=== PATIENT | female | born 1985 | race Caucasian/White ===

== ENCOUNTER 2020-04-18 11:34 | Outpatient (CLI) | payer OTHER, SELFPAY ==
--- NOTE | ~2020-04-18 | CT_ITS ---
EXAMINATION: CT abdomen pelvis wo con DATE: 04/18/2020 12:29 INDICATION: Right ureteral stone TECHNIQUE: Computed tomography (CT) of the abdomen and pelvis was performed without intravenous contr ast. The dose-length product (DLP) was 1173.76 mGy-cm. Automated exposure control and iterative recon struction technique were employed. COMPARISON: Outside hospital CT dated 04/11/2020 FINDINGS: The lung bases are clear. The heart size is normal. A calcified nodule of the left lower lo be is consistent with old granulomatous disease. The liver, spleen, pancreas, gallbladder, and adrena l glands are normal. There is a 7 mm stone of the distal right ureter which causes mild right hydrour eteronephrosis. This has migrated from its location in the proximal ureter since the comparison exami [facility]. A 6 mm stone is present in the lower pole of the right kidney. The left kidney is unremarkabl e. No pathologically enlarged abdominal or pelvic lymph nodes are identified. There is no free intrap eritoneal gas or evidence of bowel obstruction. There is moderate lumbar spondylosis. IMPRESSION: 1. Interval distal migration of a 7 mm stone into the distal right ureter with mild right hydroureter onephrosis. 2. Nonobstructing right nephrolithiasis. Reviewed, dictated and finalized at location A. CAL TRANSCRIPTIONIST IMPRESSION: 1. Interval distal migration of a 7 mm stone into the distal right ureter with mild right hydroureteronephrosis. 2. Nonobstructing right nephrolithiasis.
--- NOTE | ~2020-04-18 | XR_ITS ---
EXAMINATION: XR abdomen/kub 1V INDICATION: Right ureteral stone TECHNIQUE: Supine views of the abdomen were obtained on 4 radiographs. COMPARISON: 05/06/2016 FINDINGS: A 5 mm stone projects in the right pelvis in the expected location of the distal right uret er. The bowel gas pattern is normal. The visualized lung bases are clear. IMPRESSION: 1. Probable 5 mm right distal ureteral stone. Reviewed, dictated and finalized at location A. INING SUPERVISOR
== END 2020-04-18 11:35 ==
PROVIDERS: PCP Internal Medicine; Visit Provider Urology
DX: N20.2 Calculus of kidney with calculus of ureter (principal)
CPT/HCPCS: 74018; 74176

== ENCOUNTER → 2020-04-19 01:24 | Outpatient (CLI) | payer OTHER, SELFPAY ==
[2020-04-19 20:12] LABS: SARS-CoV-2 RNA PCR Negative
== END ==
PROVIDERS: PCP Internal Medicine; Visit Provider Urology
DX: Z01.812 Encounter for preprocedural laboratory examination (principal); Z20.822 Contact with and (suspected) exposure to COVID-19
CPT/HCPCS: C9803; U0003; U0005

== ENCOUNTER 2020-04-20 02:13 | Day surgery (SDC) | payer OTHER, SELFPAY ==
[2020-04-18 18:29] VITALS: BMI 70.0
--- NOTE | ~2020-04-20 | XR_ITS ---
EXAMINATION: XR retrograde pyelo w/stent RT EXAM DATE: 04/20/2020 11:08 INDICATION: Right ureteral stone. TECHNIQUE: Fluoroscopy used during XR retrograde pyelo w/stent RT performed by Dr. Quincy chau MD. The DAP for this procedure was 874 radcm2 FINDINGS: Right ureter was cannulated, injected. A double-J ureteral stent was placed in expected po sition. Correlate with procedure note. IMPRESSION: Fluoroscopy used during XR retrograde pyelo w/stent RT. Reviewed, dictated and finalized at location A. CLE REPAIR TECHNICIAN
[2020-04-20 09:37] VITALS: BP 145/77; PULSE 105; RESP 14; TEMP 36.4; O2SAT 99
--- NOTE | 2020-04-20 10:13 | WPDHPUPDATE1 ---
History and Physical Update Update Date/Time: 04/20/20 10:13 History and Physical has been reviewed, including an updated exam of the patient. There are NO changes in the patient's condition. Risks, benefits, and alternatives have been discussed and questions answered. Patient agrees to proceed with procedure. Plan for cystoscopy, right retrograde pyelogram, right ureteroscopy with stone extraction, possible holmium laser stent placement
[2020-04-20] MEDS: LACTATED RINGERS 1,000 ML 30 ML IV CONT (10:15)
--- NOTE | 2020-04-20 10:16 | WPDANESEPPF ---
Anes - Initial Pre Proc Eval Procedure: Operation Date: 04/20/20 11:30 Proposed Procedures p Cystoscopy, Right Retrograde Pyelogram, Right Ureteroscopy With Stone Extraction, Possible Right Stent Placement - Quincy Devries MD s Possible Holmium Laser Procedure - Quincy Devries MD Date/Time: 04/20/20 10:16 Surgeon: Quincy Devries MD Pre Op Diagnosis: Right Ureteral Stone Patient Data Age: 34 Gender: F Height: 5 ft 6 in Weight: 194 kg Last Vital Signs Temp 97.5 F L 04/20/20 09:37 Pulse 105 H 04/20/20 09:37 Resp 14 04/20/20 09:37 BP 145/77 H 04/20/20 09:37 Pulse Ox 99 04/20/20 09:37 Allergies Allergy/AdvReac Type Severity Reaction Status Date / Time jack flavor Allergy Severe TONGUE AND Verified 04/20/20 09:40 THROAT SWELLING clindamycin Allergy Severe Swelling Verified 04/20/20 09:40 of Lip/Tongue/Throat pseudoephedrine Allergy Severe HIVES Verified 04/20/20 09:40 amoxicillin Allergy Intermediate Rash Verified 04/20/20 09:40 Sulfa (Sulfonamide Allergy Intermediate Rash Verified 04/20/20 09:41 Antibiotics) metronidazole [From Flagyl] Allergy Mild Rash Verified 04/20/20 09:40 cefdinir AdvReac Severe SEVERE Verified 04/20/20 09:40 DIARRHEA/STOMACH PAIN cephalexin AdvReac Mild NAUSEA, Verified 04/20/20 09:40 DIARRHEA ciprofloxacin AdvReac Mild RASH Verified 04/20/20 09:40 doxycycline AdvReac Mild NAUSEA/DIAR Verified 04/20/20 09:40 BEN levofloxacin AdvReac Mild RASH Verified 04/20/20 09:40 Penicillins AdvReac Mild VOMITING Verified 04/20/20 09:40 Home Medications Medication Instructions Recorded Confirmed Type albuterol sulfate [Ventolin HFA] 1 puff INHALATION 2XW 04/18/20 04/20/20 History apixaban [Eliquis] 2.5 mg PO DAILY 04/18/20 04/20/20 History cholecalciferol (vitamin D3) 125 mcg PO DAILY 04/18/20 04/20/20 History [Vitamin D3] diltiazem HCl 240 mg PO DAILY 04/18/20 04/20/20 History ergocalciferol (vitamin D2) 1,250 mcg PO WEEKLY 04/18/20 04/20/20 History levothyroxine 200 mcg PO DAILY 04/18/20 04/20/20 History olmesartan 20 mg PO DAILY 04/18/20 04/20/20 History omeprazole 20 mg PO DAILY 04/18/20 04/20/20 History tamsulosin [Flomax] 0.4 mg PO DAILY 04/18/20 04/20/20 History topiramate 50 mg PO DAILY 04/18/20 04/20/20 History Patient hx anesthesia problems: none Family hx anesthesia problems: none [facility] Past Medical History Medical History (Updated 04/20/20 @ 10:18 by Demar Barroso MD) Asthma GERD (gastroesophageal reflux disease) Hypertension Hypothyroid Family History Family History (Updated 09/28/15 @ 23:19 by DOCTOR UNKNOWN) Grandparent Hypertension Family history of congestive heart failure Family history of hearing loss Father Family history of diabetes mellitus in first degree relative Social History Social History Smoking status: Heavy tobacco smoker Tobacco type: cigarettes Second hand tobacco smoke exposure: Yes Smoking end date: 03/02/11 Additional smoking assessment comments: 1 ppd x 12 years Alcohol intake: current Living arrangements: with family Spiritual care concerns: No Anes - Eval Final PreProcedure Day of Procedure 04/20/20 10:16 Patient weight: super morbidly obese (super super> than 60 BMI) Heart: regular rate and rhythm Lungs: clear to auscultation Airway: Mallampati scale class III Neurological: alert and oriented Last oral intake: >/= 8 hours ASA classification: IV Emergent: no Anesthetic plan: proceed Anesthesia type and monitoring: general LMA and standard monitoring Informed Consent: The patient's anesthetic plan and its attendant risks and benefits were discussed with the patient/family/POA. Questions were solicited and answers provided to the satisfaction of the patient/family/POA.
[2020-04-20] MEDS: ceFAZolin 3 GM/D5W 100 ML 100 ML IVPB (10:44)
[2020-04-20] MEDS: LIDOCAINE HCL 2% GEL UROJET 10 ML PKG MUCOUS MEM (10:50)
--- NOTE | 2020-04-20 11:07 | PM.PROC ---
Procedure Note - Detailed Date of procedure: 04/20/20 Pre-op diagnosis: Right Ureteral Stone Post-op diagnosis: same Procedure performed: Cystoscopy, right retrograde pyelogram, right ureteroscopy with holmium laser, stone extraction, right ureteral stent placement 4.8 Dominican contour Description of procedure: Patient is taken the operative suite and correctly identified. Once anesthesia was obtained she was placed in the dorsal lithotomy position and prepped and draped usual sterile fashion. Twenty-two Dominican scope was inserted urethra. There are no tumors noted. The right orifice was Mead with a guidewire. We dilated with an 8 / 10 dilator. Rigid ureteral scope was then inserted into the orifice. The stone was too large to retrieve 1 piece. Using a 273 micron fiber we fragment the stone into multiple pieces. The largest was sent for analysis. Reinspection revealed no residual stones. Pyelogram was then performed to confirm placement of the stent in the renal pelvis. 4.8 Dominican contour stent was then placed with proximal end coiled pelvis and the distal in bladder. Bladder was drained. 2% viscous lidocaine was inserted urethra patient is taken recovery room stable condition. She will follow up in a week's time for stent removal. Anesthesia: GLMA Surgeon: Quincy Devries MD Drains: Yes Packing: No Pathology: yes Complications: No immediate complications Condition: stable Disposition: PACU
[2020-04-20 11:14] VITALS: BP 126/71; PULSE 88; RESP 19; TEMP 36.4; O2SAT 99
[2020-04-20 11:30] VITALS: BP 125/61; PULSE 80; RESP 18; O2SAT 99
[2020-04-20 11:45] VITALS: BP 126/80; PULSE 87; RESP 16; O2SAT 98
--- NOTE | 2020-04-20 11:49 | SUR.PHASEI ---
PT AWAKE AND ALERT. TALKATIVE. DENIES PAIN. NO NAUSEA.
[2020-04-20 11:55] VITALS: BP 134/70; PULSE 80; RESP 16
[2020-04-20 12:25] VITALS: BP 123/70; PULSE 75; RESP 16
[2020-04-20] MEDS: OXYBUTYNIN CHLORIDE 5 MG TABLET PO (12:49)
--- NOTE | 2020-04-20 13:32 | SUR.PHASEII ---
1245 PT MEETS ANESTHESIA DISCHARGE CRITERIA. PT DRESSED. PT REQUESTING A MEDICATION THAT IS NON-NARCOTIC FOR THE URGENCY SHE IS FEELING. DR MOSES NOTIFIED & OXYBUTININ ORDERED. STATES HE WILL SEND PRESCRIPTION TO PTS PHARMACY FOR OXYBUTININ. 1300 DISCHARGE INSTRUCTIONS GIVEN TO PT & MOTHER. PRESCRIPTION FOR BACTRIM ORDERED AND PT STATES SHE HAS AN ALLERGY TO BACTRIM. PT STATES IT CAUSES A RASH. PT INSISTS ON USING BACTRIM. PT STATES IF SHE DEVELOPS ANY REACTION SHE WILL CALL HER DOCTOR.
== END 2020-04-20 13:01 | disposition home or self-care (01) ==
PROVIDERS: PCP Internal Medicine; Visit Provider Urology
PROC: (CPT 52352; principal; 2020-04-20 11:30)
PROC: (CPT 52356; 2020-04-20 11:30)
DX: N20.1 Calculus of ureter (principal); I10 Essential (primary) hypertension; E03.9 Hypothyroidism, unspecified; J45.909 Unspecified asthma, uncomplicated; K21.9 Gastro-esophageal reflux disease without esophagitis; Z79.01 Long term (current) use of anticoagulants; Z87.891 Personal history of nicotine dependence; E66.01 Morbid (severe) obesity due to excess calories; Z68.44 Body mass index [BMI] 60.0-69.9, adult
CPT/HCPCS: 52356; 74420; 82365; 88300; A9270; C1769; C2617; C9803; J0330; J0690; J1100; J2250; J2405; J2704; J3010; J7120; Q9966; U0003; U0005

== ENCOUNTER → 2020-06-09 07:53 | Outpatient (CLI) | payer OTHER, SELFPAY ==
--- NOTE | ~2020-06-09 | XR_ITS ---
EXAMINATION: XR abdomen/kub 1V INDICATION: Bilateral renal stones TECHNIQUE: Supine views of the abdomen were obtained on 2 radiographs. COMPARISON: 04/18/2020 FINDINGS: No definite urolithiasis is identified. The previously described right distal ureteral ston e is no longer evident. The bowel gas pattern is normal. The lung bases are clear. There is moderate lumbar spondylosis. IMPRESSION: 1. No urolithiasis identified. Reviewed, dictated and finalized at location A.
== END ==
PROVIDERS: Visit Provider Urology
DX: N20.0 Calculus of kidney (principal)
CPT/HCPCS: 74018

== ENCOUNTER 2021-04-12 12:55 | Outpatient (CLI) | payer BC, SELFPAY ==
--- NOTE | ~2021-04-12 | US_ITS ---
EXAMINATION: US venous doppler [facility] EXAM DATE: 04/12/2021 13:27 INDICATION: Acute Deep Vein Thrombosis of left tibial vein. Coagulopathy, Factor V deficiency. TECHNIQUE: Multiple grayscale, color flow and Doppler images of the left lower extremity deep venous system obtained and reviewed. Comparison is made to prior examination from 01/04/2019. FINDINGS: LEFT SIDE Common femoral: -------- Normal. Profunda femoral: ------- Normal. Femoral: Normal. Popliteal: Thrombosed. Posterior tibial: --------- Normal. Peroneal: Normal. Gastrocnemius: Not visualized. Soleus: Not visualized. Greater saphenous: ----- Normal. Lesser saphenous: ------ Not visualized. IMPRESSION: Left popliteal DVT. Reviewed, dictated and finalized at location B. ERSON IMPRESSION: Left popliteal DVT.
== END 2021-04-12 12:56 | disposition home or self-care (01) ==
PROVIDERS: PCP Internal Medicine; Visit Provider Internal Medicine Hematology & Oncology
DX: I82.432 Acute embolism and thrombosis of left popliteal vein (principal)
CPT/HCPCS: 93971

== ENCOUNTER 2021-07-16 10:31 | Outpatient (CLI) | payer BC, SELFPAY ==
--- NOTE | ~2021-07-16 | US_ITS ---
EXAMINATION: US venous doppler [facility] DATE: 07/16/2021 11:32 INDICATION: Acute deep vein thrombosis of tibial vein of left lower extremity. TECHNIQUE: Grayscale ultrasound images without and with compression and Doppler ultrasound images of the left lower extremity veins were obtained. COMPARISON: Ultrasound 04/12/2021 FINDINGS: The visualized portions of left common femoral vein, profunda (deep) femoral vein, femoral vein, popl iteal vein, peroneal veins, posterior tibial veins, and greater saphenous vein outflow are patent. Th ere is subcutaneous edema in the calf. IMPRESSION: 1. No deep venous thrombosis. Reviewed, dictated and finalized at location B.
== END 2021-07-16 10:32 | disposition home or self-care (01) ==
PROVIDERS: PCP Internal Medicine; Visit Provider Internal Medicine Hematology & Oncology
DX: I82.442 Acute embolism and thrombosis of left tibial vein (principal)
CPT/HCPCS: 93971

== ENCOUNTER → 2022-03-10 09:10 | Outpatient (CLI) | payer BC, SELFPAY ==
--- NOTE | ~2022-03-10 | XR_ITS ---
EXAMINATION: XR chest 2V DATE: 03/10/2022 09:41 INDICATION: Wheezing, history of asthma TECHNIQUE: AP and lateral views of the chest are obtained. COMPARISON: None available FINDINGS: The lungs are free of acute opacities. No pleural effusion or pneumothorax. The cardiomedia stinal silhouette is normal. There is mild thoracic spondylosis. IMPRESSION: 1. No acute cardiopulmonary abnormality. Reviewed, dictated and finalized at location B. RALIZATION EXAMINER
--- NOTE | ~2022-03-10 | US_ITS ---
EXAMINATION: US thyroid DATE: 03/10/2022 09:32 INDICATION: Nontoxic goiter. Hypothyroidism. TECHNIQUE: Multiple ultrasound images of the thyroid were obtained. COMPARISON: None. FINDINGS: The right thyroid lobe measures 4.1 x 0.9 x 0.9 cm. The left thyroid lobe measures 4.1 x 1.1 x 1.0 c m. No discrete nodules identified. There is normal echotexture, echogenicity and vascular flow throu ghout the thyroid gland. IMPRESSION: 1. Normal thyroid ultrasound. Reviewed, dictated and finalized at location A. ATRIC DENTIST
== END ==
PROVIDERS: PCP Physician Assistant Medical; Visit Provider Internal Medicine Endocrinology, Diabetes & Metabolism
DX: E04.9 Nontoxic goiter, unspecified (principal); R09.89 Other specified symptoms and signs involving the circulatory and respiratory systems
CPT/HCPCS: 71046; 76536

== ENCOUNTER → 2022-05-23 09:45 | Outpatient (CLI) | payer BC, SELFPAY ==
--- NOTE | ~2022-05-23 | US_ITS ---
EXAMINATION: US soft tissue LE LT DATE: 05/23/2022 09:59 INDICATION: Subcutaneous edema at the proximal left calf with pain TECHNIQUE: Multiple grayscale and Doppler ultrasound images of the region of concern at the anterior left proximal lower leg were obtained. COMPARISON: None FINDINGS: Soft tissue swelling and reticulated pattern of anechoic subcutaneous edema at the region of concern at the proximal left aiken. Larger more discrete anechoic fluid collection within the subcutaneous fat measuring 2.2 x 1.7 x 1.5 cm which is without interval vascular flow on color Doppler or surrounding hyperemia. IMPRESSION: 1. Simple appearing 2.2 x 1.7 x 1.5 cm anechoic fluid collection with surrounding edema in the subcut aneous fat at the anterior proximal left aiken. Differential would include a localized nonloculated co llection of edema, hematoma, seroma or abscess in the appropriate clinical setting. Reviewed, dictated and finalized at location A. IMPRESSION: 1. Simple appearing 2.2 x 1.7 x 1.5 cm anechoic fluid collection with surroundi ng edema in the subcutaneous fat at the anterior proximal left aiken. Differenti al would include a localized nonloculated collection of edema, hematoma, seroma or abscess in the appropriate clinical setting.
== END ==
PROVIDERS: PCP Physician Assistant Medical; Visit Provider Physician Assistant Medical
DX: R60.0 Localized edema (principal); M79.662 Pain in left lower leg
CPT/HCPCS: 76882

== ENCOUNTER 2022-06-02 14:44 | Outpatient (CLI) | payer BC, SELFPAY ==
--- NOTE | ~2022-06-02 | XR_ITS ---
EXAMINATION: XR abdomen/kub 1V INDICATION: Right ureteral stone TECHNIQUE: Supine views of the abdomen were obtained on 2 radiographs. COMPARISON: 06/09/2020 FINDINGS: There is a possible 8 mm stone of the right mid ureter projecting at the level of the right L5 transverse process. The bowel gas pattern is normal. There is moderate lumbar spondylosis. IMPRESSION: 1. Possible 8 mm stone of the right mid ureter. Reviewed, dictated and finalized at location L.
== END 2022-06-02 14:45 | disposition home or self-care (01) ==
LOC: ANHIMG 14:49
PROVIDERS: PCP Physician Assistant Medical; Visit Provider Nurse Practitioner Adult Health
DX: N20.1 Calculus of ureter (principal)
CPT/HCPCS: 74018

== ENCOUNTER 2022-06-05 01:49 | Day surgery (SDC) | payer BC, SELFPAY ==
[2022-06-04 09:55] VITALS: BMI 72.0
--- NOTE | 2022-06-04 10:02 | PC.NURSE ---
Report to the Outpatient Waiting Room, entrance under the green pavilion located off [facility], at time 1345 on date 06/05/22. Planned Procedure Time: 1545. Time changes happen often and if your time is changed the preop area will call you the afternoon before. - You and your visitor will be asked to self-screen and do not enter if you have any COVID symptoms. - Only one visitor is requested with a max of two and NO children visitors are allowed at this time. - The patient visitor may be requested to leave or wait in car when not with patient due to distancing restrictions. - A mask is optional within the hospital at this time. Patients may have clear liquids (water, carbonated beverages, clear teas, apple juice) until 3 hours prior to surgery with a maximum of 20 ounces. - No food from midnight until time of surgery Take the following medications with a SIP of water the morning of surgery: INHALERS IF NEEDED, LEVOTHYROXINE DO NOT STOP ANY OF YOUR OTHER PRESCRIPTION MEDICATIONS PRIOR TO SURGERY EXCEPT THE FOLLOWING Medications to discontinue per physician: ELIQUIS, VITAMINS Date to take last dose: HAVE NOT TAKEN SINCE THURSDAY 06/01 Please no make-up, nail indonesian, hairspray, perfume, deodorant, or body powder the day of surgery. No jewelry (including any body piercings) or valuables the day of surgery, leave them at home. Please take a shower or bath the night before, or the morning of, surgery with an antibacterial soap. Wear comfortable, loose fitting clothing. - Jewelry must be removed prior to entering the operating room. Rings and piercings that are not removed may be cut off. - The hospital will not accept responsibility for valuables. - Please leave all valuables, including medications, at home the day of surgery. If you are going home after surgery, a licensed electric lift truck driver must drive you home. - NO public transportation without another adult if you receive anesthesia. - We recommend that an adult stay with you for 24 hours following discharge. - We also recommend that you do not drive, make important decision, drink alcoholic beverages, or take any drugs that were not prescribed by your health care provider for at least 24 hours after your discharge time. Follow any additional instructions given to you from your surgeon. If you or anyone in your household have experienced Covid symptoms in the past week, please notify your surgeon or the nurse liaison at the phone number below for possible testing. Telephone instructions given to GURU QURESHI and asked if any additional questions and then verbalized understanding. Patient advised to call surgeon office or pre surgery nurse liaison [phone] if any additional questions.
[2022-06-05] VITALS (7 sets, daily range): BP systolic 115–144; BP diastolic 69–89; PULSE 66–89; RESP 16–18; TEMP 36.4–37.2; O2SAT 93–100
--- NOTE | ~2022-06-05 | XR_ITS ---
EXAMINATION: XR retrograde pyelo w/stent RT DATE: 06/05/2022 17:22 INDICATION: Right ureteral stone. TECHNIQUE: 4 intraoperative fluoroscopic views of the abdomen and pelvis were obtained. I was not pre sent. Fluoroscopy exposure time was 37 seconds. COMPARISON: Abdomen radiographs 06/02/2022 FINDINGS: Partially visualized is a stent in the right ureter. IMPRESSION: 1. Partially visualized stent in the right ureter. Reviewed, dictated and finalized at location A.
--- NOTE | 2022-06-05 06:28 | WPDHPUPDATE1 ---
History and Physical Update Update Date/Time: 06/05/22 06:28 History and Physical has been reviewed, including an updated exam of the patient. There are NO changes in the patient's condition. Risks, benefits, and alternatives have been discussed and questions answered. Patient agrees to proceed with procedure.
--- NOTE | 2022-06-05 13:29 | ECG_ITS ---
Measurements Intervals [place] Rate: 65 P: 8 IN: 184 QRS: 16 QRSD: 87 T: 7 QT: 381 QTc: 397 Interpretive Statements SINUS RHYTHM LOW QRS VOLTAGE BORDERLINE ECG NO PREVIOUS ECG AVAILABLE FOR COMPARISON Electronically Signed On 06-06-2022 7:39:49 CDT by Mehran Rodgers M.D.
[2022-06-05] MEDS: LACTATED RINGERS 1,000 ML 30 ML IV CONT (14:45)
--- NOTE | 2022-06-05 15:15 | WPDANESEPPF ---
Anes - Initial Pre Proc Eval Procedure: Operation Date: 06/05/22 15:45 Proposed Procedures p Cystoscopy, Right Ureteroscopy with Right Stone Extraction, Possible Right Retrograde Pyelogram, Possible Right Stent Placement, Possible Holmium Laser - Joss Waite MD Date/Time: 06/05/22 15:15 Surgeon: Joss Waite MD Pre Op Diagnosis: Right Ureteral Stone Patient Data Age: 36 Gender: F Height: 1.7 m Weight: 212.8 kg Last Vital Signs Temp 37.2 C 06/05/22 14:00 Pulse 89 06/05/22 14:00 Resp 16 06/05/22 14:00 BP 132/73 06/05/22 14:00 Pulse Ox 99 06/05/22 14:00 O2 Del Method Room Air 06/05/22 14:00 Allergies Allergy/AdvReac Type Severity Reaction Status Date / Time jack flavor Allergy Severe TONGUE AND Verified 06/04/22 09:50 THROAT SWELLING clindamycin Allergy Severe Swelling Verified 06/04/22 09:50 of Lip/Tongue/Throat pseudoephedrine Allergy Severe HIVES Verified 06/04/22 09:50 amoxicillin Allergy Intermediate Rash Verified 06/04/22 09:50 Sulfa (Sulfonamide Allergy Intermediate Rash Verified 06/04/22 09:50 Antibiotics) metronidazole [From Flagyl] Allergy Mild Rash Verified 06/04/22 09:50 cefdinir AdvReac Severe SEVERE Verified 06/04/22 09:50 DIARRHEA/STOMACH PAIN adhesive tape AdvReac Intermediate Rash Verified 06/04/22 09:50 amitriptyline AdvReac Mild Other Verified 06/05/22 14:09 cephalexin AdvReac Mild NAUSEA, Verified 06/04/22 09:50 DIARRHEA ciprofloxacin AdvReac Mild RASH Verified 06/04/22 09:50 doxycycline AdvReac Mild NAUSEA/DIAR Verified 06/04/22 09:50 BEN levofloxacin AdvReac Mild RASH Verified 06/04/22 09:50 metformin AdvReac Mild constipatio Verified 06/05/22 14:09 n Penicillins AdvReac Mild VOMITING Verified 06/04/22 09:50 Oral contraceptive pills AdvReac Intermediate Other Uncoded 06/05/22 14:09 Home Medications Medication Instructions Recorded Confirmed Type cholecalciferol (vitamin D3) 125 125 mcg PO DAILY 04/18/20 06/05/22 History mcg (5,000 unit) tablet (Vitamin D3) levothyroxine 25 mcg tablet See Rx Instructions .Route 12/25/21 06/05/22 Rx .COMPLEX #90 tabs Ventolin HFA 90 mcg/actuation 2 puff inhalation Q4-6H PRN 01/27/22 06/05/22 Rx aerosol inhaler (albuterol sulfate) shortness of breath or wheezing #18 grams apixaban 5 mg tablet 5 mg PO BID 01/27/22 06/05/22 History omeprazole 20 mg capsule,delayed See Rx Instructions .Route .COMPLEX 01/27/22 06/05/22 History release diltiazem HCl 240 mg See Rx Instructions .Route 03/21/22 06/05/22 Rx capsule,extended release 24 hr .COMPLEX #90 caps ergocalciferol (vitamin D2) 1,250 See Rx Instructions .Route 03/21/22 06/05/22 Rx mcg (50,000 unit) capsule .COMPLEX #12 caps olmesartan 20 mg tablet See Rx Instructions .Route 03/21/22 06/05/22 Rx .COMPLEX #90 tabs fluticasone 500 mcg-salmeterol 50 1 inh inhalation Q12H #60 ea 04/03/22 06/05/22 Rx mcg/dose blistr powdr for inhalation (Advair Diskus) levothyroxine 200 mcg tablet 200 mcg PO DAILY #90 tabs 04/03/22 06/05/22 Rx topiramate 50 mg tablet See Rx Instructions .Route 04/03/22 06/05/22 Rx .COMPLEX #90 tabs cyanocobalamin (vitamin B-12) See Rx Instructions .Route 04/09/22 06/04/22 Rx 1,000 mcg/mL injection solution .COMPLEX #12 mL syringe with needle 1 mL 25 gauge #12 ea 04/09/22 05/15/22 Rx x 5/8 (BD Tuberculin Syringe) semaglutide 1 mg/dose (4 mg/3 mL) 1 mg (0.75 mL) subcut WEEKLY #3 mL 05/15/22 06/05/22 Rx subcutaneous pen injector (Ozempic) fexofenadine 180 mg tablet 180 mg PO DAILY 06/04/22 06/05/22 History hydrocodone 5 mg-acetaminophen 325 1 tablet PO Q6H PRN Pain 06/04/22 06/05/22 History mg tablet ondansetron 4 mg disintegrating 4 mg PO Q6H PRN Nausea 06/04/22 06/05/22 History tablet tamsulosin 0.4 mg capsule 0.4 mg PO DAILY 06/04/22 06/05/22 History Patient hx anesthesia problems: none Family hx anesthesia problems: none Results Review: All pr
[2022-06-05] MEDS: GENTAMICIN SULFATE INJ 120 MG in DEXTROSE 5% 100 ML 100 MG IVPB (16:02)
--- NOTE | 2022-06-05 17:12 | P.OP_ITS ---
Procedure Note - Detailed Date of Procedure 06/05/22 Pre-op Diagnosis Right Ureteral Stone Post-op Diagnosis Same Procedure Performed cystoscopy, right ureteroscopy with laser lithotripsy right ureteral stone, stone extraction and stent placement Surgeon Joss Waite MD Anesthesia General Description of Procedure Patient brought to the operative suite where she has prepped draped in routine sterile fashion while in dorsal lithotomy position. Cystoscopy is undertaken with the 19 F rigid cystoscope. Bladder neck and urethra endoscopically normal. Bladder mucosa is normal. There was no intravesical foreign body or neoplasm. 0.035 in glidewire was advanced into her right renal pelvis and the distal ureter was dilated with an 8 F 10 F dilator. Ureteroscopy was undertaken with a short tapered semi-rigid ureteral scope. Her 8-9 mm right mid ureteral calculus is identified. Using the holmium laser on the dusting mode it is fractured in the a few small pieces and dust. All sizable pieces were removed with a 1.9 F disposable stone basket. I did place a 4.8 F variable length ureteral stent w ith the string hanging out the urethra. Scopes and wires removed the patient was taken recovery room good condition. Estimated Blood Loss 0 Drains Yes Complications No immediate complications
[2022-06-05] MEDS: fentaNYL CITRATE INJ (*CRX) 100 MCG/2 ML VIAL 25 MCG IV PUSH ×2 (17:32→17:37)
[2022-06-05] MEDS: oxyCODONE HCL (*CRX) 5 MG TAB IR PO (18:06)
[2022-06-05] MEDS: HYOSCYAMINE SULFATE 0.125 MG TABLET PO (18:17)
== END 2022-06-05 18:43 | disposition home or self-care (01) ==
PROVIDERS: PCP Physician Assistant Medical; Visit Provider Urology
PROC: (CPT 52352; principal; 2022-06-05 15:45)
DX: N20.1 Calculus of ureter (principal); D68.51 Activated protein C resistance; E72.12 Methylenetetrahydrofolate reductase deficiency; E28.2 Polycystic ovarian syndrome; I10 Essential (primary) hypertension; E03.9 Hypothyroidism, unspecified; K21.9 Gastro-esophageal reflux disease without esophagitis; J45.909 Unspecified asthma, uncomplicated; E53.8 Deficiency of other specified B group vitamins; Z86.718 Personal history of other venous thrombosis and embolism; E66.01 Morbid (severe) obesity due to excess calories; Z68.45 Body mass index [BMI] 70 or greater, adult; Z79.51 Long term (current) use of inhaled steroids; Z79.01 Long term (current) use of anticoagulants; Z79.899 Other long term (current) drug therapy; F17.210 Nicotine dependence, cigarettes, uncomplicated
CPT/HCPCS: 52356; 74420; 82365; 88300; 93005; A9270; C1769; C2617; J1100; J1580; J2250; J2405; J2704; J3010; J7120

== ENCOUNTER 2022-06-21 09:57 | Outpatient (CLI) | payer BC, SELFPAY ==
--- NOTE | ~2022-06-21 | XR_ITS ---
EXAM: XR abdomen/kub 1V DATE: 06/21/2022 10:37 HISTORY: Right ureteral stone . COMPARISON: 06/02/2022. FINDINGS: Radiographic sensitivity limited by body habitus. Subsegmental left basilar airspace opaci ties and possible mild costophrenic angle blunting. Normal bowel gas pattern. No organomegaly. No abn ormal abdominal calcification. Degenerative changes in the spine. IMPRESSION: No radiographic evidence of nephrolithiasis. Atelectasis/consolidation in the left lung b ase with possible small left effusion, consider chest radiography for better evaluation. Reviewed, dictated and finalized at location K. IMPRESSION: No radiographic evidence of nephrolithiasis. Atelectasis/consolidat ion in the left lung base with possible small left effusion, consider chest rad iography for better evaluation.
== END 2022-06-21 09:58 ==
LOC: MICIMG 09:58
PROVIDERS: PCP Physician Assistant Medical; Visit Provider Nurse Practitioner Adult Health
DX: N20.1 Calculus of ureter (principal)
CPT/HCPCS: 74018

== ENCOUNTER 2022-06-26 10:43 | Outpatient (CLI) | payer BC, SELFPAY ==
--- NOTE | ~2022-06-26 | CT_ITS ---
Non-contrast CT scan of the Abdomen and Pelvis Clinical indication: Abdominal pain Technique: 2.5 mm axial scans were obtained through the abdomen and pelvis without intravenous or or al contrast. Dose reduction technique was used on this scan by utilizing automated exposure control a nd iterative reconstruction technique. The dose-length product (DLP) was 1212.17 mGy-cm. COMPARISON: 04/18/2020 Findings: Images through the lung bases reveal no abnormalities. There is no evidence of renal or ureteral calculi. The kidneys and the ureters are nondilated. The liver, spleen, pancreas, and adrenals appear normal. Questionable gallstones. There is no aortic aneurysm. There is no evidence of bowel obstruction. Images through the pelvis were performed. There is no evidence of ascites or lymphadenopathy. Urinary bladder unremarkable. No adnexal mass seen. Impression: Questionable gallstones. Consider ultrasound to further evaluate. No renal, ureteral, or bladder stone. No hydronephrosis. Reviewed, dictated and finalized at [facility]. Impression: Questionable gallstones. Consider ultrasound to further evaluate. No renal, ureteral, or bladder stone. No hydronephrosis.
== END 2022-06-26 10:44 ==
PROVIDERS: PCP Physician Assistant Medical; Visit Provider Urology
DX: N20.0 Calculus of kidney (principal)
CPT/HCPCS: 74176

== ENCOUNTER 2022-08-11 12:34 | Outpatient (CLI) | payer BC, SELFPAY ==
--- NOTE | ~2022-08-11 | US_ITS ---
EXAMINATION:US venous doppler LE LT INDICATION:Acute deep venous thrombosis TECHNIQUE: Multiple grayscale, color flow and Doppler images of the left lower extremity deep venous systems were obtained and reviewed. COMPARISON:Ultrasound dated 05/23/2022 FINDINGS: The common femoral, superficial femoral and popliteal veins demonstrate normal respiratory variation, augmentation and compressibility. Color flow is also seen within the posterior tibial, pe roneal, greater saphenous and profunda veins. There is a stable simple fluid collection in the left s hin and the area of erythema measuring 1.8 x 1.7 x 1.6 cm. IMPRESSION: 1: No lower extremity deep venous thrombosis. 2: Decreased size of simple fluid collection left aiken soft tissues measuring up to 1.8 cm, most lik reggie posttraumatic hematoma or seroma. Infection less favored although not excluded. Reviewed, dictated and finalized at location [] IMPRESSION: 1: No lower extremity deep venous thrombosis. 2: Decreased size of simple fluid collection left aiken soft tissues measuring up to 1.8 cm, most likely posttraumatic hematoma or seroma. Infection less favo red although not excluded.
== END 2022-08-11 12:35 | disposition home or self-care (01) ==
PROVIDERS: PCP Physician Assistant Medical; Visit Provider Internal Medicine Hematology & Oncology
DX: I82.442 Acute embolism and thrombosis of left tibial vein (principal)
CPT/HCPCS: 93971

== ENCOUNTER 2023-03-24 10:15 | Outpatient (CLI) | payer BC, SELFPAY ==
--- NOTE | ~2023-03-24 | NM_ITS ---
EXAMINATION: NM hepatobiliary wo pharm DATE: 03/24/2023 12:54 INDICATION: Right upper, and abdominal pain COMPARISON: CT dated 06/26/2022 TECHNIQUE: 5.029 mCi Tc-99m mebrofenin (Choletec) was administered intravenously. Scintigraphic imag es of the abdomen were obtained for one hour. At the 1 hour time point, the patient drank 8 oz Ensure , and imaging was continued for 60 minutes. Gallbladder ejection fraction was calculated by the techn ologist. FINDINGS: There is normal clearance of radiotracer from the blood pool. There is homogeneous tracer u ptake by the liver. Activity progresses to the bowel and gallbladder. The gallbladder ejection fract ion (GBEF) is 58%. Note that with this technique, normal GBEF >= 33%. IMPRESSION: 1. Normal hepatobiliary scan. Reviewed, dictated and finalized at location A. ENTICE EMBALMER
== END 2023-03-24 10:16 | disposition home or self-care (01) ==
LOC: ANHIMG 10:16
PROVIDERS: PCP Physician Assistant Medical; Visit Provider Physician Assistant Medical
DX: R10.11 Right upper quadrant pain (principal)
CPT/HCPCS: 78226; A9537

== ENCOUNTER 2023-04-28 10:09 | Outpatient (CLI) | payer BC, SELFPAY ==
[2023-04-28 10:22] LABS: Basophils Percent Auto 0.3 % (0.2-1.2); Eosinophils Percent Auto 0.2 % (0-4.4); Hematocrit 43.8 % (37.0-47.0); Hemoglobin 13.4 g/dL (12.0-15.0); Immature Granulocyte Absolute 0.08 K/mm3 (0.00-0.031); Immature Granulocyte Percent A 0.7 % (0-0.5); Lymphocytes Absolute Auto 1.84 K/mm3 (0.9-3.2); Lymphocytes Percent Auto 15.9 % (18.3-44.2); Mean Corpuscular HGB Conc 30.6 g/dl (32-36); Mean Corpuscular Volume 91.6 fl (80-100); Mean Platelet Volume 10.1 fl (7.4-10.4); Monocytes Percent Auto 8.6 % (2.6-8.5); Neutrophils Absolute Auto 8.6 K/mm3 (1.3-6.7); Neutrophils Percent Auto 74.3 % (45.5-73.1); Platelet Count Result 320 k/mm3 (150-375); Red Blood Count 4.78 M/mm3 (4.2-5.4); Red Cell Distribution Width 15.3 % (11.5-14.5); White Blood Count 11.6 K/mm3 (4.5-10.0)
[2023-04-28 10:27] LABS: Blood Urea Nitrogen 8 mg/dL (8-26); Carbon Dioxide 22 mmol/L (22-30); Chloride 107 mmol/L (98-109); Estimated Glomerular Filt Rate > 60; Glucose 99 mg/dL (70-105); Ionized Calcium (POC) 1.22 mmol/L (1.11-1.31); Potassium 4.2 mmol/L (3.5-4.9); Sodium 141 mmol/L (138-146)
[2023-04-28 12:38] LABS: Alanine Aminotransferase 19 U/L (6-35); Albumin Level 3.8 g/dL (3.5-5.1); Alkaline Phosphatase 68 U/L (38-126); Anion Gap 6 mmol/L (8-16); Aspartate Amino Transferase 15 U/L (14-36); Bilirubin,Total 0.5 mg/dL (0.2-1.3); Blood Urea Nitrogen 9 mg/dL (7-17); Calcium 9.4 mg/dL (8.4-10.2); Carbon Dioxide 21 mmol/L (22-30); Chloride 111 mmol/L (98-107); Estimated Glomerular Filt Rate > 60; Glucose 101 mg/dL (65-110); Potassium 4.2 mmol/L (3.4-5.0); Sodium 138 mmol/L (137-145)
== END 2023-04-28 10:10 | disposition home or self-care (01) ==
LOC: ANHLAB 10:12
PROVIDERS: PCP Physician Assistant Medical; Visit Provider Internal Medicine Hematology & Oncology
DX: Z86.718 Personal history of other venous thrombosis and embolism (principal)
CPT/HCPCS: 36415; 80047; 80053; 85025

== ENCOUNTER 2023-07-14 14:10 | Observation (INO) | payer BC, SELFPAY ==
[2023-07-14] VITALS (10 sets, daily range): BP systolic 119–173; BP diastolic 52–83; PULSE 77–100; RESP 14–27; TEMP 36.5–37.1; O2SAT 96–100
--- NOTE | ~2023-07-14 | XR_ITS ---
EXAMINATION: XR chest 2V Exam Date/Time: 07/14/2023 14:51 CDT HISTORY: SWELLING TO LEGS AND ABDOMEN AND SOB Comparison: 03/10/2022. RESULT: Lines, tubes, and devices: None. Lungs and pleura: Limited lateral view, otherwise clear. Cardiomediastinal silhouette: Stable. Other: No acute osseous or upper abdominal finding. IMPRESSION: No acute cardiopulmonary process. Reviewed, dictated and finalized at location K.
--- NOTE | ~2023-07-14 | US_ITS ---
EXAMINATION: US venous doppler [facility] DATE: 07/14/2023 15:43 INDICATION: Lower limb pain and swelling. TECHNIQUE: Grayscale ultrasound images without and with compression and Doppler ultrasound images of the bilateral lower extremity veins were obtained. COMPARISON: Ultrasound 08/11/2022 FINDINGS: The visualized portions of right common femoral vein, profunda (deep) femoral vein, femoral vein, pop liteal vein, and greater saphenous vein outflow are patent. The calf veins are not well visualized. The visualized portions of left common femoral vein, profunda femoral vein, femoral vein, popliteal v ein, and greater saphenous vein outflow are patent. The calf veins are not well visualized. IMPRESSION: 1. No deep venous thrombosis. Reviewed, dictated and finalized at location A.
--- NOTE | 2023-07-14 14:30 | ECG_ITS ---
SEE SCANNED COPY FOR CONFIRMED REPORT MTDD
[2023-07-14 15:30] LABS: Basophils Absolute Auto 0.1 K/mm3 (0.0-0.1); Basophils Percent Auto 0.8 % (0.2-1.2); Eosinophils Absolute Auto 0.5 K/mm3 (0-0.3); Eosinophils Percent Auto 6.7 % (0-4.4); Hematocrit 38.1 % (37.0-47.0); Hemoglobin 11.9 g/dL (12.0-15.0); Immature Granulocyte Absolute 0.03 K/mm3 (0.00-0.031); Immature Granulocyte Percent A 0.4 % (0-0.5); Lymphocytes Absolute Auto 2.21 K/mm3 (0.9-3.2); Lymphocytes Percent Auto 28.9 % (18.3-44.2); Mean Corpuscular HGB Conc 31.2 g/dl (32-36); Mean Corpuscular Hemoglobin 27.9 pg (26-34); Mean Corpuscular Volume 89.4 fl (80-100); Mean Platelet Volume 10.1 fl (7.4-10.4); Monocytes Absolute Auto 0.6 K/mm3 (0.1-0.6); Monocytes Percent Auto 7.8 % (2.6-8.5); Neutrophils Absolute Auto 4.2 K/mm3 (1.3-6.7); Neutrophils Percent Auto 55.4 % (45.5-73.1); Platelet Count Result 326 k/mm3 (150-375); Red Blood Count 4.26 M/mm3 (4.2-5.4); Red Cell Distribution Width 16.1 % (11.5-14.5); White Blood Count 7.7 K/mm3 (4.5-10.0)
[2023-07-14 15:42] LABS: Alanine Aminotransferase 17 U/L (6-35); Albumin Level 3.6 g/dL (3.5-5.1); Alkaline Phosphatase 61 U/L (38-126); Anion Gap 6 mmol/L (4-12); Aspartate Amino Transferase 18 U/L (14-36); Bilirubin,Total 0.5 mg/dL (0.2-1.3); Blood Urea Nitrogen 7 mg/dL (7-17); Calcium 8.9 mg/dL (8.4-10.2); Carbon Dioxide 21 mmol/L (22-30); Chloride 111 mmol/L (98-107); Estimated CRCL calculation 178 ml/min; Estimated Glomerular Filt Rate > 60; Glucose 99 mg/dL (65-110); Sodium 138 mmol/L (137-145)
[2023-07-14 15:53] LABS: NT Pro B Type Natriuretic Pept 92 pg/mL (19.9-100); Troponin I < 0.012 ng/mL (0.000-0.034)
[2023-07-14 15:54] LABS: INR 1.1; Prothrombin Time 14.7 Seconds (11.1-14.7)
--- NOTE | 2023-07-14 16:16 | PC.NURSE ---
Pt to CT via stretcher on tele and O2 monitor
[2023-07-14] MEDS: FUROSEMIDE INJ 40 MG/4 ML VIAL IV PUSH (17:27)
--- NOTE | 2023-07-14 17:44 | ED.GENADULT ---
HPI - General Adult General Chief complaint: Extremity Problem,Nontraumatic Stated complaint: B/L LE and abdominal swelling Time Seen by Provider: 07/14/23 14:36 History of Present Illness HPI narrative: patient is a 37-year-old female who presents emergency department with chief complaint of increasing peripheral edema the patient reports that she has also had swelling in her lower abdomen reports 15-20 lb weight gain over the last month. The patient states she 1st noticed this last Thursday does report that she does have a cyst on her kidney. The patient reports that she has had some shortness of breath with this as well. Patient also reports prior history of factor 5 Leiden and has had a DVT before in the past. Related Data Home Medications Medication Instructions Recorded Confirmed cholecalciferol (vitamin D3) 125 125 mcg PO DAILY 04/18/20 03/18/23 mcg (5,000 unit) tablet (Vitamin D3) apixaban 5 mg tablet 5 mg PO BID 01/27/22 03/18/23 fexofenadine 180 mg tablet 180 mg PO DAILY 06/04/22 03/18/23 fluticasone 500 mcg-salmeterol 50 1 inh inhalation Q12H 03/18/23 03/18/23 mcg/dose blistr powdr for inhalation (Wixela Inhub) Allergies Allergy/AdvReac Type Severity Reaction Status Date / Time jack flavor Allergy Severe TONGUE AND Verified 07/14/23 14:14 THROAT SWELLING clindamycin Allergy Severe Swelling Verified 07/14/23 14:14 of Lip/Tongue/Throat pseudoephedrine Allergy Severe HIVES Verified 07/14/23 14:14 amoxicillin Allergy Intermediate Rash Verified 07/14/23 14:14 Sulfa (Sulfonamide Allergy Intermediate Rash Verified 07/14/23 14:14 Antibiotics) cefdinir AdvReac Severe SEVERE Verified 07/14/23 14:14 DIARRHEA/STOMACH PAIN adhesive tape AdvReac Intermediate Rash Verified 07/14/23 14:14 amitriptyline AdvReac Mild Other Verified 07/14/23 14:14 cephalexin AdvReac Mild NAUSEA, Verified 07/14/23 14:14 DIARRHEA ciprofloxacin AdvReac Mild RASH Verified 07/14/23 14:14 doxycycline AdvReac Mild NAUSEA/DIAR Verified 07/14/23 14:14 BEN levofloxacin AdvReac Mild RASH Verified 07/14/23 14:14 metformin AdvReac Mild constipatio Verified 07/14/23 14:14 n Penicillins AdvReac Mild VOMITING Verified 07/14/23 14:14 Oral contraceptive pills AdvReac Intermediate Other Uncoded 07/14/23 14:14 Review of Systems Review of Systems: A 10 system review of systems was completed on the patient and is negative except for what is stated in the HPI. Nursing and ancillary documentation was reviewed. 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 requires lifelong anticoag Metabolic syndrome MTHFR gene mutation Obesity, morbid PCOS (polycystic ovarian syndrome) Recurrent UTI PRN macrobid 100 mg BID x 7 days Smoker Vitamin B12 deficiency Surgical History Surgical History No pertinent past surgical history Family History Family History Grandparent Hypertension Family history of congestive heart failure Family history of hearing loss Father Family history of diabetes mellitus in first degree relative Social History Social History Smoking packs per day: 0.75 Smoking cigarettes per day: 15.0 Years smoked: 16 Smoking pack-years: 12.00 Smoking status: Current every day smoker Tobacco type: cigarettes Second hand tobacco smoke exposure: Yes Smoking end date: 03/02/11 Additional smoking assessment comments: 1 ppd x 12 years Alcohol intake: never Alcohol use details: rarely - once or twice maybe a year Substance use: never
--- NOTE | 2023-07-14 18:54 | PM.IMHP ---
H&P: HPI History of Present Illness Date/Time: 07/14/23 20:00 Chief Complaint: Swelling in legs and abdomen. Narrative: This is a pleasant 37-year-old female smoker with morbid obesity, asthma, factor 5 Leiden and MTHFR mutation on chronic anticoagulation, deep venous thrombosis, hypertension, metabolic syndrome, hypothyroidism, and polycystic ovarian syndrome who presented to the emergency department for evaluation of swelling in her legs and abdomen. The patient provides the following history. She always has swelling in her legs however over the past month they have become increasingly swollen up into the abdomen. She has gained almost 20 lb in the same time frame. She is starting to feel more short of breath with activity and occasionally has some heaviness in the chest which she feels is due to the shortness of breath. Sometimes at night she wakes up in feels as though ?my throat is constricted? and it is not unusual for her to have a mild headache upon waking in the morning. She falls asleep easily, sometimes while sitting at her desk. She has no known history of sleep apnea, kidney disease, or congestive heart failure. She denies syncope, near syncope, exertional chest pain, pleuritic pain, palpitations, sensations of racing heart, nausea, vomiting, and sweats. She called her doctor to make an appointment for these symptoms and was instead referred to the emergency department. In the ED: She was afebrile on arrival with stable vital signs. SpO2 has been in the upper 90s on room air. CMP and CBC were pretty unremarkable without significant abnormalities. Troponin was less than 0.012 and proBNP was 92. Lower extremity venous Doppler ultrasounds were negative for DVT. Chest x-ray showed no acute cardiopulmonary process. She was given 40 mg IV furosemide and we were asked to admit her in this setting for further treatment and evaluation of the edema and weight gain. Review of Systems Review of Systems: 12 systems were reviewed. No recent cold or flu symptoms. She is trying to quit smoking so she can have bariatric surgery. Previously tried Ozempic but could not tolerate due to GI upset. Recent TSH was reportedly within normal limits. Last menstrual period was about a week ago. Except as documented, all other systems were reviewed and are negative. [facility] Past Medical History Medical History (Updated 07/14/23 @ 23:19 by Shakila Galindo PA-C) Asthma Chronic anticoagulation Deep venous thrombosis Factor V Leiden Gastroesophageal reflux disease History of recurrent UTIs Hypertension Hypothyroidism Metabolic syndrome Morbid obesity MTHFR gene mutation Polycystic ovarian syndrome Vitamin B12 deficiency Surgical History Surgical History (Updated 07/14/23 @ 18:57 by Shakila Galindo PA-C) History of nephrolithotomy with removal of calculi Family History Family History Grandparent Hypertension Family history of congestive heart failure Family history of hearing loss Father Family history of diabetes mellitus in first degree relative Social History Social History (Updated 07/14/23 @ 23:15 by Shakila Galindo PA-C) Social History: Surrogate medical decision maker: Sofia Gary, mother. Code status: Full code. Smoking packs per day: 1 Smoking cigarettes per day: 20.0 Years smoked: 16 Smoking pack-years: 16.00 Smoking status: Current every day smoker Tobacco type: cigarettes Second hand tobacco smoke exposure: Yes Alcohol intake: never Alcohol use details: rarely - once or twice maybe a year Substance use: never Substance use type: does not use Do You Feel Safe in your Home?: Yes Lack of Transportation: No Lack of Food: Never True Current Housing: I Have Housing Concerned About Future Housing: No Difficulty Paying Gas/Electric Bills: No Difficulty Paying for Meds: No Currently Unemployed: No Education: High School Di
--- NOTE | 2023-07-14 19:15 | ADMGEN ---
This patient, Meghna Gary, was admitted to Medical Room 257-01. Patient/family oriented to hospital policies and general routines including ID bracelet, bed and alarms, visiting hours, pain management, procedures, bathroom and other care routines, personal items, smoking policy, room service/diet, and visiting hours. Information on how to activate the Rapid Response Team has been discussed. Patient/Family are encouraged to report perceived risks to care and to ask questions if they do not understand what they are told or what they should do.
[2023-07-14] MEDS: TOPIRAMATE 25 MG TABLET 50 MG PO (23:49)
[2023-07-14] MEDS: OLMESARTAN MEDOXOMIL 20 MG TABLET PO (23:49)
[2023-07-14] MEDS: dilTIAZem HCL CD 240 MG CAP.24HR PO (23:49)
[2023-07-14] MEDS: LORATADINE 10 MG TABLET PO (23:49)
[2023-07-14] MEDS: APIXABAN 5 MG TABLET PO (23:49)
[2023-07-14] MEDS: ACETAMINOPHEN 325 MG TABLET 650 MG PO (23:54)
[2023-07-15] VITALS (13 sets, daily range): BP systolic 110–138; BP diastolic 47–96; PULSE 64–108; RESP 17–20; TEMP 36.6–36.7; O2SAT 98–100
--- NOTE | 2023-07-15 06:00 | ECHO_ITS ---
Patient Info Name: Meghna Gary Age: 37 years : 1985 Gender: Female Ht: 68 in Wt: 516 lbs BSA: 3.52 m2 HR: 78 bpm BP: 119 / 52 mmHg Heart Rhythm: Sinus Rhythm Technical Quality: Fair Exam Date: 07/15/2023 8:03 AM Exam Location: Echo Lab Patient Status: Inpatient Admit Date: 07/14/2023 Staff Ordering Physician: Ariel Ty MD Fender Finisher: Ronald Kellogg RDCS Attending Provider: Tomasa Givens MD Referring Physician: Melony HOLDER; Exam Type: CA echo doppler color flow Study Info Indications R60.9 - Edema, unspecified Complete two-dimensional, color flow and Doppler transthoracic echocardiogram is performed with contrast to opacify the left ventricle and to improve the deliniation of the left ventricle endocardial borders. Contrast/Agitated Saline Contrast/Ag. Saline: Definity Amount: 3.00 ml IV Access Condition: patent with no signs of infiltration Summary 1. Left ventricular chamber dimension is normal. 2. Left ventricular systolic function is normal, estimated at >70%. 3. There is mildly increased left ventricular wall thickness. 4. The left ventricular diastolic function is grade I diastolic dysfunction. 5. Right ventricular systolic function is normal. 6. No significant valvular disease. Left Ventricle Left ventricular chamber dimension is normal. Left ventricular systolic function is normal, estimated at >70%. There is mildly increased left ventricular wall thickness. The left ventricular diastolic function is grade I diastolic dysfunction. Right Ventricle Right ventricular chamber dimension is normal. Right ventricular systolic function is normal. Left Atria Left atrial chamber dimension is normal. Right Atria Right atrial chamber dimension is normal. Atrial Septum Intact interatrial septum visualized by color flow imaging. Aortic Valve The aortic valve is probable trileaflet. There is no aortic valve stenosis. There is no aortic valve regurgitation. Pulmonic Valve The pulmonic valve is not well visualized. Mitral Valve There is trace mitral valve regurgitation. Tricuspid Valve There is trace tricuspid valve regurgitation. Pericardium/Pleural The pericardium appears epicardial fat pad. There is no pericardial effusion. Inferior Vena Cava Inferior vena cava is not well visualized. Aorta The aortic root size at the sinus of Valsalva is not well visualized. Report Signatures
[2023-07-15] MEDS: LEVOTHYROXINE SODIUM 150 MCG TABLET 300 MCG PO (06:19)
[2023-07-15 06:30] LABS: Anion Gap 4 mmol/L (4-12); Blood Urea Nitrogen 9 mg/dL (7-17); Calcium 8.5 mg/dL (8.4-10.2); Carbon Dioxide 24 mmol/L (22-30); Chloride 111 mmol/L (98-107); Estimated CRCL calculation 160 ml/min; Estimated Glomerular Filt Rate > 60; Glucose 101 mg/dL (65-110); Magnesium 1.9 mg/dL (1.6-2.3); Potassium 3.5 mmol/L (3.4-5.0); Sodium 139 mmol/L (137-145)
--- NOTE | 2023-07-15 08:38 | PM.IMPN ---
Progress Note: A&P Assessment and Plan (1) Anasarca: Code(s): R60.1 - Generalized edema Status: Acute (2) Suspected sleep apnea: Code(s): R29.818 - Other symptoms and signs involving the nervous system Status: Acute (3) Chronic anticoagulation: Code(s): Z79.01 - senior living (current) use of anticoagulants Status: Acute (4) Morbid obesity: Code(s): E66.01 - Morbid (severe) obesity due to excess calories Status: Acute (5) Hypothyroidism: Code(s): E03.9 - Hypothyroidism, unspecified Status: Acute (6) Hypertension: Code(s): I10 - Essential (primary) hypertension Status: Acute (7) Tobacco dependence: Code(s): F17.200 - Nicotine dependence, unspecified, uncomplicated Status: Acute Plan Anasarca Edema BLE and ABD Echo pending IV lasix BNP 92 Obesity encourage increased on physical activity and lifestyle modifications Stress monitoring and eating disorder evaluation. encourage outpatient weight loss clinic BMI . Diet exercise counseling done. consult to dietitian Smoking ? smoking cessation education ? nicotine patch daily ? remove at night HX: Factor V Resumed eliquis HX HTN: Resumed home medications HX Asthma: PRN inhalers Code status: Full code per patient DVT prophylaxis: Eliquis Stress ulcer prophylaxis: Protonix 40 daily PT/OT notes: Ambulatory Disposition: Patient admitted to medical unit for anasarca continue IV diuretics pending echocardiogram if no events overnight can likely discharge back to home tomorrow. Patient ambulatory follow-up with PCP outpatient. Time Spent With Patient Time with patient: 15 - 25 minutes Subjective Date/time seen: 07/15/23 08:38 Interval history: 07/14: Assumed Care Patient up to chair mild edema BLE, denies SOB or CP. Will continue with IV lasix pending echo plan for discharge tomorrow after one more day of diuresis. Review of Systems Review of Systems: 12 systems were reviewed. No recent cold or flu symptoms. She is trying to quit smoking so she can have bariatric surgery. Previously tried Ozempic but could not tolerate due to GI upset. Recent TSH was reportedly within normal limits. Last menstrual period was about a week ago. Except as documented, all other systems were reviewed and are negative. All systems reviewed & are unremarkable except as noted in HPI and below Exam Narrative: General: Well-developed, morbidly obese female sitting up in bed in no acute distress. Weight: 234.1 kg. BMI: 78.5. HEENT: Normocephalic, atraumatic. PERRL, EOMI. Sclera anicteric. Oral mucosa moist. Oropharynx is crowded. Neck: Supple. Exam limited due to neck circumference. No obvious JVD or thyromegaly. Respiratory: Respirations are nonlabored and lungs are clear to auscultation. Cardiovascular: Regular rate and rhythm with S1-S2. No murmur, rub, or gallop. Gastrointestinal: Abdomen is morbidly obese and nontender with positive bowel sounds. Skin: Warm and dry. Erythema of the lower legs due to swelling. Extremities: No cyanosis or clubbing. Pitting edema to the thighs and lower abdomen. Arms and hands are swollen but nonpitting. Neurological: Alert. Cranial nerves 2-12 are grossly intact. No gross focal deficits to casual conversation. Psychiatric: Pleasant and cooperative with normal mood and affect. Judgment and insight intact. She is in good spirits. Objective Data Vital Signs Vital Signs: Vital Signs - 24 hr 07/14/23 15:05 07/14/23 17:02 07/14/23 17:28 Temperature 97.8 F Pulse Rate 92 88 95 Respiratory Rate 27 H 14 19 Blood Pressure 157/78 H 149/79 H 127/78 Pulse Oximetry 97 100 96 Oxygen Delivery Room Air Fraction of Inspired Oxygen 07/14/23 15:13 07/14/23 18:58 07/14/23 19:21 Temperature 98.6 F 98.7 F Pulse Rate 92 100 90 Respiratory Rate 25 H 18 Blood Pressure 173/83 H 121/65 Pulse Oximetry
[2023-07-15] MEDS: FLUTICASONE/SALMETEROL 230-21 MCG INHALER 1 PUFF 2 PUFF INHALATION ×2 (09:00→21:11)
[2023-07-15] MEDS: APIXABAN 5 MG TABLET PO ×2 (10:10→19:38)
[2023-07-15] MEDS: NITROFURANTOIN MONOHYD MACROCR 100 MG CAP PO (10:10)
[2023-07-15] MEDS: TOPIRAMATE 25 MG TABLET PO (10:10)
[2023-07-15] MEDS: PIOGLITAZONE HCL 15 MG TAB PO (10:10)
[2023-07-15] MEDS: PANTOPRAZOLE 40 MG TABLET PO ×2 (10:10→19:38)
[2023-07-15] MEDS: FUROSEMIDE INJ 40 MG/4 ML VIAL IV PUSH ×2 (10:11→19:38)
[2023-07-15] MEDS: ACETAMINOPHEN 325 MG TABLET 650 MG PO ×2 (10:29→17:09)
--- NOTE | 2023-07-15 10:31 | IVDEFINITY ---
Prior to administration of IV Definity the patient was educated on the risks and benefits of the imaging enhancing agent including potential adverse side effects. The patient verbalized understanding. Allergies were verified. No exclusion criteria were identified and at least one of the following inclusion criteria were met: 1) physician request, 2) patient technically difficult to image (per the [place] [employer]chocardi[employer] guidelines of two or more segments not discernable within the apical view), or 3) questionable left ventricular function. ?
[2023-07-15] MEDS: LIOTHYRONINE SODIUM 5 MCG TABLET PO (12:17)
[2023-07-15] MEDS: KETOROLAC 30 MG/ML VIAL (*BKC) IV PUSH (12:17)
[2023-07-15] MEDS: ALBUTEROL SULFATE (*SP) AEROSOL 1 PUFF 2 PUFF INHALATION ×2 (14:30→21:12)
[2023-07-15] MEDS: dilTIAZem HCL CD 240 MG CAP.24HR PO (17:09)
[2023-07-15] MEDS: TOPIRAMATE 25 MG TABLET 50 MG PO (17:09)
[2023-07-15] MEDS: VITAMIN B COMPLEX CAPSULE 1 CAP PO (17:09)
[2023-07-15] MEDS: LORATADINE 10 MG TABLET PO (17:09)
[2023-07-15] MEDS: CHOLECALCIFEROL 1,000 UNITS TABLET 2000 UNITS PO (17:09)
[2023-07-15] MEDS: OLMESARTAN MEDOXOMIL 20 MG TABLET PO (17:09)
[2023-07-15] MEDS: traMADol HCL (*CRX) 50 MG TABLET PO (19:38)
[2023-07-16] VITALS (7 sets, daily range): BP systolic 116–118; BP diastolic 45–55; PULSE 82–89; RESP 16–20; TEMP 36.4–36.5; O2SAT 98; BMI 76.8
[2023-07-16] MEDS: traMADol HCL (*CRX) 50 MG TABLET PO (06:18)
[2023-07-16] MEDS: LEVOTHYROXINE SODIUM 150 MCG TABLET 300 MCG PO (06:19)
[2023-07-16] MEDS: FLUTICASONE/SALMETEROL 230-21 MCG INHALER 1 PUFF 2 PUFF INHALATION (08:22)
[2023-07-16] MEDS: ALBUTEROL SULFATE (*SP) AEROSOL 1 PUFF 2 PUFF INHALATION (08:22)
[2023-07-16] MEDS: PIOGLITAZONE HCL 15 MG TAB PO (08:54)
[2023-07-16] MEDS: FUROSEMIDE INJ 40 MG/4 ML VIAL IV PUSH (08:54)
[2023-07-16] MEDS: TOPIRAMATE 25 MG TABLET PO (08:55)
[2023-07-16] MEDS: NITROFURANTOIN MONOHYD MACROCR 100 MG CAP PO (08:55)
[2023-07-16] MEDS: PANTOPRAZOLE 40 MG TABLET PO (08:55)
[2023-07-16] MEDS: APIXABAN 5 MG TABLET PO (08:56)
[2023-07-16] MEDS: LIOTHYRONINE SODIUM 5 MCG TABLET PO (11:46)
[2023-07-16] MEDS: ACETAMINOPHEN 325 MG TABLET 650 MG PO (11:55)
--- NOTE | 2023-07-16 13:32 | PM.DS ---
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 encourage outpatient weight loss clinic BMI . Diet exercise counseling done. consult to dietitian Smoking ? smoking cessation education ? nicotine patch daily ? remove at night HX: Factor V Resumed eliquis HX HTN: Resumed home medications HX Asthma: PRN inhalers Disposition: Patient discharged home DS: Summary Hospital Course Reason for hospitalization: [facility] Hospital Course: Chief Complaint: Swelling in legs and abdomen. Narrative: This is a pleasant 37-year-old female smoker with morbid obesity, asthma, factor 5 Leiden and MTHFR mutation on chronic anticoagulation, deep venous thrombosis, hypertension, metabolic syndrome, hypothyroidism, and polycystic ovarian syndrome who presented to the emergency department for evaluation of swelling in her legs and abdomen. The patient provides the following history. She always has swelling in her legs however over the past month they have become increasingly swollen up into the abdomen. She has gained almost 20 lb in the same time frame. She is starting to feel more short of breath with activity and occasionally has some heaviness in the chest which she feels is due to the shortness of breath. Sometimes at night she wakes up in feels as though ?my throat is constricted? and it is not unusual for her to have a mild headache upon waking in the morning. She falls asleep easily, sometimes while sitting at her desk. She has no known history of sleep apnea, kidney disease, or congestive heart failure. She denies syncope, near syncope, exertional chest pain, pleuritic pain, palpitations, sensations of racing heart, nausea, vomiting, and sweats. She called her doctor to make an appointment for these symptoms and was instead referred to the emergency department. In the ED: She was afebrile on arrival with stable vital signs. SpO2 has been in the upper 90s on room air. CMP and CBC were pretty unremarkable without significant abnormalities. Troponin was less than 0.012 and proBNP was 92. Lower extremity venous Doppler ultrasounds were negative for DVT. Chest x-ray showed no acute cardiopulmonary process. She was given 40 mg IV furosemide and we were asked to admit her in this setting for further treatment and evaluation of the edema and weight gain. 07/14: Assumed Care Patient up to chair mild edema BLE, denies SOB or CP.? Will continue with IV lasix pending echo plan for discharge tomorrow after one more day of diuresis. 07/15: DISCHARGED Echo with no significant findings edema with mild improvement recommended lymphoedema clinic and was started on hydrochlorothiazide PO will follow-up with primary care physician outpatient. Discharged to home. Echo: Summary ? 1. Left ventricular chamber dimension is normal. ? 2. Left ventricular systolic function is normal, estimated at >70%. ? 3. There is mildly increased left ve
== END 2023-07-16 16:00 | disposition home or self-care (01) ==
LOC: ANHED 17:48 → ANH2MED 18:55
PROVIDERS: Emergency Medicine; Physician Assistant; Admitting Provider General Practice; Emergency Provider Emergency Medicine; PCP Physician Assistant Medical; Visit Provider General Practice
DX: R60.1 Generalized edema (principal); D68.51 Activated protein C resistance; R29.818 Other symptoms and signs involving the nervous system; I10 Essential (primary) hypertension; E03.9 Hypothyroidism, unspecified; J45.909 Unspecified asthma, uncomplicated; K21.9 Gastro-esophageal reflux disease without esophagitis; E72.12 Methylenetetrahydrofolate reductase deficiency; E28.2 Polycystic ovarian syndrome; E53.8 Deficiency of other specified B group vitamins; F17.210 Nicotine dependence, cigarettes, uncomplicated; E66.01 Morbid (severe) obesity due to excess calories; Z68.45 Body mass index [BMI] 70 or greater, adult; Z79.01 Long term (current) use of anticoagulants; Z86.718 Personal history of other venous thrombosis and embolism
CPT/HCPCS: 36415; 71046; 80048; 80053; 81025; 83735; 83880; 84443; 84484; 85025; 85610; 85730; 93005; 93306; 93970; 94640; 94762; 96374; 96375; 96376; 99285; A9270; G0378; J1885; J1940

== ENCOUNTER 2023-11-10 10:27 | Outpatient (CLI) | payer BC, SELFPAY ==
[2023-11-10 10:52] LABS: Basophils Absolute Auto 0.1 K/mm3 (0.0-0.1); Basophils Percent Auto 1.2 % (0.2-1.2); Eosinophils Absolute Auto 0.2 K/mm3 (0-0.3); Eosinophils Percent Auto 3.6 % (0-4.4); Hematocrit 39.6 % (37.0-47.0); Hemoglobin 12.2 g/dL (12.0-15.0); Immature Granulocyte Absolute 0.02 K/mm3 (0.00-0.031); Immature Granulocyte Percent A 0.3 % (0-0.5); Lymphocytes Absolute Auto 2.13 K/mm3 (0.9-3.2); Lymphocytes Percent Auto 35.1 % (18.3-44.2); Mean Corpuscular HGB Conc 30.8 g/dl (32-36); Mean Corpuscular Hemoglobin 27.1 pg (26-34); Mean Corpuscular Volume 87.8 fl (80-100); Mean Platelet Volume 10.1 fl (7.4-10.4); Monocytes Absolute Auto 0.5 K/mm3 (0.1-0.6); Monocytes Percent Auto 8.3 % (2.6-8.5); Neutrophils Absolute Auto 3.1 K/mm3 (1.3-6.7); Neutrophils Percent Auto 51.5 % (45.5-73.1); Platelet Count Result 252 k/mm3 (150-375); Red Blood Count 4.51 M/mm3 (4.2-5.4); Red Cell Distribution Width 18.7 % (11.5-14.5); White Blood Count 6.1 K/mm3 (4.5-10.0)
[2023-11-10 10:58] LABS: Blood Urea Nitrogen 7 mg/dL (8-26); Carbon Dioxide 21 mmol/L (22-30); Chloride 108 mmol/L (98-109); Estimated Glomerular Filt Rate 57; Glucose 75 mg/dL (70-105); Ionized Calcium (POC) 1.19 mmol/L (1.11-1.31); Sodium 139 mmol/L (138-146)
[2023-11-10 12:09] LABS: Alanine Aminotransferase 15 U/L (6-35); Albumin Level 3.6 g/dL (3.5-5.1); Alkaline Phosphatase 63 U/L (38-126); Anion Gap 6 mmol/L (4-12); Aspartate Amino Transferase 15 U/L (14-36); Bilirubin,Total 0.2 mg/dL (0.2-1.3); Blood Urea Nitrogen 8 mg/dL (7-17); Calcium 8.8 mg/dL (8.4-10.2); Carbon Dioxide 22 mmol/L (22-30); Chloride 108 mmol/L (98-107); Estimated Glomerular Filt Rate > 60; Glucose 77 mg/dL (65-110); Potassium 4.1 mmol/L (3.4-5.0); Sodium 136 mmol/L (137-145)
== END 2023-11-10 10:28 | disposition home or self-care (01) ==
PROVIDERS: PCP Physician Assistant Medical; Visit Provider Internal Medicine Hematology & Oncology
DX: I82.442 Acute embolism and thrombosis of left tibial vein (principal)
CPT/HCPCS: 36415; 80047; 80053; 85025

== ENCOUNTER 2024-04-26 13:03 | Outpatient (CLI) | payer BC, SELFPAY ==
--- NOTE | ~2024-04-26 | US_ITS ---
EXAMINATION: US venous doppler [facility] DATE: 04/26/2024 13:33 INDICATION: Left lower limb pain and swelling TECHNIQUE: Grayscale ultrasound images without and with compression and Doppler ultrasound images of the left lower extremity veins were obtained. COMPARISON: None. FINDINGS: Evaluation limited by patient body habitus with the left posterior tibial and peroneal veins the calf were unable to be visualized. Noncompressible deep venous thrombosis with small amount of residual f low on color Doppler at the left femoral vein. The visualized portions of left common femoral vein, p rofunda (deep) femoral vein, popliteal vein, gastrocnemius vein and greater saphenous vein outflow ar e patent. IMPRESSION: 1. Deep venous thrombosis in the left femoral vein. Dr. Flores discussed these findings with Dr. Opal banks at 1:40 PM. Reviewed, dictated and finalized at location B. LLMENT SPECIALIST IMPRESSION: 1. Deep venous thrombosis in the left femoral vein. Dr. Flores discussed the se findings with Dr. Guzman at 1:40 PM.
--- OUTSIDE RECORDS SUMMARY | 2024-04-26 14:57 | XMS_ITS | Clinical Summary ---
Author Organization [facility] [address] [place] [address] Care Team Providers Care Rougher Helper Name Role Phone Aviva Jaimes Primary Care Provider [phone] Allergies Active Allergy Reactions Criticality Noted Date Comments Adhesive Rash Medium 10/27/2017 Amoxicillin Rash Medium 09/30/2017 Cefixime Rash Medium 09/30/2017 Cephalexin Rash Medium 09/30/2017 [place] Anaphylaxis High 09/30/2017 Ciprofloxacin Nausea only Medium 09/30/2017 Clindamycin Swelling Medium 10/28/2017 [place] Butter Rash Medium 09/30/2017 Doxycycline Rash Medium 11/13/2022 Latex Rash Medium 11/13/2022 Levofloxacin Rash Medium 09/30/2017 Metformin Other (See comments) Low 11/13/2022 Tapentadol Rash Medium 10/27/2017 Medications albuterol HFA (VENTOLIN HFA) 90 mcg/actuation inhaler 8 Active cholecalciferol (VITAMIN D-3) 2,000 unit tablet Take 1 tablet (2,000 Units total) by mouth daily Active CARTIA XT 240 mg 24 hr capsule 9 Active ergocalciferol (VITAMIN D) 50,000 unit capsule 8 Active levothyroxine (SYNTHROID, LEVOTHROID) 200 mcg tablet Take 1.5 tablets (300 mcg total) by mouth daily 8 Active olmesartan (BENICAR) 20 mg tablet 8 Active topiramate (TOPAMAX) 50 mg tablet 8 Active Advair Diskus 500-50 mcg/dose diskus inhaler 3 Active fexofenadine (GIORGI) 180 mg tablet Take 1 tablet (180 mg total) by mouth daily Active aspirin 81 mg enteric coated tablet Take 1 tablet (81 mg total) by mouth daily Active apixaban (Eliquis) 2.5 mg tablet Take 1 tablet (2.5 mg total) by mouth 2 (two) times a day [address] (NexIUM) 40 mg capsule Take 1 capsule (40 mg total) by mouth daily before breakfast Active varenicline tartrate (CHANTIX) 1 mg tabletIndicatio ns:Smoking Cessation Take 1 tablet (1 mg total) by mouth 2 (two) times a day Take with full glass of water. Active tamsulosin (FLOMAX) 0.4 mg extended release capsule 1 capsule (0.4 mg total) daily Active lisdexamfetamin e (VYVANSE) 20 mg capsule Take 1 capsule (20 mg total) by mouth every morning Active liothyronine (CYTOMEL) 5 mcg tablet Take 1 tablet (5 mcg total) by mouth daily Active cyanocobalamin (Vitamin B-12) 1,000 mcg/mL injection Active ondansetron (ZOFRAN) 4 mg tablet Take 1 tablet (4 mg total) by mouth every 8 (eight) hours as needed for nausea or vomiting (prn) Active bumetanide (BUMEX) 1 mg tablet Take 1 tablet (1 mg total) by mouth daily Active blood glucose diagnostic strip by other route Activ e fluticasone furoate-vilante roL (BREO ELLIPTA) 100-25 mcg/dose diskus inhaler Inhale 1 puff daily Rinse mouth with water after use. Do not swallow. Active rimegepant (Nurtec ODT) tablet,disinteg rating Take by mouth Active terbinafine (LamiSIL) 250 mg tablet Take 1 tablet (250 mg total) by mouth daily Active acai cohen extract 500 mg capsule Take by mouth Active Bactrim DS 800-160 mg per tablet Take 1 tablet (160 mg of trimethoprim total) by mouth 2 (two) times a day 4 Active Active Problems Problem Noted Date Diagnosed Date Gastric polyp 10/20/2023 Factor 5 Leiden mutation, heterozygous 3 Bariatric surgery status 10/09/2022 Non-seasonal allergic rhinitis 06/01/2018 Assessment & Plan (06/01/2018 10:24 AM CDT): Patient has a history of allergic rhinitis with sensitivities to pollen, and animal dander. Patient states her symptoms occur year round. Patient does take daily allergra. Recommend patient start on flonase and saline irrigation daily to help with the relief of her symptoms. I suspect the continued post nasal drainage is contributing to patients hoarseness. Patient to follow up in 6 weeks. Laryngopharyngeal reflux (LPR) 06/01/2018 Assessment & Plan (06/01/2018 10:26 AM CDT): Patient has a history of reflux; she is currently taking protonix 40 mg once daily with minimal relief of her symptoms . Recommend patient start on zantac 300mg twice daily. Patient was provided with educational material regarding reflux precautions. Patient was instructed to refrain from eating a meal approximately 3 hours prior to bedtime. Patient was instructed to elevate the head of the bed by approximately 8 inches. Patient was to refrain from consuming spicy greasy fatty foods, dairy products, and excessive caffeine use. Patient was also advised to increase water consumption. Patient was also instructed on weight reduction and exercise regimen. Patient was also instructed on the importance of compliance with medications. Follow up in 2 months; if no improvement a swallow study will be ordered for further evaluation. Immunizations Immunization Administration Dates Next Due Tdap 01/13/2019 Surgical History Surgery Date Site/Laterality Comments BREAST SURGERY left KIDNEY STONE SURGERY Medical History Medical History Date Comments DVT (deep vein thrombosis) in Hypertension Thyroid disease hyperthyroid Migraine Arthritis 2012 Asthma 1997 GERD (gastroesophageal reflux disease) 2011 Joint pain 2021 Kidney stone 2010 Low back pain 2010 Morbid obesity (HCC) 2000 Obesity 1998 Vitamin D deficiency 2008 PCOS (polycystic ovarian syndrome) Chronic constipation Factor 5 Leiden mutation, heterozygous (HCC) Family History Medical History Relation Name Comments Diabetes Father Kenneth Gary Heart attack Father Kenneth Gary Hypertension Father Kenneth Gary Kidney disease Father Kenneth Gary Kidney disease Father's Sister Najma mariscal Asthma Maternal Grandfather Jhonathan Blake COPD Maternal Grandfather Jhonathan Blake Diabetes Maternal Grandfather Jhonathan Blake Hypertension Maternal Grandfather Jhonathan Blake Clotting disorder Maternal Grandmother Ginger Blake Mental illness Maternal Grandmother Ginger Blake Asthma Paternal Grandfather Eliazar Gary Hypertension Paternal Grandfather Eliazar Gary Stroke Paternal Grandmother Melvi Gary Relation Name Status Comments Father Kenneth Gary Father's Sister Najma mariscal Maternal Grandfather Jhonathan Blake Maternal Grandmother Ginger Blake Paternal Grandfather Eliazar Gary Paternal Grandmother Melvi Gary Social History Tobacco Use Types Packs/Day Years Used Date Smoking Tobacco: Every Day Cigarettes 0.8 16 Smokeless Tobacco: Never Tobacco Cessation:Ready to Q uit: Not Asked; Counseling Given: Not Answered Alcohol Use Standard Drinks/Week Comments Never 0 (1 standard drink = 0.6 oz pur e alcohol) AUDIT-C Answer Date Recorded Q1: How often do you have a drink containing alcohol? Never 10/29/2023 Q2: How many drinks containi ng alcohol do you have on a typical day when you are drinking? Patient does not drink Q3: How often do you have si x or more drinks on one occasion? Never 10/29/2023 Personal Safety Answer Date Recorded Have you ever been in or are you currently in a harmful physical or emotional relationship or is someone making you feel afraid or unsafe? Denies 10/29/2023 Comments No Sex and Gender Information Value Date Recorded Sex Assigned at Not on file Legal Sex Female 10:34 AM COMPOUNDER HELPER Gender Identity Female 09/12/2020 8:26 AM CDT Sexual Orientation Straight 09/12/2020 8: 26 AM CDT Obstetrics History Last Filed Vital Signs Vital Sign Reading Time Taken Comments Blood Pressure 129/77 10/29/2023 8:45 AM CDT Pulse 76 10/29/2023 8:45 AM CDT Temperature 36.6 C (97.9 F) 10/29/2023 7:30 AM CDT Respiratory Rate 20 10/29/2023 8:45 AM CDT Oxygen Saturation 100% 10/29/2023 8:45 AM CDT Inhaled Oxygen Concentration - - Weight 226.8 kg (500 lb) 10/29/2023 7:30 AM CDT Height 170.2 cm (5' 7 ) 10/29/2023 7:30 AM CDT Body Mass Index 78.31 10/29/2023 7:30 AM CDT Plan of Treatment Health Maintenance Due Date Last Done Comments Cervical Cancer Screening 1985 Depression Screening 1985 Hepatitis C Screening 1985 Varicella Vaccines (1 of 2 - 13+ 2-dose series) 12/20/2000 Hepatitis B Screening 12/20/2005 Regular Well Visit/Exam 18-64 12/20/2005 Pneumococcal vaccine <65 (1 of 2 - PCV) 12/20/2006 Influenza Vaccine (#1) 2023 12/14/2013 DTaP/Tdap/Td Vaccine (2 - Td or Tdap) 01/13/2029 01/13/2019 HPV Vaccines Aged Out No longer eligi ble based on patient's age to complete this topic Insurance [employer] Address: [facility] [id number] [place] [address] [facility] Advance Directives For more information, please contact: [phone] * Full Code (Latest Code Status on File) Date Activated Date Inactivated Comments 10/29/2023 7:37 AM 10/29/2023 1:06 PM * Full Code Date Activated Date Inactivated Comments 11/14/2022 8:40 AM 11/14/2022 2:52 PM Care Teams Rougher Helper Relationship Specialty Start Date End Date Aviva Jaimes PA [address] [place] [id number] PCP - General Physician Buttermilk Drier Operator 07/22/22
--- OUTSIDE RECORDS SUMMARY | 2024-04-26 14:57 | XMS_ITS | Encounter Summary ---
Author Organization [facility] [employer] [facility] Address [address] [place] [address] Care Team Providers Care Gang Pusher Name Role Phone Lester Keating MD Primary Care Provider [phone] Reason for Visit * Reason Onset Date Comments STAT US 04/26/2024 Encounter Details Date Type Department Care Team ([facility] st Contact Info) Description 04/26/2024 Telephone [facility] Oncology and Hematology - [place] [address] [place] [address] [facility] [address] [place] [address] Miguel A Guzman MD [address] [facility] [address] [place] [address] STAT Social History Tobacco Use Types Packs/Day Years Used Date Smoking Tobacco: Every Day Cigarettes 0.5 11 Smokeless Tobacco: Never Comments:using e-cigarette w /o nicotine Alcohol Use Standard Drinks/Week Comments No 0 (1 standard drink = 0.6 oz pur e alcohol) Comments No Sex and Gender Information Value Date Recorded Sex Assigned at Not on file Legal Sex Female 10:13 AM CDT Gender Identity Not on file Sexual Orientation Not on file documented as of this encounter Miscellaneous Notes * Telephone Encounter - Karina Hill - 04/26/2024 1:50 PM CST ----- Message from Dr. Miguel A Guzman sent at 04/26/2024 1:44 PM BARREL RIFLER ----- She has acute DVT. Please start Lovenox 1 mg/kg twice a day and discontinue Eliquis. After 1 month of therapy we will start her on Xarelto. EL RIFLER documented in this encounter Plan of Treatment Upcoming Encounters Date Type Department Care Team (Late st Contact Info) Description 05/09/2024 11:45 AM CDT Office Visit [facility] Oncology and Hematology - Jermaine [address] [facility] [address] [place] [address] Miguel A Guzman MD [address] [facility] [address] [place] [address] documented as of this encounter Visit Diagnoses Not on filedocumented in this encounter Care Teams Gang Pusher Relationship Specialty Start Date End Date Lester Keating MD [address] [place] [phone] PCP - General Family Practice 08/20/22 documented as of this encounter
--- OUTSIDE RECORDS SUMMARY | 2024-04-26 14:57 | XMS_ITS | Encounter Summary ---
Author Organization [facility] [employer] [facility] Address [address] [place] [address] Care Team Providers Care Gaming Worker Name Role Phone Lester Keating MD Primary Care Provider [phone] Reason for Referral * Radiology Services (Urgent) - Authorized Specialty Diagnoses / Procedures Referred By Contac t Referred To Contact Diagnoses Pain and swelling of left lower leg Procedures US VENOUS DOPPLER LEG LEFT Miguel A Guzman MD [address] [place] [address] Phone: tel: fax: Referral ID Status Reason Start Date Expiration Date V isits Requested Visits Authorized [id number] Authorized 04/26/2024 05/27/2025 1 1 ICAL PACKAGER Encounter Details Date Type Department Care Team (Late st Contact Info) Description 04/26/2024 Orders Only [facility] Oncology and Hematology - [place] [address] [place] [address] Miguel A Guzman MD [address] [place] [address] Pain and swelling of left lower leg (Primary Dx) Social History Tobacco Use Types Packs/Day Years [...] on file documented as of this encounter Plan of Treatment Upcoming Encounters Date Type Department Care Team (Late st Contact Info) Description 05/09/2024 11:45 AM CDT Office Visit [facility] Oncology and Hematology - Jermaine [address] [facility] [address] [place] [phone] Miguel A Guzman MD [address] [facility] [address] [place] [address] Scheduled Orders Name Type Priority Associated Diagnoses Orde r Schedule US VENOUS DOPPLER LEG LEFT Imaging Stat Pain and swelling of left lower leg Expected: 04/26/2024, Expires: 04/26/2025 documented as of this encounter Visit Diagnoses Diagnosis Pain and swelling of left lower leg- Primary documented in this encounter Care Teams Gaming Worker Relationship Specialty Start Date End Date Lester Keating MD [address] [place] [phone] PCP - General Family Practice 08/20/22 documented as of this encounter
--- OUTSIDE RECORDS SUMMARY | 2024-04-26 14:57 | XMS_ITS | Referral Summary ---
Author Organization [facility] Address [address] [place] [address] [place] [address] Care Team Providers Care Communication Skills Instructor Name Role Phone Aviva Jaimes PA-C Primary Care Provider [phone] Source Comments [facility],non-owned Affiliates and Associated Physician Practices is amultiple site organization consisting of ambulatory clinics and hospital sitesin [place], [place], [place] and [place]. This disclosure is being madepursuant to the Care Everywhere program and may not contain all information available regarding this patient. Last updated 17.[facility] Encounters Date Type Department Care Team Description 04/19/2024 Travel 04/19/2024 10:45 AM AWS DEVELOPER Office Visit [facility] - ENT [address] [place] [phone] Arjun Correa MD Acute maxillary sinusitis, recurrence not specified (Primary Dx) 02/09/2024 Travel 02/09/2024 10:45 AM AWS DEVELOPER Office Visit [facility] - ENT [address] [place] [phone] Arjun Correa MD Hoarseness (Primary Dx); Chronic fungal laryngitis from Last 3 Months Allergies Active Allergy Reactions Criticality Noted Date Comments Adhesive Sensitivity Rash Medium 10/27/2017 Amoxicillin Urticaria,Rash,Unknown Medium 09/28/2017 Cefixime Rash Medium 09/28/2017 Cephalexin Rash Medium 09/30/2017 Gamez Anaphylaxis,Unknown High 09/28/2017 Ciprofloxacin Nausea and/or Vomiti ng,GI Discomfort,Unknown,Other Medium 09/28/2017 Clindamycin Anaphylaxis,Swelling High 10/28/2017 [place] Butter Rash,Other,Unknown Medium 09/30/2017 Doxycycline Unknown,Rash Medium 11/13/2022 Honeydew Other 10/27/2023 Latex Rash Medium 11/13/2022 Levofloxacin Rash,Unknown Medium 09/28/2017 Metformin Unknown,Other Low 11/13/2022 Tapentadol Rash Medium 10/27/2017 Medications * Be aware that medications may not be up to date on this document. Alwaysverify current medications with the patient. Medication Sig Dispensed Refills Start Date End Date Status bumetanide (Bumex) 1 MG tablet Take 1 (one) tablet by mouth once daily 09/02/2023 Active Eliquis 5 MG tablet Take 1 (one) tablet by mouth 2 times daily 07/17/2023 Active Airsupra 90-80 MCG/ACT AERO Inhale 2 puffs by mouth every 6 hours as needed 08/11/2023 Active Cholecalciferol 125 MCG (5000 UT) Take 1 (one) tablet by mouth once daily Active dilTIAZem coated beads 24hr (Cardizem CD) 240 MG capsule Take 1 (one) capsule by mouth once daily Active vitamin D, ergocalciferol, (Drisdol) 1.25 MG (19659 UT) capsule Take 1 (one) capsule by mouth every 7 days Active esomeprazole (NexIUM) 40 MG capsule Take 1 (one) capsule by mouth once daily 09/22/2023 Active fexofenadine (Sarai Allergy) 180 MG tablet Take 1 (one) tablet by mouth once daily 10/21/2023 Active Breo Ellipta 200-25 MCG/ACT inhaler Inhale 1 (one) puff by mouth once daily 10/08/2023 Active Synthroid 300 MCG tablet Take 1 (one) tablet by mouth once daily 10/21/2023 Active liothyronine (Cytomel) 5 MCG tablet Take 1 (one) tablet by mouth once daily 10/21/2023 Active cyanocobalamin (Vitamin B-12) injection Inject 1,000 (one thousand) mcg subcutaneously every 7 days Active LORazepam (Ativan) 0.5 MG tablet Take 1 (one) tablet by mouth as needed 06/18/2023 Active olmesartan (Benicar) 20 MG tablet Take 1 (one) tablet by mouth once daily 10/21/2023 Active Nurtec 75 MG tablet Take 75 mg by mouth as directed 09/24/2023 Active tamsulosin (Flomax) 0.4 MG capsule Take 1 (one) capsule by mouth once daily 10/21/2023 Active ondansetron (Zofran) 4 MG tablet Take 1 (one) tablet by mouth every 8 hours as needed 06/18/2023 Active terbinafine (LamISIL) 250 MG tablet Take 1 (one) tablet by mouth once daily 09/28/2023 Active topiramate (Topamax) 25 MG tablet Take 1 (one) tablet by mouth once daily after breakfast 10/21/2023 Active topiramate (Topamax) 50 MG tablet Take 1 (one) tablet by mouth once daily 10/21/2023 Active varenicline (Chantix) 1 MG tablet Take 1 (one) tablet by mouth 2 times daily Active Berberine Chloride 500 MG CAPS Take 1,000 mg by mouth once daily 10/21/2023 Active vitamin b-12 (Cyancobalamin) 1000 MCG tablet cr Take 1,000 (one thousand) tablets by mouth once daily 10/21/2023 Active meloxicam (Mobic) 15 MG tablet Take 1 (one) tablet by mouth once daily Active Cosentyx UnoReady 300 MG/2ML SOAJ pen Inject 300 (three hundred) mg subcutaneously every 28 days 11/30/2023 Active folic acid (Folvite) 1 MG tablet Take 1 (one) tablet by mouth once daily 02/01/2024 Active nitrofurantoin monohyd macro crystals (Macrobid) 100 MG capsule Take 1 (one) capsule by mouth as needed 01/20/2024 Active nystatin (Mycostatin) 333663 UNIT/GM cream Apply to affected area 2 times daily 02/01/2024 Active ondansetron, disintegrating, (Zofran ODT) 4 MG tablet Take 1 (one) tablet by mouth as needed 02/01/2024 Active Mounjaro 2.5 MG/0.5ML injection Inject 2.5 (two and one-half) mg subcutaneously every 7 days 12/29/2023 Active Mounjaro 5 MG/0.5ML injection Inject 5 (five) mg subcutaneously every 7 days 02/01/2024 Active fluconazole (Diflucan) 150 MG tablet Take 1 (one) tablet by mouth once daily 14 tablet 02/09/2024 Active Additional Information Patient not taking.Reported on 04/19/2024 diphenhydrAMINE (Benadryl) 25 MG tablet Take 1 (one) tablet by mouth 4 times daily as needed for Itching 30 tablet 02/09/2024 Active sulfamethoxazole -trimethoprim (Bactrim DS; Septra DS) 800-160 MG tablet Take 1 (one) tablet by mouth 2 times daily 14 tablet 02/09/2024 Active Additional Information Patient not taking.Reported on 04/19/2024 Nebulizers (Vios Aerosol Delivery System) [facility] Use 1 Each as directed 04/15/2024 Active levoFLOXacin (Levaquin) 500 MG tablet Take 1 (one) tablet by mouth once daily for 10 days 10 tablet 04/19/2024 5 Active clarithromycin (Biaxin) 500 MG tablet Take 1 (one) tablet by mouth 2 times daily for 10 days 20 tablet 04/19/2024 5 Discontinue d(Clinical Decision) Immunizations Name Administration Dates Next Due INFLUENZA VACCINE, HIGH-DOSE , QUADR. (FLUZONE HIGH-DOSE QUADRIVALENT; 65Y+), 0.7 ML (HD-IIV4) 12/14/2013 TDAP (7yrs+) 01/13/2019 Social History Tobacco Use Types Packs/Day Years Used Date Smoking Tobacco: Every Day Cigarettes Smokeless Tobacco: Never Alcohol Use Standard Drinks/Week Comments Never 0 (1 standard drink = 0.6 oz pur e alcohol) Sex and Gender Information Value Date Recorded Sex Assigned at Not on file Gender Identity Not on file Sexual Orientation Not on file Last Filed Vital Signs Vital Sign Reading Time Taken Comments Blood Pressure 112/79 04/19/2024 10:39 AM AWS DEVELOPER Pulse 94 04/19/2024 10:39 AM AWS DEVELOPER Temperature - - Respiratory Rate - - Oxygen Saturation - - Inhaled Oxygen Concentration - - Weight 225.4 kg (497 lb) 04/19/2024 10:39 AM AWS DEVELOPER Height 170.2 cm (5' 7 ) 04/19/2024 10:39 AM AWS DEVELOPER Body Mass Index 77.84 04/19/2024 10:39 AM AWS DEVELOPER Plan of Treatment Upcoming Encounters Date Type Department Care Team (Late st Contact Info) Description 05/24/2024 8:15 AM CDT Office Visit [facility] - E[facility], [place] [address] Arjun Correa MD [address] [place] [address] [place] [address] Procedures Procedure Name Priority Date/Time Associated Diagnosis Comments ID LARYNGOSCOPY,FLEX FIBER,DIAGNOSTIC Routine 04/19/2024 11:19 AM AWS DEVELOPER Acute maxillary sinusitis, recurrence not specified ID LARYNGOSCOPY,FLEX FIBER,DIAGNOSTIC Routine 02/09/2024 12:23 PM AWS DEVELOPER Hoarseness Chronic fungal laryngitis from Last 3 Months Results * ID LARYNGOSCOPY,FLEX FIBER,DIAGNOSTIC (04/19/2024 11:19 AM AWS DEVELOPER) Narrative Harsh Petty MD - 04/19/2024 11:19 AM AWS DEVELOPER Harsh Petty MD 04/19/2024 12:09 PM Procedure Note Endoscopy Type: Laryngoscopy without stroboscopy 54040 Endoscope: Flexible 4mm Scope Anesthesia: Lidocaine 2% and Neosynephrine 1/2% (nasal) Procedure Details: The patient was sitting upright in a chair with the head in a slightly anterior sniffing position. The topical anesthesia was administered and then adequate time was allowed for an anesthetic effect. The endoscope was passed thru the nasal cavity with the tongue retracted anteriorly. The tip of the endoscope was positioned in the oropharynx which allowed a complete view of the base of tongue, vallecula, pyriform recesses, epiglottis, bilateral true and false vocal folds, the interarytenoid and post cricoid region, and the immediate subglottis. Findings: Purulence coming from right middle meatus. No other obvious nasal mucopurulence. Nasopharynx is normal. Oropharynx without masses or lesions. There are pachydermic changes throughout the interarytenoid region. Condition: Stable. Patient tolerated procedure well. Complications: None I was present for the entirety of the procedure. Arjun Correa MD PROCEDURE/MINOR SURG ICAL ORDERABLES * ID LARYNGOSCOPY,FLEX FIBER,DIAGNOSTIC (02/09/2024 12:23 PM AWS DEVELOPER) Jama Marlow MD - 02/09/2024 12:23 PM AWS DEVELOPER Jama Arreola MD 02/09/2024 9:38 PM Procedure Note Endoscopy Type: Laryngoscopy without stroboscopy 35156 Endoscope: Flexible 4mm Scope Anesthesia: Lidocaine 2% and Neosynephrine 1/2% (nasal) Procedure Details: The patient was sitting upright in a chair with the head in a slightly anterior sniffing position. The topical anesthesia was administered and then adequate time was allowed for an anesthetic effect. The endoscope was passed thru the nasal cavity with the tongue retracted anteriorly. The tip of the endoscope was positioned in the oropharynx which allowed a complete view of the base of tongue, vallecula, pyriform recesses, epiglottis, bilateral true and false vocal folds, the interarytenoid and post cricoid region, and the immediate subglottis. Findings: no nasal polyps or purulence, no pharyngeal masses or lesions, mobile vocal folds, improved erythema, improved interarytenoid swelling, still with small amounts of thick secretions sitting in interarytenoid space No blood loss Condition: Stable. Patient tolerated procedure well. Complications: None Dr. Correa was present for the entirety of the procedure. Arjun Corrae MD PROCEDURE/MINOR SURG ICAL ORDERABLES from Last 3 Months Care Teams Communication Skills Instructor Relationship Specialty Start Date End Date Aviva Jaimes PA-C [address] [place] [id number] PCP - General Physician Ceramic Tile Setter 10/27/23
--- OUTSIDE RECORDS SUMMARY | 2024-04-26 14:57 | XMS_ITS ---
Author Organization [facility] Address [address] [place], [place] [id number] Care Team Providers Care Medication Aid Name Role Phone VIJAYA FARIA Unavailable [phone] Moises Rayna Unavailable Unavailable Allergies Allergen (clinical drug ingredient) Drug/Non Drug Allergy documented on EMR Reaction Allergy Type Onset Date Status Keflet (uncoded) Unknown Allergy 09/28/2017 ac tive amoxicillin Amoxicillin Unknown Drug Allergy 09/28/2017 ac tive cefixime Cefixime Unknown Drug Allergy 09/28/2017 active Gamez Unknown Drug Allergy 09/28/2017 active ciprofloxacin Cipro Unknown Drug Allergy 09/28/2017 ac tive Keflex Unknown Drug Allergy 06/06/2020 active Levaquin Unknown Drug Allergy 09/28/2017 active Latex Latex Unknown Allergy Active REASON FOR VISIT The patient is tolerating the oral lamisil well with no issues. Her toenails are thick and fungal and grow into the sides., The meloxicam helps with the inflammation of her ankle, but all of the ankle braces she has tried has not been tolerated well Medications Medication SIG (Take, Route, Frequency, Duration) Notes Start Date End Date Status PreviDent 5000 Sensitive 1.1-5 % BRUSH GEL ON FOR 2 MINUTES 2 TO 3 TIMES DAILY Dental for 30 Days Active methylPREDNISolone 4 MG as directed Orally one pack 024 Active methylPREDNISolone 4 MG as directed Orally one pack 024 Active Bgzqsovo-Qhmmnhown-UU 3.5-77831-3 Otic for 90 Days Active Vitamin D (Ergocalciferol) 1.25 MG (25339 UT) Oral for 84 Days Activ e Topiramate 50 MG Oral for 90 Days Active dilTIAZem HCl ER Coated Bead s 240 MG Oral for 90 Days Active Eliquis 5 MG Oral for 30 Days Active Advair Diskus 500-50 MCG/ACT Inhalation for 30 Days Active Olmesartan Medoxomil 20 MG Oral for 90 Days Active Terbinafine HCl 250 MG 1 tablet Orally O nce a day for 42 days Active Meloxicam 15 MG 1 tablet Orally Once a day for 30 days Active Encounters Encounter Location Date Provider Diagnosis [facility] [address] [place], [place] [id number] 01/11/2024 VIJAYA SNOOK Tinea unguium B35.1 ; Onychocryptosis L60.0 ; Peroneal tendinitis, left leg M76.72 and Left foot pain M79.672 Assessments Encounter Date Diagnosis (ICD Code) Assessment Notes Treatment Notes Treatment Clinical Notes Section Notes 01/11/2024 Tinea unguium (ICD-10 - B35.1) FUNGAL TOENAILS: Discussed various treatment options for fungal toenails including debridement, topical antifungals, oral antifungals, toenail avulsion, or toenail matrixectomy. Lamisil Repeat: Repeat Liver Function Tests after 6 weeks of oral Lamisil and if they are within normal limits, will renew final dose for a total of 12 weeks of therapy. 01/11/2024 Onychocryptosis (ICD-10 - L60.0) NAIL DEBRIDEMENT: Nails 1-5 Bilateral were debrided extensively with nail nippers and emery board, reducing length and girth to pink healthy tissue with any subungual debris and necrotic tissue removed 01/11/2024 Peroneal tendinitis, left leg (ICD-10 - M76.72) Peroneal Tendonitis: I discussed anti-inflammatory treatment options and various means of immobilization with the patient. I educated the patient on icing and stretching, supportive shoegear, and the use of orthotic devices and bracing. Recommend [facility] Sweedo ankle brace 01/11/2024 Left foot pain (ICD-10 - M79.672) Plan Of Treatment Treatment Notes Assessment Notes Tinea unguium FUNGAL TOENAILS: Discussed various treatment options for fungal toenails including debridement, topical antifungals, oral antifungals, toenail avulsion, or toenail matrixectomy. Lamisil Repeat: Repeat Liver Function Tests after 6 weeks of oral Lamisil and if they are within normal limits, will renew final dose for a total of 12 weeks of therapy. Onychocryptosis NAIL DEBRIDEMENT: Na ils 1-5 Bilateral were debrided extensively with nail nippers and emery board, reducing length and girth to pink healthy tissue with any subungual debris and necrotic tissue removed Peroneal tendinitis, left leg Peroneal Tendonitis: I discussed anti-inflammatory treatment options and various means of immobilization with the patient. I educated the patient on icing and stretching, supportive shoegear, and the use of orthotic devices and bracing. Recommend OTC Sweedo ankle brace Pending Test Test Name Order Date Liver Function Test (LFT) 01/11/2024 Next Appt Details Follow Up: 3 Months, Reason: Fungal nail follow-up after 12 weeks of lamisil; nail debridement, ankle brace (Sweedo) check Provider Name:VIJAYA FARIA, 08:20:00 AM, [address], [address], [phone], Progress Notes * KIRT QURESHIOB: [birth year] (38 yo F)Acc No.[id number]:01/11/2024 Patient: PAULINE ONEILL Provider: Belgica Faria DPM :1985 A ge:38 Y S ex:Female Date:01/11/2024 Address:[address] [place] [address] Subjective: * Chief Complaints: * 1 . The patient is tolerating the oral lamisil well with no issues. Her toenails are thick and fungal and grow into the sides.. 2. The meloxicam helps with the inflammation of her ankle, but all of the ankle braces she has tried has not been tolerated well. * HPI: H PI: Follow Up Visit P atient presents for follow-up visit for toenail fungus. Patient states oral Lamisil seems to be working, and she has had no issues taking medication. Patient also states she was unable to obtain an ankle brace. MA: LB. * ROS: G eneral / Constitutional: Patient denies c hills, fever, weakness, night sweats. M usculoskeletal: Patient denies c hildhood foot problems, weakness. P atient complains of h eel pain, arch pain. P eripheral Vascular: Patient denies u lceration of feet, cold extremities. ? S kin: Patient denies u lcerations, discoloration. P atient complains of n ail changes, ingrown nails, calluses and corns. N eurologic: Patient denies b alance difficulty, confusion, difficulty speaking, dizziness. * Medical History: * Family History: F ather: PRN - Father: . M other: PRN - Mother: . S ister: SIB - Sister: . * Social History: M igrated Social History: M igrated Social History: Alcohol intake : , History of tobacco use : , Smoking Status : Former smoker. * Medications: T aking Eliquis 5 MG Tablet Oral , Taking Topiramate 50 MG Tablet Oral , Taking dilTIAZem HCl ER Coated Beads 240 MG Capsule Extended Release 24 Hour Oral , Taking Olmesartan Medoxomil 20 MG Tablet Oral , Taking Advair Diskus 500-50 MCG/ACT Aerosol Powder Breath Activated Inhalation , Taking PreviDent 5000 Sensitive 1.1-5 % Gel BRUSH GEL ON FOR 2 MINUTES 2 TO 3 TIMES DAILY Dental , Taking Edpfbdmv-Cnnsxogwz-VU 3.5-27671-4 Solution Otic , Taking Vitamin D (Ergocalciferol) 1.25 MG (87969 UT) Capsule Oral , Taking methylPREDNISolone 4 MG Tablet Therapy Pack as directed Orally , Notes to Pharmacist: one pack, Taking methylPREDNISolone 4 MG Tablet Therapy Pack as directed Orally , Notes to Pharmacist: one pack, Taking Terbinafine HCl 250 MG Tablet 1 tablet Orally Once a day , Taking Meloxicam 15 MG Tablet 1 tablet Orally Once a day , Medication List reviewed and reconciled with the patient * Allergies: K eflet: Allergy - Onset Date 09/28/2017, Amoxicillin: Allergy - Onset Date 09/28/2017, Cefixime: Allergy - Onset Date 09/28/2017, Gamez: Allergy - Onset Date 09/28/2017, Cipro: Allergy - Onset Date 09/28/2017, Keflex: Allergy - Onset Date 06/06/2020, Levaquin: Allergy - Onset Date 09/28/2017, Latex. Objective: * Vitals: * Examination: C onstitutional: Constitutional T he patient is awake, alert, well developed, well groomed and well nourished.. D ermatologic: Skin findings: S kin is warm, dry, supple with no breaks in the skin.. Nail pathology: N ails 1 bilateral are elongated, thick, discolored, and dystrophic with subungual debris. They are painful to palpation. ? V ascular: Dorsalis pedis pulse: 2 /4, bilateral. Posterior tibial pulse: 2 /4, bilaterally. Capillary refill: l ess than 3 seconds. Edema: N o edema, bilateral. N eurologic: Gross sensation G ross sensation is intact to light touch..? M usculoskeletal: Muscle Strength M uscle strength is 5/5 in regards to dorsiflexion, plantarflexion, inversion, and eversion in bilateral lower extremities.. Pain on palpation p eroneal tendons of the left foot.. Assessment: * Assessment: 1. T inea unguium - B35.1 (Primary) 2 . O nychocryptosis - L60.0 3 . P eroneal tendinitis, left leg - M76.72 4 . L eft foot pain - M79.672 Plan: * Treatment: 2. O nychocryptosis Notes: NAIL DEBRIDEMENT: Nails 1-5 Bilateral were debrided extensively with nail nippers and emery board, reducing length and girth to pink healthy tissue with any subungual debris and necrotic tissue removed 3. P eroneal tendinitis, left leg Notes: Peroneal Tendonitis: I discussed anti-inflammatory treatment options and various means of immobilization with the patient. I educated the patient on icing and stretching, supportive shoegear, and the use of orthotic devices and bracing. Recommend OTC Sweedo ankle brace * Follow Up: 3 Months (Reason: Fungal nail follow-up after 12 weeks of lamisil; nail debridement, ankle brace (Sweedo) check) * Billing Information: * Visit Code: 30882 Office Visit, Est Pt., Level 3. * Procedure Codes: * Electronic signature of VIJAYA FARIA DPM on 04/26/2024 at 02:57 PM LOTTERY MANAGER Sign off status: Pending * Provider: Belgica Faria, REXM Date: 1 03/12/2023 Generated for Tato to/Shanti/Shilpa on: 0 04/26/2024 02:57 PM LOTTERY MANAGER History and Physical Notes * HPI (History of Present Illness) Category Sub-Category Detail Notes Category Not es HPI Follow Up Visit Patient presents for follow-up visit for toenail fungus. Patient states oral Lamisil seems to be working, and she has had no issues taking medication. Patient also states she was unable to obtain an ankle brace. MA: LB Examination Category Sub-Category Detail Notes Category Not es Dermatologic Skin findings: Skin is warm, dr y, supple with no breaks in the skin. Nail pathology: Nails 1 bilateral ar e elongated, thick, discolored, and dystrophic with subungual debris. They are painful to palpation Neurologic Gross sensation Gross sensation is intact to light touch. Vascular Dorsalis pedis pulse: 2/4, bilateral Edema: No edema, bilateral Capillary refill: less than 3 seconds Posterior tibial pulse: 2/4, bilaterally Musculoskeletal Muscle Strength Muscle strength is 5/5 in regards to dorsiflexion, plantarflexion, inversion, and eversion in bilateral lower extremities. Pain on palpation peroneal tendons of the left foot. Constitutional Constitutional The patient is a wake, alert, well developed, well groomed and well nourished.
--- OUTSIDE RECORDS SUMMARY | 2024-04-26 14:57 | XMS_ITS | Referral Summary ---
Author Organization [facility] [address] [place] [address] Care Team Providers Care Hand Edge Bander Name Role Phone Aviva Jaimes Primary Care Provider [phone] Allergies Active Allergy Reactions Criticality Noted Date Comments Adhesive Rash Medium 10/27/2017 Amoxicillin Rash Medium 09/30/2017 Cefixime Rash Medium 09/30/2017 Cephalexin Rash Medium 09/30/2017 Gamez Anaphylaxis High 09/30/2017 Ciprofloxacin Nausea only Medium 09/30/2017 Clindamycin Swelling Medium 10/28/2017 [place] Butter Rash Medium 09/30/2017 Doxycycline Rash Medium [...] Immunization Administration Dates Next Due Tdap 01/13/2019 Social History Tobacco Use Types Packs/Day [...] on file Legal 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 Gender Identity Female 09/12/2020 8:26 AM CDT Sexual Orientation Straight 09/12/2020 8: 26 AM CDT Last Filed Vital Signs Vital Sign Reading [...] 10/29/2023 7:30 AM CDT Plan of Treatment Not on file Insurance ([address] [phone] [facility] [employer] Address: [facility] [id number] [place] [address] [employer] [place] [employer] [place] [employer] [place] For more information, please contact: [phone] * Full Code (Latest Code Status on File) Date Activated Date Inactivated Comments 10/29/2023 7:37 AM 10/29/2023 1:06 PM * Full Code Date Activated Date Inactivated Comments 11/14/2022 8:40 AM 11/14/2022 2:52 PM Care Teams Hand Edge Bander Relationship Specialty Start Date End Date Aviva Jaimes PA [address] [place] [phone] PCP - General Physician Deckhand Sponge Boat 07/22/22
--- OUTSIDE RECORDS SUMMARY | 2024-04-26 14:57 | XMS_ITS ---
Author Organization [facility] Address [address] [place] [address] Care Team Providers Care Keno Writer Name Role Phone Joann Santamaria Primary Care Provider REASON FOR VISIT HENRY PATTON Encounters Encounter Location Date Provider Diagnosis [facility] [address] [place] [address] 02/22/2024 Joann Santamaria Plan Of Treatment No Information Progress Notes * Miranda QURESHIOB: [birth year] (38 yo F)Acc No.[id number]:02/22/2024 Patient: Gurjit Meghna SANDOVAL :1985 A ge:38 Y S ex:Female Phone: Address:[address] [place] [address] * true * Date: Generated for Nitzai zuelika/Leroyg/eTransmitting on: 0 04/26/2024 02:57 PM 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
--- OUTSIDE RECORDS SUMMARY | 2024-04-26 14:57 | XMS_ITS | Clinical Summary ---
Author Organization [facility] Address [address] [place] [address] Care Team Providers Care Vehicle And Equipment Cleaner Name Role Phone Aviva Jaimes PA-C Primary Care Provider [phone] Source Comments [facility],non-owned Affiliates and Associated Physician Practices is amultiple site organization consisting of ambulatory clinics and hospital sitesin [place], [place], [place] and [place]. This disclosure is being madepursuant to the Care Everywhere program and may not contain all information available regarding this patient. Last updated 17.[facility] [employer] Allergies Active Allergy Reactions Criticality Noted Date Comments Adhesive Sensitivity Rash Medium 10/27/2017 Amoxicillin Urticaria,Rash,Unknown Medium 09/28/2017 Cefixime Rash Medium 09/28/2017 Cephalexin Rash Medium 09/30/2017 Gamez Anaphylaxis,Unknown High 09/28/2017 Ciprofloxacin Nausea and/or Vomiti ng,GI Discomfort,Unknown,Other Medium 09/28/2017 Clindamycin Anaphylaxis,Swelling High 10/28/2017 [place] Butter Rash,Other,Unknown Medium 09/30/2017 Doxycycline Unknown,Rash Medium [...] Active vitamin D, ergocalciferol, (Drisdol) 1.25 MG (40567 UT) capsule Take 1 (one) capsule by [...] mouth as needed 01/20/2024 Active nystatin (Mycostatin) 873702 UNIT/GM cream Apply to affected area 2 [...] on 04/19/2024 Nebulizers (Vios Aerosol Delivery System) MISC Use 1 Each as directed 04/15/2024 Active levoFLOXacin (Levaquin) 500 MG tablet Take 1 (one) tablet by mouth once daily for 10 days 10 tablet 04/19/2024 5 Active clarithromycin (Biaxin) 500 MG tablet Take 1 (one) tablet by mouth 2 times daily for 10 days 20 tablet 04/19/2024 Discontinue d(Clinical Decision) Encounters Date Type Department Care Team Description 04/19/2024 10:45 AM SENIOR PROJECT MANAGER ENGINEERING Office Visit [facility] - ENT [address] [place] [phone] Arjun Correa MD Acute maxillary sinusitis, recurrence not specified (Primary Dx) 04/19/2024 Travel 02/09/2024 10:45 AM SENIOR PROJECT MANAGER ENGINEERING Office Visit [facility] - ENT [address] [place] [phone] Arjun Correa MD Hoarseness (Primary Dx); Chronic fungal laryngitis 02/09/2024 Travel from Last 3 Months Immunizations Name Administration Dates Next Due INFLUENZA [...] Comments Blood Pressure 112/79 04/19/2024 10:39 AM SENIOR PROJECT MANAGER ENGINEERING Pulse 94 04/19/2024 10:39 AM SENIOR PROJECT MANAGER ENGINEERING Temperature - - Respiratory Rate - - Oxygen Saturation - - Inhaled Oxygen Concentration - - Weight 225.4 kg (497 lb) 04/19/2024 10:39 AM SENIOR PROJECT MANAGER ENGINEERING Height 170.2 cm (5' 7 ) 04/19/2024 10:39 AM SENIOR PROJECT MANAGER ENGINEERING Body Mass Index 77.84 04/19/2024 10:39 AM SENIOR PROJECT MANAGER ENGINEERING Plan of Treatment Upcoming Encounters Date Type Department Care Team (Late st Contact Info) Description 05/24/2024 8:15 AM CDT Office Visit [facility] - ENT [address], [place] [address] Arjun Correa MD [facility] [place] [address] Health Maintenance Due Date Last Done Comments PAP SMEAR 1987 HIV SCREENING 12/20/2002 HEPATITIS C SCREENING 12/16/2005 HEPATITIS B VACCINE (1 of 3 - 19+ 3-dose series) 12/20/2006 PNEUMOCOCCAL VACCINE (1 of 2 - PCV) 12/20/2006 COVID-19 VACCINE (2023-2 5 season) 2023 INFLUENZA VACCINE (#1) 2023 12/14/2013 DEPRESSION SCREENING 03/02/2024 DTAP/TDAP/TD VACCINES (2 - T d or Tdap) 01/13/2029 01/13/2019 ZOSTER VACCINE (1 of 2) 12/20/2037 HIB VACCINE Aged Out No longer eligi ble based on patient's age to complete this topic HPV VACCINE Aged Out No longer eligi ble based on patient's age to complete this topic MENINGOCOCCAL (Group B) VACCINE Aged Out No longer eligible based on patient's age to complete this topic MENINGOCOCCAL VACCINE Aged Out No emelyn lindsey eligible based on patient's age to complete this topic Procedures Procedure Name Priority Date/Time Associated Diagnosis Comments AK LARYNGOSCOPY,FLEX FIBER,DIAGNOSTIC Routine 04/19/2024 11:19 AM SENIOR PROJECT MANAGER ENGINEERING Acute maxillary sinusitis, recurrence not specified AK LARYNGOSCOPY,FLEX FIBER,DIAGNOSTIC Routine 02/09/2024 12:23 PM SENIOR PROJECT MANAGER ENGINEERING Hoarseness Chronic fungal laryngitis from Last 3 Months Results * AK LARYNGOSCOPY,FLEX FIBER,DIAGNOSTIC (04/19/2024 11:19 AM SENIOR PROJECT MANAGER ENGINEERING) Narrative Harsh Petty MD - 04/19/2024 11:19 AM SENIOR PROJECT MANAGER ENGINEERING Harsh Petty MD 04/19/2024 12:09 PM Procedure Note Endoscopy Type: Laryngoscopy without stroboscopy 80430 Endoscope: Flexible 4mm Scope Anesthesia: Lidocaine 2% [...] Correa MD PROCEDURE/MINOR SURG ICAL ORDERABLES * AK LARYNGOSCOPY,FLEX FIBER,DIAGNOSTIC (02/09/2024 12:23 PM SENIOR PROJECT MANAGER ENGINEERING) Narrative Jama Arreola MD - 02/09/2024 12:23 PM SENIOR PROJECT MANAGER ENGINEERING Jama Arreola MD 02/09/2024 9:38 PM Procedure Note Endoscopy Type: Laryngoscopy without stroboscopy 64649 Endoscope: Flexible 4mm Scope Anesthesia: Lidocaine 2% [...] Arjun Correa MD PROCEDURE/MINOR SURG ICAL ORDERABLES from Last 3 Months Care Teams Vehicle And Equipment Cleaner Relationship Specialty Start Date End Date Aviva Jaimes PA-C [address] [place] [id number] PCP - General Physician [facility] 10/27/23
--- OUTSIDE RECORDS SUMMARY | 2024-04-26 14:57 | XMS_ITS | Patient Health Summary ---
Author Organization [facility] Address [address] [place] [address] Care Team Providers Care Straightener Hand Name Role Phone Aviva Jaimes PA-C Primary Care Provider [phone] Note from [facility],non-owned Affiliates and Associated Physician Practices is amultiple site organization consisting of ambulatory clinics and hospital sitesin [place], [place], [place] and [place]. This disclosure is being madepursuant to the Care Everywhere program and may not contain all information available regarding this patient. Last updated 17.[facility] Allergies * Adhesive Sensitivity(Rash) -Medium Criticality * Amoxicillin(Urticaria,Rash,Unknown) -Medium Criticality * Cefixime(Rash) -Medium Criticality * Cephalexin(Rash) -Medium Criticality * Gamez(Anaphylaxis,Unknown) -High Criticality * Ciprofloxacin(Nausea and/or Vomiting,GI Discomfort,Unknown,Other) -Medium Criticality * Clindamycin(Anaphylaxis,Swelling) -High Criticality * [place] Butter(Rash,Other,Unknown) -Medium Criticality * Doxycycline(Unknown,Rash) -Medium Criticality * Honeydew(Other) * Latex(Rash) -Medium Criticality * Levofloxacin(Rash,Unknown) -Medium Criticality * Metformin(Unknown,Other) -Low Criticality * Tapentadol(Rash) -Medium Criticality Medications * Be aware that medications may not be up to date on this document. Alwaysverify current medications with the patient. * bumetanide (Bumex) 1 MG tablet(Started 09/02/2023) Take 1 (one) tablet by mouth once daily * Eliquis 5 MG tablet(Started 07/17/2023) Take 1 (one) tablet by mouth 2 times daily * Airsupra 90-80 MCG/ACT AERO(Started 08/11/2023) Inhale 2 puffs by mouth every 6 hours as needed * Cholecalciferol 125 MCG (5000 UT) Take 1 (one) tablet by mouth once daily * dilTIAZem coated beads 24hr (Cardizem CD) 240 MG capsule Take 1 (one) capsule by mouth once daily * vitamin D, ergocalciferol, (Drisdol) 1.25 MG (54339 UT) capsule Take 1 (one) capsule by mouth every 7 days * esomeprazole (NexIUM) 40 MG capsule(Started 09/22/2023) Take 1 (one) capsule by mouth once daily * fexofenadine (Sarai Allergy) 180 MG tablet(Started 10/21/2023) Take 1 (one) tablet by mouth once daily * Breo Ellipta 200-25 MCG/ACT inhaler(Started 10/08/2023) Inhale 1 (one) puff by mouth once daily * Synthroid 300 MCG tablet(Started 10/21/2023) Take 1 (one) tablet by mouth once daily * liothyronine (Cytomel) 5 MCG tablet(Started 10/21/2023) Take 1 (one) tablet by mouth once daily * cyanocobalamin (Vitamin B-12) injection Inject 1,000 (one thousand) mcg subcutaneously every 7 days * LORazepam (Ativan) 0.5 MG tablet(Started 06/18/2023) Take 1 (one) tablet by mouth as needed * olmesartan (Benicar) 20 MG tablet(Started 10/21/2023) Take 1 (one) tablet by mouth once daily * Nurtec 75 MG tablet(Started 09/24/2023) Take 75 mg by mouth as directed * tamsulosin (Flomax) 0.4 MG capsule(Started 10/21/2023) Take 1 (one) capsule by mouth once daily * ondansetron (Zofran) 4 MG tablet(Started 06/18/2023) Take 1 (one) tablet by mouth every 8 hours as needed * terbinafine (LamISIL) 250 MG tablet(Started 09/28/2023) Take 1 (one) tablet by mouth once daily * topiramate (Topamax) 25 MG tablet(Started 10/21/2023) Take 1 (one) tablet by mouth once daily after breakfast * topiramate (Topamax) 50 MG tablet(Started 10/21/2023) Take 1 (one) tablet by mouth once daily * varenicline (Chantix) 1 MG tablet Take 1 (one) tablet by mouth 2 times daily * Berberine Chloride 500 MG CAPS(Started 10/21/2023) Take 1,000 mg by mouth once daily * vitamin b-12 (Cyancobalamin) 1000 MCG tablet cr(Started 10/21/2023) Take 1,000 (one thousand) tablets by mouth once daily * meloxicam (Mobic) 15 MG tablet Take 1 (one) tablet by mouth once daily * Cosentyx UnoReady 300 MG/2ML SOAJ pen(Started 11/30/2023) Inject 300 (three hundred) mg subcutaneously every 28 days * folic acid (Folvite) 1 MG tablet(Started 02/01/2024) Take 1 (one) tablet by mouth once daily * nitrofurantoin monohyd macro crystals (Macrobid) 100 MG capsule(Started 01/20/2024) Take 1 (one) capsule by mouth as needed * nystatin (Mycostatin) 532309 UNIT/GM cream(Started 02/01/2024) Apply to affected area 2 times daily * ondansetron, disintegrating, (Zofran ODT) 4 MG tablet(Started 02/01/2024) Take 1 (one) tablet by mouth as needed * Mounjaro 2.5 MG/0.5ML injection(Started 12/29/2023) Inject 2.5 (two and one-half) mg subcutaneously every 7 days * Mounjaro 5 MG/0.5ML injection(Started 02/01/2024) Inject 5 (five) mg subcutaneously every 7 days * fluconazole (Diflucan) 150 MG tablet(Started 02/09/2024) Take 1 (one) tablet by mouth once daily * diphenhydrAMINE (Benadryl) 25 MG tablet(Started 02/09/2024) Take 1 (one) tablet by mouth 4 times daily as needed for Itching * sulfamethoxazole-trimethoprim (Bactrim DS; Septra DS) 800-160 MG tablet (Started 02/09/2024) Take 1 (one) tablet by mouth 2 times daily * Nebulizers (Vios Aerosol Delivery System) [facility](Started 04/15/2024) Use 1 Each as directed * levoFLOXacin (Levaquin) 500 MG tablet(Started 04/19/2024) Take 1 (one) tablet by mouth once daily for 10 days Ended Medications* clarithromycin (Biaxin) 500 MG tablet(Started 04/19/2024) (Discontinued) Take 1 (one) tablet by mouth 2 times daily for 10 days Immunizations * INFLUENZA VACCINE, HIGH-DOSE, QUADR. (FLUZONE HIGH-DOSE QUADRIVALENT; 65Y+), 0.7 ML (HD-IIV4)(Given 12/14/2013) * TDAP (7yrs+)(Given 01/13/2019) Social History Tobacco Use Types Packs/Day Years [...] Comments Blood Pressure 112/79 04/19/2024 10:39 AM CORRECTION OFFICER [employer] Pulse 94 04/19/2024 10:39 AM CORRECTION OFF[employer] Temperature - - Respiratory Rate - - Oxygen Saturation - - Inhaled Oxygen Concentration - - Weight 225.4 kg (497 lb) 04/19/2024 10:39 AM CORRECTION OFFIC[employer] Height 170.2 cm (5' 7 ) 04/19/2024 10:39 AM CORRECTION OFF[employer] Body Mass Index 77.84 04/19/2024 10:39 AM CORRECTION OFFIC[employer] Procedures * SC LARYNGOSCOPY,FLEX FIBER,DIAGNOSTIC(Performed 04/19/2024) Performed for Acute maxillary sinusitis, recurrence not specified * SC LARYNGOSCOPY,FLEX FIBER,DIAGNOSTIC(Performed 02/09/2024) Performed for Hoarseness, Chronic fungal laryngitis * PROC ENDOSCOPY-LARYNX(Performed 12/08/2023) Performed for Hoarseness, Chronic fungal laryngitis * PROC CERUMEN REMOVAL(Performed 12/08/2023) Performed for Bilateral impacted cerumen * PROC ENDOSCOPY-LARYNX(Performed 10/27/2023) Performed for Hoarseness, Chronic fungal laryngitis, Laryngitis Results * SC LARYNGOSCOPY,FLEX FIBER,DIAGNOSTIC (04/19/2024 11:19 AM CORRECTION [employer]) Narrative Harsh Petty MD - 04/19/2024 11:19 AM [employer] Harsh Petty MD 04/19/2024 12:09 PM Procedure Note Endoscopy Type: Laryngoscopy without stroboscopy [id number] Endoscope: Flexible 4mm Scope Anesthesia: Lidocaine 2% [...] Correa MD PROCEDURE/MINOR SURG ICAL ORDERABLES * SC LARYNGOSCOPY,FLEX FIBER,DIAGNOSTIC (02/09/2024 12:23 PM CORRECTION [employer]) Narrative Jama Arreola MD - 02/09/2024 12:23 PM [employer] Jama Arreola MD 02/09/2024 9:38 PM Procedure Note Endoscopy Type: Laryngoscopy without stroboscopy [id number] Endoscope: Flexible 4mm Scope Anesthesia: Lidocaine 2% [...] Correa MD PROCEDURE/MINOR SURG ICAL ORDERABLES * PROC ENDOSCOPY-LARYNX (12/08/2023 1:40 PM CDT) Narrative Arjun Correa MD - 12/08/2023 1:40 PM CDT Arjun Correa MD 12/08/2023 1:45 PM Procedure Note Endoscopy Type: Laryngoscopy without stroboscopy [id number] Endoscope: Flexible 4mm Scope Anesthesia: Lidocaine 2% [...] cricoid region, and the immediate subglottis. Findings: mobile vocal folds, less erythema, interytenoid mucosal cobblestoning, superficial secretions on cords and epiglottis c/w fungus Condition: Stable. Patient tolerated procedure well. Complications: None I was present for the entirety of the procedure. Arjun Correa MD PROCEDURE/MINOR SURG ICAL ORDERABLES * PROC CERUMEN REMOVAL (12/08/2023 1:38 PM CDT) Narrative Arjun Correa MD - 12/08/2023 1:38 PM CDT Arjun Correa MD 12/08/2023 1:45 PM Indication: Excessive Cerumen Impaction Procedure: Micro-otoscopy - SC REMOVE CERUMEN IMPACTED W INSTR: [[id number] DUSTIN] Procedure Note: Verbal consent for the procedure was obtained. Patient was placed under the ear microscope and bilateral ear(s) examined. All cerumen and excess hair was removed using a combination of cerumen loops, suction,and alligator forceps. Normal Findings: After the cerumen was removed, the ear canal was normal and the tympanic membrane on the left had normal landmarks and mobility. The right had normal landmarks and mobility. Abnormalities: wax and cotton fibers on the TM bilaterrally Arjun Correa MD Arjun Correa MD PROCEDURE/MINOR SURG ICAL ORDERABLES * PROC ENDOSCOPY-LARYNX (10/27/2023 2:30 PM CDT) Narrative Arjun Correa MD - 10/27/2023 2:30 PM CDT Arjun Correa MD 10/27/2023 2:57 PM Procedure Note Endoscopy Type: Laryngoscopy without stroboscopy [id number] Endoscope: Flexible 4mm Scope Anesthesia: Lidocaine 2% [...] cricoid region, and the immediate subglottis. Findings: Nasal cavity is clear. The nasopharynx is occupied by a large adenoid pad obstructs 60% of the choana bilaterally. There is enlarged tonsils as well 3+ in size. Purulent drainage against posterior pharyngeal wall and the left lateral pharyngeal wall purulent accumulation of debris on the postcricoid mucosa. Bilateral cords move normally the endolarynx has chronic irritative changes from smoking as well as what appears to be fungal debris on the surface of the vocal cords bilaterally. Condition: Stable. Patient tolerated procedure well. Complications: None I was present for the entirety of the procedure. Arjun Correa MD PROCEDURE/MINOR SURG ICAL ORDERABLES Care Teams Straightener Hand Relationship Specialty Start Date End Date Aviva Jaimes PA-C [address] [place] [id number] PCP - General Physician [place] 10/27/23
--- OUTSIDE RECORDS SUMMARY | 2024-04-26 14:58 | XMS_ITS | Patient Health Record ---
Author Organization [facility] Address [address] [place], [place] [id number] Care Team Providers Care Track Inspecting Supervisor Name Role Phone VIJAYA FARIA Unavailable [phone] Ivory De Leona Unavailable Unavailable Allergies Allergen (clinical drug ingredient) [...] 09/28/2017 active Latex Latex Unknown Allergy Active Reason For Referral No Information Medications Medication SIG (Take, Route, Frequency, Duration) Notes Start Date End Date Status Topiramate 50 MG Oral for 90 Days Active dilTIAZem HCl ER Coated Bead s 240 MG Oral for 90 Days Active Olmesartan Medoxomil 20 MG Oral for 90 Days Active Advair Diskus 500-50 MCG/ACT Inhalation for 30 Days Active PreviDent 5000 Sensitive 1.1-5 % BRUSH GEL ON FOR 2 MINUTES 2 TO 3 TIMES DAILY Dental for 30 Days Active Bncuwzzr-Sbqdpcvnr-CQ 3.5-34700-3 Otic for 90 Days Active Vitamin D (Ergocalciferol) 1.25 MG (38121 UT) Oral for 84 Days Activ e methylPREDNISolone 4 MG as directed Orally one pack 024 Active methylPREDNISolone 4 MG as directed Orally one pack 07/29/2 024 Active Terbinafine HCl 250 MG 1 tablet Orally O nce a day for 42 days Active Eliquis 5 MG Oral for 30 Days Active Meloxicam 15 MG 1 tablet Orally Once a day for 30 days Active Vital Signs Height-cm 167.64 cm 07/06/2023 Weight-kg 158.76 kg 07/06/2023 Height 66.00 in 07/06/2023 Weight 350 lbs 07/06/2023 BMI 56.49 kg/m2 07/06/2023 Encounters Encounter Location Date Provider Diagnosis [facility] [address] [place] [address] [id number] 01/11/2024 VIJAYA SNOOK Tinea unguium B35.1 ; Onychocryptosis L60.0 ; Peroneal tendinitis, left leg M76.72 and Left foot pain M79.672 [facility] [address] [place] [address] [id number] 07/06/2023 VIJAYA SNOOK Plantar fascial fibromatosis M72.2 ; Tinea unguium B35.1 ; Acquired keratosis [keratoderma] palmaris et plantaris L85.1 ; Pain in right toe(s) M79.674 ; Pain in left toe(s) M79.675 and Atherosclerosis of big sandy arteries of extremities with intermittent claudication, bilateral legs I70.213 [facility] [address] [place] [address] [id number] 09/28/2023 VIJAYA SNOOK Tinea unguium B35.1 ; Peroneal tendinitis, left leg M76.72 and Left foot pain M79.672 [facility] [address] [place] [address] [id number] 11/09/2023 VIJAYA SNOOK Tinea unguium B35.1 ; Peroneal tendinitis, left leg M76.72 and Left foot pain M79.672 [facility] [address] [place] [id number] 12/07/2023 VIJAYA SNOOK Tinea unguium B35.1 ; Onychocryptosis L60.0 ; Peroneal tendinitis, left leg M76.72 and Left foot pain M79.672 [facility] [address] [place], [place] [id number] 03/14/2024 VIJAYA FARIA Tinea unguium B35.1 ; Onychocryptosis L60.0 ; Peroneal tendinitis, left leg M76.72 ; Left foot pain M79.672 and Posterior tibial tendinitis, left leg M76.822 Assessments Encounter Date Diagnosis (ICD Code) Assessment Notes Treatment Notes Treatment Clinical Notes Section Notes 07/06/2023 Tinea unguium (ICD-10 - B35.1) NAIL DEBRIDEMENT: Nails 1-5 Bilateral were debrided extensively with nail nippers and emery board, reducing length and girth to pink healthy tissue with any subungual debris and necrotic tissue removed The nails show improvement to 75% of the base 07/06/2023 Plantar fascial fibromatosis (ICD-10 - M72.2) Plantar Fascitis: I discussed anti-inflammatory treatment options and various means of pronation control with the patient. I educated the patient on icing and stretching, supportive shoegear, and the use of orthotic devices. Recommend she try an OTC insert that is not a rigid sport type, nor soft accommodtive type; but a casual semi-rigid inser instead 09/28/2023 Tinea unguium (ICD-10 - B35.1) FUNGAL TOENAILS: Discussed various treatment options for fungal toenails including debridement, topical antifungals, oral antifungals, toenail avulsion, or toenail matrixectomy. Patient showed me her LFTs from other blood work. We will proceed with Lamisil oral medication 09/28/2023 Peroneal tendinitis, left leg (ICD-10 - M76.72) Peroneal Tendonitis: I discussed anti-inflammatory treatment options and various means of immobilization with the patient. I educated the patient on icing and stretching, supportive shoegear, and the use of orthotic devices and bracing. 11/09/2023 Tinea unguium (ICD-10 - B35.1) FUNGAL TOENAILS: Discussed various treatment options for fungal toenails including debridement, topical antifungals, oral antifungals, toenail avulsion, or toenail matrixectomy. Patient showed me her repeat LFTs from other blood work. We will proceed with Lamisil oral medication 11/09/2023 Peroneal tendinitis, left leg (ICD-10 - M76.72) Peroneal Tendonitis: I discussed anti-inflammatory treatment options and various means of immobilization with the patient. I educated the patient on icing and stretching, supportive shoegear, and the use of orthotic devices and bracing. [facility] 12/07/2023 Onychocryptosis (ICD-10 - L60.0) 01/11/2024 Tinea unguium (ICD-10 - B35.1) FUNGAL [...] any subungual debris and necrotic tissue removed 03/14/2024 Tinea unguium (ICD-10 - B35.1) FUNGAL TOENAILS: Discussed various treatment options for fungal toenails including debridement, topical antifungals, oral antifungals, toenail avulsion, or toenail matrixectomy. NAIL DEBRIDEMENT: Nails 1-5 Bilateral were debrided extensively with nail nippers and emery board, reducing length and girth to pink healthy tissue with any subungual debris and necrotic tissue removed 12/07/2023 Tinea unguium (ICD-10 - B35.1) FUNGAL TOENAILS: Discussed various treatment options for fungal toenails including debridement, topical antifungals, oral antifungals, toenail avulsion, or toenail matrixectomy. Patient will start the oral lamisil now. 03/14/2024 Onychocryptosis (ICD-10 - L60.0) Slant Back Toenail: Following skin prep, the offending nail border was debrided without anesthesia. The patient was instructed on monitoring for infection or recurrence. 12/07/2023 Peroneal tendinitis, left leg (ICD-10 - M76.72) Peroneal Tendonitis: I discussed anti-inflammatory treatment options and various means of immobilization with the patient. I educated the patient on icing and stretching, supportive shoegear, and the use of orthotic devices and bracing. [facility] 07/06/2023 Acquired keratosis [keratoderma] palmaris et plantaris (ICD-10 - L85.1) Hyperkeratosis: The skin was prepped with isopropyl alcohol. Using a 15-blade scalpel, the hyperkeratotic skin lesions were sharply debrided down to healthy appearing skin. A total of 2 corns or calluses, as described in the note above, were cut and pared utilizing a #15 blade 03/14/2024 Peroneal tendinitis, left leg (ICD-10 - M76.72) Peroneal Tendonitis: I discussed anti-inflammatory treatment options and various means of immobilization with the patient. I educated the patient on icing and stretching, supportive shoegear, and the use of orthotic devices and bracing. Order: [place] Ankle brace for ankle instability, Posterior tibialis tendon dysfunciton, and ankle strain and tendonitis 01/11/2024 Peroneal tendinitis, left leg (ICD-10 - M76.72) Peroneal Tendonitis: I discussed anti-inflammatory treatment options and various means of immobilization with the patient. I educated the patient on icing and stretching, supportive shoegear, and the use of orthotic devices and bracing. Recommend [facility] [place] ankle brace 11/09/2023 Left foot pain (ICD-10 - M79.672) 09/28/2023 Left foot pain (ICD-10 - M79.672) 07/06/2023 Pain in right toe(s) (ICD-10 - M79.674) 01/11/2024 Left foot pain (ICD-10 - M79.672) 03/14/2024 Left foot pain (ICD-10 - M79.672) 12/07/2023 Left foot pain (ICD-10 - M79.672) 03/14/2024 Posterior tibial tendinitis, left leg (ICD-10 - M76.822) 07/06/2023 Pain in left toe(s) (ICD-10 - M79.675) 07/06/2023 Atherosclerosis of big sandy arteries of extremities with intermittent claudication, bilateral legs (ICD-10 - I70.213) Plan Of Treatment Pending Test Test Name Order Date Liver Function Test (LFT) 01/11/2024 Next Appt Details Provider Name:VIJAYA FARIA, 08:20:00 AM, [address], [facility], [place], [place], [id number], Insurance Providers Payer Name Payer Address Payer Phone Subscriber Number Group Number Insured Name Patient Relationship to Insured Coverage Start Date Coverage End Date [facility] ([facility]) ATTN CLAIMS [address] [place] [address] [id number] PAULINE SLADE Self - patient is the insured
--- OUTSIDE RECORDS SUMMARY | 2024-04-26 14:58 | XMS_ITS ---
Author Organization [facility] Address [address] [facility] [place] [address] Care Team Providers Care Oil Inspector Name Role Phone Joann Santamaria Primary Care Provider REASON FOR VISIT Refills Encounters Encounter Location Date Provider Diagnosis [facility] [address] [place] [address] 02/26/2024 Joann Santamaria Plan Of Treatment No Information Progress Notes * Miranda QURESHIOB: [birth year] (38 yo F)Acc No.[id number]:02/26/2024 Patient: Gurjit Meghna SANDOVAL :1985 A ge:38 Y S ex:Female Phone: Address:[address] [place] [address] * true * Date: Generated for Tato to/Shanti/eTransmitting on: 0 04/26/2024 02:57 PM PRODUCTION BROACHER
--- OUTSIDE RECORDS SUMMARY | 2024-04-26 14:58 | XMS_ITS ---
Author Organization [facility] Address [address] [place] [address] Care Team Providers Care Data Administrator Name Role Phone Joann Santamaria Primary Care Provider [phone] REASON FOR VISIT FU Encounters Encounter Location Date Provider Diagnosis [facility] - Joann Santamaria [address] [place] [address] 04/14/2024 Joann Santamaria Plan Of Treatment No Information Progress Notes * Miranda QURESHIOB: [birth year] (38 yo F)Acc No.[id number]:04/14/2024 Progress Notes Patient: Gurjit SALMONMARCELINO Meghna Provider: Denise Santamaria MD :1985 A ge:38 Y S ex:Female Date:04/14/2024 Phone: Address:[address] [place], [place] [phone] Subjective: * Chief Complaints: * 1 . FU. * Medical History: Objective: * Vitals: Assessment: Plan: * Treatment: * Billing Information: * Visit Code: * Procedure Codes: * Electronic signature of Jaya Santamaria MD on 04/26/2024 at 02:58 PM CLOTH SANDER Sign off status: Pending * Provider: Denise Santamaria MD Date: 04/14/2024 Generated for Nitzai ng/Faluz/eTransmitting on: 04/26/2024 02:58 PM CLOTH SANDER
--- OUTSIDE RECORDS SUMMARY | 2024-04-26 14:58 | XMS_ITS ---
Author Organization [facility] Address [address] [place], [place] [id number] Care Team Providers Care Lab Manager Name Role Phone VIJAYA FARIA Unavailable [phone] Rayna De Leon Unavailable Unavailable Allergies Allergen (clinical drug ingredient) [...] Allergy Active REASON FOR VISIT The patient has been having other medical issues and was unable to take the oral lamisil. She will be starting it soon, however. She found that the meloxicam did help her left ankle, but she has yet to secure an ankle brace Medications Medication SIG (Take, Route, Frequency, Duration) Notes Start Date End Date Status methylPREDNISolone 4 MG as directed Orally one pack Active methylPREDNISolone 4 MG as directed Orally one pack 024 Active Terbinafine HCl 250 MG 1 tablet Orally O nce a day for 42 days Active Vitamin D (Ergocalciferol) 1.25 MG (39225 UT) Oral for 84 Days Activ e Meloxicam 15 MG 1 tablet Orally Once a day for 30 days Active dilTIAZem HCl ER Coated Bead s 240 MG Oral for 90 Days Active Advair Diskus 500-50 MCG/ACT Inhalation for 30 Days Active Olmesartan Medoxomil 20 MG Oral for 90 Days Active Eqfpcyrg-Hixukwxem-NW 3.5-38714-8 Otic for 90 Days Active PreviDent 5000 Sensitive 1.1-5 % BRUSH GEL ON FOR 2 MINUTES 2 TO 3 TIMES DAILY Dental for 30 Days Active Eliquis 5 MG Oral for 30 Days Active Topiramate 50 MG Oral for 90 Days Active Encounters Encounter Location Date Provider Diagnosis [facility] [address] [place], [place] [id number] 12/07/2023 VIJAYA FARIA Tinea unguium B35.1 ; Onychocryptosis L60.0 ; Peroneal tendinitis, left leg M76.72 and Left foot pain M79.672 Assessments Encounter Date Diagnosis (ICD Code) Assessment Notes Treatment Notes Treatment Clinical Notes Section Notes 12/07/2023 Tinea unguium (ICD-10 - B35.1) FUNGAL TOENAILS: Discussed various treatment options for fungal toenails including debridement, topical antifungals, oral antifungals, toenail avulsion, or toenail matrixectomy. Patient will start the oral lamisil now. 12/07/2023 Onychocryptosis (ICD-10 - L60.0) 12/07/2023 Peroneal tendinitis, left leg (ICD-10 - M76.72) Peroneal Tendonitis: I discussed anti-inflammatory treatment options and various means of immobilization with the patient. I educated the patient on icing and stretching, supportive shoegear, and the use of orthotic devices and bracing. Recommend [facility] Dylan ankle brace 12/07/2023 Left foot pain (ICD-10 - M79.672) Plan Of Treatment Medication Medication Name Sig Start Date Stop Date Notes Terbinafine HCl 250 MG 1 tablet Orally O nce a day for 42 days Meloxicam 15 MG 1 tablet Orally Once a day for 30 days Treatment Notes Assessment Notes Tinea unguium FUNGAL TOENAILS: Discussed various treatment options for fungal toenails including debridement, topical antifungals, oral antifungals, toenail avulsion, or toenail matrixectomy. Patient will start the oral lamisil now. Peroneal tendinitis, left leg Peroneal Tendonitis: I discussed anti-inflammatory treatment options and various means of immobilization with the patient. I educated the patient on icing and stretching, supportive shoegear, and the use of orthotic devices and bracing. Recommend OTC Dylan ankle brace Next Appt Details Follow Up: 5 weeks, Reason: Repeat LFTs. See how oral lamisil is tolerated. Check status of ankle brace. Debride toenails Provider Name:VIJAYA FARIA, 08:20:00 AM, [address], [address], [id number], Progress Notes * JOSE QURESHIRADOB: [birth year] (37 yo F)Acc No.[id number]:12/07/2023 Patient: PAULINE ONEILL Provider: Belgica Faria DPM :1985 A ge:37 Y S ex:Female Date:12/07/2023 Address:[address] [place] [address] Subjective: * Chief Complaints: * 1 . The patient has been having other medical issues and was unable to take the oral lamisil. She will be starting it soon, however. She found that the meloxicam did help her left ankle, but she has yet to secure an ankle brace. * HPI: H PI: Follow Up Visit P gilbert presents for follow up visit for left tendonitis. Patient states that the lateral side of her left foot is still sore. She was unable to get a brace for her foot. She states that her left great toenail is still sore from the ingrown removal. , MA: omar. * ROS: G eneral / Constitutional: Patient [...] difficulty speaking, dizziness. * Medical History: * Medications: T aking Eliquis 5 MG [...] TO 3 TIMES DAILY Dental , Taking Luuukcyx-Jnkvfyfvw-QR 3.5-74087-0 Solution Otic , Taking Vitamin D (Ergocalciferol) 1.25 MG (89475 UT) Capsule Oral , Taking methylPREDNISolone 4 MG Tablet Therapy Pack as directed Orally , Notes to Pharmacist: one pack, Taking methylPREDNISolone 4 MG Tablet Therapy Pack as directed Orally , Notes to Pharmacist: one pack, Taking Terbinafine HCl 250 MG Tablet 1 tablet Orally Once a day , stop date 2023, Taking Meloxicam 15 MG Tablet 1 tablet Orally Once a day , stop date 12/09/2023, Medication List reviewed and reconciled with the [...] pain - M79.672 Plan: * Treatment: 2. P eroneal tendinitis, left leg Start Meloxicam Tablet, 15 MG, 1 tablet, Orally, Once a day, 30 days, 30, Refills 0. Notes: Peroneal Tendonitis: I discussed anti-inflammatory treatment options and various means of immobilization with the patient. I educated the patient on icing and stretching, supportive shoegear, and the use of orthotic devices and bracing. Recommend OT Dylan ankle brace * Follow Up: 5 weeks (Reason: Repeat LFTs. See how oral lamisil is tolerated. Check status of ankle brace. Debride toenails) * Billing Information: * Visit Code: 71684 Office Visit, Est Pt., Level 3. * Procedure Codes: * Sign off status: Completed true * Provider: Belgica Faria DPM Date: Generated for Tato to/Shanti/Shilpa on: 0 04/26/2024 02:58 PM [employer] History and Physical Notes * HPI (History of Present Illness) Category Sub-Category Detail Notes Category Not es HPI Follow Up Visit Patient presents for follow up visit for left tendonitis. Patient states that the lateral side of her left foot is still sore. She was unable to get a brace for her foot. She states that her left great toenail is still sore from the ingrown removal. , MA: omar Examination Category Sub-Category Detail Notes Category Not [...]
--- OUTSIDE RECORDS SUMMARY | 2024-04-26 14:58 | XMS_ITS | Clinical Summary ---
Author Organization [facility] Address [address] [place] [address] Care Team Providers Care Compound Filler Name Role Phone Aviva Jaimes Primary Care Provider [phone] Allergies Active Allergy Reactions Criticality Noted Date Comments Amoxicillin Unknown 09/30/2017 Cefixime Rash Low 09/30/2017 Gamez Unknown 09/30/2017 Ciprofloxacin Unknown 09/30/2017 Clindamycin Anaphylaxis High 10/28/2017 [place] Butter Unknown 09/30/2017 Doxycycline Rash,Unknown Medium 11/13/2022 Levofloxacin Unknown 09/30/2017 Metformin Other (see comment),Unknown Low 11/14/19 23 Tape Rash Medium 10/27/2017 Medications Cholecalciferol 50 MCG (2000 UT) Tab Take 5,000 Units by mouth. Active dilTIAZem CD 240 MG 24 hr capsule Active vitamin D2, ergocalciferol, 06082 UNITS capsule 1 capsule (1.25 mg total) every 7 days. Active olmesartan 20 MG tablet Take 1 tablet (20 mg total) by mouth daily. Active topiramate 50 MG Tab 1 tablet (50 mg total) 2 (two) times daily. 50 mg evening, 25 mg am Active fexofenadine 180 MG tablet Take 1 tablet (180 mg total) by mouth daily. Active ondansetron (ZOFRAN-ODT) 4 MG disintegrating tablet Take 1 tablet (4 mg total) by mouth every 8 (eight) hours as needed for Nausea. 12 tablet Active Additional Information Patient not taking.Reported on 03/28/2024 apixaban (ELIQUIS) 5 MG tablet Take 1 tablet (5 mg total) by mouth 2 (two) times daily. Active varenicline (CHANTIX) 1 MG tablet Take 1 tablet (1 mg total) by mouth 2 (two) times daily. Active AIRSUPRA 90-80 MCG/ACT Aerosol INHALE 2 PUFFS 6 TIMES A DAY NEEDED FOR SHORTNESS OF BREATH. RINSE MOUTH AFTER USING Active bumetanide (BUMEX) 1 MG tablet Take 1 tablet (1 mg total) by mouth daily. Active cyanocobalamin (B-12) 1000 MCG/ML injection INJECT 1ML SUBCUTANEOUSLY ONCE A WEEK ON Thursday Active esomeprazole (NEXIUM) 40 MG capsule Take 1 capsule (40 mg total) by mouth daily. Active BREO ELLIPTA 200-25 MCG/ACT inhaler Inhale 1 puff into the lungs daily. Active Insulin Syringe-Needle U-100 (INSULIN SYRINGE 1CC/31GX5/16 ) 31G X 5/16 1 ML Misc INJECT B12 UNDER THE SKIN EVERY 7 DAYS Active nystatin (MYCOSTATIN) 926121 UNIT/ML suspension SWISH AND SWALLOW 5 ML BY MOUTH EVERY 6 HOURS Active ondansetron (ZOFRAN) 4 MG tablet Take 1 tablet (4 mg total) by mouth every 8 (eight) hours. Active NURTEC 75 MG disintegrating tablet DISSOLVE ONE TABLET ON TONGUE EVERY 2 DAYS TO PREVENT MIGRAINE Active MOUNJARO 5 MG/0.5ML injection Inject 5 mg into the skin every 7 days. Active terbinafine (LAMISIL) 250 MG tablet Take 1 tablet (250 mg total) by mouth daily. Active tamsulosin (FLOMAX) 0.4 MG Cap Take 1 capsule (0.4 mg total) by mouth daily. Active COSENTYX UNOREADY 300 MG/2ML Solution Auto-injector Inject 300 mg into the skin every 28 days. Active topiramate (TOPAMAX) 25 MG tablet Take 1 tablet (25 mg total) by mouth daily. Active levothyroxine (SYNTHROID) 300 MCG tablet Take 1 tablet (300 mcg total) by mouth daily. Active liothyronine (CYTOMEL) 5 MCG Tab Take 1 tablet (5 mcg total) by mouth daily. Active meloxicam (MOBIC) 15 MG tablet Take 1 tablet (15 mg total) by mouth daily. Active folic acid (FOLVITE) 1 MG tablet Take 1 tablet (1 mg total) by mouth daily. Active albuterol sulfate HFA 108 (90 Base) MCG/ACT inhaler Inhale 2 puffs into the lungs every 6 (six) hours as needed for Wheezing. 8 g Active VENTOLIN HFA 108 (90 Base) MCG/ACT inhaler 2 puffs every 4 (four) hours as needed. 019 2024 Discontinued omeprazole 20 MG capsule Take 1 capsule (20 mg total) by mouth 2 (two) times daily as needed. 2024 Discontinued hydroCHLOROthiazi de (HYDRODIURIL) 25 MG tablet Take 1 tablet (25 mg total) by mouth daily. 2024 Discontinued hyoscyamine (LEVSIN) 0.125 MG TABLET DISPERSIBLE DISSOLVE ONE TABLET BY MOUTH EVERY 6 HOURS NEEDED 2024 Discontinued lisdexamfetamine (VYVANSE) 20 MG capsule take 1 capsule by mouth daily in the morning 2024 Discontinued LORazepam (ATIVAN) 0.5 MG tablet Take 1 tablet (0.5 mg total) by mouth daily. 2024 Discontinued metFORMIN ER (GLUCOPHAGE-XR) 500 MG 24 hr tablet take 1 tablet by mouth once daily with dinner 2024 Discontinued metroNIDAZOLE (METROGEL) 0.75 % vaginal gel INSERT ONE APPLICATORFUL VAGINALLY ONCE DAILY AT BEDTIME FOR 5 DAYS 2024 Discontinued phentermine (ADIPEX-P) 37.5 MG capsule Take 1 capsule (37.5 mg total) by mouth daily. 2024 Discontinued pioglitazone (ACTOS) 15 MG tablet Take 1 tablet (15 mg total) by mouth daily. 024 2024 Discontinued Sodium Fluoride (SODIUM FLUORIDE 5000 PPM) 1.1 % Paste 2024 Discontinued cefdinir (OMNICEF) 300 MG Cap capsule Take 1 capsule (300 mg total) by mouth 2 (two) times daily. 20 capsule 024 2024 Discontinued azithromycin (ZITHROMAX) 250 MG tabletIndications :Non-recurrent acute serous otitis media of left ear Take 2 tablets by mouth on day one then 1 daily for four days. 6 tablet 2024 Discontinued predniSONE (DELTASONE) 20 MG tablet Take 1 tablet (20 mg total) by mouth daily for 10 days. 10 tablet 025 2024 Active Problems Problem Noted Date Diagnosed Date Abnormal liver function tests 02/22/2024 Anemia 02/22/2024 Asthma ([facility]) 02/22/2024 Depressive disorder 02/22/2024 Diabetes mellitus ([facility]) 02/22/2024 Fatigue 02/22/2024 Finding of above normal blood pressure Hypercholesterolemia 02/22/2024 Hypertensive disorder 02/22/2024 Migraine 02/22/2024 Obesity 02/22/2024 Obstructive sleep apnea 02/22/2024 Pain in joint 02/22/2024 Vitamin D deficiency 02/22/2024 Gastric polyp 10/20/2023 Bariatric surgery status 10/09/2022 PCOS (polycystic ovarian syndrome) 04/22/2022 Personal history of DVT (deep vein thrombosis) 0 04/09/2020 Factor 5 Leiden mutation, heterozygous (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) 09/30/2017 Tobacco dependence 09/30/2017 Sore throat 10/20/2012 Personal history of kidney stones 02/22/2010 Overview (02/22/2024): I've had several kidney stones in the past. Hypothyroidism 03/05/1998 Overview (02/22/2024): Found out when I was a child I had a underactive thyroid Resolved Problems Problem Noted Date Diagnosed Date Resolved Date Encounter for preventive health examination 10/20/2012 02/29/2024 Encounters Date Type Department Care Team Description 03/28/2024 12:38 PM UTILITIES GROUND WORKER - 03/28/2024 2:49 PM [facility] Emergency [facility] Emergency Room [address] [place] [address] Hannah Menezes MD Flu Like Symptoms Discharge Disposition: Home or Self Care (Routine Discharge) 03/28/2024 10:50 AM UTILITIES GROUND WORKER Office Visit [facility] Medical [facility] Family & Internal Medicine [address] [address] Ammy Golden, [place] Other (Acute other ears clogged sob, fatigued , sore throat , neck, head , pain , chest tightness and wheezing inhaler isn't relieving detention , chills abdominal pain since last thursday) 03/28/2024 Travel 02/22/2024 8:40 AM UTILITIES GROUND WORKER Office Visit [facility] Family [facility] Internal Medicine [address] [address] Ammy [place], [place] Ear Problem (Left ear pain and radiates to cheek-started last night) 02/22/2024 Travel from Last 3 Months Immunizations Name Administration Dates Next Due Influenza Adult (Generic) 12/14/2013 Tdap (Generic) 01/13/2019 Family History Medical History Relation Comments Heart Disease Father Heart Disease Maternal Grandfather Heart Disease Paternal Grandfather Relation Status Comments Father Maternal Grandfather Alive Paternal Grandfather Social History Tobacco Use Types Packs/Day Years Used Date Smoking Tobacco: Every Day Cigarettes Smokeless Tobacco: Never Tobacco Cessation:Ready to Q uit: No; Counseling Given: Yes Alcohol Use Standard Drinks/Week Comments No 0 (1 standard drink = 0.6 oz pur e alcohol) AUDIT-C Answer Date Recorded Frequency of Alcohol Consumption Never 02/19/2019 Average Number of Drinks Not on file 019 Frequency of Binge Drinking Not on file 01/31 PHQ-2 Answer Date Recorded Patient Health Questionnaire-2 Score 0 03/28/2024 Comments No Sex and Gender Information Value Date Recorded Sex Assigned at Female 03/28/2024 11:28 AM UTILITIES GROUND WORKER Legal Sex Female 7:12 PM CDT Gender Identity Female 03/28/2024 11:28 AM UTILITIES GROUND WORKER Sexual Orientation Straight 03/28/2024 11 :28 AM UTILITIES GROUND WORKER Last Filed Vital Signs Vital Sign Reading Time Taken Comments Blood Pressure 117/61 03/28/2024 2:31 PM UTILITIES GROUND WORKER Pulse 114 03/28/2024 2:31 PM UTILITIES GROUND WORKER Temperature 37.1 C (98.7 F) 03/28/2024 2:47 PM UTILITIES GROUND WORKER Respiratory Rate 20 03/28/2024 2:31 PM UTILITIES GROUND WORKER Oxygen Saturation 94% 03/28/2024 2:31 PM UTILITIES GROUND WORKER Inhaled Oxygen Concentration - - Weight 222.7 kg (490 lb 15.4 oz) 2024 12:43 PM UTILITIES GROUND WORKER Height 170.2 cm (5' 7 ) 03/28/2024 12:4 3 PM UTILITIES GROUND WORKER Body Mass Index 76.9 03/28/2024 12:43 PM UTILITIES GROUND WORKER Plan of Treatment Health Maintenance Due Date Last Done Comments Cervical Cancer Screening Pa p Smear (Age 30 to 64) Every 3 Years 1985 Kidney Health Evaluation 1985 Lipid Panel 1987 Annual Physical 12/20/1990 Pneumococcal Vaccine: Pediat rics (0 to 5 Years) and At-Risk Patients (6 to 64 Years) (1 of 2 - PCV) 12/20/1993 Diabetes: Retinopathy Eye Exam 12/20/2005 Hepatitis C 12/20/2005 Hepatitis B Vaccines (1 of 3 - 19+ 3-dose series) 12/20/2006 Cervical Cancer Screening Pa p with HPV Testing (Age 30 to 64) Every 5 Years 12/20/2017 Cervical Cancer Screening with HPV 12/20/2017 Hemoglobin A1C 04/03/2023 10/01/2022 Influenza Adult (#1) 2023 12/14/2013 COVID-19 Vaccine (1 - 2023-2 5 season) 2025 Postponed from 10/31 (Patient Refused) DTaP, Tdap and Td Vaccines ( 2 - Td or Tdap) 01/13/2029 01/13/2019 PHQ-2 (Physician [place]) Completed 03/28/2024 HPV Vaccines Aged Out No longer eligi ble based on patient's age to complete this topic Meningococcal B Vaccine Aged Out No l onger eligible based on patient's age to complete this topic Meningococcal Vaccine Aged Out No emelyn lindsey eligible based on patient's age to complete this topic RSV Immunizations Under 20 Months Aged Out No longer eligible based on patient's age to complete this topic Procedures Procedure Name Priority Date/Time Associated Diagnosis Comments LACTIC ACID W REFLEX (SEPSIS) STAT 03/28/2024 1:49 PM UTILITIES GROUND WORKER PRO-BRAIN NATRIURETIC PEPTIDE STAT 03/28/2024 1:30 PM UTILITIES GROUND WORKER TROPONIN, QUANT STAT 03/28/2024 1:30 PM UTILITIES GROUND WORKER COMPREHENSIVE METABOLIC PANEL STAT 03/28/2024 1:30 PM UTILITIES GROUND WORKER PARTIAL THROMBOPLASTIN TIME,PTT STAT 03/28/2024 1:30 PM UTILITIES GROUND WORKER PROTHROMBIN TIME, VENOUS STAT 03/28/2024 1:30 PM UTILITIES GROUND WORKER CBC W/DIFF AUTOMATED STAT 03/28/2024 1:30 PM UTILITIES GROUND WORKER XR CHEST PA+LAT STAT 03/28/2024 1:21 PM UTILITIES GROUND WORKER ECG 12-LEAD Routine 03/28/2024 12:54 PM UTILITIES GROUND WORKER CULTURE STREP A Routine 03/28/2024 11:40 AM UTILITIES GROUND WORKER Sore throat STREP A RAPID Routine 03/28/2024 Sore throat CORONAVIRUS (COVID-19) INFLUENZA A & B ANTIGEN IA PANEL Routine 03/28/2024 Suspected COVID-19 virus infection from Last 3 Months Results * LACTIC ACID W REFLEX (SEPSIS) (03/28/2024 1:49 PM UTILITIES GROUND WORKER) LACTIC ACID VENOUS 1.6 0.4 - 2.0 MMOL/L 03/28/2024 2:29 PM UTILITIES GROUND WORKER [facility] 03/28/2024 1:49 PM UTILITIES GROUND WORKER us Hannah Menezes MD LABORATORY Final Result Performing Organization Address [facility]/ZIP Co de Phone Number [facility] [address] [place] [address], [place] [phone] * (ABNORMAL) PRO-BRAIN NATRIURETIC PEPTIDE (03/28/2024 1:30 PM UTILITIES GROUND WORKER) PRO-B TYPE NATRIURETIC PEPTIDE 484(H) <125 PG/ML 03/28/2024 2:01 PM UTILITIES GROUND WORKER [facility] Comment: CUT POINTS ESTABLISHED BY [employer]NATIONAL [employer] ON NT PROBNP (ICON) STUDY (2006). AGE INDEPENDENT: <300 PG/ML HAS A 99% NEGATIVE PREDICTIVE VALUE FOR EXCLUDING ACUTE CHF <50 YEARS: >450 PG/ML IS CONSISTENT WITH ACUTE CHF 50-75 YEARS: >900 PG/ML IS CONSISTENT WITH ACUTE CHF >75 YEARS: >1800 PG/ML IS CONSISTENT WITH ACUTE CHF IN PATIENTS WITH RENAL INSUFFICIENCY (GFR <60), >1200 PG/ML YIELDS A DIAGNOSTIC SENSITIVITY AND SPECIFICITY OF 89% AND 72% FOR ACUTE CHF. 03/28/2024 1:30 PM UTILITIES GROUND WORKER us Hannah Menezes MD LABORATORY Final Result Performing Organization Address City/[facility]/ZIP Co de Phone Number [facility] [address] [place] [address], [place] [phone] * (ABNORMAL) PARTIAL THROMBOPLASTIN TIME,PTT (03/28/2024 1:30 PM UTILITIES GROUND WORKER) PTT 38.6(H) 27.0 - 36.8 SEC 03/28/2024 1:46 PM UTILITIES GROUND WORKER [facility] 03/28/2024 1:30 PM UTILITIES GROUND WORKER us Hannah Menezes MD LABORATORY Final Result Performing Organization Address City/[facility]/ZIP Co de Phone Number [facility] [address] [place] [address], [place] [phone] * (ABNORMAL) PROTIME/INR, VENOUS (03/28/2024 1:30 PM UTILITIES GROUND WORKER) Pathologist [facility] PROTIME 13.6(H) 9.1 - 12.4 SEC 03/28/2024 1:46 PM UTILITIES GROUND WORKER [facility] INR 1.2 03/28/2024 1:46 PM UTILITIES GROUND WORKER [facility] Comment: Recommend INR ranges for Oral Anticoagulant Therapy: Mechanical Cardiac Values 2.5-3.5 All others indication 2.0-3.0 03/28/2024 1:30 PM UTILITIES GROUND WORKER us Hannah Menezes MD LABORATORY Final Result Performing Organization Address [facility]/ZIP Co de Phone Number [facility] [address] [place] [address], [place] [phone] * (ABNORMAL) COMPREHENSIVE METABOLIC PANEL (03/28/2024 1:30 PM UTILITIES GROUND WORKER) Pathologist [facility] GLUCOSE 82 70 - 99 MG/DL 03/28/2024 2:01 PM [facility] BUN 8 7 - 18 MG/DL 03/28/2024 2:01 PM [facility] CREATININE S/P/B 1.16(H) 0.55 - 1.02 MG/DL 03/28/2024 2:01 PM [facility] SODIUM S/P/B 141 136 - 145 MMOL/L 03/28/2024 2:01 PM [facility] POTASSIUM S/P/B 4.0 3.5 - 5.1 MMOL/L 03/28/2024 2:01 PM [facility] CHLORIDE S/P/B 105 100 - 108 MMOL/L 03/28/2024 2:01 PM [facility] CO2 22.5 21 - 32 MMOL/L 03/28/2024 2:01 PM [facility] CALCIUM S/P/B 8.8 8.5 - 10.1 MG/DL 03/28/2024 2:01 PM [facility] BILIRUBIN TOTAL S/P/B 0.6 0.2 - 1.2 MG/DL 03/28/2024 2:01 PM [facility] TOTAL PROTEIN S/P/B 6.4 6.4 - 8.2 G/DL 03/28/2024 2:01 PM [facility] ALBUMIN S/P/B 3.5 3.4 - 5.0 G/DL 03/28/2024 2:01 PM [facility] AST 7(L) 15 - 37 U/L 03/28/2024 2:01 PM [facility] ALT 17 14 - 55 U/L 03/28/2024 2:01 PM [facility] ALKALINE PHOSPHATASE S/P/B 64 50 - 136 U/L 03/28/2024 2:01 PM [facility] ANION GAP 13.5 5 - 15 MMOL/L 03/28/2024 2:01 PM [facility] BUN CREATININE RATIO 6.9 6 - 26 03/28/2024 2:01 PM [facility] A/G RATIO 1.2 1.0 - 2.0 RATIO 03/28/2024 2:01 PM [facility] GFR ESTIMATE 63(L) >90 ML/MIN/1.7 3 M2 03/28/2024 2:01 PM [facility] Comment: NOTE: eGFR is not calculated for patients <18 years of age. This is an estimated GFR calculation using the new CKD EPI creatinine equation without race and so does not require a correction factor for race. This estimated GFR should not be used for calculating drug doses. 03/28/2024 1:30 PM UTILITIES GROUND WORKER us Hannah Menezes MD LABORATORY Final Result [facility] [address] [place] [id number], [place] [phone] * (ABNORMAL) CBC W/DIFF AUTOMATED (03/28/2024 1:30 PM UTILITIES GROUND WORKER) WBC 6.00 4.4 - 11.0 x10'3/uL 03/28/2024 1:41 PM [facility] RBC 4.92 4.50 - 5.10 x10'6/uL 03/28/2024 1:41 PM [facility] HGB 13.1 12.3 - 15.3 G/DL 03/28/2024 1:41 PM [facility] HCT 42.7 35.9 - 44.6 % 03/28/2024 1:41 PM [facility] MCV 86.8 80.0 - 96.0 FL 03/28/2024 1:41 PM [facility] MCH 26.6 25.3 - 30.9 PG 03/28/2024 1:41 PM [facility] MCHC 30.7(L) 31.0 - 34.1 G/DL 03/28/2024 1:41 PM [facility] RDW 18.5(H) 12.4 - 15.1 % 03/28/2024 1:41 PM [facility] PLT 229 151 - 353 x10'3/uL 03/28/2024 1:41 PM [facility] MPV 11.3 9.6 - 12.0 FL 03/28/2024 1:41 PM [facility] RBC MORPHOLOGY NORMAL 03/28/2024 1:41 PM [facility] PLT MORPH. NORMAL 03/28/2024 1:41 PM [facility] WBC MORPHOLOGY NORMAL 03/28/2024 1:41 PM [facility] LYMPHOCYTES % 16.2 15.8 - 45.0 % 03/28/2024 1:41 PM [facility] NEUTROPHILS % 73.0(H) 42.1 - 71.9 % 03/28/2024 1:41 PM [facility] MONOCYTES % 8.8 5.7 - 12.5 % 03/28/2024 1:41 PM [facility] EOSINOPHILS 0.7 0.0 - 5.6 % 03/28/2024 1:41 PM [facility] BASOPHILS 0.8 0.0 - 1.3 % 03/28/2024 1:41 PM [facility] ABS. NEUTROPHILS 4.38 1.40 - 6.00 x10'3/uL 03/28/2024 1:41 PM [facility] IMMATURE GRANS % 0.5 0.0 - 0.5 % 03/28/2024 1:41 PM [facility] ABS. LYMPHOCYTES 0.97 0.80 - 4.70 x10'3/uL 03/28/2024 1:41 PM UTILITIES GROUND WORKER [facility] 03/28/2024 1:30 PM UTILITIES GROUND WORKER Hannah Menezes MD LABORATORY Final Result Performing Organization Address [facility] Co de Phone Number [facility] [address] [place] [address], [place] [phone] * TROPONIN, QUANT (03/28/2024 1:30 PM UTILITIES GROUND WORKER) TROPONIN I HIGH SENSITIVITY 5 0 - 50 ng/L 03/28/2024 1:58 PM UTILITIES GROUND WORKER [facility] Comment: HIGH DOSES OF BIOTIN, TROPONIN-SPECIFIC AUTOANTIBODIES, AND ANTIBODY THERAPY CONTAINING HAMA MAY INTERFERE WITH THIS TEST RESULT. CORRELATION TO CLINICAL HISTORY AND PRESENTATION RECOMMENDED. 03/28/2024 1:30 PM UTILITIES GROUND WORKER Hannah Menezes MD LABORATORY Final Result Performing Organization Address [facility] Co de Phone Number [facility] [address] [place] [address], [place] [phone] * XR CHEST PA+LAT (03/28/2024 1:21 PM UTILITIES GROUND WORKER) Anatomical Region Laterality Modality Chest Radiographic Nancy ging 03/28/2024 1:38 PM UTILITIES GROUND WORKER Impressions 03/28/2024 1:40 PM UTILITIES GROUND WORKER =====IMPRESSION:===== Mild peribronchial wall thickening may be due to mild bronchitis versus reactive airway disease. No patchy infiltrate. Ordered By: HANNAH MENEZES Interpreted By: Phillip Boles, 03/28/2024 1:38 PM Narrative 03/28/2024 1:40 PM UTILITIES GROUND WORKER [facility] [address] [facility] [place] [address] EXAMINATION: PA AND LATERAL CHEST Exam date/time: 03/28/2024 1:21 PM Reason For Exam: chest pain, shortness of breath Comparison: June 01, 2022 Technique: 2 views. Findings: Mild peribronchial wall thickening may be due to mild bronchitis versus reactive airway disease. No patchy infiltrate. No pleural effusion or pneumothorax. Evaluation of the lung apices is limited due to overlying mandible. Normal heart size. Procedure Note Tahir Boles MD - 03/28/2024 [facility] [address] [place] [address] EXAMINATION: PA AND LATERAL CHEST Exam date/time: 03/28/2024 1:21 PM Reason For Exam: chest pain, shortness of breath Comparison: June 01, 2022 Technique: 2 views. Findings: Mild peribronchial wall thickening may be due to mildbronchitis versus reactive airway disease. No patchy infiltrate. No pleural effusion or pneumothorax. Evaluation of the lung apices is limited due to overlying mandible. Normal heart size. =====IMPRESSION:===== Mild peribronchial wall thickening may be due to mild bronchitis versusreactive airway disease. No patchy infiltrate. Ordered By: HANNAH MENEZES Interpreted By: Phillip Boles, 03/28/2024 1:38 PM Hannah Menezes MD GENERAL IMAGING Final Result * ECG 12 lead (03/28/2024 12:54 PM UTILITIES GROUND WORKER) 03/28/2024 12:5 4 PM UTILITIES GROUND WORKER Narrative [facility] ([facility] RAD - 03/30/2024 11:13 AM UTILITIES GROUND WORKER [facility] Test Date: 2024-03-28 Pat Name: PAULINE GARY Department: 85 Room: [facility] Gender: Female Thermostat Machine Tender: : 1985 Requested By: HANNAH MENEZES Order Number: [id number] Reading MD: Aiden Del Rio Measurements Intervals Mittie Rate: 113 P: 51 NE: 166 QRS: 14 QRSD: 85 T: 68 QT: 298 QTc: 409 Interpretive Statements SINUS TACHYCARDIA LOW QRS VOLTAGE IN PRECORDIAL LEADS [QRS DEFLECTION < 1.0 mV IN CHEST LEADS] Compared to ECG 04/11/2020 05:43:58 Low QRS voltage now present Sinus rhythm no longer present T-wave abnormality no longer present ITIES GROUND WORKER Procedure Note Aiden Del Rio MD - 03/30/2024 [facility] Test Date: 2024-03-28 Pat Name: PAULINE GARY Department: 85 Room: [facility] Gender: Female Thermostat Machine Tender: : 1985 Requested By: HANNAH MENEZES Order Number: [id number] Reading MD: Aiden Del Rio Measurements Intervals Mittie Rate: 113 P: 51 NE: 166 QRS: 14 QRSD: 85 T: 68 QT: 298 QTc: 409 Interpretive Statements SINUS TACHYCARDIA LOW QRS VOLTAGE IN PRECORDIAL LEADS [QRS DEFLECTION < 1.0 mV IN CHESTLEADS] Compared to ECG 04/11/2020 05:43:58 Low QRS voltage now present Sinus rhythm no longer present T-wave abnormality no longer present ITIES GROUND WORKER us Hannah Menezes MD ECG ORDERABLES Final Result Performing Organization Address City/State/[facility] Co de Phone Number [facility] RAD * CULTURE STREP A (03/28/2024 11:40 AM UTILITIES GROUND WORKER) THROAT CULTURE GROUP A STREP [employer] [place] Comment: CULTURE, THROAT, SPECIAL W/GRP A STREP [employer]. Micro Number: [id number] Test Status: Final Specimen Source: Not given Specimen Quality: Adequate Result: No oropharyngeal pathogens recovered. STRUCTURE OF ANTERIOR PORTION OF NECK / Unknown 03/28/2024 11:40 AM UTILITIES GROUND WORKER 03/29/2024 5:18 AM UTILITIES GROUND WORKER Narrative Resulting Agency Comment Performing Organization Information: Site ID: [facility]: [facility] Address: [address] [place] [address] Director: Marisol Roberts Ammy PATTON MICROBIOLOGY - GENERAL ORDER LESLIE Final Result [facility] [place] [address] [place] [address], * CORONAVIRUS (COVID-19) INFLUENZA A & B ANTIGEN IA PANEL (03/28/2024) CORONAVIRUS ANTIGEN IA NEGATIVE NEGATIVE [id number], [place] INFLUENZA A NEGATIVE NEGATIVE [id number], [place] INFLUENZA B NEGATIVE NEGATIVE [id number], [place] Internal Control: VALID VALID [id number], [place] NASAL STRUCTURE / Unknown 03/28/2024 Ammy PATTON MICROBIOLOGY - GENERAL ORDER LESLIE Final Result Performing Organization Address [facility]/ZIP Co de Phone Number [phone], [place] [address] [place] [address], [place] [phone] * STREP A RAPID (03/28/2024) RAPID STREP TEST NEGATIVE NEGATIVE [id number], [place] Internal Control: VALID VALID [id number], [place] STRUCTURE OF ANTERIOR PORTION OF NECK / Unknown 03/28/2024 Ammy [facility] - GENERAL ORDER LESLIE Final Result [id number], [place] [address] [place] [address], [place] [phone] from Last 3 Months Insurance Care Teams Compound Filler Relationship Specialty Start Date End Date Aviva Jaimes PA [address] [place] [phone] PCP - General PHYSICIAN TREATING PLANT OPERATOR 03/28/24
--- OUTSIDE RECORDS SUMMARY | 2024-04-26 14:58 | XMS_ITS | Clinical Summary ---
Author Organization [facility] Address [facility] [address] [place] [address] Care Team Providers Care Hot Car Charger Name Role Phone Lester Keating MD Primary Care Provider [phone] Allergies Active Allergy Reactions Criticality Noted Date Comments Adhesive Rash Low 10/27/2017 Amoxicillin Unknown 09/30/2017 Cefixime Unknown 09/30/2017 Cephalexin Unknown 09/30/2017 Gamez Unknown 09/30/2017 Ciprofloxacin Unknown 09/30/2017 Clindamycin Swelling Low 10/28/2017 [place] Butter Unknown 09/30/2017 Levofloxacin Unknown 09/30/2017 Tapentadol Rash Medium 10/27/2017 Medications levothyroxine 200 mcg tablet 09/12/19 18 Active topiramate (TOPAMAX) 50 mg tablet Take by mouth 2 times daily. 25 mg in the morning 50 mg nightly 07/18/19 18 Active olmesartan (BENICAR) 20 mg tablet 09/16/19 18 Active ergocalciferol (VITAMIN D2) 50,000 unit capsule 07/18/19 18 Active VENTOLIN HFA 90 mcg/actuation inhaler 09/12/19 18 Active cholecalciferol , Vitamin D3, (VITAMIN D3) 2,000 unit Tablet Take 2,000 Units by mouth daily. Active fexofenadine (GIORGI) 180 mg tablet Take 180 mg by mouth daily. Active diltiaZEM (CARDIZEM CD) 240 mg Controlled Delivery 24 hour capsule Take 240 mg by mouth daily. Active ALBUTEROL INHALATION Active fluticasone propion-salmete roL (Advair Diskus) 250-50 mcg/dose disk inhaler 02/05/20 21 Active Sodium Fluoride (PreviDent 5000 Booster Plus) 1.1 % Paste Active nystatin (MYCOSTATIN) 100,000 unit/mL suspension 04/03/19 22 Active omeprazole (PriLOSEC) 20 mg Capsule, Delayed Release(E.C.) Take 20 mg by mouth daily. 03/20/19 21 Active levothyroxine 25 mcg tablet Take 25 mcg by mouth. Active hydrocortisone acetate (ANUSOL-HC) 25 mg Suppository Insert 1 Suppository (25 mg) by rectum 2 times daily as needed for Itching. 15 Suppository 12/23/19 23 Active varenicline (CHANTIX) 1 mg Tablet Take 1 mg by mouth 2 times daily. Active bumetanide (BUMEX) 1 mg tablet Take 1 mg by mouth daily. 09/02/19 24 Active metroNIDAZOLE (FLAGYL) 500 mg tablet Take 500 mg by mouth every 12 hours. Active sulfamethoxazol e-trimethoprim (Bactrim DS) 800-160 mg tablet Take 160 mg of trimethoprim by mouth 2 times daily. 10/27/19 24 Active nitrofurantoin (MACROBID) 100 mg capsule Take 100 mg by mouth 2 times daily. Active tamsulosin (FLOMAX) 0.4 mg capsule 0.4 mg daily. 10/21/19 24 Active secukinumab (Cosentyx Pen, 2 Pens,) 150 mg/mL Pen Injector Inject 300 mg by subcutaneous injection one time only. 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 Postoperative infection 10/27/2017 Abnormal ultrasound of breast 09/30/2017 Left breast abscess 09/30/2017 Tobacco dependence 09/30/2017 Morbid obesity with BMI of 70 and over, adult Encounters Date Type Department Care Team Description 04/26/2024 Telephone [facility] H[facility]ology - [place] [address] [place] [address] Miguel A Guzman MD STAT US 04/26/2024 Orders Only [facility]ology - [place] [address] [place] [phone] Miguel A Guzman MD Pain and swelling of left lower leg (Primary Dx) 04/20/2024 External Device Data [facility] ABSTRACTION Provider, Abstract 03/29/2024 External Device Data [facility] ABSTRACTION Provider, Abstract 03/24/2024 External Device Data [facility] ABSTRACTION Provider, Abstract 03/18/2024 Refill [facility] H[facility] [address] [place] [phone] Miguel A Guzman MD Personal history of DVT (deep vein thrombosis) from Last 3 Months Social History Tobacco Use Types Packs/Day Years Used Date Smoking Tobacco: Every Day Cigarettes 0.5 11 Smokeless Tobacco: Never Tobacco Cessation:Ready to Q uit: Not Asked; Counseling Given: Not Answered Comments:using e-cigarette w/o nicotine Alcohol Use Standard Drinks/Week Comments No 0 (1 standard drink = 0.6 oz pur e alcohol) Comments No Sex and Gender Information Value Date Recorded Sex Assigned at Not on file Legal Sex Female 10:13 AM CDT Gender Identity Not on file Sexual Orientation Not on file Last Filed Vital Signs Vital Sign Reading Time Taken Comments Blood Pressure 150/49 11/10/2023 11:02 AM CDT Pulse 91 11/10/2023 10:54 AM CDT Temperature 36.7 C (98 F) 11/10/2023 10:54 AM CDT Respiratory Rate 16 11/10/2023 10:54 AM CDT Oxygen Saturation 98% 11/10/2023 10:54 AM CDT Inhaled Oxygen Concentration - - Weight 229.1 kg (505 lb) 11/10/2023 10:54 AM CDT Height 167.6 cm (5' 6 ) 07/23/2021 10:37 AM CDT Body Mass Index 81.51 07/23/2021 10:37 AM CDT Plan of Treatment Upcoming Encounters Date Type Department Care Team (Late st Contact Info) Description 05/09/2024 11:45 AM CDT Office Visit [facility] Oncology [facility] [address] [place] [phone] Miguel A Guzman MD [address] [facility] [address] [place] [phone] Health Maintenance Due Date Last Done Comments DIABETES ANNUAL FOOT EXAM 12/20/2005 DIABETES ANNUAL RETINAL EXAM 12/20/2005 DIABETES MICROALBUMIN ANNUAL SCREEN 12/20/2005 LDL CHOLESTEROL ANNUAL 12/20/2005 HEPATITIS B VACCINES (1 of 3 - 19+ 3-dose series) 12/20/2006 CERVICAL CANCER SCREENING 12/20/2017 DIABETES HBA1C Q 6 MONTHS 04/03/2023 10/01/2022 INFLUENZA VACCINE (#1) 2023 4, 12/14/2013 Preventative Visit- Commercial 03/02/2024 DTAP/TDAP/TD VACCINES (2 - T d or Tdap) 01/13/2029 01/13/2019 HPV VACCINES Aged Out No longer eligi ble based on patient's age to complete this topic Insurance [employer]/TRUE W-21 PPO [employer]/TRUE W-21 PPO Care Teams Hot Car Charger Relationship Specialty Start Date End Date Lester Keating MD [address] [place] [phone] PCP - General Family Practice 08/20/22
--- OUTSIDE RECORDS SUMMARY | 2024-04-26 14:59 | XMS_ITS ---
Author Organization [facility] Address [address] [place], [place] [id number] Care Team Providers Care Pizza Delivery Driver Name Role Phone VIJAYA FARIA Unavailable [phone] Rayna De Leon Unavailable Unavailable Allergies Allergen [...] Active REASON FOR VISIT The patient has finished the oral lamisil and her toenails are growing out and look better at the base., She has not been successful in finding an ankle brace to support her left ankle Medications Medication SIG (Take, Route, Frequency, Duration) Notes Start Date End Date Status Cqawtqkx-Gievycejq-QT 3.5-24164-2 Otic for 90 Days Active Vitamin D (Ergocalciferol) 1.25 MG (77008 UT) Oral for 84 Days Activ e methylPREDNISolone 4 MG as directed Orally one pack 024 Active methylPREDNISolone 4 MG as directed Orally one pack 024 Active Terbinafine HCl 250 MG 1 tablet Orally O nce a day for 42 days Active Topiramate 50 MG Oral for 90 [...] Location Date Provider Diagnosis [facility] [address] [place], [place] [id number] 03/14/2024 VIJAYA FARIA Tinea unguium B35.1 ; Onychocryptosis L60.0 ; Peroneal tendinitis, left leg M76.72 ; Left foot pain M79.672 and Posterior tibial tendinitis, left leg M76.822 Assessments Encounter Date Diagnosis (ICD Code) Assessment Notes Treatment Notes Treatment Clinical Notes Section Notes 03/14/2024 Tinea unguium (ICD-10 - B35.1) FUNGAL TOENAILS: Discussed various treatment options for fungal toenails including debridement, topical antifungals, oral antifungals, toenail avulsion, or toenail matrixectomy. NAIL DEBRIDEMENT: Nails 1-5 Bilateral were debrided extensively with nail nippers and emery board, reducing length and girth to pink healthy tissue with any subungual debris and necrotic tissue removed 03/14/2024 Onychocryptosis (ICD-10 - L60.0) Slant Back Toenail: Following skin prep, the offending nail border was debrided without anesthesia. The patient was instructed on monitoring for infection or recurrence. 03/14/2024 Peroneal tendinitis, left leg (ICD-10 - M76.72) Peroneal Tendonitis: I discussed anti-inflammatory treatment options and various means of immobilization with the patient. I educated the patient on icing and stretching, supportive shoegear, and the use of orthotic devices and bracing. Order: [place] Ankle brace for ankle instability, Posterior tibialis tendon dysfunciton, and ankle strain and tendonitis 03/14/2024 Left foot pain (ICD-10 - M79.672) 03/14/2024 Posterior tibial tendinitis, left leg (ICD-10 - M76.822) Plan Of Treatment Treatment Notes Assessment Notes Tinea unguium FUNGAL TOENAILS: Discussed various treatment options for fungal toenails including debridement, topical antifungals, oral antifungals, toenail avulsion, or toenail matrixectomy. NAIL DEBRIDEMENT: Nails 1-5 Bilateral were debrided extensively with nail nippers and emery board, reducing length and girth to pink healthy tissue with any subungual debris and necrotic tissue removed Onychocryptosis Slant Back Toenail: Following skin prep, the offending nail border was debrided without anesthesia. The patient was instructed on monitoring for infection or recurrence. Peroneal tendinitis, left leg Peroneal Tendonitis: I discussed anti-inflammatory treatment options and various means of immobilization with the patient. I educated the patient on icing and stretching, supportive shoegear, and the use of orthotic devices and bracing. Order: [place] Ankle brace for ankle instability, Posterior tibialis tendon dysfunciton, and ankle strain and tendonitis Next Appt Details Follow Up: 2 Months, Reason: Fungal toenail check. Check status of [place] ankle brace Provider Name:VIJAAY FARIA, 08:20:00 AM, [address], [facility], [place], [place], [phone], Progress Notes * KIRT QURESHIOB: 988 (38 yo F)Acc No.[id number]:03/14/2024 Patient: PAULINE ONEILL Provider: Belgica Faria DPM :1985 A ge:38 Y S ex:Female Date:03/14/2024 Address:[address] [place] [address] Subjective: * Chief Complaints: * T he patient has finished the oral lamisil and her toenails are growing out and look better at the base.She has not been successful in finding an ankle brace to support her left ankle * HPI: H [facility] fungal nail check. Patient states she has only seen a slight improvement with the Lamisil. She states that her bilateral great toenails are ingrownand she is unable to cut them herself. She was unable to find an ankle brace. , MA: omar. * ROS: G eneral [...] difficulty speaking, dizziness. * Medical History: * Surgical History: * Hospitalization/Major Diagno stic Procedure: * Medications: T akingEliquis 5 MG Tablet Oral Topiramate 50 MG Tablet Oral dilTIAZem HCl ER Coated Beads 240 MG Capsule Extended Release 24 Hour Oral Olmesartan Medoxomil 20 MG Tablet Oral Advair Diskus 500-50 MCG/ACT Aerosol Powder Breath Activated Inhalation PreviDent 5000 Sensitive 1.1-5 % Gel BRUSH GEL ON FOR 2 MINUTES 2 TO 3 TIMES DAILY Dental Rqetksoz-Mfuuvvbwu-VX 3.5-43842-0 Solution Otic Vitamin D (Ergocalciferol) 1.25 MG (99276 UT) Capsule Oral methylPREDNISolone 4 MG Tablet Therapy Pack as directed Orally , Notes to Pharmacist: one packmethylPREDNISolone 4 MG Tablet Therapy Pack as directed Orally , Notes to Pharmacist: one packTerbinafine HCl 250 MG Tablet 1 tablet Orally Once a day Meloxicam 15 MG Tablet 1 tablet Orally Once a day Medication List reviewed and reconciled with the patientTaking Eliquis 5 MG Tablet Oral Taking Topiramate 50 MG Tablet Oral Taking dilTIAZem HCl ER Coated Beads 240 MG Capsule Extended Release 24 Hour Oral Taking Olmesartan Medoxomil 20 MG Tablet Oral Taking Advair Diskus 500-50 MCG/ACT Aerosol Powder Breath Activated Inhalation Taking PreviDent 5000 Sensitive 1.1-5 % Gel BRUSH GEL ON FOR 2 MINUTES 2 TO 3 TIMES DAILY Dental Taking Swaupgvi-Poyihnfkg-WK 3.5-29985-3 Solution Otic Taking Vitamin D (Ergocalciferol) 1.25 MG (21754 UT) Capsule Oral Taking methylPREDNISolone 4 MG Tablet Therapy Pack as directed Orally , Notes to Pharmacist: one packTaking methylPREDNISolone 4 MG Tablet Therapy Pack as directed Orally , Notes to Pharmacist: one packTaking Terbinafine HCl 250 MG Tablet 1 tablet Orally Once a day Taking Meloxicam 15 MG Tablet 1 tablet Orally Once a day Medication List reviewed and reconciled with the patient * Allergies: K eflet: Allergy - Onset Date 09/28/2017Amoxicillin: Allergy - Onset Date 09/28/2017Cefixime: Allergy - Onset Date 09/28/2017Cherry: Allergy - Onset Date 09/28/2017Cipro: Allergy - Onset Date 09/28/2017Keflex: Allergy - Onset Date 1Levaquin: Allergy - Onset Date 09/28/2017Latexno[Allergies Verified] Objective: * Vitals: * Examination: C onstitutional: Constitutional T he patient is awake, alert, well developed, well groomed and well nourished.. D ermatologic: Skin findings: S kin is warm, dry, supple with no breaks in the skin.. Nail pathology: N ails 1 bilateral are elongated, thick, discolored, and dystrophic with subungual debris. They are painful to palpation. The toenails show clearing at their bases. V ascular: Dorsalis pedis pulse: 2 /4, [...] p eroneal tendons of the left foot.. Ankle Alignment/ ROM t he left ankle has a medial arch that collapses and hypermobility. Assessment: * Assessment: 1. T inea unguium - B35.1 (Primary) 2 . O nychocryptosis - L60.0 3 . P eroneal tendinitis, left leg - M76.72 4 . L eft foot pain - M79.672 5 . P osterior tibial tendinitis, left leg - M76.822 Plan: * Treatment: 2. O nychocryptosis Notes: Slant Back Toenail: Following skin prep, the offending nail border was debrided without anesthesia. The patient was instructed on monitoring for infection or recurrence. 3. P eroneal tendinitis, left leg Notes: Peroneal Tendonitis: I discussed anti-inflammatory treatment options and various means of immobilization with the patient. I educated the patient on icing and stretching, supportive shoegear, and the use of orthotic devices and bracing. Order: [place] Ankle brace for ankle instability, Posterior tibialis tendon dysfunciton, and ankle strain and tendonitis * Procedure Codes: * Follow Up: 2 Months (Reason: Fungal toenail check. Check status of [place] ankle brace) * Billing Information: * Visit Code: 47120 Office Visit, Est Pt., Level 3. * Procedure Codes: * ICAL SCIENCE CONSULTANT Sign off status: Completed true * Provider: Belgica Faria DPM Date: 0 03/14/2024 Generated for Tato to/Shanti/Shilpa on: 0 04/26/2024 02:58 PM CLINICAL SCIENCE CONSULTANT History and Physical Notes * HPI (History of Present Illness) Category Sub-Category Detail Notes Category Not es HPI Follow Up Visit Patient presents for follow up visit for fungal nail check. Patient states she has only seen a slight improvement with the Lamisil. She states that her bilateral great toenails are ingrownand she is unable to cut them herself. She was unable to find an ankle brace. , MA: [facility] Examination Category Sub-Category Detail Notes Category Not es Dermatologic Skin findings: Skin is warm, dr y, supple with no breaks in the skin. Nail pathology: Nails 1 bilateral ar e elongated, thick, discolored, and dystrophic with subungual debris. They are painful to palpation. The toenails show clearing at their bases Neurologic Gross sensation Gross sensation is intact to light touch. Vascular Dorsalis pedis pulse: 2/4, bilateral Edema: No edema, bilateral Capillary refill: less than 3 seconds Posterior tibial pulse: 2/4, bilaterally Musculoskeletal Muscle Strength Muscle strength is 5/5 in regards to dorsiflexion, plantarflexion, inversion, and eversion in bilateral lower extremities. Pain on palpation peroneal tendons of the left foot. Ankle Alignment/ ROM the left ankle has a medial arch that collapses and hypermobility Constitutional Constitutional The patient is a wake, alert, well developed, well groomed and well nourished.
== END 2024-04-26 13:04 | disposition home or self-care (01) ==
LOC: ANHIMG 13:04
PROVIDERS: PCP Physician Assistant Medical; Visit Provider Internal Medicine Hematology & Oncology
DX: I82.412 Acute embolism and thrombosis of left femoral vein (principal)
CPT/HCPCS: 93971

== ENCOUNTER 2024-05-09 11:04 | Outpatient (CLI) | payer BC, SELFPAY ==
[2024-05-09 11:18] LABS: Basophils Absolute Auto 0.1 K/mm3 (0.0-0.1); Basophils Percent Auto 0.7 % (0.2-1.2); Eosinophils Absolute Auto 0.2 K/mm3 (0-0.3); Eosinophils Percent Auto 1.8 % (0-4.4); Hematocrit 40.7 % (37.0-47.0); Hemoglobin 12.5 g/dL (12.0-15.0); Immature Granulocyte Absolute 0.07 K/mm3 (0.00-0.031); Immature Granulocyte Percent A 0.8 % (0-0.5); Lymphocytes Absolute Auto 3.69 K/mm3 (0.9-3.2); Lymphocytes Percent Auto 41.9 % (18.3-44.2); Mean Corpuscular HGB Conc 30.7 g/dl (32-36); Mean Corpuscular Hemoglobin 27.9 pg (26-34); Mean Corpuscular Volume 90.8 fl (80-100); Mean Platelet Volume 10.2 fl (7.4-10.4); Monocytes Absolute Auto 0.8 K/mm3 (0.1-0.6); Monocytes Percent Auto 9.5 % (2.6-8.5); Neutrophils Percent Auto 45.3 % (45.5-73.1); Platelet Count Result 253 k/mm3 (150-375); Red Blood Count 4.48 M/mm3 (4.2-5.4); Red Cell Distribution Width 18.7 % (11.5-14.5); White Blood Count 8.8 K/mm3 (4.5-10.0)
[2024-05-09 11:21] LABS: Blood Urea Nitrogen 11 mg/dL (8-26); Carbon Dioxide 20 mmol/L (22-30); Chloride 108 mmol/L (98-109); Estimated Glomerular Filt Rate > 60; Glucose 93 mg/dL (70-105); Ionized Calcium (POC) 1.19 mmol/L (1.11-1.31); Potassium 3.7 mmol/L (3.5-4.9); Sodium 141 mmol/L (138-146)
--- OUTSIDE RECORDS SUMMARY | 2024-05-09 13:19 | XMS_ITS | Referral Summary ---
Author Organization [facility] Address [address] [place] [address] Care Team Providers Care Flooring Mechanic Name Role Phone Aviva Jaimes PA-C Primary Care Provider [phone] [phone] Source Comments [facility],non-owned Affiliates and Associated Physician Practices is amultiple site organization consisting of ambulatory clinics and hospital sitesin [place] and [place]. This disclosure is being madepursuant to the Care Everywhere program and may not contain all information available regarding this patient. Last updated 17.[facility] Encounters Date Type Department Care Team Description 04/19/2024 Travel 04/19/2024 10:45 AM SENIOR CYTOGENETIC TECHNOLOGIST Office Visit [facility] - ENT [address] [place] [phone] Arjun Correa MD Acute maxillary sinusitis, recurrence not specified (Primary Dx) 02/09/2024 Travel 02/09/2024 10:45 AM SENIOR CYTOGENETIC TECHNOLOGIST Office Visit [facility] - ENT [address] [place] [phone] Arjun Correa MD Hoarseness (Primary Dx); Chronic fungal laryngitis from Last 3 Months Allergies Active Allergy Reactions Criticality Noted Date Comments Adhesive Sensitivity Rash Medium 10/27/2017 Amoxicillin Urticaria,Rash,Unknown Medium 09/28/2017 Cefixime Rash Medium 09/28/2017 Cephalexin Rash Medium 09/30/2017 Gamez Anaphylaxis,Unknown High 09/28/2017 Ciprofloxacin Nausea and/or Vomiti ng,GI Discomfort,Unknown,Other Medium 09/28/2017 Clindamycin Anaphylaxis,Swelling High 10/28/2017 [place] Butter Rash,Other,Unknown Medium 09/30/2017 Doxycycline Unknown,Rash Medium [...] Active vitamin D, ergocalciferol, (Drisdol) 1.25 MG (99289 UT) capsule Take 1 (one) capsule by [...] mouth as needed 01/20/2024 Active nystatin (Mycostatin) 507519 UNIT/GM cream Apply to affected area 2 [...] needed for Itching 30 tablet 02/09/2024 Active sulfamethoxazol e-trimethoprim (Bactrim DS; Septra DS) 800-160 MG tablet Take 1 (one) tablet by mouth 2 times daily 14 tablet 02/09/2024 Active Additional Information Patient not taking.Reported on 04/19/2024 Nebulizers (Vios Aerosol Delivery System) [facility] Use 1 Each as directed 04/15/2024 Active clarithromycin (Biaxin) 500 MG tablet Take 1 (one) tablet by mouth 2 times daily for 10 days 20 tablet 04/19/2024 5 Discontinued (Clinical Decision) levoFLOXacin (Levaquin) 500 MG tablet Take 1 (one) tablet by mouth once daily for 10 days 10 tablet 04/19/2024 5 Immunizations Name Administration Dates Next Due INFLUENZA [...] Blood Pressure 112/79 04/19/2024 10:39 AM SENIOR CYTOGENETIC TECHNOLOGIST Pulse 94 04/19/2024 10:39 AM SENIOR CYTOGENETIC TECHNOLOGIST Temperature - - Respiratory Rate - - Oxygen Saturation - - Inhaled Oxygen Concentration - - Weight 225.4 kg (497 lb) 04/19/2024 10:39 AM SENIOR CYTOGENETIC TECHNOLOGIST Height 170.2 cm (5' 7 ) 04/19/2024 10:39 AM SENIOR CYTOGENETIC TECHNOLOGIST Body Mass Index 77.84 04/19/2024 10:39 AM SENIOR CYTOGENETIC TECHNOLOGIST Plan of Treatment Upcoming Encounters Date Type Department Care Team (Late st Contact Info) Description 05/24/2024 8:15 AM CDT Office Visit [facility] - ENT [address] [address], [place] [address] Arjun Correa MD [address] [place] [address] [place] [address] Procedures Procedure Name Priority Date/Time Associated Diagnosis Comments MI LARYNGOSCOPY,FLEX FIBER,DIAGNOSTIC Routine 04/19/2024 11:19 AM SENIOR CYTOGENETIC TECHNOLOGIST Acute maxillary sinusitis, recurrence not specified MI LARYNGOSCOPY,FLEX FIBER,DIAGNOSTIC Routine 02/09/2024 12:23 PM SENIOR CYTOGENETIC TECHNOLOGIST Hoarseness Chronic fungal laryngitis from Last 3 Months Results * MI LARYNGOSCOPY,FLEX FIBER,DIAGNOSTIC (04/19/2024 11:19 AM SENIOR CYTOGENETIC TECHNOLOGIST) Narrative Harsh Petty MD - 04/19/2024 11:19 AM SENIOR CYTOGENETIC TECHNOLOGIST Harsh Petty MD 04/19/2024 12:09 PM Procedure Note Endoscopy Type: Laryngoscopy without stroboscopy 85207 Endoscope: Flexible 4mm Scope Anesthesia: Lidocaine 2% [...] Correa MD PROCEDURE/MINOR SURG ICAL ORDERABLES * MI LARYNGOSCOPY,FLEX FIBER,DIAGNOSTIC (02/09/2024 12:23 PM SENIOR CYTOGENETIC TECHNOLOGIST) Jama Marlow MD - 02/09/2024 12:23 PM SENIOR CYTOGENETIC TECHNOLOGIST Jama Arreola MD 02/09/2024 9:38 PM Procedure Note Endoscopy Type: Laryngoscopy without stroboscopy 92247 Endoscope: Flexible 4mm Scope Anesthesia: Lidocaine 2% [...] Patient tolerated procedure well. Complications: None Dr. Corrae was present for the entirety of the procedure. Arjun Correa MD PROCEDURE/MINOR SURG ICAL ORDERABLES from Last 3 Months Care Teams Flooring Mechanic Relationship Specialty Start Date End Date Aviva Jaimes PA-C [address] [place] [phone] PCP - General Physician Restaurant Cook 10/27/23
--- OUTSIDE RECORDS SUMMARY | 2024-05-09 13:19 | XMS_ITS | Clinical Summary ---
Author Organization [facility] Address [address] [place] [address] Care Team Providers Care Senior Patient Account Representative Name Role Phone Aviva Jaimes PA-C Primary Care Provider +1 -[phone] Source Comments [facility],non-owned Affiliates and Associated Physician Practices is amultiple site organization consisting of ambulatory clinics and hospital sitesin [place], [place], [place] and [place]. This disclosure is being madepursuant to the Care Everywhere program and may not contain all information available regarding this patient. Last updated 17.[facility] [employer] Allergies Active Allergy Reactions Criticality Noted Date Comments Adhesive Sensitivity Rash Medium 10/27/2017 Amoxicillin Urticaria,Rash,Unknown Medium 09/28/2017 Cefixime Rash Medium 09/28/2017 Cephalexin Rash Medium 09/30/2017 Gamez Anaphylaxis,Unknown High 09/28/2017 Ciprofloxacin Nausea and/or Vomiti ng,GI Discomfort,Unknown,Other Medium 09/28/2017 Clindamycin Anaphylaxis,Swelling High 10/28/2017 [place] Butter Rash,Other,Unknown Medium 09/30/2017 Doxycycline Unknown,Rash Medium [...] Active vitamin D, ergocalciferol, (Drisdol) 1.25 MG (15803 UT) capsule Take 1 (one) capsule by [...] mouth as needed 01/20/2024 Active nystatin (Mycostatin) 643640 UNIT/GM cream Apply to affected area 2 [...] Information Patient not taking.Reported on 04/19/2024 Nebulizers ([employer] Aerosol Delivery System) MISC Use 1 Each as directed 04/15/2024 Active clarithromycin (Biaxin) 500 MG tablet Take 1 (one) tablet by mouth 2 times daily for 10 days 20 tablet 04/19/2024 5 Discontinued (Clinical Decision) levoFLOXacin (Levaquin) 500 MG tablet Take 1 (one) tablet by mouth once daily for 10 days 10 tablet 04/19/2024 5 Encounters Date Type Department Care Team Description 04/19/2024 10:45 AM CVT TECH Office Visit [facility] - ENT [address] [place] [phone] Arjun Correa MD Acute maxillary sinusitis, recurrence not specified (Primary Dx) 04/19/2024 Travel 02/09/2024 10:45 AM CVT TECH Office Visit [facility] - ENT [address] [place] [phone] Arjun Correa MD Hoarseness (Primary Dx); Chronic [...] Comments Blood Pressure 112/79 04/19/2024 10:39 AM CVT TECH Pulse 94 04/19/2024 10:39 AM CVT TECH Temperature - - Respiratory Rate - - Oxygen Saturation - - Inhaled Oxygen Concentration - - Weight 225.4 kg (497 lb) 04/19/2024 10:39 AM CVT TECH Height 170.2 cm (5' 7 ) 04/19/2024 10:39 AM CVT TECH Body Mass Index 77.84 04/19/2024 10:39 AM CVT TECH Plan of Treatment Upcoming Encounters Date Type Department Care Team (Late st Contact Info) Description 05/24/2024 8:15 AM CDT Office Visit [facility] - ENT [address] [facility], [place] [address] Arjun Correa MD [address] [place] [address] [place] [address] Health Maintenance Due Date Last Done Comments [...] Procedure Name Priority Date/Time Associated Diagnosis Comments UT LARYNGOSCOPY,FLEX FIBER,DIAGNOSTIC Routine 04/19/2024 11:19 AM CVT TECH Acute maxillary sinusitis, recurrence not specified UT LARYNGOSCOPY,FLEX FIBER,DIAGNOSTIC Routine 02/09/2024 12:23 PM CVT TECH Hoarseness Chronic fungal laryngitis from Last 3 Months Results * UT LARYNGOSCOPY,FLEX FIBER,DIAGNOSTIC (04/19/2024 11:19 AM CVT TECH) Narrative Harsh Petty MD - 04/19/2024 11:19 AM CVT TECH Harsh Petty MD 04/19/2024 12:09 PM Procedure Note Endoscopy Type: Laryngoscopy without stroboscopy 69257 Endoscope: Flexible 4mm Scope Anesthesia: Lidocaine 2% [...] Correa MD PROCEDURE/MINOR SURG ICAL ORDERABLES * UT LARYNGOSCOPY,FLEX FIBER,DIAGNOSTIC (02/09/2024 12:23 PM CVT TECH) Narrative Jama Arreola MD - 02/09/2024 12:23 PM CVT TECH Jama Arreola MD 02/09/2024 9:38 PM Procedure Note Endoscopy Type: Laryngoscopy without stroboscopy 10983 Endoscope: Flexible 4mm Scope Anesthesia: Lidocaine 2% [...] ORDERABLES from Last 3 Months Care Teams Senior Patient Account Representative Relationship Specialty Start Date End Date Aviva Jaimes PA-C [address] [place] [phone] PCP - General Physician Theatre Program Director 10/27/23
--- OUTSIDE RECORDS SUMMARY | 2024-05-09 13:19 | XMS_ITS | Patient Health Summary ---
Author Organization [facility] Address [address] [place] [address] Care Team Providers Care Educational Diagnostician Name Role Phone Aviva Jaimes PA-C Primary Care Provider +1 -[phone] Note from [facility],non-owned Affiliates and Associated Physician Practices is amultiple site organization consisting of ambulatory clinics and hospital sitesin [place], [place], [place] and [place]. This disclosure is being madepursuant to the Care Everywhere program and may not contain all information available regarding this patient. Last updated 17.[facility] Allergies * Adhesive Sensitivity(Rash) -Medium Criticality * Amoxicillin(Urticaria,Rash,Unknown) -Medium Criticality * Cefixime(Rash) -Medium Criticality * Cephalexin(Rash) -Medium Criticality * Gamez(Anaphylaxis,Unknown) -High Criticality * Ciprofloxacin(Nausea and/or Vomiting,GI Discomfort,Unknown,Other) -Medium Criticality * Clindamycin(Anaphylaxis,Swelling) -High Criticality * [place] Butter(Rash,Other,Unknown) -Medium Criticality * Doxycycline(Unknown,Rash) -Medium Criticality [...] * vitamin D, ergocalciferol, (Drisdol) 1.25 MG (33082 UT) capsule Take 1 (one) capsule by [...] by mouth as needed * nystatin (Mycostatin) 618203 UNIT/GM cream(Started 02/01/2024) Apply to affected area [...] daily * Nebulizers ([employer] Aerosol Delivery System) MISC(Started 04/15/2024) Use 1 Each as directed Ended Medications* clarithromycin (Biaxin) 500 MG tablet(Started 04/19/2024) (Discontinued) Take 1 (one) tablet by mouth 2 times daily for 10 days * levoFLOXacin (Levaquin) 500 MG tablet(Started 04/19/2024)() Take 1 (one) tablet by mouth once daily for 10 days Immunizations * INFLUENZA [...] Comments Blood Pressure 112/79 04/19/2024 10:39 AM SHOOK SPLICER Pulse 94 04/19/2024 10:39 AM SHOOK SPLICER Temperature - - Respiratory Rate - - Oxygen Saturation - - Inhaled Oxygen Concentration - - Weight 225.4 kg (497 lb) 04/19/2024 10:39 AM SHOOK SPLICER Height 170.2 cm (5' 7 ) 04/19/2024 10:39 AM SHOOK SPLICER Body Mass Index 77.84 04/19/2024 10:39 AM SHOOK SPLICER Procedures * MS LARYNGOSCOPY,FLEX FIBER,DIAGNOSTIC(Performed 04/19/2024) Performed for Acute maxillary sinusitis, recurrence not specified * MS LARYNGOSCOPY,FLEX FIBER,DIAGNOSTIC(Performed 02/09/2024) Performed for Hoarseness, Chronic fungal laryngitis * PROC ENDOSCOPY-LARYNX(Performed 12/08/2023) Performed for Hoarseness, Chronic fungal laryngitis * PROC CERUMEN REMOVAL(Performed 12/08/2023) Performed for Bilateral impacted cerumen * PROC ENDOSCOPY-LARYNX(Performed 10/27/2023) Performed for Hoarseness, Chronic fungal laryngitis, Laryngitis Results * MS LARYNGOSCOPY,FLEX FIBER,DIAGNOSTIC (04/19/2024 11:19 AM SHOOK SPLICER) Narrative Harsh Petty MD - 04/19/2024 11:19 AM SHOOK SPLICER Harsh Petty MD 04/19/2024 12:09 PM Procedure Note Endoscopy Type: Laryngoscopy without stroboscopy 64685 Endoscope: Flexible 4mm Scope Anesthesia: Lidocaine 2% [...] Correa MD PROCEDURE/MINOR SURG ICAL ORDERABLES * MS LARYNGOSCOPY,FLEX FIBER,DIAGNOSTIC (02/09/2024 12:23 PM SHOOK SPLICER) Narrative Jama Arreola MD - 02/09/2024 12:23 PM SHOOK SPLICER Jama Arreola MD 02/09/2024 9:38 PM Procedure Note Endoscopy Type: Laryngoscopy without stroboscopy 29659 Endoscope: Flexible 4mm Scope Anesthesia: Lidocaine 2% [...] * PROC ENDOSCOPY-LARYNX (12/08/2023 1:40 PM CDT) Arjun Bunn MD - 12/08/2023 1:40 PM CDT Arjun Correa MD 12/08/2023 1:45 PM Procedure Note Endoscopy Type: Laryngoscopy without stroboscopy 65971 Endoscope: Flexible 4mm Scope Anesthesia: Lidocaine 2% [...] PROC CERUMEN REMOVAL (12/08/2023 1:38 PM CDT) Arjun Bunn MD - 12/08/2023 1:38 PM CDT Arjun Correa MD 12/08/2023 1:45 PM Indication: Excessive Cerumen Impaction Procedure: Micro-otoscopy - MS REMOVE CERUMEN IMPACTED W INSTR: [10699 DUSTIN] Procedure Note: Verbal consent for the [...] Procedure Note Endoscopy Type: Laryngoscopy without stroboscopy 55920 Endoscope: Flexible 4mm Scope Anesthesia: Lidocaine 2% [...] MD PROCEDURE/MINOR SURG ICAL ORDERABLES Care Teams Educational Diagnostician Relationship Specialty Start Date End Date Aviva Jaimes PA-C [address] [place] [phone] PCP - General Physician Mixed Livestock Farm Worker 10/27/23
--- OUTSIDE RECORDS SUMMARY | 2024-05-09 13:20 | XMS_ITS ---
Author Organization [facility] Address [address] [place], [place] [id number] Care Team Providers Care Design Engineer Name Role Phone VIJAYA FARIA Unavailable [phone] Rayna De Leon Unavailable Unavailable Allergies Allergen [...] days Active Vitamin D (Ergocalciferol) 1.25 MG (58753 UT) Oral for 84 Days Activ e Meloxicam 15 MG 1 tablet Orally Once a day for 30 days Active dilTIAZem HCl ER Coated Bead s 240 MG Oral for 90 Days Active Advair Diskus 500-50 MCG/ACT Inhalation for 30 Days Active Olmesartan Medoxomil 20 MG Oral for 90 Days Active Xvssdlyw-Gkbbpvjyw-UH 3.5-01979-4 Otic for 90 Days Active PreviDent 5000 Sensitive 1.1-5 % BRUSH GEL ON FOR 2 MINUTES 2 TO 3 TIMES DAILY Dental for 30 Days Active Eliquis 5 MG Oral for 30 Days Active Topiramate 50 MG Oral for 90 Days Active Encounters Encounter Location Date Provider Diagnosis [facility] [address] [place], [place] [phone] 12/07/2023 VIJAYA FARIA Tinea unguium B35.1 ; [...] use of orthotic devices and bracing. Recommend [facility] Dylan ankle brace 12/07/2023 Left foot pain [...] Name:VIJAYA FARIA, 08:20:00 AM, [address], [address], [phone], Progress Notes * JOSE QURESHIRADOB: [birth year] (37 yo F)Acc No.[id number]:12/07/2023 Patient: PAULINE ONEILL Provider: Belgica Faria DPM :1985 A ge:37 Y S ex:Female Date:12/07/2023 Address:[address] [place] [address] Subjective: * Chief Complaints: * 1 . [...] TO 3 TIMES DAILY Dental , Taking Poaevuwh-Gohdyumqb-NP 3.5-04137-3 Solution Otic , Taking Vitamin D (Ergocalciferol) 1.25 MG (21763 UT) Capsule Oral , Taking methylPREDNISolone 4 [...] use of orthotic devices and bracing. [facility] * Follow Up: 5 weeks (Reason: Repeat LFTs. See how oral lamisil is tolerated. Check status of ankle brace. Debride toenails) * Billing Information: * Visit Code: 18567 Office Visit, Est Pt., Level 3. * Procedure Codes: * Sign off status: Completed true * Provider: Belgica Faria DPM Date: Generated for Tato to/Shanti/Shilpa on: 0 05/09/2024 01:20 PM CDT History and Physical Notes * HPI (History [...]
--- OUTSIDE RECORDS SUMMARY | 2024-05-09 13:20 | XMS_ITS ---
Author Organization [facility] Address [address] [place], [place] [id number] Care Team Providers Care Solid Waste Landfill Technician Name Role Phone VIJAYA FARIA Unavailable [phone] Moises Rayna Unavailable Unavailable Allergies Allergen (clinical [...] as directed Orally one pack 024 Active Pogsqqbx-Trdwoyrxx-YS 3.5-98177-5 Otic for 90 Days Active Vitamin D (Ergocalciferol) 1.25 MG (62187 UT) Oral for 84 Days Activ e [...] Location Date Provider Diagnosis [facility] [place] [address] [place], [place] [phone] 01/11/2024 VIJAYA SNOOK Tinea unguium B35.1 ; [...] of orthotic devices and bracing. Recommend [facility] ankle brace 01/11/2024 Left foot pain [...] Name:VIJAYA FARIA, 08:20:00 AM, [address], [address], [id number], Progress Notes * KIRT QURESHIOB: [birth year] (38 yo F)Acc No.[id number]:01/11/2024 Patient: PAULINE ONEILL Provider: Belgica Faria DPM :1985 A ge:38 Y S ex:Female Date:01/11/2024 Address:[address] [place] [address] Subjective: * Chief Complaints: * 1 . [...] TO 3 TIMES DAILY Dental , Taking Tufujgaq-Nfurzwgml-HS 3.5-30843-4 Solution Otic , Taking Vitamin D (Ergocalciferol) 1.25 MG (17857 UT) Capsule Oral , Taking methylPREDNISolone 4 [...] check) * Billing Information: * Visit Code: 05709 Office Visit, Est Pt., Level 3. * Procedure Codes: * Electronic signature of VIJAYA FARIA DPM on 05/09/2024 at 01:19 PM CDT Sign off status: Pending * Provider: Belgica Faria DPM Date: 1 03/12/2023 Generated for Tato to/Shanti/Shilpa on: 0 05/09/2024 01:19 PM CDT History and Physical Notes * [...]
--- OUTSIDE RECORDS SUMMARY | 2024-05-09 13:20 | XMS_ITS | Referral Summary ---
Author Organization [facility] [address] [place] [address] Care Team Providers Care Microarray Analyst Name Role Phone Aviva Jaimes Primary Care Provider +1- [phone] Allergies Active Allergy Reactions Criticality Noted Date Comments Adhesive Rash Medium 10/27/2017 Amoxicillin Rash Medium 09/30/2017 Cefixime Rash Medium 09/30/2017 Cephalexin Rash Medium 09/30/2017 Gamez Anaphylaxis High 09/30/2017 Ciprofloxacin Nausea only Medium 09/30/2017 Clindamycin Swelling Medium 10/28/2017 [place] Butter Rash Medium 09/30/2017 Doxycycline Rash Medium [...] on file Legal Sex Female 10:34 AM CUSTODIAN BLOOD BANK Gender Identity Female 09/12/2020 8:26 AM CDT [...] Plan of Treatment Not on file Insurance ([address] [address] [facility] EMPLOYEE HEALTH PLANS Address: [facility] [address] [address] [place] Advance Directives For more information, please contact: [phone] * Full Code (Latest Code Status on File) Date Activated Date Inactivated Comments 10/29/2023 7:37 AM 10/29/2023 1:06 PM * Full Code Date Activated Date Inactivated Comments 11/14/2022 8:40 AM 11/14/2022 2:52 PM Care Teams Microarray Analyst Relationship Specialty Start Date End Date Aviva Jaimes PA [address] [place] [phone] PCP - General Physician Set Up Person 07/22/22
--- OUTSIDE RECORDS SUMMARY | 2024-05-09 13:20 | XMS_ITS | Patient Health Record ---
Author Organization [facility] Address [address] [place], [place] [id number] Care Team Providers Care Band Nailer Name Role Phone VIJAYA FARIA Unavailable [phone] Moises Rayna Unavailable Unavailable Allergies Allergen (clinical [...] TIMES DAILY Dental for 30 Days Active Eqgybkko-Lyrsozqvw-SP 3.5-09473-0 Otic for 90 Days Active Vitamin D (Ergocalciferol) 1.25 MG (73989 UT) Oral for 84 Days Activ e [...] Location Date Provider Diagnosis [facility] [place] [address] [place] [id number] 01/11/2024 VIJAYA SNOOK Tinea unguium B35.1 ; Onychocryptosis L60.0 ; Peroneal tendinitis, left leg M76.72 and Left foot pain M79.672 [facility] [place] [address] [place] [phone] 07/06/2023 VIJAYA SNOOK Plantar fascial 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1 ; Peroneal tendinitis, left leg M76.72 and Left foot pain M79.672 [facility] [place] [address] [place] [id number] 12/07/2023 VIJAYA SNOOK Tinea unguium B35.1 ; Onychocryptosis L60.0 ; Peroneal tendinitis, left leg M76.72 and Left foot pain M79.672 [facility] [place] [address] [place], [place] [phone] 03/14/2024 VIJAYA FARIA Tinea unguium B35.1 ; [...] use of orthotic devices and bracing. [facility] 12/07/2023 Onychocryptosis (ICD-10 - L60.0) [...] use of orthotic devices and bracing. 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 Recommend [facility] [place] ankle brace 11/09/2023 Left foot [...] toe(s) (ICD-10 - M79.675) 07/06/2023 Atherosclerosis of swinomish arteries of extremities with intermittent claudication, bilateral legs (ICD-10 - I70.213) Plan Of Treatment Pending Test Test Name Order Date Liver Function Test (LFT) 01/11/2024 Next Appt Details Provider Name:VIJAYA FARIA, 08:20:00 AM, [address], [facility], [place], [place], [phone], Insurance Providers Payer Name Payer Address Payer Phone Subscriber Number Group Number Insured Name Patient Relationship to Insured Coverage Start Date Coverage End Date [facility] ([facility]) ATTN CLAIMS [address] [place] [address] [id number] PAULINE SLADE Self - patient is the insured
--- OUTSIDE RECORDS SUMMARY | 2024-05-09 13:20 | XMS_ITS ---
Author Organization [facility] Address [address] [facility] [place] [address] Care Team Providers Care Supervisor Paint Department Name Role Phone Joann Santamaria Primary Care Provider REASON FOR VISIT Refills Encounters Encounter Location Date Provider Diagnosis [facility] [address] [place] [address] 02/26/2024 Joann Santamaria Plan Of Treatment No Information Progress Notes * Miranda QURESHIOB: [birth year] (38 yo F)Acc No.[id number]:02/26/2024 Patient: Gurjit Meghna SANDOVAL :1985 A ge:38 Y S ex:Female Phone: Address:[address] [place] [address] * true * Date: Generated for Tato to/Shanti/eTransmitting on: 0 05/09/2024 01:20 PM CDT
--- OUTSIDE RECORDS SUMMARY | 2024-05-09 13:20 | XMS_ITS ---
Author Organization [employer] [facility] Address [address] [place] [address] Care Team Providers Care Washerette Machine Operator Name Role Phone Joann Santamaria Primary Care Provider REASON FOR VISIT HENRY PATTON Encounters Encounter Location Date Provider Diagnosis [facility] [address] [place] [address] 02/22/2024 Joann Santamaria Plan Of Treatment No Information Progress Notes * Miranda QURESHIOB: [birth year] (38 yo F)Acc No.[id number]:02/22/2024 Patient: Gurjit Meghna SANDOVAL :1985 A ge:38 Y S ex:Female Phone: Address:[address] [place] [address] * true * Date: Generated for Tato to/Shanti/eTransmitting on: 0 05/09/2024 01:19 PM CDT
--- OUTSIDE RECORDS SUMMARY | 2024-05-09 13:20 | XMS_ITS | Clinical Summary ---
Author Organization [facility] Physician Office Building [address] [place] [address] Care Team Providers Care Tailor Men'S Ready To Wear Name Role Phone Aviva Jaimes Primary Care Provider +1- [phone] Allergies Active Allergy Reactions Criticality Noted Date Comments Adhesive Rash Medium 10/27/2017 Amoxicillin Rash Medium 09/30/2017 Cefixime Rash Medium 09/30/2017 Cephalexin Rash Medium 09/30/2017 Gamez Anaphylaxis High 09/30/2017 Ciprofloxacin Nausea only Medium 09/30/2017 Clindamycin Swelling Medium 10/28/2017 [place] Butter Rash Medium 09/30/2017 Doxycycline Rash Medium [...] Chronic constipation Factor 5 Leiden mutation, heterozygous Family History Medical History Relation Name Comments [...] on file Legal Sex Female 10:34 AM SOLE STAINER Gender Identity Female 09/12/2020 8:26 AM CDT [...] age to complete this topic Insurance [facility] EMPLOYEE HEALTH PLANS Address: [facility] [address] [place] [address] [facility] Advance Directives For more information, please contact: [phone] * Full Code (Latest Code Status on File) Date Activated Date Inactivated Comments 10/29/2023 7:37 AM 10/29/2023 1:06 PM * Full Code Date Activated Date Inactivated Comments 11/14/2022 8:40 AM 11/14/2022 2:52 PM Care Teams Tailor Men'S Ready To Wear Relationship Specialty Start Date End Date Aviva Jaimes PA [address] [place] [phone] PCP - General Physician Editing Clerk 07/22/22
--- OUTSIDE RECORDS SUMMARY | 2024-05-09 13:21 | XMS_ITS | Encounter Summary ---
Author Organization [facility] Address [address] [place] [address] Care Team Providers Care Sales Apprentice Name Role Phone Lester Keating MD Primary Care Provider [phone] Reason for Referral * Radiology Services (Routine) - Closed Specialty Diagnoses / Procedures Referred By Bartolome t Referred To Contact Diagnoses Personal history of DVT (deep vein thrombosis) Procedures US VENOUS DOPPLER LEG LEFT Miguel A Guzman MD [address] [place] [phone] Phone: tel: fax: [place] [phone] Referral ID Status Reason Start Date Expiration Date V isits Requested Visits Authorized [id number] Closed [facility] CTS 05/09/2024 06/09/2025 1 1 Reason for Visit * Reason Comments Follow Up Encounter Details Date Type Department Care Team (Late st Contact Info) Description 05/09/2024 11:45 AM CDT Office Visit [facility] Oncology and Hematology [facility] [address] [facility] [address] [place] [address] Miguel A Guzman MD [address] [place] [address] Personal history of DVT (deep vein thrombosis) (Primary Dx) Social History Tobacco Use Types [...] on file documented as of this encounter Last Filed Vital Signs Vital Sign Reading Time Taken Comments Blood Pressure 138/75 05/09/2024 11:40 AM CDT Pulse 79 05/09/2024 11:37 AM CDT Temperature 36.2 C (97.2 F) 05/09/2024 11:37 AM CDT Respiratory Rate 16 05/09/2024 11:3 7 AM CDT Oxygen Saturation 97% 05/09/2024 11: 37 AM CDT Inhaled Oxygen Concentration - - Weight 227.8 kg (502 lb 3.2 oz) 025 11:37 AM CDT Height - - Body Mass Index 81.06 07/23/2021 10:37 AM CDT documented in this encounter Progress Notes * Miguel A Guzman MD - 05/09/2024 1:03 PM CDT HEMATOLOGY / ONCOLOGY PROGRESS NOTE Patient Identification: Name: Meghna Gary Age: 38 y.o. Sex: female : 1985 DIAGNOSIS Hypercoagulable state with factor V Leiden and MTHFR heterozygous state. Recurrent left lower extremity DVT. Initial in November 2017 and then most recent in July 2018. Morbid obesity CURRENT TREATMENT Lovenox started April 26, 2024. TREATMENT HISTORY Unprovoked left lower extremity DVT in November 2017. Treated with Eliquis until March 2018. Unprovoked DVT left lower extremity July 2018. Treated with Xarelto. Xarelto was discontinued and Eliquis was started due to insurance coverage in September 2018. Eliquis was dose increased to 5 mg twice a day from 2.5 mg twice a day in April 2021 when she was found to have left lower extremity DVT. Lovenox was started and Eliquis was discontinued on April 26, 2024 with a diagnosis of acute DVTinvolving the left lower extremity. SUBJECTIVE Patient came into the office for follow-up visit. She has been using Lovenox injection twice day with some bruising in the belly but improvement in the left lower extremity pain and discomfort. Denies any chest pain and shortness of breath. No other new complaint. Review of system Constitutional: denies fevers, sweats, denies any tiredness and fatigue HEENT: denies sinus congestion, hearing or vision problems Respiratory: denies cough, dyspnea, wheeze Cardiovascular: denies chest pain, exertional chest pressure/discomfort, nausea, syncope, shortnessof breath GI: denies constipation, diarrhea, dsyphagia, reflux symptoms, vomiting, melena, denies any hemorrhoidal bleeding, complain of right upper quadrant discomfort and pain : denies dysuria, frequency, incontinence, urgency Integumentary system: no lymphadenopathy, sweats, flushing Musculoskeletal: Complain of bilateral knee arthralgia Neurological: denies blurry or disturbed vision, numbness/weakness, dizziness Skin: No lumps, bumps or rashes. 12 point review of system was reviewed Objective: Vital signs in last 24 hours: As per nursing note Exam: General appearance: alert, cooperative, morbidly obese, no distress, appears stated age Head: normocephalic, without obvious abnormality, atraumatic Eyes: conjunctivae/corneas clear, EOM's intact Ears: normal external ear canals AU Nose: Nares normal. Septum midline. Mucosa normal. No drainage or sinus tenderness Throat: Lips, mucosa, and tongue normal. Teeth and gums normal Neck: supple, symmetrical, trachea midline. Lungs: clear to auscultation bilaterally Heart: regular rate and rhythm, S1, S2 normal, no murmur, click, rub or gallop Abdomen: soft, non-tender. Bowel sounds normal. No masses, No organomegaly Extremities: extremities normal, atraumatic, no cyanosis or edema Skin: Skin color, texture, turgor normal. 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 Patient is a morbidly obese female withhistory of factor V Leiden and MTHFR heterozygous state. Doppler studies done on April 26, 2024 showed DVT in the left femoral vein. Patient was symptomatic with left lower extremity discomfort and swelling. Eliquis was discontinued and patient was started on Lovenox. Patient is feeling better with improvement in the left lower extremity pain and swelling. She will continue Lovenox for 2 more weeks and then we will switch to Xarelto. I we will orderthe Doppler studies in 3 months and follow-up in 3 months. Leukocytosis. Resolved. Obesity. Patient is trying to get Zepbound treatment. Follow-up in 3 months. 05/09/2024 Miguel A Guzman MD documented in this encounter Plan of Treatment Upcoming Encounters Date Type Department Care Team (Late st Contact Info) Description 08/15/2024 2:45 PM CDT Office Visit [facility] Oncology and Hematology - [place] [address] [facility] [address] [place] [address] Miguel A Guzman MD [address] [facility] [address] [place] [address] Scheduled Orders Name Type Priority Associated Diagnoses Orde r Schedule US VENOUS DOPPLER LEG LEFT Imaging Routine Personal history of DVT (deep vein thrombosis) Expected: 08/09/2024, Expires: 05/09/2025 documented as of this encounter Visit Diagnoses Diagnosis Personal history of DVT (deep vein thrombosis)- Primary Personal history of venous thrombosis and embolism documented in this encounter Care Teams Sales Apprentice Relationship Specialty Start Date End Date Lester Keating MD [address] [place] [phone] PCP - General Family Practice 08/20/22 documented as of this encounter
--- OUTSIDE RECORDS SUMMARY | 2024-05-09 13:21 | XMS_ITS | Clinical Summary ---
Author Organization [facility] Address [address] [place] [address] Care Team Providers Care Trouble Clerk Name Role Phone Aviav Jaimes Primary Care Provider [phone] Allergies Active Allergy Reactions Criticality Noted Date Comments Amoxicillin Unknown 09/30/2017 Cefixime Rash Low 09/30/2017 Gamez Unknown 09/30/2017 Ciprofloxacin Unknown 09/30/2017 Clindamycin Anaphylaxis High 10/28/2017 [place] Butter Unknown 09/30/2017 Doxycycline Rash,Unknown Medium 11/13/2022 Levofloxacin Unknown 09/30/2017 Metformin Other (see comment),Unknown Low 11/14/19 23 Tape Rash Medium 10/27/2017 Medications Cholecalciferol 50 MCG (2000 UT) Tab Take 5,000 Units by mouth. Active dilTIAZem CD 240 MG 24 hr capsule 08/06/19 19 Active vitamin D2, ergocalciferol, 22034 UNITS capsule 1 capsule (1.25 mg total) every 7 days. 08/06/19 19 Active olmesartan 20 MG tablet Take 1 tablet (20 mg total) by mouth daily. 08/06/19 19 Active topiramate 50 MG Tab 1 tablet (50 mg total) 2 (two) times daily. 50 mg evening, 25 mg am 08/06/19 19 Active fexofenadine 180 MG tablet Take 1 tablet (180 mg total) by mouth daily. Active ondansetron (ZOFRAN-ODT) 4 MG disintegrating tablet Take 1 tablet (4 mg total) by mouth every 8 (eight) hours as needed for Nausea. 12 tablet 06/02/19 Active Additional Information Patient not taking.Reported on [...] SHORTNESS OF BREATH. RINSE MOUTH AFTER USING 08/11/19 24 Active bumetanide (BUMEX) 1 MG tablet Take 1 tablet (1 mg total) by mouth daily. 09/02/19 24 Active cyanocobalamin (B-12) 1000 MCG/ML injection INJECT 1ML SUBCUTANEOUSLY ONCE A WEEK ON Thursday08/20/19 24 Active esomeprazole (NEXIUM) 40 MG capsule Take 1 capsule (40 mg total) by mouth daily. 09/22/19 24 Active BREO ELLIPTA 200-25 MCG/ACT inhaler Inhale 1 puff into the lungs daily. 10/08/19 24 Active Insulin Syringe-Needle U-100 (INSULIN SYRINGE 1CC/31GX5/16 ) 31G X 5/16 1 ML Misc INJECT B12 UNDER THE SKIN EVERY 7 DAYS 05/21/19 24 Active nystatin (MYCOSTATIN) 548608 UNIT/ML suspension SWISH AND SWALLOW 5 ML BY MOUTH EVERY 6 HOURS 08/03/19 24 Active ondansetron (ZOFRAN) 4 MG tablet Take 1 tablet (4 mg total) by mouth every 8 (eight) hours. 06/18/19 24 Active NURTEC 75 MG disintegrating tablet DISSOLVE ONE TABLET ON TONGUE EVERY 2 DAYS TO PREVENT MIGRAINE 09/24/19 24 Active MOUNJARO 5 MG/0.5ML injection Inject 5 mg into the skin every 7 days. 02/01/20 24 Active terbinafine (LAMISIL) 250 MG tablet Take 1 tablet (250 mg total) by mouth daily. 09/28/19 24 Active tamsulosin (FLOMAX) 0.4 MG Cap Take 1 capsule (0.4 mg total) by mouth daily. 10/21/19 24 Active COSENTYX UNOREADY 300 MG/2ML Solution Auto-injector Inject 300 mg into the skin every 28 days. 11/30/19 Active topiramate (TOPAMAX) 25 MG tablet Take 1 tablet (25 mg total) by mouth daily. 10/21/19 Active levothyroxine (SYNTHROID) 300 MCG tablet Take 1 tablet (300 mcg total) by mouth daily. 10/21/19 Active liothyronine (CYTOMEL) 5 MCG Tab Take 1 tablet (5 mcg total) by mouth daily. 10/21/19 Active meloxicam (MOBIC) 15 MG tablet Take 1 tablet (15 mg total) by mouth daily. Active folic acid (FOLVITE) 1 MG tablet Take 1 tablet (1 mg total) by mouth daily. 02/01/20 Active albuterol sulfate HFA 108 (90 Base) MCG/ACT inhaler Inhale 2 puffs into the lungs every 6 (six) hours as needed for Wheezing. 8 g 03/28/19 Active Active Problems Problem Noted Date Diagnosed Date Abnormal liver function tests 02/22/2024 Anemia 02/22/2024 Asthma ([facility]) 02/22/2024 Depressive disorder 02/22/2024 Diabetes mellitus ([facility]) 02/22/2024 Fatigue 02/22/2024 Finding of above normal blood pressure Hypercholesterolemia 02/22/2024 Hypertensive disorder 02/22/2024 Migraine 02/22/2024 Obesity 02/22/2024 Obstructive sleep apnea 02/22/2024 Pain in joint 02/22/2024 Vitamin D deficiency 02/22/2024 Gastric polyp 10/20/2023 Bariatric surgery status 10/09/2022 PCOS (polycystic ovarian syndrome) 04/22/2022 Personal history of DVT (deep vein thrombosis) 0 04/09/2020 Factor 5 Leiden mutation, heterozygous ([facility]) 10/11/2018 Overview (02/22/2024): I've had several DVTs in the past few years Laryngopharyngeal reflux (LPR) 06/01/2018 Non-seasonal allergic rhinitis 06/01/2018 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 Postoperative infection 10/27/2017 Abnormal ultrasound of breast 09/30/2017 Left breast abscess 09/30/2017 Morbid obesity with body mass index of 70 and ov er in adult 09/30/2017 Tobacco dependence 09/30/2017 Sore throat 10/20/2012 [...] Department Care Team Description 03/28/2024 12:38 PM OCCUPATIONAL MEDICINE SPECIALIST - 03/28/2024 2:49 PM [facility] Emergency [facility] Emergency Room [id number] [place] [id number] Hannah Menezes MD Flu Like Symptoms Discharge Disposition: Home or Self Care (Routine Discharge) 03/28/2024 10:50 AM OCCUPATIONAL MEDICINE SPECIALIST Office Visit [facility] Family & Internal Medicine [address] [address] Ammy Golden PA Other (Acute other ears clogged sob, fatigued , sore throat , neck, head , pain , chest tightness and wheezing inhaler isn't relieving correction , chills abdominal pain since last thursday) 03/28/2024 Travel 02/22/2024 8:40 AM OCCUPATIONAL MEDICINE SPECIALIST Office Visit [facility] Family & Internal [address] [phone] Ammy Golden PA Ear Problem (Left ear pain and [...] Sex Assigned at Female 03/28/2024 11:28 AM OCCUPATIONAL MEDICINE SPECIALIST Legal Sex Female 7:12 PM CDT Gender Identity Female 03/28/2024 11:28 AM OCCUPATIONAL MEDICINE SPECIALIST Sexual Orientation Straight 03/28/2024 11 :28 AM OCCUPATIONAL MEDICINE SPECIALIST Last Filed Vital Signs Vital Sign Reading Time Taken Comments Blood Pressure 117/61 03/28/2024 2:31 PM OCCUPATIONAL MEDICINE SPECIALIST Pulse 114 03/28/2024 2:31 PM OCCUPATIONAL MEDICINE SPECIALIST Temperature 37.1 C (98.7 F) 03/28/2024 2:47 PM OCCUPATIONAL MEDICINE SPECIALIST Respiratory Rate 20 03/28/2024 2:31 PM OCCUPATIONAL MEDICINE SPECIALIST Oxygen Saturation 94% 03/28/2024 2:31 PM OCCUPATIONAL MEDICINE SPECIALIST Inhaled Oxygen Concentration - - Weight 222.7 kg (490 lb 15.4 oz) 2024 12:43 PM OCCUPATIONAL MEDICINE SPECIALIST Height 170.2 cm (5' 7 ) 03/28/2024 12:4 3 PM OCCUPATIONAL MEDICINE SPECIALIST Body Mass Index 76.9 03/28/2024 12:43 PM OCCUPATIONAL MEDICINE SPECIALIST Plan of Treatment Health Maintenance Due Date [...] Influenza Adult (#1) 2023 12/14/2013 COVID-19 Vaccine (2023-2 5 season) 2025 Postponed from 10/31 (Patient Refused) DTaP, Tdap and Td Vaccines ( 2 - Td or Tdap) 01/13/2029 01/13/2019 PHQ-2 (Physician [place]) Completed 03/28/2024 HPV Vaccines Aged Out No [...] W REFLEX (SEPSIS) STAT 03/28/2024 1:49 PM OCCUPATIONAL MEDICINE SPECIALIST PRO-BRAIN NATRIURETIC PEPTIDE STAT 03/28/2024 1:30 PM OCCUPATIONAL MEDICINE SPECIALIST TROPONIN, QUANT STAT 03/28/2024 1:30 PM OCCUPATIONAL MEDICINE SPECIALIST COMPREHENSIVE METABOLIC PANEL STAT 03/28/2024 1:30 PM OCCUPATIONAL MEDICINE SPECIALIST PARTIAL THROMBOPLASTIN TIME,PTT STAT 03/28/2024 1:30 PM OCCUPATIONAL MEDICINE SPECIALIST PROTHROMBIN TIME, VENOUS STAT 03/28/2024 1:30 PM OCCUPATIONAL MEDICINE SPECIALIST CBC W/DIFF AUTOMATED STAT 03/28/2024 1:30 PM OCCUPATIONAL MEDICINE SPECIALIST XR CHEST PA+LAT STAT 03/28/2024 1:21 PM OCCUPATIONAL MEDICINE SPECIALIST ECG 12-LEAD Routine 03/28/2024 12:54 PM OCCUPATIONAL MEDICINE SPECIALIST CULTURE STREP A Routine 03/28/2024 11:40 AM OCCUPATIONAL MEDICINE SPECIALIST Sore throat STREP A RAPID Routine 03/28/2024 Sore throat CORONAVIRUS (COVID-19) INFLUENZA A & B ANTIGEN IA PANEL Routine 03/28/2024 Suspected COVID-19 virus infection from Last 3 Months Results * LACTIC ACID W REFLEX (SEPSIS) (03/28/2024 1:49 PM OCCUPATIONAL MEDICINE SPECIALIST) LACTIC ACID VENOUS 1.6 0.4 - 2.0 MMOL/L 03/28/2024 2:29 PM OCCUPATIONAL MEDICINE SPECIALIST [facility] 03/28/2024 1:49 PM OCCUPATIONAL MEDICINE SPECIALIST Hannah Menezes MD LABORATORY Final Result Performing Organization Address [facility] Co de Phone Number [facility] [address] [place] [address], [place] [phone] * (ABNORMAL) PRO-BRAIN NATRIURETIC PEPTIDE (03/28/2024 1:30 PM OCCUPATIONAL MEDICINE SPECIALIST) Pathologist [facility] PRO-B TYPE NATRIURETIC PEPTIDE 484(H) <125 PG/ML 03/28/2024 2:01 PM OCCUPATIONAL MEDICINE SPECIALIST [facility] Comment: CUT POINTS ESTABLISHED BY [...] 72% FOR ACUTE CHF. 03/28/2024 1:30 PM OCCUPATIONAL MEDICINE SPECIALIST us Hannah Menezes MD LABORATORY Final Result Performing Organization Address [facility]/ZIP Co de Phone Number [facility] [address] [place] [address], [place] [phone] * (ABNORMAL) PARTIAL THROMBOPLASTIN TIME,PTT (03/28/2024 1:30 PM OCCUPATIONAL MEDICINE SPECIALIST) Pathologist [facility] PTT 38.6(H) 27.0 - 36.8 SEC 03/28/2024 1:46 PM OCCUPATIONAL MEDICINE SPECIALIST [facility] 03/28/2024 1:30 PM OCCUPATIONAL MEDICINE SPECIALIST us Hannah Menezes MD LABORATORY Final Result Performing Organization Address City/[facility]/ZIP Co de Phone Number [facility] [address] [place] [address], [place] [phone] * (ABNORMAL) PROTIME/INR, VENOUS (03/28/2024 1:30 PM OCCUPATIONAL MEDICINE SPECIALIST) Pathologist [facility] PROTIME 13.6(H) 9.1 - 12.4 SEC 03/28/2024 1:46 PM OCCUPATIONAL MEDICINE SPECIALIST [facility] INR 1.2 03/28/2024 1:46 PM OCCUPATIONAL MEDICINE SPECIALIST [facility] Comment: Recommend INR ranges for Oral Anticoagulant Therapy: Mechanical Cardiac Values 2.5-3.5 All others indication 2.0-3.0 03/28/2024 1:30 PM OCCUPATIONAL MEDICINE SPECIALIST us Hannah Menezes MD LABORATORY Final Result Performing Organization Address [facility]/ZIP Co de Phone Number [facility] [address] [place] [address], [place] [phone] * (ABNORMAL) COMPREHENSIVE METABOLIC PANEL (03/28/2024 1:30 PM OCCUPATIONAL MEDICINE SPECIALIST) Pathologist [facility] GLUCOSE 82 70 - 99 MG/DL 03/28/2024 2:01 PM OCCUPATIONAL MEDICINE SPECIALIST [facility] BUN 8 7 - 18 MG/DL 03/28/2024 2:01 PM [facility] CREATININE S/P/B 1.16(H) 0.55 - 1.02 MG/DL 03/28/2024 2:01 PM OCCUPATIONAL MEDICINE SPECIALIST [facility] SODIUM S/P/B 141 136 - 145 MMOL/L 03/28/2024 2:01 PM [facility] POTASSIUM S/P/B 4.0 3.5 - 5.1 MMOL/L 03/28/2024 2:01 PM [facility] CHLORIDE S/P/B 105 100 - 108 MMOL/L 03/28/2024 2:01 PM [facility] CO2 22.5 21 - 32 MMOL/L 03/28/2024 2:01 PM [facility] CALCIUM S/P/B 8.8 8.5 - 10.1 MG/DL 03/28/2024 2:01 PM [facility] BILIRUBIN TOTAL S/P/B 0.6 0.2 - 1.2 MG/DL 03/28/2024 2:01 PM [facility] TOTAL PROTEIN S/P/B 6.4 6.4 - 8.2 G/DL 03/28/2024 2:01 PM [facility] ALBUMIN S/P/B 3.5 3.4 - 5.0 G/DL 03/28/2024 2:01 PM [facility] AST 7(L) 15 - 37 U/L 03/28/2024 2:01 PM [facility] ALT 17 14 - 55 U/L 03/28/2024 2:01 PM [facility] ALKALINE PHOSPHATASE S/P/B 64 50 - 136 U/L 03/28/2024 2:01 PM [facility] ANION GAP 13.5 5 - 15 MMOL/L 03/28/2024 2:01 PM [facility] BUN CREATININE RATIO 6.9 6 - 26 03/28/2024 2:01 PM [facility] A/G RATIO 1.2 1.0 - 2.0 RATIO 03/28/2024 2:01 PM [facility] GFR ESTIMATE 63(L) >90 ML/MIN/1.7 3 M2 03/28/2024 2:01 PM [facility] Comment: NOTE: eGFR is not calculated for patients <18 years of age. This is an estimated GFR calculation using the new CKD EPI creatinine equation without race and so does not require a correction factor for race. This estimated GFR should not be used for calculating drug doses. 03/28/2024 1:30 PM OCCUPATIONAL MEDICINE SPECIALIST us Hannah Menezes MD LABORATORY Final Result [facility] [address] [place] [address], * (ABNORMAL) CBC W/DIFF AUTOMATED (03/28/2024 1:30 PM OCCUPATIONAL MEDICINE SPECIALIST) WBC 6.00 4.4 - 11.0 x10'3/uL 03/28/2024 1:41 PM [facility] RBC 4.92 4.50 - 5.10 x10'6/uL 03/28/2024 1:41 PM [facility] HGB 13.1 12.3 - 15.3 G/DL 03/28/2024 1:41 PM [facility] HCT 42.7 35.9 - 44.6 % 03/28/2024 1:41 PM [facility] MCV 86.8 80.0 - 96.0 FL 03/28/2024 1:41 PM [facility] MCH 26.6 25.3 - 30.9 PG 03/28/2024 1:41 PM [facility] MCHC 30.7(L) 31.0 - 34.1 G/DL 03/28/2024 1:41 PM [facility] RDW 18.5(H) 12.4 - 15.1 % 03/28/2024 1:41 PM [facility] PLT 229 151 - 353 x10'3/uL 03/28/2024 1:41 PM [facility] MPV 11.3 9.6 - 12.0 FL 03/28/2024 1:41 PM [facility] RBC MORPHOLOGY NORMAL 03/28/2024 1:41 PM [facility] PLT MORPH. NORMAL 03/28/2024 1:41 PM [facility] WBC MORPHOLOGY NORMAL 03/28/2024 1:41 PM [facility] LYMPHOCYTES % 16.2 15.8 - 45.0 % 03/28/2024 1:41 PM [facility] NEUTROPHILS % 73.0(H) 42.1 - 71.9 % 03/28/2024 1:41 PM [facility] MONOCYTES % 8.8 5.7 - 12.5 % 03/28/2024 1:41 PM [facility] EOSINOPHILS 0.7 0.0 - 5.6 % 03/28/2024 1:41 PM [facility] BASOPHILS 0.8 0.0 - 1.3 % 03/28/2024 1:41 PM [facility] ABS. NEUTROPHILS 4.38 1.40 - 6.00 x10'3/uL 03/28/2024 1:41 PM [facility] IMMATURE GRANS % 0.5 0.0 - 0.5 % 03/28/2024 1:41 PM [facility] ABS. LYMPHOCYTES 0.97 0.80 - 4.70 x10'3/uL 03/28/2024 1:41 PM [facility] 03/28/2024 1:30 PM OCCUPATIONAL MEDICINE SPECIALIST Hannah Menezes MD LABORATORY Final Result Performing Organization Address City/[facility]/ZIP Co de Phone Number [facility] [address] [place] [address], [place] [phone] * TROPONIN, QUANT (03/28/2024 1:30 PM OCCUPATIONAL MEDICINE SPECIALIST) TROPONIN I HIGH SENSITIVITY 5 0 - 50 ng/L 03/28/2024 1:58 PM OCCUPATIONAL MEDICINE SPECIALIST [facility] Comment: HIGH DOSES OF BIOTIN, TROPONIN-SPECIFIC AUTOANTIBODIES, AND ANTIBODY THERAPY CONTAINING HAMA MAY INTERFERE WITH THIS TEST RESULT. CORRELATION TO CLINICAL HISTORY AND PRESENTATION RECOMMENDED. 03/28/2024 1:30 PM OCCUPATIONAL MEDICINE SPECIALIST Hannah Menezes MD LABORATORY Final Result Performing Organization Address [facility] Co de Phone Number [facility] [address] [place] [address], [place] [phone] * XR CHEST PA+LAT (03/28/2024 1:21 PM OCCUPATIONAL MEDICINE SPECIALIST) Anatomical Region Laterality Modality Chest Radiographic Nancy ging 03/28/2024 1:38 PM OCCUPATIONAL MEDICINE SPECIALIST Impressions 03/28/2024 1:40 PM OCCUPATIONAL MEDICINE SPECIALIST =====IMPRESSION:===== Mild peribronchial wall thickening may be due to mild bronchitis versus reactive airway disease. No patchy infiltrate. Ordered By: HANNAH MENEZES Interpreted By: Phillip Boles, 03/28/2024 1:38 PM Narrative 03/28/2024 1:40 PM OCCUPATIONAL MEDICINE SPECIALIST [facility] [address] [place] [address] EXAMINATION: PA AND LATERAL CHEST Exam date/time: [...] Procedure Note Tahir Boles MD - 03/28/2024 [facility] [address] [place] [address] EXAMINATION: PA AND LATERAL CHEST Exam date/time: [...] * ECG 12 lead (03/28/2024 12:54 PM OCCUPATIONAL MEDICINE SPECIALIST) 03/28/2024 12:5 4 PM OCCUPATIONAL MEDICINE SPECIALIST Narrative [facility] RAD - 03/30/2024 11:13 AM OCCUPATIONAL MEDICINE SPECIALIST [facility] Test Date: 2024-03-28 Pat Name: PAULINE GARY Department: 85 Room: [facility] Gender: Female Credit Operations Specialist: : 1985 Requested By: HANNAH MENEZES Order Number: [id number] Reading MD: Aiden Del Rio Measurements Intervals Braxton Rate: 113 P: 51 PA: 166 QRS: 14 QRSD: 85 T: 68 QT: 298 QTc: 409 Interpretive Statements SINUS TACHYCARDIA LOW QRS VOLTAGE IN PRECORDIAL LEADS [QRS DEFLECTION < 1.0 mV IN CHEST LEADS] Compared to ECG 04/11/2020 05:43:58 Low QRS voltage now present Sinus rhythm no longer present T-wave abnormality no longer present PATIONAL MEDICINE SPECIALIST Procedure Note Aiden Del Rio MD - [facility]30/[facility] Test Date: 2024-03-28 Pat Name: PAULINE GARY Department: 85 Room: [facility] Gender: Female Credit Operations Specialist: : 1985 Requested By: HANNAH MENEZES Order Number: [id number] Reading MD: Aiden Del Rio Measurements Intervals Braxton Rate: 113 P: 51 PA: 166 QRS: 14 QRSD: 85 T: 68 QT: 298 QTc: 409 Interpretive Statements SINUS TACHYCARDIA LOW QRS VOLTAGE IN PRECORDIAL LEADS [QRS DEFLECTION < 1.0 mV IN CHESTLEADS] Compared to ECG 04/11/2020 05:43:58 Low QRS voltage now present Sinus rhythm no longer present T-wave abnormality no longer present PATIONAL MEDICINE SPECIALIST us Hannah Menezes MD ECG ORDERABLES Final Result Performing Organization Address City/State/[facility] Co de Phone Number [facility] ([facility]) RAD * CULTURE STREP A (03/28/2024 11:40 AM OCCUPATIONAL MEDICINE SPECIALIST) THROAT CULTURE GROUP A STREP [facility] [place] Comment: CULTURE, THROAT, SPECIAL W/GRP A STREP SUS[facility]. Micro Number: [id number] Test Status: Final Specimen Source: Not given Specimen Quality: Adequate Result: No oropharyngeal pathogens recovered. STRUCTURE OF ANTERIOR PORTION OF NECK / Unknown 03/28/2024 11:40 AM OCCUPATIONAL MEDICINE SPECIALIST 03/29/2024 5:18 AM OCCUPATIONAL MEDICINE SPECIALIST Narrative Resulting Agency Comment Performing Organization Information: Site ID: [facility] Address: [address] [place] [address] Director: Marisol Roebrts Ammy PATTON MICROBIOLOGY - GENERAL ORDER LESLIE Final Result [facility] [address], * CORONAVIRUS (COVID-19) INFLUENZA A & B ANTIGEN IA PANEL (03/28/2024) CORONAVIRUS ANTIGEN IA NEGATIVE NEGATIVE [id number], [place] INFLUENZA A NEGATIVE NEGATIVE [id number], [place] INFLUENZA B NEGATIVE NEGATIVE [id number], [place] Internal Control: VALID VALID [id number] / Unknown 03/28/2024 Ammy PATTON MICROBIOLOGY - GENERAL ORDER LESLIE Final Result [id number], [place] [address] [place] [address], [place] [phone] * STREP A RAPID (03/28/2024) RAPID STREP TEST NEGATIVE NEGATIVE [id number], [place] Internal Control: VALID VALID [id number], [facility] STRUCTURE OF ANTERIOR PORTION OF NECK / Unknown 03/28/2024 Ammy PATTON MICROBIOLOGY - GENERAL ORDER LESLIE Final Result [id number], [facility] [address] [place] [address], [place] [phone] from Last 3 Months Insurance [facility] Care Teams Trouble Clerk Relationship Specialty Start Date End Date Aviva Jaimes PA [address] [place] [id number] PCP - General PHYSICIAN IRONWORKER APPRENTICE 03/28/24
--- OUTSIDE RECORDS SUMMARY | 2024-05-09 13:21 | XMS_ITS | Encounter Summary ---
Author Organization [facility] Address [address] [place] [address] Care Team Providers Care Audio Video Tech Name Role Phone Lester Keating MD Primary Care Provider [phone] Encounter Details Date Type Department Care Team (Late Contact Info) Description 05/06/2024 External Device Data ST[place] ABSTRACTION Provider, Abstract NO ADDRESS ON FILE Social History Tobacco Use Types Packs/Day Years [...] Description 08/15/2024 2:45 PM CDT Office Visit [facility] Oncology and Hematology - [place] [facility] [address] [place] [address] Miguel A Guzman MD [address] [facility] [address] [place] [address] documented as of this encounter Visit Diagnoses Not on filedocumented in this encounter Care Teams Audio Video Tech Relationship Specialty Start Date End Date Lester Keating MD [address] [place] [address] PCP - General Family Practice 08/20/22 documented as of this encounter
--- OUTSIDE RECORDS SUMMARY | 2024-05-09 13:21 | XMS_ITS | Clinical Summary ---
Author Organization [facility] Address [facility] [place] [address] Care Team Providers Care Fraud Investigator Name Role Phone Lester Keating MD Primary Care Provider [phone] Allergies Active Allergy Reactions Criticality Noted Date Comments Adhesive Rash Low 10/27/2017 Amoxicillin Unknown 09/30/2017 Cefixime Unknown 09/30/2017 Cephalexin Unknown 09/30/2017 Gamez Unknown 09/30/2017 Ciprofloxacin Unknown 09/30/2017 Clindamycin Swelling Low 10/28/2017 Graham Butter Unknown 09/30/2017 Levofloxacin Unknown 09/30/2017 Tapentadol [...] HFA 90 mcg/actuation inhaler 09/12/19 18 Active cholecalcifero l, Vitamin D3, (VITAMIN D3) 2,000 unit Tablet Take 2,000 Units by mouth daily. Active fexofenadine (GIORGI) 180 mg tablet Take 180 mg by mouth daily. Active diltiaZEM (CARDIZEM CD) 240 mg Controlled Delivery 24 hour capsule Take 240 mg by mouth daily. Active ALBUTEROL INHALATION Active fluticasone propion-salmet Rupert (Advair Diskus) 250-50 mcg/dose disk inhaler 02/05/20 [...] mg by mouth every 12 hours. Active sulfamethoxazo le-trimethopri m (Bactrim DS) 800-160 mg tablet Take 160 mg of trimethoprim by mouth 2 times daily. 10/27/19 24 Active nitrofurantoin (MACROBID) 100 mg capsule Take 100 mg by mouth 2 times daily. Active tamsulosin (FLOMAX) 0.4 mg capsule 0.4 mg daily. 10/21/19 24 Active secukinumab (Cosentyx Pen, 2 Pens,) 150 mg/mL Pen Injector Inject 300 mg by subcutaneous injection one time only. Active enoxaparin (Lovenox) 150 mg/mL injection Inject 1.5 mL (225 mg) by subcutaneous injection every 12 hours. 90 mL 04/26/19 25 Active rivaroxaban (Xarelto DVT-PE Treat 30d Start) 15 mg (42)- 20 mg (9) Tablets, Dose Pack Take 15 mg by mouth twice daily with food for the first 21 days of treatment then take 20 mg once daily with food for remaining treatment. 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 Postoperative infection 10/27/2017 Abnormal ultrasound of breast 09/30/2017 Left breast abscess 09/30/2017 Tobacco dependence 09/30/2017 Morbid obesity with BMI of 70 and over, adult Encounters Date Type Department Care Team Description 05/09/2024 11:45 AM CDT Office Visit [facility] ([facility]3] Oncology and Hematology - [place] [address] [place] [address] Miguel A Guzman MD Personal history of DVT (deep vein thrombosis) (Primary Dx) 05/06/2024 External Device Data STL ABSTRACTION Provider, Abstract 05/04/2024 External Device Data STL ABSTRACTION Provider, Abstract 04/27/2024 Orders Only [facility] ([facility]3] Oncology and Hematology - [place] [address] [place] [address] Miguel A Guzman MD 04/26/2024 Telephone [facility] ([facility]3] Oncology and Hematology - [place] [address] [place] [address] Miguel A Guzman MD STAT 04/26/2024 Orders Only [facility] ([facility]3] Oncology and Hematology - [place] [address] [place] [address] Miguel A Guzman MD Pain and swelling of left lower leg (Primary Dx) 04/20/2024 External Device Data STL ABSTRACTION Provider, Abstract 03/29/2024 External Device Data STL ABSTRACTION Provider, Abstract 03/24/2024 External Device Data STL ABSTRACTION Provider, Abstract 03/18/2024 Refill [facility] ([facility]3] Oncology and Hematology - [place] [address] [place] [address] Miguel A Guzman MD Personal history of [...] 3.2 oz) 025 11:37 AM CDT Height 167.6 cm (5' 6 ) 07/23/2021 10:3 7 AM CDT Body Mass Index 81.06 07/23/2021 10:37 AM CDT Plan of Treatment Upcoming Encounters Date Type Department Care Team (Late st Contact Info) Description 08/15/2024 2:45 PM CDT Office Visit [facility] ([facility]3] Oncology and Hematology - [place] [address] [place] [address] [facility] [address] [place] [address] Miguel A Guzman MD [address] [facility] [address] [place] [address] Health Maintenance Due Date Last Done [...] Procedure Name Priority Date/Time Associated Diagnosis Comments US VENOUS DOPPLER LEG LEFT Routine 04/26/2024 9:30 AM CELL ROOM OPERATOR from Last 3 Months Results * US VENOUS DOPPLER LEG LEFT (04/26/2024 9:30 AM CELL ROOM OPERATOR) Anatomical Region Laterality Modality Lower Extremity Other us Miguel A Guzman MD ORDERABLES Final Result from Last 3 Months Insurance BCBS BLUE ACCESS/TRUE BLUE PPO BCBS BLUE ACCESS/TRUE BLUE PPO Care Teams Fraud Investigator Relationship Specialty Start Date End Date Lester Keating MD [address] [place] [phone] PCP - General Family Practice 08/20/22
--- OUTSIDE RECORDS SUMMARY | 2024-05-09 13:21 | XMS_ITS ---
Author Organization [facility] Address [address] [place], [place] [id number] Care Team Providers Care Mandate Retail Service Merchandiser Name Role Phone VIJAYA FARIA Unavailable [phone] Rayna De Leon Unavailable Unavailable Allergies Allergen [...] Duration) Notes Start Date End Date Status Kdcdhalm-Uxyrgkbxs-US 3.5-71025-1 Otic for 90 Days Active Vitamin D (Ergocalciferol) 1.25 MG (17258 UT) Oral for 84 Days Activ e [...] Location Date Provider Diagnosis [facility] [address] [place], [place] [id number] 03/14/2024 VIJAYA FARIA Tinea unguium B35.1 ; [...] use of orthotic devices and bracing. Order: [place] Ankle brace for ankle instability, Posterior tibialis [...] use of orthotic devices and bracing. Order: [place] Ankle brace for ankle instability, Posterior tibialis tendon dysfunciton, and ankle strain and tendonitis Next Appt Details Follow Up: 2 Months, Reason: Fungal toenail check. Check status of [place] ankle brace Provider Name:VIJAYA FARIA, 08:20:00 AM, [address], [facility], [place], [place], [id number], Progress Notes * KIRT QURESHIOB: [birth year] (38 yo F)Acc No.[id number]:03/14/2024 Patient: PAULINE ONEILL Provider: Belgica Faria DPM :1985 A ge:38 Y S ex:Female Date:03/14/2024 Address:[address] [place] [address] Subjective: * Chief Complaints: * T he patient has finished the oral lamisil and her toenails are growing out and look better at the base.She has not been successful in finding an ankle brace to support her left ankle * HPI: H PI: Follow [facility] presents for follow up visit for fungal [...] MINUTES 2 TO 3 TIMES DAILY Dental Vldxgdrf-Ueepggyje-TX 3.5-22268-0 Solution Otic Vitamin D (Ergocalciferol) 1.25 MG (64522 UT) Capsule Oral methylPREDNISolone 4 MG Tablet [...] 2 TO 3 TIMES DAILY Dental Taking Rbrtqmof-Fclzlxbaz-RK 3.5-59196-0 Solution Otic Taking Vitamin D (Ergocalciferol) 1.25 MG (61997 UT) Capsule Oral Taking methylPREDNISolone 4 MG [...] (Reason: Fungal toenail check. Check status of Janina ankle brace) * Billing Information: * Visit Code: 49982 Office Visit, Est Pt., Level 3. * Procedure Codes: * CIENCE PROFESSOR Sign off status: Completed true * Provider: Belgica Faria DPM Date: 0 03/14/2024 Generated for Tato to/Shanti/Shilpa on: 0 05/09/2024 11:17 AM CDT History and Physical Notes * HPI [...] to find an ankle brace. , MA: mca Examination Category Sub-Category Detail Notes Category Not [...]
--- OUTSIDE RECORDS SUMMARY | 2024-05-09 13:21 | XMS_ITS ---
Author Organization [employer] [facility] Address [address] [place] [address] Care Team Providers Care Boring Machine Operator Production Name Role Phone Joann Santamaria Primary Care Provider [phone] REASON FOR VISIT FU Encounters Encounter Location Date Provider Diagnosis [facility] - Joann Santamaria [address] [place] [address] 04/14/2024 Joann Santamaria Plan Of Treatment No Information Progress Notes * Miranda QURESHIOB: [birth year] (38 yo F)Acc No.[id number]:04/14/2024 Progress Notes Patient: Gurjit SALMONMARCELINO Meghna Provider: Denise Santamaria MD :1985 A ge:38 Y S ex:Female Date:04/14/2024 Phone: Address:[address] [place], [place] [id number] Subjective: * Chief Complaints: * 1 . FU. * Medical History: Objective: * Vitals: Assessment: Plan: * Treatment: * Billing Information: * Visit Code: * Procedure Codes: * Electronic signature of Jaya Santamaria MD on 05/09/2024 at 01:20 PM CDT Sign off status: Pending * Provider: Denise Santamaria MD Date: 04/14/2024 Generated for Tato to/Shanti/Phyllisitting on: 0 05/09/2024 01:20 PM CDT
== END 2024-05-09 11:05 | disposition home or self-care (01) ==
LOC: ANHLAB 11:05
PROVIDERS: PCP Physician Assistant Medical; Visit Provider Internal Medicine Hematology & Oncology
DX: I82.442 Acute embolism and thrombosis of left tibial vein (principal)
CPT/HCPCS: 36415; 80047; 85025

== ENCOUNTER 2024-08-10 14:05 | Outpatient (CLI) | payer BC, SELFPAY ==
--- NOTE | ~2024-08-10 | US_ITS ---
US retroperitoneal comp 08/10/2024 14:20 Procedure: Realtime transabdominal ultrasound of the kidneys and bladder. Indication: Renal stones Comparison: CT dated 06/26/2022 Findings: Renal echotexture is normal bilaterally without hydronephrosis, contour deforming mass or r enal calculus. The right kidney measures 11.6 cm and left kidney measures 10.9 cm. Bladder not diste nded for evaluation. There is fatty infiltration of the liver. Impression: 1: Unremarkable renal ultrasound. No stones, masses or hydronephrosis. Reviewed, dictated and finalized at location [] Impression: 1: Unremarkable renal ultrasound. No stones, masses or hydronephrosis.
== END 2024-08-10 14:06 | disposition home or self-care (01) ==
LOC: MICIMG 14:06
PROVIDERS: PCP Physician Assistant Medical; Visit Provider Physician Assistant Medical
DX: N20.0 Calculus of kidney (principal)
CPT/HCPCS: 76770

== ENCOUNTER 2024-08-15 15:06 | Outpatient (CLI) | payer BC, SELFPAY ==
[2024-08-15 15:20] LABS: Hematocrit 34.7 % (37.0-47.0); Hemoglobin 10.3 g/dL (12.0-15.0); Mean Corpuscular HGB Conc 29.7 g/dl (32-36); Mean Corpuscular Volume 91.1 fl (80-100); Mean Platelet Volume 10.1 fl (7.4-10.4); Platelet Count Result 319 k/mm3 (150-375); Red Blood Count 3.81 M/mm3 (4.2-5.4); Red Cell Distribution Width 16.7 % (11.5-14.5); White Blood Count 6.9 K/mm3 (4.5-10.0)
--- OUTSIDE RECORDS SUMMARY | 2024-08-15 16:19 | XMS_ITS | Clinical Summary ---
Author Organization [facility] [address] [place] [address] Care Team Providers Care Consultant [employer]. 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 Gender Identity Female 09/12/2020 8:26 AM CDT [...] 7:30 AM CDT Height 170.2 cm (5' 7) 10/29/2023 7:30 AM CDT Body Mass Index 78.31 10/29/2023 7:30 AM CDT Plan of Treatment Health Maintenance Due Date Last Done Comments Cervical Cancer Screening 1985 Depression Screening 1985 Hepatitis C Screening 1985 Varicella Vaccines (1 of 2 - 13+ 2-dose series) 12/20/2000 Hepatitis B Screening 12/20/2005 Regular Well Visit/Exam 18-64 12/20/2005 Pneumococcal vaccine <65 (1 of 2 - PCV) 12/20/2006 Influenza Vaccine (Season Ended) 2024 12/15/19 14 DTaP/Tdap/Td Vaccine (2 - Td or Tdap) 01/13/2029 01/13/2019 HPV Vaccines Aged Out No longer eligi ble based on patient's age to complete this topic Insurance [facility] [employer] Address: [facility] [address] [place] [address] [facility] Advance Directives For more information, please contact: [phone] * Full Code (Latest Code Status on File) Date Activated Date Inactivated Comments 10/29/2023 7:37 AM 10/29/2023 1:06 PM * Full Code Date Activated Date Inactivated Comments 11/14/2022 8:40 AM 11/14/2022 2:52 PM Care Teams Consultant [employer]. Vice President [employer] (Ex ) Relationship Specialty Start Date End Date Aviva Jaimes PA [address] [place] [id number] PCP - General Physician Geographic Information System Surveyor 07/22/22
--- OUTSIDE RECORDS SUMMARY | 2024-08-15 16:20 | XMS_ITS | Patient Health Record ---
Author Organization [facility] Address [address] [place], [place] [id number] Care Team Providers Care [employer] Stewardess Name Role Phone Joann Santamaria Primary Care Provider Migration, Provider Unavailable Unavailable Allergies Allergen (clinical drug ingredient) Drug/Non Drug Allergy documented on EMR Reaction Allergy Type Onset Date Status amoxicillin Amoxicillin Unknown Drug Allergy Act [place] Results Component Value Reference Range Flag Notes .COMPREHENSIVE METABOLIC JORDAN EL (34454) CMP Reviewed date:04/07/2024 07:19:13 PM Interpretation: Performing Lab:[facility]-[id number] Alex Liz, IdisgbIG[address] Marisol Roberts MD Notes/Report: FASTING:YES FASTING: YES GLUCOSE 104 65-99 mg/dL H Fasting reference interval For someone without known diabetes, a glucose value between 100 and 125 mg/dL is consistent with prediabetes and should be confirmed with a follow-up test. UREA NITROGEN (BUN) 19 7-25 mg/dL N CREATININE 0.94 0.50-0.97 mg/dL N EGFR 81 > OR = 60 mL/min/1.73m2 N BUN/CREATININE RATIO SEE NOTE: 6-22 (calc) Not Reported: BUN and Creatinine are within reference range. SODIUM 141 135-146 mmol/L N POTASSIUM 4.6 3.5-5.3 mmol/L N CHLORIDE 108 98-110 mmol/L N CARBON DIOXIDE 25 20-32 mmol/L N CALCIUM 8.5 8.6-10.2 mg/dL L PROTEIN, TOTAL 5.5 6.1-8.1 g/dL L ALBUMIN 3.3 3.6-5.1 g/dL L GLOBULIN 2.2 1.9-3.7 g/dL (calc) N ALBUMIN/GLOBULIN RATIO 1.5 1.0-2.5 (calc) N BILIRUBIN, TOTAL 0.4 0.2-1.2 mg/dL N ALKALINE PHOSPHATASE 50 31-125 U/L N AST 7 10-30 U/L L ALT 19 6-29 U/L N .COMPREHENSIVE METABOLIC JORDAN ([id number]) [facility] Reviewed date:07/09/2024 06:23:01 PM Interpretation: Performing Lab:Jakub LIN-Qhgyri41177Serina Liz, WytwbdBD[address] Marisol Roberts MD Notes/Report: FASTING:YES FASTING: YES GLUCOSE 90 65-99 mg/dL N Fasting reference interval UREA NITROGEN (BUN) 16 7-25 mg/dL N CREATININE 1.02 0.50-0.97 mg/dL H EGFR 73 > OR = 60 mL/min/1.73m2 N BUN/CREATININE RATIO 16 6-22 (calc) N SODIUM 140 135-146 mmol/L N POTASSIUM 4.1 3.5-5.3 mmol/L N CHLORIDE 108 98-110 mmol/L N CARBON DIOXIDE 23 20-32 mmol/L N CALCIUM 8.6 8.6-10.2 mg/dL N PROTEIN, TOTAL 5.5 6.1-8.1 g/dL L ALBUMIN 3.5 3.6-5.1 g/dL L GLOBULIN 2.0 1.9-3.7 g/dL (calc) N ALBUMIN/GLOBULIN RATIO 1.8 1.0-2.5 (calc) N BILIRUBIN, TOTAL 0.4 0.2-1.2 mg/dL N ALKALINE PHOSPHATASE 52 31-125 U/L N AST 10 10-30 U/L N ALT 11 6-29 U/L N MAGNESIUM (622) Reviewed date:07/09/2024 06:23:01 PM Interpretation: Performing Lab:Jakub LIN-Xzyvkj42176Serina Liz, HjereyJU[address] Marisol Roberts MD Notes/Report: FASTING:YES FASTING: YES MAGNESIUM 1.9 1.5-2.5 mg/dL N IRON AND TOTAL IRON BINDING CAPACITY (7573) Reviewed date:07/09/2024 06:23:01 PM Interpretation: Performing Lab:Jakub LINa1Roseanna Carr[address] Marisol Roberts MD Notes/Report: FASTING:YES FASTING: YES IRON, TOTAL 48 40-190 mcg/dL N IRON BINDING CAPACITY 408 250-450 mc g/dL (calc) N % SATURATION 12 16-45 % (calc) L IRON AND TOTAL IRON BINDING CAPACITY (7573) Reviewed date:04/07/2024 07:19:13 PM Interpretation: Performing Lab:RILEY, [facility]-[id number] Alex Liz, KmoismZS[address] Marisol Roberts MD Notes/Report: FASTING:YES FASTING: YES IRON, TOTAL 38 40-190 mcg/dL L IRON BINDING CAPACITY 408 250-450 mc g/dL (calc) N % SATURATION 9 16-45 % (calc) L .LIPID PANEL, STANDARD (7600 ) Reviewed date:07/09/2024 06:23:01 PM Interpretation: Performing Lab:RILEY, [facility]-[id number] Alex Liz, OwiqqkYY[address] Marisol Roberts MD Notes/Report: FASTING:YES FASTING: YES CHOLESTEROL, TOTAL 186 <200 mg/dL N HDL CHOLESTEROL 39 > OR = 50 mg/dL L TRIGLYCERIDES 211 <150 mg/dL H If a non-fasting specimen was collected, consider repeat triglyceride testing on a fasting specimen if clinically indicated. Ramirez et al. J. of Clin. Lipidol. 2015;9:129-169. LDL-CHOLESTEROL 114 H Reference range: <100 Desirable range <100 mg/dL for primary prevention; <70 mg/dL for patients with CHD or diabetic patients with > or = 2 CHD risk factors. LDL-C is now calculated using the Jeffry-Mora calculation, which is a validated novel method providing better accuracy than the Friedewald equation in the estimation of LDL-C. Jeffry PALACIOS et al. YNES. 2013;310(19): 9378-5856 (http://education.[employer]/faq/FAQ16 4) CHOL/HDLC RATIO 4.8 <5.0 (calc) N NON HDL CHOLESTEROL 147 <130 mg/dL (calc) H For patients with diabetes plus 1 major ASCVD risk factor, treating to a non-HDL-C goal of <100 mg/dL (LDL-C of <70 mg/dL) is considered a therapeutic option. .CBC (INCLUDES DIFF/PLT) (63 99) Reviewed date:07/09/2024 06:23:01 PM Interpretation: Performing Lab:[facility]-Azdumx11231 Alex Liz, VnmkzrFQ[address] Marisol Roberts MD Notes/Report: FASTING:YES FASTING: YES WHITE BLOOD CELL COUNT 6.0 3.8-10.8 Thousand/uL N RED BLOOD CELL COUNT 4.24 3.80-5.10 Million/uL N HEMOGLOBIN 11.8 11.7-15.5 g/dL N HEMATOCRIT 38.2 35.0-45.0 % N MCV 90.1 80.0-100.0 fL N MCH 27.8 27.0-33.0 pg N MCHC 30.9 32.0-36.0 g/dL L For adults, a slight decrease in the calculated MCHC value (in the range of 30 to 32 g/dL) is most likely not clinically significant; however, it should be interpreted with caution in correlation with other red cell parameters and the patient's clinical condition. RDW 15.5 11.0-15.0 % H PLATELET COUNT 329 140-400 Thousand/uL N MPV 10.5 7.5-12.5 fL N ABSOLUTE NEUTROPHILS 3378 5750-3644 cells/uL N ABSOLUTE LYMPHOCYTES 4554 859-9495 cells/uL N ABSOLUTE MONOCYTES 516 200-950 cells/uL N ABSOLUTE EOSINOPHILS 102 15-500 cells/uL N ABSOLUTE BASOPHILS 42 0-200 cells/uL N NEUTROPHILS 56.3 N LYMPHOCYTES 32.7 N MONOCYTES 8.6 N EOSINOPHILS 1.7 N BASOPHILS 0.7 N .CBC (INCLUDES DIFF/PLT) (63 99) Reviewed date:04/07/2024 07:19:13 PM Interpretation: Performing Lab:Jakub LIN-Chvxji05635 Alex Liz, OryufrDQ[address] Marisol Roberts MD Notes/Report: FASTING:YES FASTING: YES FASTING:YES FASTING: YES WHITE BLOOD CELL COUNT 8.6 3.8-10.8 Thousand/uL N RED BLOOD CELL COUNT 4.96 3.80-5.10 Million/uL N HEMOGLOBIN 13.4 11.7-15.5 g/dL N HEMATOCRIT 42.4 35.0-45.0 % N MCV 85.5 80.0-100.0 fL N MCH 27.0 27.0-33.0 pg N MCHC 31.6 32.0-36.0 g/dL L For adults, a slight decrease in the calculated MCHC value (in the range of 30 to 32 g/dL) is most likely not clinically significant; however, it should be interpreted with caution in correlation with other red cell parameters and the patient's clinical condition. RDW 17.0 11.0-15.0 % H PLATELET COUNT 331 140-400 Thousand/uL N MPV 11.4 7.5-12.5 fL N ABSOLUTE NEUTROPHILS 6364 4882-4164 cells/uL N ABSOLUTE BAND NEUTROPHILS 344 0-750 cells/uL N ABSOLUTE METAMYELOCYTES 86 0 cells/uL H ABSOLUTE LYMPHOCYTES 3201 587-4293 cells/uL N ABSOLUTE MONOCYTES 602 200-950 cells/uL N ABSOLUTE EOSINOPHILS 86 15-500 cells/uL N ABSOLUTE BASOPHILS 0 0-200 cells/uL N NEUTROPHILS 74 N BAND NEUTROPHILS 4 N METAMYELOCYTES 1 H LYMPHOCYTES 13 N MONOCYTES 7 N EOSINOPHILS 1 N BASOPHILS 0 N PLATELET ESTIMATION ADEQUATE ADEQUATE N CBC MORPHOLOGY NORMAL N Anisocytosis 1 + Ovalocytes 1 + NOTE Although an automated CBC was ordered, our instrumentation detected an abnormality on your patient's specimen requiring us to perform a manual review. .HEMOGLOBIN A1c (496) Reviewed date:04/07/2024 07:19:13 PM Interpretation: Performing Lab:[facility]-Aqdhee06289 Alex Liz, DjieszLH[address] Marisol Roberts MD Notes/Report: FASTING:YES FASTING: YES HEMOGLOBIN A1c 5.6 <5.7 % of total Hgb N For the purpose of screening for the presence of diabetes: <5.7% Consistent with the absence of diabetes 5.7-6.4% Consistent with increased risk for diabetes (prediabetes) > or =6.5% Consistent with diabetes This assay result is consistent with a decreased risk of diabetes. Currently, no consensus exists regarding use of hemoglobin A1c for diagnosis of diabetes in children. According to [place] [employer] (ADA) guidelines, hemoglobin A1c <7.0% represents optimal control in non- diabetic patients. Different metrics may apply to specific patient populations. Standards of Medical Care in Diabetes(ADA). .HEMOGLOBIN A1c (496) Reviewed date:07/09/2024 06:23:01 PM Interpretation: Performing Lab:[facility] [employer] [facility]-[id number] Alex Liz, RwnlonPQ[address] Marisol Roberts MD Notes/Report: FASTING:YES FASTING: YES HEMOGLOBIN A1c 5.7 <5.7 % H For someone without known diabetes, a hemoglobin A1c value between 5.7% and 6.4% is consistent with prediabetes and should be confirmed with a follow-up test. For someone with known diabetes, a value <7% indicates that their diabetes is well controlled. A1c targets should be individualized based on duration of diabetes, age, comorbid conditions, and other considerations. This assay result is consistent with an increased risk of diabetes. Currently, no consensus exists regarding use of hemoglobin A1c for diagnosis of diabetes for children. INSULIN (561) Reviewed date:07/09/2024 06:23:01 PM Interpretation: Performing Lab:[facility] [facility]-Wwlomh17108 Alex Liz, DbujdjEB[address] Marisol Roberts MD Notes/Report: FASTING:YES FASTING: YES INSULIN 83.5 H Reference Range < or = 18.4 Risk: Optimal < or = 18.4 Moderate NA High >18.4 Adult cardiovascular event risk category cut points (optimal, moderate, high) are based on Insulin Reference Interval studies performed at [facility] in 2021. INSULIN (561) Reviewed date:04/07/2024 07:19:13 PM Interpretation: Performing Lab:[facility] [facility]-Spnmdm35052 Alex Liz, WpeyucCO[address] Marisol Roberts MD Notes/Report: FASTING:YES FASTING: YES INSULIN 26.7 H Reference Range < or = 18.4 Risk: Optimal < or = 18.4 Moderate NA High >18.4 Adult cardiovascular event risk category cut points (optimal, moderate, high) are based on Insulin Reference Interval studies performed at [facility] in 2021. VITAMIN B12/FOLATE, SERUM PA HEMA (7092) Reviewed date:04/07/2024 07:19:13 PM Interpretation: Performing Lab:[facility] [employer] [facility]-Fdwhjw07652 Alex Liz, CziwbfSP[address] Marisol Roberts MD Notes/Report: FASTING:YES FASTING: YES VITAMIN B12 798 622-0596 pg/mL L FOLATE, SERUM 4.9 L Reference Range Low: <3.4 Borderline: 3.4-5.4 Normal: >5.4 VITAMIN B12/FOLATE, SERUM PA HEMA (5315) Reviewed date:07/09/2024 06:23:01 PM Interpretation: Performing Lab:Jakub LIN-Buddy Liz, FlwrbsHD[address] Marisol Roberts MD Notes/Report: FASTING:YES FASTING: YES VITAMIN B12 187 611-5514 pg/mL L FOLATE, SERUM 2.8 L Reference Range Low: <3.4 Borderline: 3.4-5.4 Normal: >5.4 T4, FREE (866) Reviewed date:07/09/2024 06:23:01 PM Interpretation: Performing Lab:Jakub LIN, MtydvtMJ8[address] Marisol Roberts MD Notes/Report: FASTING:YES FASTING: YES T4, FREE 1.4 0.8-1.8 ng/dL N T4, FREE (866) Reviewed date:04/07/2024 07:19:13 PM Interpretation: Performing Lab:Jakub LIN, TusjzfYK[address] Marisol Roberts MD Notes/Report: FASTING:YES FASTING: YES T4, FREE 1.7 0.8-1.8 ng/dL N TSH (899) Reviewed date:04/07/2024 07:19:13 PM Interpretation: Performing Lab:Jakub LIN LenexaKS[address] Marisol Roberts MD Notes/Report: FASTING:YES FASTING: YES TSH 0.47 N Reference Range > or = 20 Years 0.40-4.50 Ranges First trimester 0.26-2.66 Second trimester 0.55-2.73 Third trimester 0.43-2.91 TSH (899) Reviewed date:07/09/2024 06:23:01 PM Interpretation: Performing Lab:Jakub LIN, MosjusIH[address] Marisol Roberts MD Notes/Report: FASTING:YES FASTING: YES TSH 0.39 L Reference Range > or = 20 Years 0.40-4.50 Ranges First trimester 0.26-2.66 Second trimester 0.55-2.73 Third trimester 0.43-2.91 T3, FREE (34388) Reviewed date:07/09/2024 06:23:01 PM Interpretation: Performing Lab:Jakub LIN-Mbgbtv31440 Alex Liz, YcqnbtMI[address] Marisol Roberts MD Notes/Report: FASTING:YES FASTING: YES T3, FREE 2.7 2.3-4.2 pg/mL N T3, FREE (84119) Reviewed date:04/07/2024 07:19:13 PM Interpretation: Performing Lab:Jakub LIN-Jokrpo75406 Alex Liz, BsbedlCN[address] Marisol Roberts MD Notes/Report: FASTING:YES FASTING: YES T3, FREE 2.6 2.3-4.2 pg/mL N .VITAMIN D,25-OH,TOTAL,IA (1 7306) Reviewed date:07/09/2024 06:23:01 PM Interpretation: Performing Lab:Jakub LIN-Doblvj35675 Alex Liz, KsmcniME[address] Marisol Roberts MD Notes/Report: FASTING:YES FASTING: YES VITAMIN D,25-OH,TOTAL,IA 27 30-100 ng/mL L Vitamin D Status 25-OH Vitamin D: Deficiency: <20 ng/mL Insufficiency: 20 - 29 ng/mL Optimal: > or = 30 ng/mL For 25-OH Vitamin D testing on patients on D2-supplementation and patients for whom quantitation of D2 and D3 fractions is required, the QuestAssureD(TM) 25-OH VIT D, (D2,D3), LC/MS/MS is recommended: order code 54195 (patients >2yrs). See Note 1 Note 1 For additional information, please refer to http://education.[employer]/faq/AEG787 (This link is being provided for informational/ educational purposes only.) COPY(IES) SENT TO: Reviewed date:04/07/2024 07:19:13 PM Interpretation: Performing Lab: Notes/Report: FASTING:YES FASTING: YES COPY(IES) SENT TO: [facility] [address] [place] [address] COMPREHENSIVE METABOLIC PANE L Reviewed date:10/29/2023 06:14:19 PM Interpretation: Performing Lab:Jakub LIN, [address] [place], [address] Marisol Roberts MD Notes/Report: FASTING:YES FASTING: YES Fasting reference interval For someone without known diabetes, a glucose value between 100 and 125 mg/dL is consistent with prediabetes and should be confirmed with a follow-up test. GLUCOSE 103 65-99 mg/dL H UREA NITROGEN (BUN) 10 7-25 mg/dL N CREATININE 1.01 0.50-0.97 mg/dL H EGFR 74 > OR = 60 mL/min/1.73m2 N BUN/CREATININE RATIO 10 6-22 (calc) N SODIUM 138 135-146 mmol/L N POTASSIUM 4.4 3.5-5.3 mmol/L N CHLORIDE 106 98-110 mmol/L N CARBON DIOXIDE 25 20-32 mmol/L N CALCIUM 8.9 8.6-10.2 mg/dL N PROTEIN, TOTAL 5.9 6.1-8.1 g/dL L ALBUMIN 3.5 3.6-5.1 g/dL L GLOBULIN 2.4 1.9-3.7 g/dL (calc) N ALBUMIN/GLOBULIN RATIO 1.5 1.0-2.5 (calc) N BILIRUBIN, TOTAL 0.4 0.2-1.2 mg/dL N ALKALINE PHOSPHATASE 55 31-125 U/L N AST 11 10-30 U/L N ALT 13 6-29 U/L N COMPREHENSIVE METABOLIC PANE L Reviewed date:01/29/2024 11:58:10 AM Interpretation: Performing Lab:Jakub LIN, [address] [place], [address] Marisol Roberts MD Notes/Report: FASTING:YES FASTING: YES Fasting reference interval Not Reported: BUN and Creatinine are within reference range. GLUCOSE 89 65-99 mg/dL N UREA NITROGEN (BUN) 12 7-25 mg/dL N CREATININE 0.86 0.50-0.97 mg/dL N EGFR 90 > OR = 60 mL/min/1.73m2 N BUN/CREATININE RATIO SEE NOTE: 6-22 (calc) SODIUM 140 135-146 mmol/L N POTASSIUM 4.2 3.5-5.3 mmol/L N CHLORIDE 106 98-110 mmol/L N CARBON DIOXIDE 28 20-32 mmol/L N CALCIUM 8.8 8.6-10.2 mg/dL N PROTEIN, TOTAL 6.0 6.1-8.1 g/dL L ALBUMIN 3.7 3.6-5.1 g/dL N GLOBULIN 2.3 1.9-3.7 g/dL (calc) N ALBUMIN/GLOBULIN RATIO 1.6 1.0-2.5 (calc) N BILIRUBIN, TOTAL 0.5 0.2-1.2 mg/dL N ALKALINE PHOSPHATASE 54 31-125 U/L N AST 8 10-30 U/L L ALT 10 6-29 U/L N VITAMIN D, 25-HYDROXY, LC/MS /MS Reviewed date:01/30/2024 01:55:30 PM Interpretation: Performing Lab:Jakub LINAnika, [address] [place], [address] Marisol Roberts MD Notes/Report: FASTING:YES FASTING: YES Vitamin D Status 25-OH Vitamin D: Deficiency: <20 ng/mL Insufficiency: 20 - 29 ng/mL Optimal: > or = 30 ng/mL For 25-OH Vitamin D testing on patients on D2-supplementation and patients for whom quantitation of D2 and D3 fractions is required, the QuestAssureD(TM) 25-OH VIT D, (D2,D3), LC/MS/MS is recommended: order code 90842 (patients >2yrs). See Note 1 Note 1 For additional information, please refer to http://education.[employer]/faq/KSO176 (This link is being provided for informational/ educational purposes only.) VITAMIN D,25-OH,TOTAL,IA 48 30-100 ng/mL N DEXAMETHASONE Reviewed date:02/13/2024 10:53:28 AM Interpretation: Performing Lab:[facility],, [address] [place], [address] Missy eG MD,PhD,SHINE Notes/Report: FASTING:YES FASTING: YES Reference Ranges for Dexamethasone: Baseline: Less than 20 ng/dL 1 mg dexamethasone overnight: 180-550 ng/dL (8:00-10:00 AM) This test was developed and its analytical performance characteristics have been determined by [facility]. It has not been cleared or approved by FDA. This assay has been validated pursuant to the CLIA regulations and is used for clinical purposes. DEXAMETHASONE 470 T3, FREE Reviewed date:10/29/2023 06:16:43 PM Interpretation: Performing Lab:Jakub LIN, [address] [place], [address] Marisol Roberts MD Notes/Report: FASTING:YES FASTING: YES T3, FREE 2.4 2.3-4.2 pg/mL N T3, FREE Reviewed date:01/30/2024 01:55:45 PM Interpretation: Performing Lab:Jakub LIN, [address] [place], [address] Marisol Roberts MD Notes/Report: FASTING:YES FASTING: YES T3, FREE 2.2 2.3-4.2 pg/mL L CORTISOL, TOTAL Reviewed date:02/07/2024 11:09:35 AM Interpretation: Performing Lab:Jakub LIN, [address] [place], [address] Marisol Roberts MD Notes/Report: FASTING:YES FASTING: YES Reference Range: For 8 a.m.(7-9 a.m.) Specimen: 4.0-22.0 Reference Range: For 4 p.m.(3-5 p.m.) Specimen: 3.0-17.0 * Please interpret above results accordingly * CORTISOL, TOTAL 0.7 L HEMOGLOBIN A1c Reviewed date:01/30/2024 01:55:13 PM Interpretation: Performing Lab:Jakub LIN, [address] [place], [address] Marisol Roberts MD Notes/Report: FASTING:YES FASTING: YES For someone without known diabetes, a hemoglobin A1c value between 5.7% and 6.4% is consistent with prediabetes and should be confirmed with a follow-up test. For someone with known diabetes, a value <7% indicates that their diabetes is well controlled. A1c targets should be individualized based on duration of diabetes, age, comorbid conditions, and other considerations. This assay result is consistent with an increased risk of diabetes. Currently, no consensus exists regarding use of hemoglobin A1c for diagnosis of diabetes for children. HEMOGLOBIN A1c 5.7 <5.7 % of total Hgb H INSULIN Reviewed date:01/29/2024 11:53:20 AM Interpretation: Performing Lab:[facility] [place], [address] [place], [address] Marisol Roberts MD Notes/Report: FASTING:YES FASTING: YES Reference Range < or = 18.4 Risk: Optimal < or = 18.4 Moderate NA High >18.4 Adult cardiovascular event risk category cut points (optimal, moderate, high) are based on Insulin Reference Interval studies performed at [facility] in 2021. INSULIN 28.8 H CBC (INCLUDES DIFF/PLT) Reviewed date:01/30/2024 01:56:10 PM Interpretation: Performing Lab:[facility] [place], [address] [place], [address] Marisol Roberts MD Notes/Report: FASTING:YES FASTING: YES For adults, a slight decrease in the calculated MCHC value (in the range of 30 to 32 g/dL) is most likely not clinically significant; however, it should be interpreted with caution in correlation with other red cell parameters and the patient's clinical condition. WHITE BLOOD CELL COUNT 7.4 3.8-10.8 Thousand/uL N RED BLOOD CELL COUNT 4.76 3.80-5.10 Million/uL N HEMOGLOBIN 12.8 11.7-15.5 g/dL N HEMATOCRIT 41.5 35.0-45.0 % N MCV 87.2 80.0-100.0 fL N MCH 26.9 27.0-33.0 pg L MCHC 30.8 32.0-36.0 g/dL L RDW 15.1 11.0-15.0 % H PLATELET COUNT 274 140-400 Thousand/uL N MPV 11.4 7.5-12.5 fL N ABSOLUTE NEUTROPHILS 4662 8429-7572 cells/uL N ABSOLUTE LYMPHOCYTES 5477 286-1881 cells/uL N ABSOLUTE MONOCYTES 607 200-950 cells/uL N ABSOLUTE EOSINOPHILS 126 15-500 cells/uL N ABSOLUTE BASOPHILS 37 0-200 cells/uL N NEUTROPHILS 63 N LYMPHOCYTES 26.6 N MONOCYTES 8.2 N EOSINOPHILS 1.7 N BASOPHILS 0.5 N CBC (INCLUDES DIFF/PLT) Reviewed date:10/29/2023 06:14:31 PM Interpretation: Performing Lab:[facility] [place], [address] [place], [address] Marisol Roberts MD Notes/Report: FASTING:YES FASTING: YES WHITE BLOOD CELL COUNT 6.4 3.8-10.8 Thousand/uL N RED BLOOD CELL COUNT 4.81 3.80-5.10 Million/uL N HEMOGLOBIN 12.6 11.7-15.5 g/dL N HEMATOCRIT 42.4 35.0-45.0 % N MCV 88.1 80.0-100.0 fL N MCH 26.2 27.0-33.0 pg L MCHC 29.7 32.0-36.0 g/dL L RDW 16.9 11.0-15.0 % H PLATELET COUNT 284 140-400 Thousand/uL N MPV 11.1 7.5-12.5 fL N ABSOLUTE NEUTROPHILS 3571 1527-4123 cells/uL N ABSOLUTE LYMPHOCYTES 2010 850-3900 cells/uL N ABSOLUTE MONOCYTES 589 200-950 cells/uL N ABSOLUTE EOSINOPHILS 179 15-500 cells/uL N ABSOLUTE BASOPHILS 51 0-200 cells/uL N NEUTROPHILS 55.8 N LYMPHOCYTES 31.4 N MONOCYTES 9.2 N EOSINOPHILS 2.8 N BASOPHILS 0.8 N VITAMIN B12/FOLATE, SERUM PA HEMA Reviewed date:01/30/2024 01:56:25 PM Interpretation: Performing Lab:RI[facility]Anika, [address] [place], [address] Marisol Roberts MD Notes/Report: FASTING:YES FASTING: YES Reference Range Low: <3.4 Borderline: 3.4-5.4 Normal: >5.4 Please Note: Although the reference range for vitamin B12 is 200-1100 pg/mL, it has been reported that between 5 and 10% of patients with values between 200 and 400 pg/mL may experience neuropsychiatric and hematologic abnormalities due to occult B12 deficiency; less than 1% of patients with values above 400 pg/mL will have symptoms. VITAMIN B12 977 347-2788 pg/mL N FOLATE, SERUM 1.9 L IRON AND TOTAL IRON BINDING CAPACITY Reviewed date:01/29/2024 11:57:41 AM Interpretation: Performing Lab:[facility], [address], [place], [address] Marisol Roberts MD Notes/Report: FASTING:YES FASTING: YES IRON, TOTAL 58 40-190 mcg/dL N IRON BINDING CAPACITY 418 250-450 mc g/dL (calc) N % SATURATION 14 16-45 % (calc) L LIPID PANEL Reviewed date:10/29/2023 06:14:39 PM Interpretation: Performing Lab:[facility], [address] [address], [place], [address] Marisol Roberts MD Notes/Report: FASTING:YES FASTING: YES Reference range: <100 Desirable range <100 mg/dL for primary prevention; <70 mg/dL for patients with CHD or diabetic patients with > or = 2 CHD risk factors. LDL-C is now calculated using the Jeffry-Mora calculation, which is a validated novel method providing better accuracy than the Friedewald equation in the estimation of LDL-C. Jeffry SS et al. YNES. 2013;310(19): 3224-5274 (http://education.[employer]/faq/ZGB983) For patients with diabetes plus 1 major ASCVD risk factor, treating to a non-HDL-C goal of <100 mg/dL (LDL-C of <70 mg/dL) is considered a therapeutic option. CHOLESTEROL, TOTAL 198 <200 mg/dL N HDL CHOLESTEROL 47 > OR = 50 mg/dL L TRIGLYCERIDES 182 <150 mg/dL H LDL-CHOLESTEROL 121 H CHOL/HDLC RATIO 4.2 <5.0 (calc) N NON HDL CHOLESTEROL 151 <130 mg/dL (calc) H T4, FREE Reviewed date:10/29/2023 06:14:01 PM Interpretation: Performing Lab:[facility], [address] [address], [place], [address] Marisol Roberts MD Notes/Report: FASTING:YES FASTING: YES T4, FREE 1.1 0.8-1.8 ng/dL N T4, FREE Reviewed date:01/29/2024 11:53:12 AM Interpretation: Performing Lab:[facility], [address], [place], [phone] Marisol Roberts MD Notes/Report: FASTING:YES FASTING: YES T4, FREE 1.1 0.8-1.8 ng/dL N TSH Reviewed date:01/30/2024 01:55:56 PM Interpretation: Performing Lab:[facility], [address] [address], [place], [id number] Marisol Roberts MD Notes/Report: FASTING:YES FASTING: YES Reference Range > or = 20 Years 0.40-4.50 Ranges First trimester 0.26-2.66 Second trimester 0.55-2.73 Third trimester 0.43-2.91 TSH 1.43 N TSH Reviewed date:10/29/2023 06:13:54 PM Interpretation: Performing Lab:[facility], [address], [place], [id number] Marisol Roberts MD Notes/Report: FASTING:YES FASTING: YES Reference Range > or = 20 Years 0.40-4.50 Ranges First trimester 0.26-2.66 Second trimester 0.55-2.73 Third trimester 0.43-2.91 TSH 6.07 H VITAMIN B12 Reviewed date:10/29/2023 06:16:53 PM Interpretation: Performing Lab:[facility], [address] [address], [place], [id number] Marisol Roberts MD Notes/Report: FASTING:YES FASTING: YES VITAMIN B12 [id number] pg/mL L Reason For Referral No Information Medications Medication SIG (Take, Route, Frequency, Duration) Notes Start Date End Date Status Synthroid 300 MCG Tablet 1 tab(s) orally once a day; Duration: 90 days 01/05/2024 Active Liothyronine Sodium 5 MCG Tablet TAKE 2 TABLETS BY MOUTH DAILY AT NOON ON AN EMPTY STOMACH; Duration: 90 Active Nystatin 335997 UNIT/GM Cream 1 application Externally Twice a day; Duration: 14 days 02/01/2024 Active Zepbound 2.5 MG/0.5ML Solution 2.5 mg subcutaneously once a week; Duration: 90 days 05/21/2023 Not-Taking Meloxicam 15 MG Tablet 1 tablet Orally Once a day Active Albuterol Sulfate HFA 108 (90 Base) MCG/ACT Aerosol Solution 2 puff(s) inhaled every 6 hours 05/21/2023 Not-Taking Varenicline Tartrate 1 MG Tablet 1 tab(s) orally 2 times a day 05/21/2023 Active Zepbound 2.5 MG/0.5ML Solution inject 2.5 mg subcutaneously once a week; Duration: 90 days 08/18/2023 Unknown metFORMIN HCl ER 500 MG Tablet Extended Release 24 Hour 1 tab(s) orally once a day with dinner; Duration: 90 days 08/18/2023 Unknown Dodex 1000 MCG/ML Solution 1 CC subcutaneously once a week; Duration: 90 days *Reorder from [facility] for eRx and Interaction Alerts* 05/21/2023 Active LORazepam 0.5 MG Tablet 1 tab(s) orally daily as needed; Duration: 30 days 06/18/2023 Unknown Folic Acid 1 MG Tablet TAKE 1 TABLET BY MOUTH DAILY; Duration: 90 Active Eliquis 5 MG Tablet as directed orally 2 times a day; Duration: 30 day(s) 05/21/2023 Active Vyvanse 20 MG Capsule 1 cap(s) orally once a day (in the morning); Duration: 30 days 08/21/2023 Unknown Topiramate 50 MG Tablet 1 tab(s) orally 2 times a day; Duration: 30 day(s) ALSO 25 MG 05/21/2023 Active Euthyrox 200 MCG (0.2 MG) TABLET 1 TAB(S) ORALLY ONCE A DAY; Duration: 30 DAY(S) *Please review and pick correct strength-formula tion from [facility] options. If intended option is not shown, discontinue and re-order from Quick Search* *Pick strength-form from [facility] for eRX* 05/21/2023 Unknown Ondansetron HCl 4 MG Tablet 1 tab(s) orally every 8 hours; Duration: 90 days 06/18/2023 Active Lisdexamfetamine Dimesylate 20 MG CAPSULE 1 CAP(S) ORALLY ONCE A DAY (IN THE MORNING); Duration: 30 DAYS *Please review for potential replacement for e-prescription and drug interaction check* 06/18/2023 Unknown Olmesartan Medoxomil 20 MG Tablet 1 tab(s) orally once a day; Duration: 30 day(s) 05/21/2023 Active Cartia XT 240 MG Capsule Extended Release 24 Hour 1 cap(s) orally once a day; Duration: 30 day(s) 05/21/2023 Active Omeprazole 20 MG Capsule Delayed Release 1 cap(s) orally once a day; Duration: 30 day(s) 05/21/2023 Unknown Mounjaro 5 MG/0.5ML Solution Auto-injector inject 5 mg Subcutaneous once weekly; Duration: 90 days 02/01/2024 Active Synthroid 300 MCG Tablet 1 tab(s) orally once a day; Duration: 90 days 05/21/2023 Unknown Fluticasone-Salmetero l 500 MCG-50 MCG POWDER 1 INH INHALED 2 TIMES A DAY; Duration: 30 DAY(S) *Please review and pick correct strength-formula tion from [facility] options. If intended option is not shown, discontinue and re-order from Quick Search* *Pick strength-form from [facility] for eRX* 05/21/2023 Unknown Zepbound 2.5 MG/0.5ML Solution 2.5mg/0.5ml Subcutaneous weekly; Duration: 30 days 04/14/2024 Active Vitamin D2 50 MCG (2000 UT) Tablet 1 tablet Orally Once a day Active Zepbound 5 MG/0.5ML Solution Auto-injector 0.5 mL Subcutaneous once weekly; Duration: 90 days 04/14/2024 Active Tamsulosin HCl 0.4 MG Capsule 1 capsule Orally Once a day Active Terbinafine HCl 250 MG Tablet 1 tablet Orally Once a day Active Zepbound 2.5 MG/0.5ML Solution Auto-injector 0.5 mL Subcutaneous once weekly; Duration: 30 days 04/14/2024 Active Bumetanide 1 MG Tablet 1 tablet Orally Once a day Active Nurtec 75 MG Tablet Disintegrating 1 tablet on the tongue and allow to dissolve Orally Active Breo Ellipta 200-25 MCG/ACT Aerosol Powder Breath Activated 1 puff Inhalation Once a day Active Esomeprazole Magnesium 40 MG Packet 1 packet / to 1 hour before morning meal mixed with 15 mL of water Orally Once a day Active Cosentyx 300/2ML INJECTION *Pick strength-form from [facility] for eRX* Active Airsupra 90-80 MCG/ACT Aerosol 2 puffs as needed Inhalation Six times a day Active Problems Problem Type SNOMED Code ICD Code Onset Dates Problem Status W/U Status Risk Notes Problem Hypothyroidism (74625742) Hypothyroidism, unspecified (E03.9) Active confirmed Problem Hyperglycemia due to type 2 diabetes mellitus (549914036254625) Type 2 diabetes mellitus with hyperglycemia (E11.65) Active confirmed Problem Obesity (100928848) Obesity, unspecified (E66.9) Active confirmed Problem Tobacco user (503879850) Nicotine dependence, chewing tobacco, uncomplicated (F17.220) Active confirmed Problem Generalized anxiety disorder (65944864) Generalized anxiety disorder (F41.1) Active confirmed Problem Attention deficit hyperactivity disorder, predominantly inattentive type (disorder) (27629150) Attention and concentration deficit (R41.840) Active confirmed Problem Obstructive sleep apnea (83549738) Obstructive sleep apnea (G47.33) Active confirmed Vital Signs Heart Rate 88 /min 04/14/2024 Oximetry 98 % 04/14/2024 Blood pressure diastolic 87 mm Hg 04/14/2024 Weight-kg 225.17 kg 04/14/2024 Height 67 in 04/14/2024 Blood pressure systolic 147 mm Hg 04/14/2024 Weight 496.4 lbs 04/14/2024 BMI 77.74 kg/m2 04/14/2024 Encounters Encounter Location Date Provider Diagnosis [address] [id number] 01/16/2024 Provider Migration Hypothyroidism, unspecified E03.9 and Type 2 diabetes mellitus with hyperglycemia E11.[address] Santamaria [address] [place] [address] 08/18/2023 Joann Santamaria Hypothyroidism, unspecified E03.9 ; Nicotine dependence, chewing tobacco, uncomplicated F17.220 ; Prediabetes R73.03 and Obesity, unspecified E66.[address] Santamaria [address] [place] [address] 11/03/2023 Joann Santamaria Hypothyroidism, unspecified E03.9 ; Obesity, unspecified E66.9 ; Type 2 diabetes mellitus with hyperglycemia E11.65 ; Vitamin B12 deficiency anemia, unspecified D51.9 and Dietary counseling and surveillance Z71.[address] Santamaria [address] [place] [phone] 02/01/2024 Joann Santamaria Hypothyroidism, unspecified E03.9 ; Obesity, unspecified E66.9 ; Type 2 diabetes mellitus with hyperglycemia E11.65 ; Insulin resistance, unspecified E88.819 ; Deficiency of other specified B group vitamins E53.8 ; Nausea R11.0 and Dermatophytosis, unspecified B35.[address] Santamaria [address] [place] [phone] 04/14/2024 Joann Santamaria Hypothyroidism, unspecified E03.9 ; Obesity, unspecified E66.9 ; Type 2 diabetes mellitus with hyperglycemia E11.65 ; Obstructive sleep apnea G47.33 ; B12 deficiency E53.8 ; Folic acid deficiency E53.8 and Dietary counseling and surveillance Z71.3 AMMO [facility] [address] [place], [place] [phone] 08/20/2023 Joann Santamaria Type 2 diabetes mellitus with hyperglycemia E11.65 and Attention and concentration deficit R41.840 AM[facility] [address] [place] [phone] 09/02/2023 Joann [place] [phone] 11/03/2023 Joann Santamaria [address] [place] [phone] 11/06/2023 Joann Santamaria [address] [place] [phone] 01/04/2024 Joann Santamaria [address] [place] [phone] 01/04/2024 Joann Santamaria Hypothyroidism, unspecified E03.[address] Santamaria [address] [place] [phone] 01/05/2024 Jo[facility]aria [facility], [facility]03.[facility] [address] [place] [phone] 02/22/2024 Joann Santamaria Type 2 diabetes mellitus with hyperglycemia E11.65 AM[facility] [address] [place], [place] [phone] 02/22/2024 Joann Santamaria AMMO [facility] [address] [place] [phone] 02/26/2024 Joann Santamaria AMMO [facility] [address] [place] [phone] 04/14/2024 Joann Santamaria AMMO [address] [phone] 04/14/2024 Joann Santamaria Hypothyroidism, unspecified E03.[address] [phone] 05/02/[address] Santamaria [address] [place] [phone] 08/05/2024 Joann Santamaria Hypothyroidism, unspecified E03.[address] Santamaria [address] [place] [phone] 11/05/[address] Santamaria [address] [place] [phone] 04/14/2024 Joann Santamaria Assessments Encounter Date Diagnosis (ICD Code) Assessment Notes Treatment Notes Treatment Clinical Notes Section Notes 08/18/2023 Hypothyroidism, unspecified (ICD-10 - E03.9) She is on generic LT4 and her levels are very poorly controlled- she has fatigue, weight gain and FT4 has dropped since going off synthroid- will send synthroid to [facility] as her pharmacy will not honor our recommendations and send in the correct medication- will transition to synthroid 300 mcg daily and continue LT3 5 mcg twice daily. 08/18/2023 Nicotine dependence, chewing tobacco, uncomplicated (ICD-10 - F17.220) Continue on chantix and provided treatment for anxiety related to not having smoking as her alternative go to for anxiety control. 11/03/2023 Hypothyroidism, unspecified (ICD-10 - E03.9) FT4 in more ideal range, continue synthroid 300 mcg daily and LT3 5 mcg in afternoon. Her TSH is slowly coming down. 11/03/2023 Obesity, unspecified (ICD-10 - E66.9) discussed dietary measures in regards to weight loss- importance to restrict calories to 1200 per day if sedentary vs 8292-7436 calories depending on caloric expenditure. She was provided information on [employer]o Puz[employer] as this program manages metabolic syndrome and products include insulin sensitizers along with thyroid support/supplementatio n to help tailor weight loss in individuals who struggle with underlying autoimmune thyroid conditions and hyperglycemia (fasting glucose of 97 mg/dL). Spent up to 20 minutes discussing alternative weight loss options. 01/04/2024 Hypothyroidism, unspecified (ICD-10 - E03.9) 01/05/2024 Hypothyroidism, unspecified (ICD-10 - E03.9) 01/16/2024 Hypothyroidism, unspecified (ICD-10 - E03.9) 02/01/2024 Hypothyroidism, unspecified (ICD-10 - E03.9) 02/01/2024 Obesity, unspecified (ICD-10 - E66.9) 02/22/2024 Type 2 diabetes mellitus with hyperglycemia (ICD-10 - E11.65) 04/14/2024 Hypothyroidism, unspecified (ICD-10 - E03.9) u 04/14/2024 Obesity, unspecified (ICD-10 - E66.9) u 04/14/2024 Hypothyroidism, unspecified (ICD-10 - E03.9) 08/05/2024 Hypothyroidism, unspecified (ICD-10 - E03.9) 08/20/2023 Type 2 diabetes mellitus with hyperglycemia (ICD-10 - E11.65) 08/20/2023 Attention and concentration deficit (ICD-10 - R41.840) 04/14/2024 Type 2 diabetes mellitus with hyperglycemia (ICD-10 - E11.65) u 02/01/2024 Type 2 diabetes mellitus with hyperglycemia (ICD-10 - E11.65) 01/16/2024 Type 2 diabetes mellitus with hyperglycemia (ICD-10 - E11.65) 11/03/2023 Type 2 diabetes mellitus with hyperglycemia (ICD-10 - E11.65) Recommended GLP1 agonist therapy as she/he is having trouble at times with cravings of sweets and portion control. She does exercise at least three days a week 45 minutes at a time. Discussed potentially reducing total carb intake to 120 grams daily into 4-5 small split meals with addition of healthy protein based snack at bedtime to help reduce automatic lathe tender hyperglcemia from counterregulatory hormones. She has no history of pancreatitis or medullary thyroid cancer and is willing to trial on a GLP1 agonist therapy. She was advised to contact clinic if she experiences any nausea, vomiting or significant thyroid pain/swelling or abdominal pain so we can discuss and discontinue and potentiually look into other therapy. Discussed carb counting and how to read food labels. Send for mounjaro 2.5 mg weekly and she is aware we will plan on slow titration based on tolerability. Recommended patient to utilize the [employer] from the [employer] website to help with food preparation as this presents ideal carb content per meal and will make carb counting easier for patient. Recommended she incorporate natural insulin sensitizers such as pears, apples, cinnamon, joaquim and sweet potatoes to help mobilize her endogenous insulin. Recommended up to 150 minutes of moderate level activity /exercise per week. 08/18/2023 Prediabetes (ICD-10 - R73.03) a1c 5.8%- patient had water retention and swelling with actos- she was encouraged to retrial lowest dose metformin once daily with largest meal. WIll request GLP1 agonist therapy as she is morbidly obese and high risk for CAD/CVD among other complications without weight loss. Weight loss should be primary focus to prevent diabetes and heart disease. 11/03/2023 Vitamin B12 deficiency anemia, unspecified (ICD-10 - D51.9) She is aware her levels are low- recommended daily 2500 IU of methylated B12 in conjunction with methylated folic acid daily. 08/18/2023 Obesity, unspecified (ICD-10 - E66.9) Recommended GLP1 agonist therapy as she is having trouble at times with cravings of sweets and portion control. Discussed potentially reducing total carb intake to 120 grams daily into 4-5 small split meals with addition of healthy protein based snack at bedtime to help reduce automatic lathe tender hyperglcemia from counterregulatory hormones. She has no history of pancreatitis or medullary thyroid cancer and is willing to trial on a GLP1 agonist therapy. She was advised to contact clinic if she experiences any nausea, vomiting or significant thyroid pain/swelling or abdominal pain so we can discuss and discontinue and potentiually look into other therapy. She is aware we offer tirzepatide for weight loss however Discussed dietary measures in regards to weight loss- importance to restrict calories to 1200 per day if sedentary vs 8230-2046 calories depending on caloric expenditure. She was provided information on [employer] as this program manages metabolic syndrome and products include insulin sensitizers along with thyroid support/supplementatio n to help tailor weight loss in individuals who struggle with underlying autoimmune thyroid conditions and hyperglycemia (fasting glucose of 108 mg/dL). Spent up to 20 minutes discussing alternative weight loss options. 02/01/2024 Insulin resistance, unspecified (ICD-10 - E88.819) 04/14/2024 Obstructive sleep apnea (ICD-10 - G47.33) u 04/14/2024 B12 deficiency (ICD-10 - E53.8) u 02/01/2024 Deficiency of other specified B group vitamins (ICD-10 - E53.8) 11/03/2023 Dietary counseling and surveillance (ICD-10 - Z71.3) Discussed dietary measures in regards to weight loss- importance to restrict calories to 1200 per day if sedentary vs 2806-6236 calories depending on caloric expenditure. She was provided information on [employer] as this program manages metabolic syndrome and products include insulin sensitizers along with thyroid support/supplementatio n to help tailor weight loss in individuals who struggle with underlying autoimmune thyroid conditions and hyperglycemia (fasting glucose of 97 mg/dL). Spent up to 20 minutes discussing alternative weight loss. 02/01/2024 Nausea (ICD-10 - R11.0) 04/14/2024 Folic acid deficiency (ICD-10 - E53.8) u 02/01/2024 Dermatophytosis, unspecified (ICD-10 - B35.9) 04/14/2024 Dietary counseling and surveillance (ICD-10 - Z71.3) Spent 15 minutes preventative counseling patient on dietary recommendations and changes in setting of hyperglycemia- need to restrict refined sugars and processed foods and incorporate up to 150 minutes of moderate level activity weekly. u 08/18/2023 Other Spent 25 minute s preparing to see the patient (ex review of tests/chart), obtaining and / or reviewing separately obtained history, performing a medically appropriate examination and/or evaluation, counseling and educating the patient/family/caregiv er, ordering medications, tests, or procedures, referring and communicating with other health animal care supervisor, documenting clinical information in the electronic or other health record, independently interpreting results and communicating results to the patient/family/caregiv er and care coordinating patient plan. Patient alert and oriented x 4 and aware of discussion noted above and in agreeance to plan in management of prediabetes, hypothyroidism, and obesity. 11/03/2023 Other Spent 25 minute s preparing to see the patient (ex review of tests/chart), obtaining and / or reviewing separately obtained history, performing a medically appropriate examination and/or evaluation, counseling and educating the patient/family/caregiv er, ordering medications, tests, or procedures, referring and communicating with other health animal care supervisor, documenting clinical information in the electronic or other health record, independently interpreting results and communicating results to the patient/family/caregiv er and care coordinating patient plan. Patient alert and oriented x 4 and aware of discussion noted above and in agreeance to plan in management of obesity, type 2 DM (A1C 5.8%), hypothyroidism and weight management. 02/01/2024 Other Assessment and Plan: 1. Insulin resistance and type 2 diabetes- Continue Mounjaro 2.5 mg and increase to 5 mg after a month and send in zofran for nausea.- Insurance approved Mounjaro after trying pioglitazone, metformin, and vitamin supplements- Monitor A1c and insulin levels 2. Polycystic ovary syndrome (PCOS)- Period irregularity noted, but no intervention due to history of blood clots and current blood thinner use-she has factor V leiden def- Monitor for any new symptoms and weight loss progress 3. Hypothyroidism- Thyroid function improved, continue Synthroid 300 mcg daily- Add liothyronine for fatigue management at 10 mcg in afternoon.- Monitor thyroid function tests 4. Vitamin deficiencies- Low folic acid: start folic acid supplementation (1 mg/day)- Vitamin D level is optimal, continue current vitamin D supplementation 5. Sleep apnea- Patient diagnosed with minor sleep apnea, currently using CPAP machine- Monitor for any changes in sleep quality or new symptoms 6. Nausea- Prescribe Zofran (ondansetron) as needed for nausea management, up to 8 mg/day in 4 mg doses- Monitor for constipation as a side effect 7. Possible ringworm infection- Recommend qflf-[id number] miconazole cream for topical treatment- If no improvement, consider prescribing nystatin 8. Edema management- Patient reports reduced leg swelling with VibeTap machine use- Encourage continued use and avoidance of water pill (bumetanide) if possible due to compromised kidney function Follow-up:- Schedule a follow-up appointment in two to three months- Perform a DEXA suppression test and comprehensive lab work two weeks before the next appointment- Monitor patient's progress and adjust treatment plans as needed Spent 25 minutes preparing to see the patient (ex review of tests/chart), obtaining and / or reviewing separately obtained history, performing a medically appropriate examination and/or evaluation, counseling and educating the patient/family/caregiv er, ordering medications, tests, or procedures, referring and communicating with other health animal care supervisor, documenting clinical information in the electronic or other health record, independently interpreting results and communicating results to the patient/family/caregiv er and care coordinating patient plan. Patient alert and oriented x 4 and aware of discussion noted above and in agreeance to plan in management of hypothyroidism, insulin resistance/type 2 DM, folic acid def, ringworm of calf region, obesity/weight management. 04/14/2024 Other Assessment and Plan: Obesity with Sleep ApneaPatient experiences moderate sleep apnea, with significant oxygen desaturation and frequent episodes of apnea per hour. Obesity exacerbates sleep apnea and cardiovascular risk.Continue tirzepatide (Mounjaro/Zepbound) 5mg weekly, administered 1 hour before bedtimeSubmit prior authorization for tirzepatide, including documentation of sleep apneaIncrease dietary protein intake, emphasizing fruits, vegetables, lean meats, and protein shakesRecommend smoking cessation to improve eligibility for potential weight loss surgeryCoordinate with sleep apnea specialist for necessary documentation for insurance purposes Type 2 Diabetes MellitusPatient demonstrates improved glycemic control with an A1c of 5.7 while on tirzepatide 5mg weekly.Continue current regimen of tirzepatide 5mg weeklyRegular monitoring of A1c levels to assess glycemic controlConsider prescribing Zofran as needed for nausea management HypothyroidismPatient is stable on a levothyroxine dose of 300 mcg daily, with no reported issues.Maintain current levothyroxine dosageEnsure continuous supply through the [facility] program Nutritional DeficienciesPatient presents with deficiencies in folic acid, B12, iron, and slightly low calcium levels, potentially due to recent illness.Continue supplementation with folic acid (methyl tetrahydrofolic acid) and T49Tjkeid sged-anw-xzwuhni iron supplementation (65mg elemental iron)Schedule reevaluation of CBC, iron panel, B12, and folic acid levels at the next hematology appointment Fluid RetentionPatient reports symptoms of fluid retention, with a slightly elevated BNP level.Initiate diuretic therapy with bumetanide 2mg once daily, as recommended by the primary care physician Recent Respiratory InfectionPatient has recovered from a recent 3-week bronchitis episode, treated with prednisone.Monitor for recurrence of respiratory symptomsAwait follow-up with hematology to reassess blood work post-infection Follow-up:Schedule a follow-up appointment to review the effectiveness of interventions and lab resultsEncourage patient to report any new or worsening symptoms immediately Spent 25 minutes preparing to see the patient (ex review of tests/chart), obtaining and / or reviewing separately obtained history, performing a medically appropriate examination and/or evaluation, counseling and educating the patient/family/caregiv er, ordering medications, tests, or procedures, referring and communicating with other health animal care supervisor, documenting clinical information in the electronic or other health record, independently interpreting results and communicating results to the patient/family/caregiv er and care coordinating patient plan. Patient alert and oriented x 4 and aware of discussion noted above and in agreeance to plan in management of obesity, type 2 DM, hypothyroidism/ vitamin deficiencies. u Plan Of Treatment Next Appt Details Provider Name:Joann Santamaria, 03:00:00 PM, [address] [place] [address], [phone], Provider Name:Joann Santamaria, 09:20:00 AM, [address] [place] [address], [phone], Insurance Providers Payer Name Payer Address Payer Phone Subscriber Number Group Number Insured Name Patient Relationship to Insured Coverage Start Date Coverage End Date [employer] [id number] [place] [phone] [id number] Meghna Gary Self - patient is the insured
--- OUTSIDE RECORDS SUMMARY | 2024-08-15 16:20 | XMS_ITS | Referral Summary ---
Author Organization [facility], [facility] Physician Office Building [address] [place] [id number] Care Team Providers Care Rn Cardiology Name Role Phone Aviva Jaimes Primary Care Provider [phone] Allergies Active Allergy Reactions Criticality Noted Date Comments Adhesive Rash Medium 10/27/2017 Amoxicillin Rash Medium 09/30/2017 Cefixime Rash Medium 09/30/2017 Cephalexin Rash Medium 09/30/2017 [place] Anaphylaxis High 09/30/2017 Ciprofloxacin Nausea only Medium 09/30/2017 Clindamycin Swelling Medium 10/28/2017 [place] Butter Rash Medium 09/30/2017 Doxycycline Rash Medium [...] on file 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 [address] [place] [id number] [place] Advance Directives For more information, please contact: [phone] * Full Code (Latest Code Status on File) Date Activated Date Inactivated Comments 10/29/2023 7:37 AM 10/29/2023 1:06 PM * Full Code Date Activated Date Inactivated Comments 11/14/2022 8:40 AM 11/14/2022 2:52 PM Care Teams Rn Cardiology Relationship Specialty Start Date End Date Aviva Jaimes PA [address] [place] [phone] PCP - General Physician Sap Business Analyst 07/22/22
--- OUTSIDE RECORDS SUMMARY | 2024-08-15 16:20 | XMS_ITS | Data Portability ---
Author Organization [place] - [facility], Main Office Address [address] [place] [id number] Care Team Providers Care Hides Inspector Name Role Phone ESTELLA SUN Primary Care Provider Assessment No assessment recorded. Plan of Treatment Reminders Order Date Submit Date Provider Last Modified By Organization Details Last Modified Time Details Appointments None recorded. Lab None recorded. Referral endocrinolo gy referral 2022 023 [email or web address] Maegan Childers MD, [address],, [address], [address], 3 10:08:27 Procedures None recorded. Surgeries None recorded. Imaging None recorded. Medication Orders Synthroid 200 mcg tablet 2022 023 [facility] [employer] [facility] #[id number], [address] [place] [address], [id number], 3 09:39:45 Synthroid 50 mcg tablet 2022 023 [facility] [employer] #[id number], [address], [place], [id number], 3 09:39:46 Patient TargetsNo targets recorded. Patient InstructionsNo instructions recorded. Reason for Referral Endocrinology Referral for H ypothyroidism Referring Physician: Joann Santamaria, Endocrinology, Encounter Date: 10/28/2022 Results Created Date Observation Date Name Description Value Unit Range Abnormal Flag Note LastModifiedBy Organization Detail LastModifiedTime 04/10/1904/15/2022 TESTO STERO NE, FREE (DIAL YSIS) AND TOTAL ,MS testosterone , total, MS 16 NG/dL 2-45 For addit ional infor adan fox refer to https ://ed ucati on.qu north ochoaLOANZ. com/f aq/FA Q165 (This link is being provi ded for infor ike nal/e ducat ional purpo ses only. ) (Note ) This test was devel oped and its elyssa tical perfo rmanc e antonia cteri stics have been deter mined by [employer]. It has not been clear ed or appro ynes by the FDA. This assay has been valid ated pursu ant to the CLIA regul ation s and is used for clini christie purpo ses. Not Available [facility] [address] [place], [address], 04/15/2022 15:27:25 04/10/19 23 04/15/2022 TESTO STERO NE, FREE (DIAL YSIS) AND TOTAL ,MS testosterone , free 2 pg/mL 0.1-6. 4 (Note ) This test was devel oped and its elyssa tical perfo rmanc e antonia cteri stics have been deter mined by [employer] [facility] [employer]. It has not been clear ed or appro ynes by the FDA. This assay has been valid ated pursu ant to the CLIA regul ation s and is used for clini christie purpo ses. MDF med fusio n [address] [facility] [address] [facility] [address] [phone] Edison allen MD Not Available [facility] [address], [place], [address], 04/15/2022 15:27:25 04/10/19 23 04/15/2022 VITAM IN D,25- OH,TO SOWMYA,I A vitamin D,25-oh,tota l,ia 59 NG/mL 30-100 normal Vitam in D Statu s 25-OH Vitam in D: Defic iency : <20 ng/mL Insuf ficie ncy: 20 - 29 ng/mL Optim al: > or = 30 ng/mL For 25-OH Vitam in D testi ng on patie nts on D2-carlos pplem entat ion and patie nts for whom quant itati on of D2 and D3 fract ions is requi red, the [facility] Ass[facility] eD(TM ) 25-OH VIT D, (D2,D 3), LC/MS /MS is recom gabrielle d: order code [id number] (jono ents >2yrs ). See Note 1 Note 1 For addit ional infor adan fox refer to http: //[facility] darryn Little stDia gnost ics.c om/fa q/FAQ 199 (This link is being provi ded for infor ike simons/ sweta martínez purpo ses only. ) Not Available [facility] [address] [place], [address], 04/15/2022 15:27:25 04/10/1904/15/2022 FSH AND LH FSH 6.7 mIU/m L normal Refer ence Range Folli cular Phase 2.5-1 0.2 Mid-c ycle Peak 3.1-1 7.7 Lutea l Phase 1.5- 9.1 Postm enopa usal 23.0- 116.3 Not Available [facility] [address] [place], [address], 04/15/2022 15:27:24 04/10/1904/15/2022 FSH AND LH LH 6.1 mIU/m L normal Refer ence Range Folli cular Phase 1.9-1 2.5 Mid-C ycle Peak 8.7-7 6.3 Lutea l Phase 0.5-1 6.9 Postm enopa usal 10.0- 54.7 Not Available [facility] [address] [place], [address], 04/15/2022 15:27:24 04/10/1904/15/2022 T3, FREE T3, free 2.5 pg/mL 2.3-4. 2 normal Not Available [facility] - [address], [address], 04/15/2022 15:27:23 04/10/19 23 04/15/2022 VITAM IN B12/F OLATE , SERUM PANEL vitamin B12 559 pg/mL 200-11 00 normal Not Available [facility] [address], [address], 04/15/2022 15:27:22 04/10/19 23 04/15/2022 VITAM IN B12/F OLATE , SERUM PANEL folate, serum 5.2 NG/mL low Refer ence Range Low: <3.4 Borde rline : 3.4-5 .4 Skye l: >5.4 Not Available [facility] [address], [address], 04/15/2022 15:27:22 04/10/19 23 04/15/2022 DEXAM ETHAS ONE SUPPR ESSIO N TEST (DST) , 1 SPECI MEN cortisol 0.7 mcg/d L normal Dexam ethas one Suppr essio n Test For 8 a.m. Speci men: <2.0 - Skye l Respo nse 2.0-1 0.0 - Equiv ocal >10.0 - High proba bilit y of Cushi ng's Syndr ome Furth er diagn ostic tests must be perfo rmed to confi rm the diagn osis and deter mine etiol ogy. Value s >2.0 mcg/d L can be seen in endog enous depre ssion and pseud o-Cus josh' s (alco holis m). Not Available [facility] - [address], [address], 04/15/2022 15:27:22 04/10/19 23 04/15/2022 ESTRA DIOL estradiol 115 pg/mL normal Refer ence Range Folli cular Phase : 19-14 4 Mid-C ycle: 64-35 7 Lutea l Phase : 56-21 4 Postm enopa usal: < or = 31 Refer ence range estab lishe d on post- puber sowmya patie nt popul ation . No pre-p ubert al refer ence range estab lishe d using this assay . For any patie nts for whom low Estra diol level s are antic ipate d (e.g. males , pre-p ubert al child rosalia and hypog onada l/pos t-men opaus al femal es), the [facility] Insti tute Estra diol, Ultra sensi tive, LCMSM S assay is recom gabrielle d (orde r code 23877 ). Plesaman e note: patie nts being treat ed with the drug fulve stran t (Fasl odex( R)) have demon strat ed signi fican t inter feren ce in immun oassa y metho ds for estra diol measu remen t. The cross react ivity could lead to false ly eleva henny estra diol test resul ts leadi ng to an inapp ropri ate clini christie asses sment of estro gen statu s. [facility] order code [id number] -Estr adiol , Ultra sensi tive LC/MS /MS demon strat es negli gible cross react ivity with fulve stran t. Not Available [facility] [address] [place], [address], 04/15/2022 15:27:21 04/10/19 23 04/15/2022 TSH TSH 0.40 mIU/L normal Refer ence Range > or = 20 Years 0.40- 4.50 Pregn mima Range s First trime ster 0.26- 2.66 Secon d trime ster 0.55- 2.73 Third trime ster 0.43- 2.91 Not Available [facility] [address] [place], [address], 04/15/2022 15:27:21 04/10/19 23 04/15/2022 T4, FREE T4, free 1.4 NG/dL 0.8-1. 8 normal Not Available [facility] [address] [place], [address], 04/15/2022 15:27:20 04/10/19 23 04/15/2022 PROLA CTIN prolactin 4.9 NG/mL normal Refer ence Range Femal es Non-p regna nt 3.0-3 0.0 Pregn ant 10.0- 209.0 Postm enopa usal 2.0-2 0.0 Not Available [facility] [address] [place], [address], 04/15/2022 15:27:19 04/10/19 23 04/15/2022 PROGE STERO NE progesterone <0.5 NG/mL normal Refer ence Range s Femal e Folli cular Phase < 1.0 Lutea l Phase 2.6-2 1.5 Post menop ausal < 0.5 Pregn mima 1st Trime ster 4.1-3 4.0 2nd Trime ster 24.0- 76.0 3rd Trime ster 52.0- 302.0 Not Available [facility] [address], [address], 04/15/2022 15:27:18 04/10/1904/15/2022 INSUL IN insulin 43.4 uIU/m L high Refer ence Range < or = 18.4 Risk: Optim al < or = 18.4 Moder ate NA High >18.4 Adult cardi ovasc ular event risk categ ory cut point s (opti mal, moder ate, high) are based on Insul in Refer ence Inter taj studi es perfo rmed at [facility] in 2021. Not Available [facility] [address] [place], [address], 04/15/2022 15:27:18 04/10/1904/15/2022 TISHA TIN ferritin 11 NG/mL 16-154 low Not Available [facility] [address] [place], [address], 04/15/2022 15:27:17 04/10/19 23 04/15/2022 DHEA SULFA TE DHEA sulfate 8 mcg/d L 19-237 low Not Available [address], [address], 04/15/2022 15:27:16 04/10/19 23 04/15/2022 THYRO ID PEROX IDASE ANTIB ODIES thyroid peroxidase antibodies 10 IU/mL <9 high Not Available [address], [address], 04/15/2022 15:27:16 04/10/19 23 04/15/2022 IMMUN OGLOB ULINS immunoglobul in A 417 mg/dL 47-310 high Not Available [address], [address], 04/15/2022 15:27:15 04/10/19 23 04/15/2022 IMMUN OGLOB ULINS immunoglobul in g 737 mg/dL 600-16 40 normal Not Available [address], [address], 04/15/2022 15:27:15 04/10/19 23 04/15/2022 IMMUN OGLOB ULINS immunoglobul in M 51 mg/dL 50-300 normal Not Available [address], [address], 04/15/2022 15:27:15 04/10/19 23 04/15/2022 CBC (INCL UDES DIFF/ PLT) white blood cell count 6.0 thous and/u L 3.8-10 .8 normal Not Available [address], [address], 04/15/2022 15:27:14 04/10/19 23 04/15/2022 CBC (INCL UDES DIFF/ PLT) red blood cell count 5.11 aba on/uL 3.80-5 .10 high Not Available [address], [address], 04/15/2022 15:27:14 04/10/19 23 04/15/2022 CBC (INCL UDES DIFF/ PLT) hemoglobin 14.8 g/dL 11.7-1 5.5 normal Not Available [address], [address], 04/15/2022 15:27:14 04/10/19 23 04/15/2022 CBC (INCL UDES DIFF/ PLT) hematocrit 44.3 % 35.0-4 5.0 normal Not Available [address], [address], 04/15/2022 15:27:14 04/10/19 23 04/15/2022 CBC (INCL UDES DIFF/ PLT) MCV 86.7 fL 80.0-1 00.0 normal Not Available [address], [address], 04/15/2022 15:27:14 04/10/19 23 04/15/2022 CBC (INCL UDES DIFF/ PLT) MCH 29.0 pg 27.0-3 3.0 normal Not Available [address], [address], 04/15/2022 15:27:14 04/10/19 23 04/15/2022 CBC (INCL UDES DIFF/ PLT) MCHC 33.4 g/dL 32.0-3 6.0 normal Not Available [address], [address], 04/15/2022 15:27:14 04/10/19 23 04/15/2022 CBC (INCL UDES DIFF/ PLT) RDW 14.8 % 11.0-1 5.0 normal Not Available [address], [address], 04/15/2022 15:27:14 04/10/19 23 04/15/2022 CBC (INCL UDES DIFF/ PLT) platelet count 269 thous and/u L 140-40 0 normal Not Available [facility] [address] [place], [address], 04/15/2022 15:27:14 04/10/19 23 04/15/2022 CBC (INCL UDES DIFF/ PLT) MPV 11.6 fL 7.5-12 .5 normal Not Available [address], [address], 04/15/2022 15:27:14 04/10/19 23 04/15/2022 CBC (INCL UDES DIFF/ PLT) absolute neutrophils 3882 cells /uL 1500-7 800 normal Not Available [address], [address], 04/15/2022 15:27:14 04/10/19 23 04/15/2022 CBC (INCL UDES DIFF/ PLT) absolute lymphocytes 1590 cells /uL 850-39 00 normal Not Available [address], [address], 04/15/2022 15:27:14 04/10/19 23 04/15/2022 CBC (INCL UDES DIFF/ PLT) absolute monocytes 408 cells /uL 200-95 0 normal Not Available [address], [address], 04/15/2022 15:27:14 04/10/19 23 04/15/2022 CBC (INCL UDES DIFF/ PLT) absolute eosinophils 72 cells /uL 15-500 normal Not Available [address], [address], 04/15/2022 15:27:14 04/10/19 23 04/15/2022 CBC (INCL UDES DIFF/ PLT) absolute basophils 48 cells /uL 0-200 normal Not Available [address], [address], 04/15/2022 15:27:14 04/10/19 23 04/15/2022 CBC (INCL UDES DIFF/ PLT) neutrophils 64.7 % normal Not Available [facility] [address], [address], 04/15/2022 15:27:14 04/10/19 23 04/15/2022 CBC (INCL UDES DIFF/ PLT) lymphocytes 26.5 % normal Not Available [facility] [address], [address], 04/15/2022 15:27:14 04/10/19 23 04/15/2022 CBC (INCL UDES DIFF/ PLT) monocytes 6.8 % normal Not Available [facility] [address], [address], 04/15/2022 15:27:14 04/10/19 23 04/15/2022 CBC (INCL UDES DIFF/ PLT) eosinophils 1.2 % normal Not Available [facility] [address], [address], 04/15/2022 15:27:14 04/10/19 23 04/15/2022 CBC (INCL UDES DIFF/ PLT) basophils 0.8 % normal Not Available [facility] [address], [address], 04/15/2022 15:27:14 04/10/19 23 04/15/2022 COMPR EHENS MARGO METAB OLIC PANEL glucose 104 mg/dL 65-99 high Fasti ng refer ence inter taj For someo ne witho ut known diabe [place], a gluco se value betwe en 100 and 125 mg/dL is consi stent with predi abete s and shoul d be confi rmed with a follo w-up test. Not Available [facility] [address], [address], 04/15/2022 15:27:13 04/10/19 23 04/15/2022 COMPR EHENS MARGO METAB OLIC PANEL urea nitrogen (BUN) 10 mg/dL 7-25 normal Not Available [facility] [address] [place], [address], 04/15/2022 15:27:13 04/10/19 23 04/15/2022 COMPR EHENS MARGO METAB OLIC PANEL creatinine 0.99 mg/dL 0.50-0 .97 high Not Available [facility] [address] [place], [address], 04/15/2022 15:27:13 04/10/19 23 04/15/2022 COMPR EHENS MARGO METAB OLIC PANEL eGFR 77 mL/mi n/1.7 3m2 > or = 60 normal The eGFR is based on the CKD-E PI 2020 equat ion. To calcu late the new eGFR from a previ ous Creat inine or Cysta tin C resul t, go to https ://missy small.jazlyn rahman/sergey ni s/ kdoqi /gfr% 5Fcal culat or Not Available [facility] [address] [place], [address], 04/15/2022 15:27:13 04/10/19 23 04/15/2022 COMPR EHENS MARGO METAB OLIC PANEL BUN/creatini ne ratio 10 (calc ) 6-22 normal Not Available [facility] [address] [place], [address], 04/15/2022 15:27:13 04/10/19 23 04/15/2022 COMPR EHENS MARGO METAB OLIC PANEL sodium 139 mmol/ L 135-14 6 normal Not Available [facility] [address] [place], [address], 04/15/2022 15:27:13 04/10/19 23 04/15/2022 COMPR EHENS MARGO METAB OLIC PANEL potassium 5.1 mmol/ L 3.5-5. 3 normal Not Available [facility] [address] [place], [address], 04/15/2022 15:27:13 04/10/19 23 04/15/2022 COMPR EHENS MARGO METAB OLIC PANEL chloride 108 mmol/ L 98-110 normal Not Available [address], [address], 04/15/2022 15:27:13 04/10/19 23 04/15/2022 COMPR EHENS MARGO METAB OLIC PANEL carbon dioxide 27 mmol/ L 20-32 normal Not Available [address], [address], 04/15/2022 15:27:13 04/10/19 23 04/15/2022 COMPR EHENS MARGO METAB OLIC PANEL calcium 9.2 mg/dL 8.6-10 .2 normal Not Available [address], [address], 04/15/2022 15:27:13 04/10/19 23 04/15/2022 COMPR EHENS MARGO METAB OLIC PANEL protein, total 6.2 g/dL 6.1-8. 1 normal Not Available [address], [address], 04/15/2022 15:27:13 04/10/19 23 04/15/2022 COMPR EHENS MARGO METAB OLIC PANEL albumin 3.8 g/dL 3.6-5. 1 normal Not Available [address], [address], 04/15/2022 15:27:13 04/10/19 23 04/15/2022 COMPR EHENS MARGO METAB OLIC PANEL globulin 2.4 g/dL_ (calc ) 1.9-3. 7 normal Not Available [address], [address], 04/15/2022 15:27:13 04/10/19 23 04/15/2022 COMPR EHENS MARGO METAB OLIC PANEL albumin/glob ulin ratio 1.6 (calc ) 1.0-2. 5 normal Not Available [address], [address], 04/15/2022 15:27:13 04/10/19 23 04/15/2022 COMPR EHENS MARGO METAB OLIC PANEL bilirubin, total 0.4 mg/dL 0.2-1. 2 normal Not Available [address], [address], 04/15/2022 15:27:13 04/10/19 23 04/15/2022 COMPR EHENS MARGO METAB OLIC PANEL alkaline phosphatase 49 U/L 31-125 normal Not Available [address], [address], 04/15/2022 15:27:13 04/10/19 23 04/15/2022 COMPR EHENS MARGO METAB OLIC PANEL AST 8 U/L 10-30 low Not Available [address], [address], 04/15/2022 15:27:13 04/10/19 23 04/15/2022 COMPR EHENS MARGO METAB OLIC PANEL ALT 14 U/L 6-29 normal Not Available [address], [address], 04/15/2022 15:27:13 04/10/19 23 04/15/2022 IRON AND TOTAL IRON ROSAS NG CAPAC ITY iron, total 74 mcg/d L 40-190 normal Not Available [address], [address], 04/15/2022 15:27:13 04/10/19 23 04/15/2022 IRON AND TOTAL IRON ROSAS NG CAPAC ITY iron binding capacity 433 mcg/d L_(ca lc) 250-45 0 normal Not Available [address], [address], 04/15/2022 15:27:13 04/10/19 23 04/15/2022 IRON AND TOTAL IRON ROSAS NG CAPAC ITY % saturation 17 %_(ca lc) 16-45 normal Not Available [address], [address], 04/15/2022 15:27:13 10/12/19 23 10/14/2022 COMPR EHENS MARGO METAB OLIC PANEL glucose 94 mg/dL 65-99 normal Fasti ng refer ence inter taj Not Available [address], [address], 10/14/2022 20:48:08 10/12/19 23 10/14/2022 COMPR EHENS MARGO METAB OLIC PANEL urea nitrogen (BUN) 18 mg/dL 7-25 normal Not Available [address], [address], 10/14/2022 20:48:08 10/12/19 23 10/14/2022 COMPR EHENS MARGO METAB OLIC PANEL creatinine 1.04 mg/dL 0.50-0 .97 high Not Available [address], [address], 10/14/2022 20:48:08 10/12/19 23 10/14/2022 COMPR EHENS MARGO METAB OLIC PANEL eGFR 72 mL/mi n/1.7 3m2 > or = 60 normal Not Available [address], [address], 10/14/2022 20:48:08 10/12/19 23 10/14/2022 COMPR EHENS MARGO METAB OLIC PANEL BUN/creatini ne ratio 17 (calc ) 6-22 normal Not Available [address], [address], 10/14/2022 20:48:08 10/12/19 23 10/14/2022 COMPR EHENS MARGO METAB OLIC PANEL sodium 138 mmol/ L 135-14 6 normal Not Available [address], [address], 10/14/2022 20:48:08 10/12/19 23 10/14/2022 COMPR EHENS MARGO METAB OLIC PANEL potassium 4.7 mmol/ L 3.5-5. 3 normal Not Available [address], [address], 10/14/2022 20:48:08 10/12/19 23 10/14/2022 COMPR EHENS MARGO METAB OLIC PANEL chloride 105 mmol/ L 98-110 normal Not Available [address], [address], 10/14/2022 20:48:08 10/12/19 23 10/14/2022 COMPR EHENS MARGO METAB OLIC PANEL carbon dioxide 25 mmol/ L 20-32 normal Not Available [address], [address], 10/14/2022 20:48:08 10/12/19 23 10/14/2022 COMPR EHENS MARGO METAB OLIC PANEL calcium 9.0 mg/dL 8.6-10 .2 normal Not Available [address], [address], 10/14/2022 20:48:08 10/12/19 23 10/14/2022 COMPR EHENS MARGO METAB OLIC PANEL protein, total 6.1 g/dL 6.1-8. 1 normal Not Available [address], [address], 10/14/2022 20:48:08 10/12/19 23 10/14/2022 COMPR EHENS MARGO METAB OLIC PANEL albumin 3.6 g/dL 3.6-5. 1 normal Not Available [address], [address], 10/14/2022 20:48:08 10/12/19 23 10/14/2022 COMPR EHENS MARGO METAB OLIC PANEL globulin 2.5 g/dL_ (calc ) 1.9-3. 7 normal Not Available [address], [address], 10/14/2022 20:48:08 10/12/19 23 10/14/2022 COMPR EHENS MARGO METAB OLIC PANEL albumin/glob ulin ratio 1.4 (calc ) 1.0-2. 5 normal Not Available [address], [address], 10/14/2022 20:48:08 10/12/19 23 10/14/2022 COMPR EHENS MARGO METAB OLIC PANEL bilirubin, total 0.4 mg/dL 0.2-1. 2 normal Not Available [address], [address], 10/14/2022 20:48:08 10/12/19 23 10/14/2022 COMPR EHENS MARGO METAB OLIC PANEL alkaline phosphatase 53 U/L 31-125 normal Not Available [address], [address], 10/14/2022 20:48:08 10/12/19 23 10/14/2022 COMPR EHENS MARGO METAB OLIC PANEL AST 8 U/L 10-30 low Not Available [address], [address], 10/14/2022 20:48:08 10/12/19 23 10/14/2022 COMPR EHENS MARGO METAB OLIC PANEL ALT 10 U/L 6-29 normal Not Available [address], [address], 10/14/2022 20:48:08 10/12/19 23 10/14/2022 INSUL IN insulin 36.0 uIU/m L high Refer ence Range < or = 18.4 Risk: Optim al < or = 18.4 Moder ate NA High >18.4 Adult cardi ovasc ular event risk categ ory cut point s (opti mal, moder ate, high) are based on Insul in Refer ence Inter taj studi es perfo [facility]med at [facility] in 2021. Not Available [facility] [place] [address] [address] [place], [address], 10/14/2022 20:48:08 10/12/19 23 10/14/2022 T4, FREE T4, free 1.0 NG/dL 0.8-1. 8 normal Not Available [facility] [place] [address] [address] [place], [address], 10/14/2022 20:48:09 10/12/1910/14/2022 TSH TSH 18.75 mIU/L high Refer ence Range > or = 20 Years 0.40- 4.50 Pregn mima Range s First trime ster 0.26- 2.66 Secon d trime ster 0.55- 2.73 Third trime ster 0.43- 2.91 Not Available [facility] [address] [place], [address], 10/14/2022 20:48:09 10/12/1910/14/2022 T3, FREE T3, free 2.1 pg/mL 2.3-4. 2 low Not Available [facility] [address], [address], 10/14/2022 20:48:10 10/12/19 23 10/14/2022 TESTO STERO NE, TOTAL , MS testosterone , total, MS 10 NG/dL 2-45 For addit ional adan carmen refer to https ://ed imaniati on.qu north CellPly. [place]/f aq/To sowmyaJose Cruz yolis lee LCMSM S (This link is being provi ded for infor ike nal/e ducat ional purpo ses only. ) (Note ) This test was devel oped and its elyssa tical perfo rmanc e antonia cteri stics have been deter mined by [facility] [employer]. It has not been clear ed or appro ynes by the FDA. This assay has been valid ated pursu ant to the CLIA regul ation s and is used for clini christie purpo ses. NIHARIKA med fusio n [address] [facility] [address] [place] [address] [phone] Gal zimmer MD Not Available [facility] [address] [address], [place], [address], 10/14/2022 20:48:10 03/10/19 23 03/10/2022 US, thyro id No observ ation record ed. [id number] [facility] [address], [place], [address], 04/30/2022 16:31:45 03/10/19 23 03/10/2022 XR, chest , 2 view No observ ation record ed. [id number] [facility] [address], [place], [address], 04/30/2022 16:31:45 Result Notes None recorded. Problems Name Problem SNOMED Code Status Onset Date Resolution Date Notes Provider Name and Address Organization Details Recorded Time Hypercholeste rolemia 65720199 Active Not Available [facility] 3 16:30:18 Liver function tests outside reference range 708865591 Active Not Available [facility] 3 16:30:18 Asthma 529886478 Active Not Available [facility] 3 16:30:18 Increased blood pressure 51853519 Active Not Available [facility] 3 16:30:18 Anemia 613781081 Active Not Available [facility] 3 16:30:18 Vitamin D deficiency 52752452 Active Not Available [facility] 3 16:30:18 Depressive disorder 72445591 Active Not Available [facility] 3 16:30:18 Migraine 96594850 Active Not Available [facility] 3 16:30:18 Hypertensive disorder 69805804 Active Not Available [facility] 3 16:30:18 Hypothyroidis m 97190016 Active Not Available [facility] 3 16:30:18 Obesity 869054197 Active Not Available [facility] 3 16:30:18 Pain of joint 29876439 Active Not Available [facility] 3 16:30:18 Diabetes mellitus 55409675 Active Not Available [facility] 3 16:30:18 Fatigue 77527803 Active Not Available [facility] 3 16:30:18 Problem Notes None recorded. Procedures Surgical History Date Name Laterality Status Provider Name and Address Organization Details Recorded Time Kidney Stones completed Not Available [facility] 04/30/2022 16:29:33 Imaging Results None recorded. Procedure Notes None recorded. Medical Equipment None Reported. Allergies Allergen ID Allergen Name Allergen Category Reaction Reaction Severity Criticality Documentation Date Start Date Code Code System Note Provider Name and Address Organization Details Recorded Time 80529 Keflex medicatio n Not available Not available Not available 04/30/2022 58663 7 RxNorm Not Available [facility] 3 16:31:40 04672 doxycycli ne Not available Not available Not available Not available 04/30/2022 3640 RxNorm Not Available [facility] 3 16:31:40 [address] Cipro medicatio n Not available Not available Not available 04/30/2022 19520 3 RxNorm Not Available [facility] 3 16:31:41 09924 amoxicill in medicatio n Not available Not available Not available 04/30/2022 723 RxNorm Not Available [facility] 3 16:31:41 32433 metformin medicatio n Not available Not available Not available 10/28/2022 6809 RxNorm Diamond Lowe RN null, [place] [employer] [facility] 3 09:13:31 Medications Name Sig Start Date Stop Date Status Note LastModified by Organization Details LastModified Time BD Luer-Trav Syringe 3 mL 23 x 1 USE ONCE A WEEK ALONG WITH B12 active Not Available Not Available No t Available fluconazol e 100 mg tablet 10/28 completed Not Available Not Available Not Available clotrimazo le 10 mg beatriz DISSOLVE 1 LOZENGE BY MOUTH FIVE TIMES DAILY FOR 7 DAYS 10/28 completed Not Available Not Available Not Available neomycin-p olymyxin-h ydrocort 3.5 mg/mL-10,0 00 unit/mL-1 % ear solution APPLY 1 TO 2 DROPS TO AFFECTED NAIL ONCE DAILY active Not Available Not Available No t Available nystatin 100,000 unit/mL oral suspension RINSE AND SWISH WITH 5 ML FOR 3 MINUTES. USE FOUR TIMES PER DAY UNTIL GONE. 10/28 completed Not Available Not Available Not Available prednisone 10 mg tablet 10/28 completed Not Available Not Available Not Available doxycyclin e hyclate 100 mg capsule 11/28 completed Not Available Not Available Not Available albuterol sulfate 2.5 mg/3 mL (0.083 %) solution for nebulizati on USE 1 VIAL VIA NEBULIZE R EVERY 6 HOURS NEEDED active Not Available Not Available No t Available atorvastat in 10 mg tablet Take 1 tablet every day by oral route for 30 days. 06/01 completed Not Available Not Available Not Available Topamax 25 mg tablet Take 1 tablet twice a day by oral route. 04/27 completed taking one daily Not Available Not Available Not Available azithromyc in 250 mg tablet TK 2 TS PO ON DAY 1, THEN TK 1 T PO D FOR 4 DAYS 10/28 completed Not Available Not Available Not Available fluconazol e 150 mg tablet TAKE 1 TABLET BY MOUTH EVERY 72 HOURS 10/28 completed Not Available Not Available Not Available Synthroid 200 mcg tablet Take 1 tablet every day by oral route. 2022 active Not Available Not Available Not Avai lable albuterol sulfate 1.25 mg/3 mL solution for nebulizati on active Not Available Not Available Not Available hydrocodon e 5 mg-acetami nophen 325 mg tablet TAKE 1-2 TABLETS BY MOUTH EVERY 6 HOURS NEEDED FOR PAIN 10/28 completed Not Available Not Available Not Available Claritin 10 mg tablet Take 1 tablet every day by oral route as needed. 11/28 completed Not Available Not Available Not Available diltiazem CD 240 mg capsule,ex tended release 24 hr TAKE 1 CAPSULE BY MOUTH DAILY active Not Available Not Available No t Available metronidaz ole 0.75 % (37.5 mg/5 gram) vaginal gel INSERT ONE APPLICAT ORFUL VAGINALL Y ONCE DAILY AT BEDTIME FOR 5 DAYS active Not Available Not Available No t Available prednisone 20 mg tablet TAKE 1 TABLET BY MOUTH DAILY 10/28 completed Not Available Not Available Not Available valsartan 160 mg-hydroch lorothiazi de 12.5 mg tablet Take 1 tablet every day by oral route as directed for 90 days. 08/31 completed Not Available Not Available Not Available Maxalt 10 mg tablet Take 1 tablet by oral route. 12/19 completed Not Available Not Available Not Available phentermin e 15 mg capsule TAKE 1 CAPSULE BY MOUTH EVERY DAY IN THE MORNING 10/28 completed Not Available Not Available Not Available metronidaz ole 500 mg tablet TAKE 1 TABLET BY MOUTH EVERY 12 HOURS active Not Available Not Available No t Available phentermin e 37.5 mg tablet TAKE 1 TABLET BY MOUTH DAILY active Not Available Not Available No t Available amlodipine 5 mg tablet Take 1 tablet every day by oral route. 04/27 completed Not Available Not Available Not Available ciprofloxa jessica 500 mg tablet 11/28 completed Not Available Not Available Not Available sulfametho xazole 800 mg-trimeth oprim 160 mg tablet TAKE 1 TABLET BY MOUTH TWICE DAILY 10/28 completed Not Available Not Available Not Available Mobic 15 mg tablet Take 1 tablet every day by oral route as needed. 11/28 completed Not Available Not Available Not Available tamsulosin 0.4 mg capsule TAKE 1 CAPSULE BY MOUTH EVERY DAY 10/28 completed Not Available Not Available Not Available Synthroid 25 mcg tablet TAKE 1 TABLET BY MOUTH EVERY DAY IN THE MORNING 10/28 completed Not Available Not Available Not Available dexamethas one 1 mg tablet TAKE 1 TABLET BY MOUTH AT 10PM THE NIGHT BEFORE 8AM CORTISOL 10/28 completed Not Available Not Available Not Available phenazopyr idine 100 mg tablet 10/28 completed Not Available Not Available Not Available amlodipine 10 mg tablet Take 1 tablet every day by oral route. 03/04 completed Not Available Not Available Not Available benzonatat e 100 mg capsule TAKE 1 CAPSULE BY MOUTH THREE TIMES DAILY FOR 10 DAYS 10/28 completed Not Available Not Available Not Available hyoscyamin e 0.125 mg disintegra ting tablet DISSOLVE ONE TABLET BY MOUTH EVERY 6 HOURS NEEDED active Not Available Not Available No t Available cyanocobal martel (vit B-12) 1,000 mcg/mL injection solution INJECT 1 ML IN THE MUSCLE / UNDER THE SKIN WEEKLY active Not Available Not Available No t Available Topamax 25 mg sprinkle capsule Take 2 capsules twice a day by oral route. 12/19 completed Not Available Not Available Not Available Advair Diskus 250 mcg-50 mcg/dose powder for inhalation INHALE 1 PUFF BY MOUTH DAILY 10/28 completed Not Available Not Available Not Available Advair Diskus 500 mcg-50 mcg/dose powder for inhalation INHALE 1 PUFF BY MOUTH EVERY 12 HOURS active Not Available Not Available No t Available Synthroid 50 mcg tablet Take 1 tablet every day by oral route in the morning for 90 days. 2022 active Not Available Not Available Not Avai lable omeprazole 20 mg capsule,de layed release TAKE 1 CAPSULE BY MOUTH TWICE DAILY active Not Available Not Available No t Available furosemide 20 mg tablet Take 1 tablet every day by oral route. 10/28 completed Not Available Not Available Not Available ergocalcif noah (vitamin D2) 1,250 mcg (50,000 unit) capsule TAKE 1 CAPSULE BY MOUTH 1 TIME A WEEK active Not Available Not Available No t Available BD Tuberculin Syringe 1 mL 25 gauge x 5/8 USE EVERY WEEK FOR VITAMIN B12 SHOTS active Not Available Not Available No t Available levofloxac in 500 mg tablet 11/28 completed Not Available Not Available Not Available norethindr one (contracep tive) 0.35 mg tablet TAKE 1 TABLET BY MOUTH EVERY DAY IN THE MORNING 10/28 completed Not Available Not Available Not Available ondansetro n 4 mg disintegra ting tablet DISSOLVE 1 TABLET ON THE TONGUE EVERY 8 HOURS NEEDED FOR NAUSEA active Not Available Not Available No t Available metformin ER 500 mg tablet,ext ended release 24 hr TAKE 1 TABLET BY MOUTH DAILY 10/28 completed Not Available Not Available Not Available Ventolin HFA 90 mcg/actuat ion aerosol inhaler INHALE 2 PUFFS BY MOUTH EVERY 4 TO 6 HOURS NEEDED FOR SHORTNES S OF BREATH OR WHEEZING active Not Available Not Available No t Available tobramycin 0.3 %-dexameth asone 0.1 % eye drops,susp ension 11/28 completed Not Available Not Available Not Available valsartan 160 mg tablet Take 1 tablet every day by oral route. 03/04 completed Not Available Not Available Not Available olmesartan 20 mg tablet TAKE 1 TABLET BY MOUTH EVERY DAY active Not Available Not Available No t Available Synthroid 137 mcg tablet Take 1 tablet every day by oral route for 30 days. 08/31 completed Not Available Not Available Not Available cyclobenza simona 5 mg tablet TAKE 1 TO 2 TABLETS BY MOUTH AT BEDTIME 10/28 completed Not Available Not Available Not Available Crestor 10 mg tablet Take 1 tablet every day by oral route. 01/16 completed Not Available Not Available Not Available topiramate 50 mg tablet TAKE 1 TABLET BY MOUTH DAILY active Not Available Not Available No t Available tinidazole 500 mg tablet TAKE 2 TABLETS BY MOUTH DAILY WITH FOOD FOR 5 DAYS 10/28 completed Not Available Not Available Not Available nitrofuran toin monohydrat e/macrocry stals 100 mg capsule TAKE 1 CAPSULE BY MOUTH TWICE DAILY active Not Available Not Available No t Available Vitamin B12 once weekly injectio n 10/28 completed Not Available Not Available Not Available PreviDent 5000 Sensitive 1.1 %-5 % dental paste BRUSH GEL ON FOR 2 MINUTES 2 TO 3 TIMES DAILY active Not Available Not Available No t Available Exforge HCT 10 mg-160 mg-12.5 mg tablet Take 1 tablet every day by oral route for 30 days. 06/01 completed Not Available Not Available Not Available Intrinsi B16-Izvujf 500 mcg-20 mg-800 mcg tablet Take 1 tablet every day by oral route. 12/19 completed Not Available Not Available Not Available Vitamin D3 125 mcg (5,000 unit) tablet Take 1 tablet every day by oral route for 30 days. active Not Available Not Available No t Available Sarai Allergy as needed 2013 active Not Available Not Available Not Avai lable Eliquis 5 mg tablet active Not Available Not Available No t Available Eliquis 2.5 mg tablet Take 1 tablet twice a day by oral route. 10/28 completed Not Available Not Available Not Available Deplin (algal oil) 7.5 mg-90.314 mg capsule Take 1 capsule every day by oral route for 30 days. 12/19 completed Not Available Not Available Not Available Brintellix 5 mg tablet Take 1 tablet every day by oral route. 06/01 completed Not Available Not Available Not Available Giovanny BCise 2 mg/0.85 mL subcutaneo us auto-injec tor INJECT 2MG SUBCUTAN EOUSLY ONCE A WEEK 10/28 completed Not Available Not Available Not Available Ozempic 0.25 mg or 0.5 mg (2 mg/1.5 mL) subcutaneo us pen injector ADMINIST ER 0.5 MG UNDER THE SKIN WEEKLY 10/28 completed Not Available Not Available Not Available Rybelsus 3 mg tablet TAKE 1 TABLET BY MOUTH DAILY 10/28 completed Not Available Not Available Not Available Ozempic 1 mg/dose (4 mg/3 mL) subcutaneo us pen injector INJECT 1 MG UNDER THE SKIN WEEKLY 10/28 completed Not Available Not Available Not Available Vitals Date Recorded Body mass index (BMI) Body height Oxygen saturation Oxygen saturation in Arterial blood by Pulse oximetry Heart rate Body temperature Body weight Systolic blood pressure Diastolic blood pressure Provider Name and Address Organization Details Last Updated DateTime 3 80 kg/m2 165.1 cm 97 % 97 % 89 /min 97.9 [degF] 233434. 93 g 110 mm[Hg] 80 mm[Hg] Not Available [facility] 16:29:55 Date Recorded Body mass index (BMI) Body height Oxygen saturation Oxygen saturation in Arterial blood by Pulse oximetry Heart rate Respiratory rate Body temperature Body weight Systolic blood pressure Diastolic blood pressure Provider Name and Address Organization Details Last Updated DateTime 3 79.5 kg/m2 165.1 cm 97 % 97 % 104 /min 18 /min 97.8 [degF] 003141. 15 g 116 mm[Hg] 74 mm[Hg] Not Available [facility] 3 16:29:55 Date Recorded Body height Body mass index (BMI) Body weight Body temperature Respiratory rate Heart rate Systolic blood pressure Diastolic blood pressure Provider Name and Address Organization Details Last Updated DateTime 3 165.1 cm 79.1 kg/m2 362598. 09 g 97.8 [degF] 16 /min 87 /min 126 mm[Hg] 74 mm[Hg] Diamond Lowe RN [facility] 09:18:53 Social History Question Answer Notes LastModified by Organizat ion Details LastModified Time Tobacco Smoking Status Current Every Day Smoker Joselin Calhoun rai, [facility] 10/28/2022 09:05:01 What Is Your Level Of Caffeine Consumption? Moderate [id number] Information not available 04/30/2022 What Type Of Diet Are You Following? REGULAR [id number] Information not available 04/30/2022 What Is Your Relationship Status? Single [id number] Information not available 04/30/2022 At What Age Did You Start Smoking Tobacco? 20 Information not available 10/28/2022 How Much Tobacco Do You Smoke? 0.5 PPD [id number] Information not available 04/30/2022 How Many Years Have You Smoked Tobacco? 16 Information not available 10/28/2022 Do You Have Any Dietary Restrictions? Yes Allergic To Cherries/jonny ons Information not available 10/28/2022 Sex: Female Functional Status Question Answer Note LastModified by Organizat ion Details LastModified Time Do you or have you ever used any other forms of tobacco or nicotine? No Information not available 10/28/2022 What is your level of alcohol consumption? None [id number] Information not available 04/30/2022 What is your occupation? works at [employer] Information not available 10/28/2022 What is your exercise level? None [id number] Information not available 04/30/2022 Mental Status None recorded. Family History Relationship Description Onset Age of this Age Resolved Age Notes LastModified by Organization Details LastModified Time Maternal Grandfather Hypertensive disorder [id number] Not available 04/30/2022 16:29:33 Maternal Grandfather Asthma [id number] Not available 04/30/2022 16:29:33 Paternal Grandfather Hypertensive disorder [id number] Not available 04/30/2022 16:29:33 Father Hypertensive disorder [id number] Not available 04/30/2022 16:29:33 Father Diabetes mellitus [id number] Not available 04/30/2022 16:29:33 Paternal Grandmother Family history of stroke [email or web address] Not available 2022 09:05:00 Notes:Maternal & paternal gr andfather: thyroid issues Medical History Condition Response EYE PROBLEMS ARTHRITIS Y HEADACHES/MIGRAINES Y OBESITY Y BLOOD CLOTS Y HYPOTHYROIDISM Y KIDNEY DISEASE SKIN PROBLEMS LUNG DISEASE/DISORDER Y HEART ARRHYTHMIA HYPERTENSION Y Gynecological HistoryNo gynecological history recorded. Obstetrics History GPAL:G 0 P 0 0 0 0 Immunizations Vaccine Type Date Status Note Provider Nam e and Address Organization Details Recorded Time Influenza, high-dose, trivalent, PF 12/14/2013 completed Not Available [facility] 2022 16:31:39 Past Encounters Encounter ID Performer Location Encounter Start Date Encounter Closed Date Diagnosis/Indication Diagnosis SNOMED-CT Code Diagnosis ICD10 Code Diagnosis Note [id number] Joann Santamaria MD [facility] [place] [address] [place] [address] 03/04/2022 00:00:00 03/04/2022 21:55:06 [id number] Joann Santamaria MD [facility] [place] [address] [place] [address] 04/22/2022 00:00:00 04/22/2022 17:15:05 [id number] Joann Santamaria MD [facility] [place] [address] [place] [address] 10/28/2022 09:02:23 10/28/2022 10:08:26 Hypothyroidism 56451880 E03.9 FT4 low normal range with TSH of 18 uIU/ML likely from lag/antibo dies - will uptitrate synthroid to 250 mcg daily as goal FT4 up to 1.2 ng/dL She was reminded to take her synthroid on empty stomach with glass of water and wait one hour to eat or have her coffee in morning and up to 4 hours if ever taking any heartburn or reflux medication s to help optimize absorption . Discussed paleo like diet with restrictio n of GMOs to help with energy and to optimize absorption of vitamins and minerals and reduce inflammati on. Obesity 835567365 E66.9 She was not able to tolerate GLP1 agonist therapy- she is on phentermin e per bariatric surgery. Recommende d patient trial on [facility] program to meet protein intake demands and still maintain low caloric recommenda tions. Recommende d up to 120 grams of carbs a day split into 6 small 15-20 gram carb meals in addition to up to 120 grams of protein daily split into 15-20 grams for 5-6 smaller meals. The recommende d diet should be one of which she can incorporat e on a daily basis that will not modulate her lifestyle - discussed a diet of increased fiber; decreased refined carbohydra [place], trans fats, and saturated fats with focus on monounsatu rated fats such as unprocesse d chicken, turkey, nuts (excluding peanuts) and beans. Spent up to 25 minutes preparing to see the patient (eg, review of tests), obtaining and/or reviewing separately obtained history, performing a medically appropriat e examinatio n and evaluation , counseling and educating the patient, ordering medication s, tests, along with documentin g clinical informatio n in the electronic health record, independen tly interpreti ng results and communicat ing results to the patient. Patient can be followed by PCP - she/he is aware of my resignatio n and last day of December 12. If needed his/her PCP can refer patient to another endocrinol ogist in the area. All questions /concerns answered and refills necessary at visit today. Health Concerns Section Related Observation LastModified by Organization Detai ls LastModified Time None Recorded Concern Status LastModified by Organization Details LastModified Time None Recorded Advance Directives Directive None Recorded Payers Insurance Date Sequence Insurance Name Policy Number Policy Cruz Covered Member ID Cruz Member ID Guarantor Name 10/28/2022 1 [employer] [id number] Meghna Gary [id number] Meghna Gary Notes Date Note Type Note Provider Name and Address Organization Details Recorded Time 10/28/2022 text/html 36 yo female com es in for follow up in management of hypothyroidism, obesity. last seen in Apr at that time we continued lazaro-inositol and norethindrone. we continued synthroid 225 mcg daily. Her bariatric surgery clinic has her on ozempic but she has since stopped the ozempic due to gallstones and then trialed rybelsus but this made her extremely sick. She has seen Kristie Westbrook photographers' model at [facility] since April- since she is now in the program for weight loss surgery she has been on hold. 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 She has been on phentermine for the past 2 weeks. She has lost 16 pounds since early September. labs from 10/11/22:testosteron e 10 ng/dLTSH of 18.75 uIU/mlFT4 of 1.0 ng/dLFT3 of 2.1 pg/mLinsulin 36 uIU/mlCr 1.04 mg/dLLFT normalglucose 94 mg/dL Joann Santamaria MD [address] [facility] [address], [place], [address], [facility] 10/28/2022 10:35:11 OBGyn Episode No OBEpisode recorded."
--- OUTSIDE RECORDS SUMMARY | 2024-08-15 16:20 | XMS_ITS ---
Author Organization [facility] Address [address] [place] [id number] Care Team Providers Care Directory Compiler Name Role Phone Joann Santamaria Primary Care Provider REASON FOR VISIT 3 Month Follow-up Encounters Encounter Location Date Provider Diagnosis AMMO Dr. Santamaria [address] [place] [phone] 02/02/2024 Joann Santamaria Plan Of Treatment Next Appt Details Provider Name:Joann Santamaria, 03:00:00 PM, [address] [place] [address], [phone], Provider Name:Joann Santamaria, 09:20:00 AM, [address] [place] [address], [phone], Progress Notes * Miranda QURESHIOB: [birth year] (38 yo F)Acc No.[id number]:02/02/2024 Progress Notes Patient: Gurjit stevensonMeghna garcia Provider: Denise Santamaria MD :1985 A ge:38 Y S ex:Female Date:02/02/2024 Phone: Address:[address] [place], [place] [phone] Subjective: * Chief Complaints: * 3 Month Follow-up * Electronic signature of Jaya Santamaria MD on 08/15/2024 at 04:19 PM CDT Sign off status: Pending * Provider: Denise Santamaria MD Date: 04/04/2023 Generated for Printi ng/Faxing/eTransmitting on: 0 08/15/2024 04:19 PM CDT
--- OUTSIDE RECORDS SUMMARY | 2024-08-15 16:20 | XMS_ITS | Encounter Summary ---
Author Organization [facility] [employer] [facility] Address [address] [place] [address] Care Team Providers Care Furnace Roaster Name Role Phone Unavailable Primary Care Provider Unavailabl e Encounter Details Date Type Department Care Team ([facility] st Contact Info) Description 08/15/2024 2:45 PM CDT Office Visit [facility] Oncology and Hematology - [place] [address] [facility] [address] [place] [address] Miguel A Guzman MD [address] [facility] [address] [place] [address] Chronic anemia (Primary Dx) Social History Tobacco Use Types Packs/Day Years Used Date Smoking Tobacco: Every Day Cigarettes 0.5 11 Smokeless Tobacco: Never Tobacco Cessation:Ready to Q uit: Not Asked; Counseling Given: Not Answered Comments:using e-cigarette w/o nicotine Alcohol Use Standard Drinks/Week Comments No 0 (1 standard drink = 0.6 oz pur e alcohol) Feeling Safe Answer Date Recorded Are you in a relationship wi th someone who hurts you emotionally and/or physically? No 08/15/2024 Food Insecurity Answer Date Recorded Patient needs follow up regardin 07/26/2024 Transportation Needs Answer Date Record ed Patient needs follow up regardin 07/26/2024 Utility Needs Answer Date Recorded Patient needs follow up regardin 07/26/2024 Comments No Sex and Gender Information Value Date Recorded Sex Assigned at Not on file Legal Sex Female 10:13 AM CDT Gender Identity Not on file Sexual Orientation Not on file documented as of this encounter Last Filed Vital Signs Vital Sign Reading Time Taken Comments Blood Pressure 142/83 08/15/2024 2:36 PM CDT Pulse 77 08/15/2024 2:32 PM CDT Temperature 36.6 C (97.8 F) 08/15/2024 2:32 PM CDT Respiratory Rate 15 08/15/2024 2:32 PM CDT Oxygen Saturation 98% 08/15/2024 2:32 PM CDT Inhaled Oxygen Concentration - - Weight 221.5 kg (488 lb 6.4 oz) 08/15/2024 2:32 PM CDT Height - - Body Mass Index 76.49 08/15/2024 9:44 AM CDT documented in this encounter Plan of Treatment Upcoming Encounters Date Type Department Care Team (Late st Contact Info) Description 08/22/2024 3:[address] [facility]ic [facility] [address] [place] [address] Kristie Tellez, SANITARY AIDE [address] [facility] [place] [address] 08/24/2024 4:30 PM CDT Telephone Check Up [facility] Oncology and Hematology [place] [address] [address] [place] [phone] Miguel A Guzman MD [address] [place] [address] [place] [phone] 02/08/2025 1:00 PM TRANSITION MANAGER Office Visit [facility] Oncology and Hematology [facility] [address] [place] [phone] Miguel A Guzman MD [address] [place] [address] [place] [phone] Scheduled Orders Name Type Priority Associated Diagnoses Orde r Schedule CBC WITHOUT DIFFERENTIAL Lab Stat Chronic anemia Expected: 08/15/2024, Expires: 08/15/2025 BASIC METABOLIC PANEL Lab Stat Chronic anemia Expected: 08/15/2024, Expires: 08/15/2025 FERRITIN Lab Routine Chronic anemia Expected: 08/15/2024, Expires: 08/15/2025 IRON, TIBC, AND PERCENT SATURATION Lab Routine Chronic anemia Expected: 08/15/2024, Expires: 08/15/2025 VITAMIN B12 LEVEL Lab Routine Chronic anemia Expected: 08/15/2024, Expires: 08/15/2025 CBC WITH DIFFERENTIAL Lab Stat Chronic anemia Expected: 02/14/2025, Expires: 08/15/2025 BASIC METABOLIC PANEL Lab Stat Chronic anemia Expected: 02/14/2025, Expires: 08/15/2025 documented as of this encounter Visit Diagnoses Diagnosis Chronic anemia- Primary Anemia, unspecified documented in this encounter
--- OUTSIDE RECORDS SUMMARY | 2024-08-15 16:20 | XMS_ITS | Clinical Summary ---
Author Organization [facility] Address [address] [place] [address] Care Team Providers Care Belt Sander Name Role Phone Aviva Jaimes PA-C Primary Care Provider [phone] Source Comments [facility],non-owned Affiliates and Associated Physician Practices is amultiple site organization consisting of ambulatory clinics and hospital sitesin [place], [place], [place] and [place]. This disclosure is being madepursuant to the Care Everywhere program and may not contain all information available regarding this patient. Last updated 17.[facility] [place] Allergies Active Allergy Reactions Criticality Noted Date Comments Adhesive Sensitivity Rash Medium 10/27/2017 Amoxicillin Urticaria,Rash,Unknown Medium 09/28/2017 Cefixime Rash Medium 09/28/2017 Cephalexin Rash Medium 09/30/2017 Gamez Anaphylaxis,Unknown High 09/28/2017 Ciprofloxacin Nausea and/or Vomiti ng,GI Discomfort,Unknown,Other Medium 09/28/2017 Clindamycin Anaphylaxis,Swelling High 10/28/2017 Blythe Butter Rash,Other,Unknown Medium 09/30/2017 Doxycycline Unknown,Rash Medium 11/13/2022 Honeydew Other 10/27/2023 Latex Rash Medium 11/13/2022 Levofloxacin Rash,Unknown Medium 09/28/2017 Metformin Unknown,Other Low 11/13/2022 Tapentadol Rash Medium 10/27/2017 Medications * Be aware that medications may not be up to date on this document. Alwaysverify current medications with the patient. bumetanide (Bumex) 1 MG tablet Take 1 (one) tablet by mouth once daily 4 Active Airsupra 90-80 MCG/ACT AERO Inhale 2 puffs by mouth every 6 hours as needed 4 Active Cholecalcifero l 125 MCG (5000 UT) Take 1 (one) tablet by mouth once daily Active vitamin D, ergocalciferol , (Drisdol) 1.25 MG (46077 UT) capsule Take 1 (one) capsule by mouth every 7 days Active esomeprazole (NexIUM) 40 MG capsule Take 1 (one) capsule by mouth once daily 4 Active fexofenadine (Sarai Allergy) 180 MG tablet Take 1 (one) tablet by mouth once daily 4 Active Breo Ellipta 200-25 MCG/ACT inhaler Inhale 1 (one) puff by mouth once daily 4 Active Synthroid 300 MCG tablet Take 1 (one) tablet by mouth once daily 4 Active liothyronine (Cytomel) 5 MCG tablet Take 1 (one) tablet by mouth once daily 4 Active cyanocobalamin (Vitamin B-12) injection Inject 1,000 (one thousand) mcg subcutaneously every 7 days Active LORazepam (Ativan) 0.5 MG tablet Take 1 (one) tablet by mouth as needed 4 Active olmesartan (Benicar) 20 MG tablet Take 1 (one) tablet by mouth once daily 4 Active Nurtec 75 MG tablet Take 75 mg by mouth as directed 4 Active tamsulosin (Flomax) 0.4 MG capsule Take 1 (one) capsule by mouth once daily 4 Active ondansetron (Zofran) 4 MG tablet Take 1 (one) tablet by mouth every 8 hours as needed 4 Active terbinafine (LamISIL) 250 MG tablet Take 1 (one) tablet by mouth once daily 4 Active topiramate (Topamax) 25 MG tablet Take 1 (one) tablet by mouth once daily after breakfast 4 Active topiramate (Topamax) 50 MG tablet Take 1 (one) tablet by mouth once daily 4 Active varenicline (Chantix) 1 MG tablet Take 1 (one) tablet by mouth 2 times daily Active Berberine Chloride 500 MG CAPS Take 1,000 mg by mouth once daily 4 Active vitamin b-12 (Cyancobalamin ) 1000 MCG tablet cr Take 1,000 (one thousand) tablets by mouth once daily 4 Active meloxicam (Mobic) 15 MG tablet Take 1 (one) tablet by mouth once daily Active Cosentyx UnoReady 300 MG/2ML SOAJ pen Inject 300 (three hundred) mg subcutaneously every 28 days 4 Active folic acid (Folvite) 1 MG tablet Take 1 (one) tablet by mouth once daily 4 Active nitrofurantoin monohyd macro crystals (Macrobid) 100 MG capsule Take 1 (one) capsule by mouth as needed 4 Active nystatin (Mycostatin) 024121 UNIT/GM cream Apply to affected area 2 times daily 4 Active ondansetron, disintegrating , (Zofran ODT) 4 MG tablet Take 1 (one) tablet by mouth as needed 4 Active Mounjaro 2.5 MG/0.5ML injection Inject 2.5 (two and one-half) mg subcutaneously every 7 days 4 Active Mounjaro 5 MG/0.5ML injection Inject 5 (five) mg subcutaneously every 7 days 4 Active diphenhydrAMIN E (Benadryl) 25 MG tablet Take 1 (one) tablet by mouth 4 times daily as needed for Itching 30 tablet 4 Active Nebulizers (norin.tvos Aerosol Delivery System) [facility] Use 1 Each as directed 5 Active clotrimazole-b etamethasone (Lotrisone) 1-0.05 % cream Apply to affected area as directed 5 Active enoxaparin (Lovenox) 150 MG/ML injection Inject 1.5 mL subcutaneously every 12 hours 5 Active albuterol-ipra tropium (Duo-Neb) 0.5-2.5 (3) MG/3ML nebulizer solution Inhale 3 mL by mouth as directed 5 Active Magnesium Oxide -Mg Supplement 400 (240 Mg) MG Take 1 (one) tablet by mouth once daily 5 Active Rivaroxaban (Xarelto Starter Pack) 15 & 20 MG TBPK Take 20 mg by mouth as directed 5 Active traMADol (Ultram) 50 MG tablet Take 1 (one) tablet by mouth every 6 hours as needed pain 5 Active dilTIAZem coated beads 24hr (Cardizem CD) 180 MG capsule Take 1 (one) capsule by mouth once daily 5 Active fluconazole (Diflucan) 150 MG tablet Take 1 (one) tablet by mouth once daily 14 tablet 5 Active levoFLOXacin (Levaquin) 500 MG tablet Take 1 (one) tablet by mouth once daily 14 tablet 5 Active Encounters Date Type Department Care Team Description 07/14/2024 Travel 05/24/2024 8:15 AM CDT Office Visit [facility] - ENT [address] [place] [phone] Arjun Correa MD Hoarseness (Primary Dx); Chronic fungal laryngitis 05/24/2024 Travel from Last 3 Months Immunizations Immunization Administration Dates Next Due INFLUENZA VACCINE, HIGH-DOSE , QUADR. (FLUZONE HIGH-DOSE QUADRIVALENT; 65Y+), 0.7 ML (HD-IIV4) 12/14/2013 TDAP (7yrs+) 01/13/2019 Social History Tobacco Use Types Packs/Day Years Used Date Smoking Tobacco: Every Day Cigarettes Smokeless Tobacco: Never Tobacco Cessation:Ready to Q uit: Not Asked; Counseling Given: Not Answered Comments:Smoke half pack a day Alcohol Use Standard Drinks/Week Comments Never 0 (1 standard drink = 0.6 oz pur e alcohol) Comments Unknown Sex and Gender Information Value Date Recorded Sex Assigned at Not on file Legal Sex Female 2:07 PM CDT Gender Identity Not on file Sexual Orientation Not on file Last Filed Vital Signs Vital Sign Reading Time Taken Comments Blood Pressure 138/84 05/24/2024 8:14 AM CDT Pulse 106 05/24/2024 8:14 AM CDT Temperature - - Respiratory Rate - - Oxygen Saturation - - Inhaled Oxygen Concentration - - Weight 225.7 kg (497 lb 9.6 oz) 05/24/2024 8:14 AM CDT Height 170.2 cm (5' 7) 05/24/2024 8:14 AM CDT Body Mass Index 77.94 05/24/2024 8:14 AM CDT Plan of Treatment Upcoming Encounters Date Type Department Care Team (Late st Contact Info) Description 08/16/2024 1:45 PM CDT Office Visit [facility] - ENT [facility] [facility], [place] [address] Arjun Correa MD [facility] [place] [address] Health Maintenance Due Date Last Done Comments HIV SCREENING 12/20/2002 HEPATITIS C SCREENING 12/16/2005 HEPATITIS B VACCINE (1 of 3 - 19+ 3-dose series) 12/20/2006 PNEUMOCOCCAL VACCINE (1 of 2 - PCV) 12/20/2006 PAP SMEAR 12/20/2008 COVID-19 VACCINE (1 - 2023-2 5 season) 2023 DEPRESSION SCREENING 03/02/2024 INFLUENZA VACCINE (Season Ended) 2024 12/15/19 14 DTAP/TDAP/TD VACCINES (2 - T d or Tdap) 01/13/2029 01/13/2019 ZOSTER VACCINE (1 of 2) 12/20/2037 HIB VACCINE Aged Out No longer eligi ble based on patient's age to complete this topic HPV VACCINE Aged Out No longer eligi ble based on patient's age to complete this topic MENINGOCOCCAL (Group B) VACC INE SHARED DECISION-MAKING Aged Out No longer eligibl e based on patient's age to complete this topic MENINGOCOCCAL GROUPS A/C/Y/W VACCINE Aged Out No longer eligible b ased on patient's age to complete this topic Procedures Procedure Name Priority Date/Time Associated Diagnosis Comments MO LARYNGOSCOPY,FLEX FIBER,DIAGNOSTIC Routine 05/24/2024 9:26 AM CDT Hoarseness Chronic fungal laryngitis from Last 3 Months Results * MO LARYNGOSCOPY,FLEX FIBER,DIAGNOSTIC (05/24/2024 9:26 AM CDT) Narrative Arjun Correa MD - 05/24/2024 9:26 AM CDT Arjun Correa MD 05/24/2024 9:27 AM Procedure Note Endoscopy Type: Laryngoscopy without stroboscopy 05325 Endoscope: Flexible 4mm Scope Anesthesia: Lidocaine 2% [...] cricoid region, and the immediate subglottis. Findings: Right nasal cavity is clear no longer is or mucopurulent drainage in the middle meatal region on the right side. On the left side there is mucopurulence coming down in the posterior part of the middle meatal region and then draining into the nasopharynx. There is mild amount of mucopurulent drainage in the oropharynx. There is also on the postcricoid mucosa. Both vocal cords move normally. The white discoloration of the surface of vocal cord is dramatically improved and the immediate subglottis there is evidence of superficial fungal infection. The discolored mucus drainage in the supraglottis has resolved. Condition: Stable. Patient tolerated procedure well. Complications: None I was present for the entirety of the procedure. Arjun Correa MD PROCEDURE/MINOR SURGICAL ORD ERABLES Final Result from Last 3 Months Insurance [facility] Address: [facility] [id number] [place] [address] [facility] Address[facility] [id number] [place] [address] Care Teams Belt Sander Relationship Specialty Start Date End Date Aviva Jaimes PA-C [address] [place] [id number] PCP - General Physician Drawer Maker 10/27/23
--- OUTSIDE RECORDS SUMMARY | 2024-08-15 16:20 | XMS_ITS ---
Author Organization [facility] Address [address] [facility] [place] [address] Care Team Providers Care Middleware Engineer Name Role Phone Joann Santamaria Primary Care Provider REASON FOR VISIT 3 Month Follow-up Encounters Encounter Location Date Provider Diagnosis [facility] - Joann Santamaria [address] [place] [address] 02/02/2024 Joann Santamaria Plan Of Treatment No Information Progress Notes * Miranda QURESHIOB: [birth year] (38 yo F)Acc No.[id number]:02/02/2024 Progress Notes Patient: Gurjit SALMONIBISFLYNN Meghna Provider: Denise Santamaria MD :1985 A ge:38 Y S ex:Female Date:02/02/2024 Phone: Address:[address] [place], [place] [id number] Subjective: * Chief Complaints: * 1 . 3 Month Follow-up. * Medical History: Objective: * Vitals: Assessment: Plan: * Treatment: * Billing Information: * Visit Code: * Procedure Codes: * Electronic signature of Jaya Santamaria MD on 08/15/2024 at 04:20 PM CDT Sign off status: Pending * Provider: Denise Santamaria MD Date: 04/04/2023 Generated for Tato to/Shanti/Phyllisitting on: 0 08/15/2024 04:20 PM CDT
--- OUTSIDE RECORDS SUMMARY | 2024-08-15 16:20 | XMS_ITS ---
Author Organization [facility] Address [address] [place], [place] [id number] Care Team Providers Care On Site Soil Evaluator Name Role Phone VIJAYA FARIA Unavailable [phone] Aviva Jaimes Unavailable Unavailable Allergies Allergen (clinical drug ingredient) [...] Allergy Active REASON FOR VISIT The patient fell and developed a hematoma on her right leg with cellulitis. She was treated and just released from the hospital. She is doing to the wound clinic., Patient presents for at-risk foot care . The patient has painful toenails that cause difficulty with ambulation and shoegear. The onsetis gradual Medications Medication SIG (Take, Route, Frequency, Duration) Notes Start Date End Date Status Htvrpiff-Tamanvsku-GR 3.5-90580-8 Otic for 90 Days Active Advair Diskus 500-50 MCG/ACT Inhalation for 30 Days Active PreviDent 5000 Sensitive 1.1-5 % BRUSH GEL ON FOR 2 MINUTES 2 TO 3 TIMES DAILY Dental for 30 Days Active Vitamin D (Ergocalciferol) 1.25 MG (20746 UT) Oral for 84 Days Activ e Olmesartan Medoxomil 20 MG Oral for 90 Days Active Terbinafine HCl 250 MG 1 tablet Orally O nce a day for 42 days Active dilTIAZem HCl ER Coated Bead s 240 MG Oral for 90 Days Active Eliquis 5 MG Oral for 30 Days Active Meloxicam 15 MG 1 tablet Orally Once a day for 30 days Active Topiramate 50 MG Oral for 90 Days Active methylPREDNISolone 4 MG as directed Orally one pack Active methylPREDNISolone 4 MG as directed Orally one pack 024 Active Vital Signs Height 66 in 08/01/2024 Weight 350 lbs 08/01/2024 BMI 56.49 kg/m2 08/01/2024 Height-cm 167.64 cm 08/01/2024 Weight-kg 158.76 kg 08/01/2024 Encounters Encounter Location Date Provider Diagnosis [facility] [address] [place], [place] [id number] 08/01/2024 VIJAYA GIANA Tinea unguium B35.1 ; Pain in right toe(s) M79.674 ; Pain in left toe(s) M79.675 and Atherosclerosis of [place] arteries of extremities with intermittent claudication, bilateral legs I70.213 Assessments Encounter Date Diagnosis (ICD Code) Assessment Notes Treatment Notes Treatment Clinical Notes Section Notes 08/01/2024 Tinea unguium (ICD-10 - B35.1) FUNGAL TOENAILS: Discussed various treatment options for fungal toenails including debridement, topical antifungals, oral antifungals, toenail avulsion, or toenail matrixectomy. NAIL DEBRIDEMENT: Nails 1-5 Bilateral were debrided extensively with nail nippers and emery board, reducing length and girth to pink healthy tissue with any subungual debris and necrotic tissue removed 08/01/2024 Pain in right toe(s) (ICD-10 - M79.674) 08/01/2024 Pain in left toe(s) (ICD-10 - M79.675) 08/01/2024 Atherosclerosis of [place] arteries of extremities with intermittent claudication, bilateral legs (ICD-10 - I70.213) Plan Of Treatment Treatment Notes Assessment Notes Tinea unguium FUNGAL TOENAILS: Discussed various treatment options for fungal toenails including debridement, topical antifungals, oral antifungals, toenail avulsion, or toenail matrixectomy. NAIL DEBRIDEMENT: Nails 1-5 Bilateral were debrided extensively with nail nippers and emery board, reducing length and girth to pink healthy tissue with any subungual debris and necrotic tissue removed Next Appt Details Follow Up: 10-12 Weeks, Reas on: At Risk Foot care, sooner if problems arise Provider Name:VIJAYA FARIA, 02:00:00 PM, [address], [address], [id number], Progress Notes * JOSE QURESHIPEARLOB: [birth year] (38 yo F)Acc No.[id number]:08/01/2024 Patient: PAULINE ONEILL Provider: Belgica Faria DPM :1985 A ge:38 Y S ex:Female Date:08/01/2024 Address:[address] [place] [address] Subjective: * Chief Complaints: * 1 . The patient fell and developed a hematoma on her right leg with cellulitis. She was treated and just released from the hospital. She is doing to the wound clinic.. 2. Patient presents for at-risk foot care . The patient has painful toenails that cause difficulty with ambulation and shoegear. The onset is gradual. * HPI: H PI: General care P gilbert presents to the office for at risk foot care. Patient states that their nails are thickened, elongated and painful. Patient states that it is aggravated by shoe gear. Onset is gradual. Patient denies being diabetic. P atdorinda is taking prescription blood thinners. D ate last seen by Dr. Jaimes was June 2024 . I nitials LB. sample. * ROS: G eneral / Constitutional: Patient [...] confusion, difficulty speaking, dizziness. * Medical History: M edical History Verified. * Family History: F ather: PRN - [...] TO 3 TIMES DAILY Dental , Taking Dfgtrvtb-Rpsuajlbv-WS 3.5-02883-8 Solution Otic , Taking Vitamin D (Ergocalciferol) 1.25 MG (40534 UT) Capsule Oral , Taking methylPREDNISolone 4 [...] Onset Date 09/28/2017, Latex. Objective: * Vitals: W t:350lbs, Wt-k.76 kg, Ht: 66 in, Ht-cm: 167.64 cm, BMI:56.49Index, Body Surface Area: 2.72. * Examination: C onstitutional: Constitutional T he [...] refill: l ess than 3 seconds. Edema: S evere lymphedema bilateral. N eurologic: Gross sensation G ross [...] inea unguium - B35.1 (Primary) 2 . P ain in right toe(s) - M79.674? 3. P ain in left toe(s) - M79.675 4 . A therosclerosis of [place] arteries of extremities with intermittent claudication, bilateral legs - I70.213 Plan: * Treatment: * Immunizations: Immunization record has been reviewed and updated. * Follow Up: 1 0-12 Weeks (Reason: At Risk Foot care, sooner if problems arise) * Billing Information: * Visit Code: 30132 Office Visit, Est Pt., Level 3. * Procedure Codes: * Electronic signature of VIJAYA FARIA DPM on 08/15/2024 at 09:43 AM CDT Sign off status: Pending * Provider: Belgica Faria DPM Date: 0 08/01/2024 Generated for Tato to/Shanti/Shilpa on: 0 08/15/2024 09:43 AM CDT History and Physical Notes * HPI (History of Present Illness) Category Sub-Category Detail Notes Category Not es HPI General care Patient presents to the office for at risk foot care. Patient states that their nails are thickened, elongated and painful. Patient states that it is aggravated by shoe gear. Onset is gradual. Patient denies being diabetic. Patient is taking prescription blood thinners. Date last seen by Dr. Jaimes was June 2024 . Initials LB sample Examination Category Sub-Category Detail Notes Category Not es Dermatologic Skin findings: Skin is warm, dr barrie, supple with no breaks in the skin. Nail pathology: Nails 1 bilateral ar e elongated, thick, discolored, and dystrophic with subungual debris. They are painful to palpation. The toenails show clearing at their bases Neurologic Gross sensation Gross sensation is intact to light touch. Vascular Dorsalis pedis pulse: 2/4, bilateral Edema: Severe lymphedema bi lateral Capillary refill: less than 3 seconds Posterior [...]
--- OUTSIDE RECORDS SUMMARY | 2024-08-15 16:20 | XMS_ITS | Encounter Summary ---
Author Organization [facility] Address [address] [place] [address] Care Team Providers Care Cushion Stuffer Name Role Phone Unavailable Primary Care Provider Unavailabl e Encounter Details Date Type Department Care Team (Late st Contact Info) Description 08/15/2024 9:30 AM CDT Hospital Encounter [facility] and Wound Care [facility] [address] [place] [address] Kristie Tellez, SBA BUSINESS DEVELOPMENT OFFICER [address] [facility] [place] [address] Social History Tobacco Use Types Packs/Day Years [...] Sign Reading Time Taken Comments Blood Pressure 121/68 08/15/2024 9:44 AM CDT Pulse 74 08/15/2024 9:44 AM CDT Temperature 36.1 C (97 F) 08/15/2024 9:44 AM CDT Respiratory Rate 20 08/15/2024 9:44 AM CDT Oxygen Saturation - - Inhaled Oxygen Concentration - - Weight 218.2 kg (481 lb) 08/15/2024 9:44 AM CDT Height 170.2 cm (5' 7) 08/15/2024 9:44 AM CDT Body Mass Index 75.34 08/15/2024 9:44 AM CDT documented in this encounter Progress Notes * Kristie Johnston RN - 08/15/2024 10:00 AM CDT [facility] [address] [place] [address] Date: 08/15/2024 Patient Name: Pauline Qureshi Patient Date of : 1985 Patient Age: 38 y.o. Patient Sex: female This patient is being seen in our clinic today by YOVANA Mccray for evaluation and management of right leg wound(s)/ulcer(s). The patient's wound(s)/ulcer(s) were assessed and documented in the HOD flow sheet. Procedure for measuring wounds, photographing wounds, and what care to expect this visit explained to patient. DIABETIC FOOT EXAM Diabetic Foot Exam: N/A FALL RISK ASSESSMENT Fall Risk Assessment: Patient considered at risk for falls if they answer yes to any of the below questions: Does the patient have cognitive impairment? No Right now are you feeling weak, dizzy or lightheaded? No Normally do you walk with an assistive device? No Fall Risk Education: Fall risk education completed? Yes Fall risk interventions to be utilized: orient patient and caregiver to room / clinic area, ensure environment is free of clutter and spills, ensure chair or stretcher is in low position with wheels locked, assist patient with ambulation and transfers as needed, instruct patient and caregiver to ask for assistance when getting up. LIDOCAINE PROTOCOL I reviewed patient's current medications with them and noted any changes. Today I applied 10mL of Topical Lidocaine Gel to the right leg wound(s)/ulcer(s) per protocol. Wound Care Center Topical Lidocaine Protocol (Adult) [facility] ORDERS ARE ENTERED ???PER PROTOCOL?? Enter the protocol in the patient???s electronic health record using smartphrase: WCPLidocaineProtocol Medication Orders o Lidocaine Hydrochloride 4% Topical Solution - Apply topically to dressing sites that require a topical anesthetic prior to Negative pressure Wound Therapy dressing removal. Do not exceed more than a total of 3 mg/kg (0.075 mL/kg), maximum of 300 mg (7.5 mL). o Lidocaine Hydrochloride 2% Jelly - Apply to cotton gauze and place topically over wound site thatrequires topical anesthetic prior to wound debridement and/or wound care procedures. Do not exceed more than a total of 3 mg/kg (0.15 mL/kg), maximum of 300 mg (15 mL). Nursing may implement on all adult wound care center patients that require topical anesthesia for NPWT dressing changes and/or topical anesthesia prior to wound debridement and/or wound procedures (e.g., biopsy, incision and drainage, graft placement, etc.), excluding the following patients: o Patients with an allergy to local anesthetics of the amide type or to other components of the lidocaine hydrochloride topical solution or jelly o Patients that refuse topical anesthesia o Patients with insensate wounds Kristie Johnston RN, 08/15/2024 9:52 AM * Sofia Dao RN - 08/15/2024 10:00 AM CDT The following orders were completed by RN in clinic today per physicians orders: Orders Placed This Encounter Procedures APPLY DRESSING Location: Right Leg May use Lidocaine at home for pain control before your clean your wound Clean wound and surrounding skin with Vashe. Pat dry. Apply Triad cream to surrounding skin. Apply Santyl to wound/ulcer bed. Cover with saline moist gauze, ABD and secure with medipore tape Change dressing daily Bathing: It is necessary to keep wound dry while showering/bathing. Compression applied: Single layer Tubi polishing machine operator, 8 - 15 mmHG, to Bilateral legs. We highly recommend that you wear your VELCRO compression instead of the Tubigrip at home. Compression from the time you wake up until you go to bed and can elevate your legs OTHER RECOMMENDATIONS: 1) NUTRITION: Increase Protein in your diet. Protein assists with wound healing. Also we recommend that you take a Multi-Vitamin also with addition Vitamin C, Zinc and D3. Limit salt in your diet as well. Limit added salt, fast food, prepackaged foods, soda and alcohol. All will make you retain fluids and increase your swelling. Also, weight loss would be beneficial. We would be happy to put in areferral to the [facility] Weight and Wellness clinic and/or the Bariatric Clinic to talk about weight loss options for you. 2) ELEVATION: Elevate your legs as much as you can throughout the day. Do not sleep in a chair withyour legs down in a dependant position. 3) SMOKING: We would advise that you stop smoking. Nicotine causes constriction of all the arteriesin your body and will decrease blood flow and slow healing. 4) LYMPHEDEMA THERAPY/PUMPS: Continue to follow with Lymphedema Therapy and use your Lymphedema Pumps at home EVERY DAY FOR 1 HOUR once available 5) GRANT: We do recommend that you continue taking the Grant twice daily. When you need more, pick it up at the Pharmacy in our building AT COST (around $45 for a case) 6) SUPPLIES: We will send a order for the wound care care supplies. They will contact you if you have any out of pocket cost Sofia Dao RN * Aranza Magana RN - 08/15/2024 10:00 AM CDT Images from the original note were not included. [facility] [address] [place] [address] [facility] Wound Note Checklist Date: 08/15/2024 Patient Name: Pauline Qureshi Patient Date of : 1985 Patient Age: 38 y.o. Patient Sex: female Were wounds debrided? selective, excisional List the diagnosis codes for the wounds: ICD-10-CM Diagnosis Code L97.912 Non-pressure chronic ulcer of unspecified part of right lower leg with fat layer exposed Are the wounds full or partial thickness? Full thickness Current wound measurements, description and drainage: Wound 08/15/24 0947 1 Right leg (Active) Wound (WDL) WDL except 08/15/24943 Pictures Taken (Date) 08/15/24 08/15/24943 Wound Image 08/15/24943 Dressing Changed Date 08/15/24 08/15/24943 Dressing Appearance intact;moist drainage 08/15/24943 Drainage Characteristics/Odor serosanguineous 08/15/24943 Drainage Amount moderate 08/15/24943 Wound Base slough;granulating 08/15/24943 Periwound Area blanchable erythema 08/15/24943 Wound Edges attached 08/15/24943 Wound Length-cm. 10.7 cm. 08/15/24943 Wound Width-cm. 5.3 cm. 08/15/24943 Wound Depth-cm. 0.2 cm. 08/15/24943 Wound Surface Area (cm^2) 56.71 cm^2 08/15/24943 Wound Volume (cm^3) 11.34 cm. 08/15/24943 Wound Care: Cleansed w/ normal saline 08/15/24943 Wound Care: Interventions debrided 08/15/24943 Wound care supply current orders: Dressings can be substituted according to wound size Orders Placed This Encounter Procedures APPLY DRESSING Location: Right Leg May use Lidocaine at home for pain control before your clean your wound Clean wound and surrounding skin with Vashe. Pat dry. Apply Triad cream to surrounding skin. Apply Santyl to wound/ulcer bed. Cover with saline moist gauze, ABD and secure with medipore tape Change dressing daily Bathing: It is necessary to keep wound dry while showering/bathing. Compression applied: Single layer Tubi polishing machine operator, 8 - 15 mmHG, to Bilateral legs. We highly recommend that you wear your VELCRO compression instead of the Tubigrip at home. Compression from the time you wake up until you go to bed and can elevate your legs OTHER RECOMMENDATIONS: 1) NUTRITION: Increase Protein in your diet. Protein assists with wound healing. Also we recommend that you take a Multi-Vitamin also with addition Vitamin C, Zinc and D3. Limit salt in your diet as well. Limit added salt, fast food, prepackaged foods, soda and alcohol. All will make you retain fluids and increase your swelling. Also, weight loss would be beneficial. We would be happy to put in areferral to the [facility] Weight and Wellness clinic and/or the Bariatric Clinic to talk about weight loss options for you. 2) ELEVATION: Elevate your legs as much as you can throughout the day. Do not sleep in a chair withyour legs down in a dependant position. 3) SMOKING: We would advise that you stop smoking. Nicotine causes constriction of all the arteriesin your body and will decrease blood flow and slow healing. 4) LYMPHEDEMA THERAPY/PUMPS: Continue to follow with Lymphedema Therapy and use your Lymphedema Pumps at home EVERY DAY FOR 1 HOUR once available 5) GRANT: We do recommend that you continue taking the Grant twice daily. When you need more, pick it up at the Pharmacy in our building AT COST (around $45 for a case) 6) SUPPLIES: We will send a order for the wound care care supplies. They will contact you if you have any out of pocket cost Duration of the order: 30 days Last physician note: [facility] [address] [address] [facility] [address] Dept: [phone] Dept History & Physical Date: 08/15/2024 Patient Name: Pauline Qureshi Patient Date of : 1985 Patient Age: 38 y.o. Patient Sex: female Chief Complaint: Pauline Qureshi is a 38 y.o. female who is being seen at [facility] for evaluation and management. Today in clinic: Patient Observations: Patient reports she fell back in April and developed a hematoma. She states they drained the hematoma in june and wound was closed but opened. Patient cleans the wound with saline and dressing with hydrafera blue classic. She changes the dressing every 2 days. [facility] Wound Care New Patient Qnr 08/14/2024 12:49 PM CDT - Filed by Patient What is the reason for this visit? Wound If Wound, do you currently have one or more open wounds? Yes Where is the wound located? Right front leg below knee How long have you had an open wound? A little over a month When do you have symptoms? During all activities What relieves your symptoms? None Do you have any associated signs or symptoms? (Select all that apply.) Swelling; Itching; Stiffness Are you experiencing any pain? Yes Please describe your pain. (Select all that apply.) Aching; Burning; Throbbing; Pressure; Sharp; Variable Intensity; Stabbing; Shooting What is your pain severity? Moderate When do you experience pain? Intermittent Have you tested positive for osteomyelitis (bone infection)? No Have you had a weight change in the last 6 months? No Do you use salt in your diet? No Are you diabetic? No How many hours a day do you elevate your legs? 19 majority of my day is spent in bed or with my legs elevated What do you typically do for exercise or activity? None at the moment due to leg pain Is there well water where you live? No Have you ever had vascular (blood flow) studies done? No Are you taking anticoagulants? Yes Do you use E-cigarette or Vape? Former User Do you smoke tobacco? Every Day Do you have passive exposure? Current Do you use smokeless tobacco? Never History of Present Illness: Patient presents with past medical history of asthma, HTN, hypothyroidism, factor V Leiden deficiency, history of DVT (Xarelto) iron deficiency anemia, CKD, nicotine dependence, PCOS and morbid obesity. Presents today for evaluation and management of RLE ulceration that been present since she sustained a fall on 06/07/2024. Required hospitalization 07/12 -07/22 at OSH for cellulitis; developed right lower extremity leg pain required a second admission from 07/25-07/29 at [facility] for severe sepsis secondary to cellulitis; negative blood cultures. CT 07/26 negative for abscess. Most recent vascular study 07/26/2024 resolution of DVT, negative for DVT bilaterally. Most recent hemoglobin A1c 5.7 on 07/07/2024. 07/27/2024 albumin 3.4, total protein 6.7., Hemoglobin 9.6, WBCs 6.1. Normal magnesium and phosphorus. Previously following at outside wound center at [facility] in [place]. Currently cleansing the area with normal saline or dermal wound cleanser and applying Hydrofera Blue with ABD pad every other day. Currently working with lymphedema therapy. However, they will not compress the right lower extremity due to the open ulceration. They are currently working on getting her lymphedemapumps. Has Velcro compression garment at home that she can wear to the right lower extremity but has had difficulty tolerating it due to pain. Has completed all antibiotic therapy. Most recently received IM Rocephin 1000 mg for 3 days and 500 mg for 2 days at her PCP office. Has not followed with infectious disease. Currently following with Dr. Grady with [facility] oncology/hematology for factor V Leiden deficiency-on Xarelto. On Grant for nutritional support. Denies fevers, chills or systemic/cellulitic signs and symptoms of infection today. PATIENT HISTORY Past Medical History Past Medical History: Diagnosis Date Asthma HTN (hypertension) Kidney stones Migraines Thyroid disease hypothyroidism Past Surgical History No past surgical history on file. Medications Ordered Prior to Encounter Current Outpatient Medications on File Prior to Encounter Medication Sig Dispense Refill HYDROcodone-acetaminophen (NORCO) 5-325 mg tablet Take 1 Tablet by mouth every 6 hours as needed for Pain. Max Daily Amount: 4 Tablets 16 Tablet 0 fluconazole (DIFLUCAN) 150 mg tablet Take 1 Tablet (150 mg) by mouth 1 time daily as needed for Other (See Comment) (vaginal yeast infection). 1 Tablet 1 baclofen (LIORESAL) 10 mg tablet Take 10 mg by mouth 3 times daily as needed for Pain. ferrous sulfate 325 mg (65 mg iron) tablet Take 325 mg by mouth daily. pregabalin (LYRICA) 50 mg Capsule Take 50 mg by mouth every 12 hours. albuterol-budesonide (Airsupra) 90-80 mcg/actuation HFA Aerosol Inhaler Take 2 Puffs by inhalation every 6 hours as needed. fluticasone furoate-vilanteroL (Breo Ellipta) 200-25 mcg/dose Disk with Device Take 1 Puff by inhalation daily. [Paused] bumetanide (BUMEX) 1 mg tablet Take 1 mg by mouth daily. carvediloL (COREG) 6.25 mg tablet Take 6.25 mg by mouth 2 times daily with meals. Cranberry 500 mg Capsule Take 1 Tablet by mouth daily. cyanocobalamin (VITAMIN B-12) 500 mcg tablet Take 500 mcg by mouth daily. cyanocobalamin, vitamin B-12, 1,000 mcg/mL Kit 1 Dose by Injection route every 7 days. folic acid (FOLVITE) 1 mg tablet Take 1 mg by mouth daily. ESOMEPRAZOLE MAGNESIUM ORAL Take 40 mg by mouth daily. ipratropium-albuteroL (DUONEB) 0.5 mg-3 mg(2.5 mg base)/3 mL Solution for Nebulization Take 3 mL byinhalation every 6 hours as needed for Shortness of Breath. liothyronine (CYTOMEL) 5 mcg Tablet Take 5 mcg by mouth daily. MAGNESIUM OXIDE ORAL Take 400 mg by mouth daily. rimegepant (Nurtec ODT) 75 mg Tablet, Rapid Dissolve Take 75 mg by mouth every other day. ondansetron (ZOFRAN) 4 mg Tablet Take 4 mg by mouth every 8 hours as needed for Nausea/Emesis. ubrogepant (Ubrelvy) 50 mg tablet Take 50 mg by mouth 2 times daily as needed (headache). rivaroxaban (Xarelto) 20 mg Tablet Take 1 Tablet (20 mg) by mouth daily with supper. 30 Tablet 2 tamsulosin (FLOMAX) 0.4 mg capsule 0.4 mg daily. secukinumab (Cosentyx Pen, 2 Pens,) 150 mg/mL Pen Injector Inject 300 mg by subcutaneous injection every 30 days. varenicline (CHANTIX) 1 mg Tablet Take 1 mg by mouth 2 times daily. fexofenadine (GIORGI) 180 mg tablet Take 180 mg by mouth daily. levothyroxine 200 mcg tablet Take 300 mcg by mouth daily in the morning. topiramate (TOPAMAX) 50 mg tablet Take by mouth 2 times daily. 25 mg in the morning 50 mg nightly ergocalciferol (VITAMIN D2) 50,000 unit capsule Take 50,000 Units by mouth every 7 days. cholecalciferol, Vitamin D3, (VITAMIN D3) 2,000 unit Tablet Take 2,000 Units by mouth daily. COLLAGENASE CLOSTRIDIUM HISTO. TOPICAL Apply 1 Application to affected area daily. olmesartan (BENICAR) 20 mg tablet Take 20 mg by mouth daily at bedtime. No current facility-administered medications on file prior to encounter. Allergies Allergies Allergen Reactions Clindamycin Swelling Throat swells Tapentadol Rash Amoxicillin Unknown Cefixime Unknown Cephalexin Unknown Gamez Unknown Ciprofloxacin Unknown [place] Butter Unknown Levofloxacin Unknown Adhesive Rash Social History Tobacco Use Smoking status: Every Day Current packs/day: 0.50 Average packs/day: 0.5 packs/day for 11.0 years (5.5 ttl pk-yrs) Types: Cigarettes Smokeless tobacco: Never Tobacco comments: using e-cigarette w/o nicotine Substance Use Topics Alcohol use: No Family History No family history on file. SUBJECTIVE Review of Systems: Ten point review of systems was done. Pertinent positives and negatives are as follows. History from Patient General negative for chills, fevers, fatigue Eyes, ear, nose and throat negative for nasal congestion, drainage or bleeding, sore throat, dysphagia or ear pain Cardiovascular negative for chest pain or dyspnea on exertion Respiratory negative for cough, shortness of breath, or wheezing GI negative nausea, vomiting, diarrhea abdominal pain, change in bowel habits, or black or bloody stools, no incontinence negative for dysuria, trouble voiding, or hematuria, no incontinence Musculoskeletal negative for back pain, neck pain or joint pain or swelling Neurology negative for TIA or stroke symptoms Hematologic and lymphatic negative for swollen glands or abnormal bleeding, + lymphedema Dermatology positive for open wound / ulcer ASSESSMENT Physical Exam: Vitals: 08/15/24 0944 BP: 121/68 Pulse: 74 Resp: 20 Temp: 97 ??F (36.1 ??C) Blood Glucose Checked: No (no diabetic) Blood Glucose during today's visit: No results found for this visit on 08/15/24. Ht Readings from Last 3 Encounters: 08/15/24 5' 7 (1.702 m) 07/25/24 5' 7 (1.702 m) 06/07/24 5' 7 (1.702 m) Wt Readings from Last 3 Encounters: 08/15/24 (!) 218.2 kg (481 lb) 07/26/24 (!) 218.4 kg (481 lb 6.4 oz) 06/07/24 (!) 225.9 kg (498 lb) BMI Readings from Last 3 Encounters: 08/15/24 75.34 kg/m?? 07/26/24 75.40 kg/m?? 06/07/24 78.00 kg/m?? Pain Assessment: Pain Scales: Pain Assessment/Number Scale (0-10) Presence of Pain: complains of pain/discomfort Location: Orientation: Right: Location: leg Pain Rating: Rest: 4 Pain Rating: Activity: 8 Acceptable Comfort Level: Rest: 0 Acceptable Comfort Level: Activity: 0 Description: Frequency: intermittent Factors that Relieve Pain: medications Appearance and mood: oriented to time, place and person, mood and affect are within normal limits, pt is a good historian; no memory problems were noted General: clean, well groomed Head: NCAT Eyes: anicteric Cardiovascular: regular rate and rhythm Respirations: normal effort Extremities: No clubbing, or cyanosis; warm, well perfused Skin Exam: RLE: ulceration(s) present , edema, lymphedema, chronic lymphatic skin changes, pigmentation changes, ulcer with slough/heavy bioburden/nonviable tissue, minimal budding granular tissue, without surrounding erythema/warmth or malodor, and see wound assessment LLE: lymphedema Pulses: DP palpable bilaterally; toes pink/warm Complicating Factors: dyslipidemia, obesity, venous insufficiency, edema, infection, and nicotine dependence RESULTS REVIEW Labs: Results personally reviewed Lab Results Component Value Date/Time WBC 6.1 07/27/2024 04:48 AM HGB 9.6 (L) 07/27/2024 04:48 AM HCT 31.6 (L) 07/27/2024 04:48 AM PLT 467 (H) 07/27/2024 04:48 AM MCV 90.8 07/27/2024 04:48 AM ALT 16 07/27/2024 04:48 AM AST 14 07/27/2024 04:48 AM NA 131 (L) 07/29/2024 04:41 AM K 3.8 07/29/2024 04:41 AM CL 101 07/29/2024 04:41 AM CO2 20 (L) 07/29/2024 04:41 AM CREAT 1.26 (H) 07/29/2024 04:41 AM CREATPOC 1.20 (H) 06/07/2024 11:46 PM BUN 28 (H) 07/29/2024 04:41 AM TSH 1.08 07/25/2024 04:57 PM No results found for: HGBA1C, [id number] Cultures: Results personally reviewed No results found for: ANAERC No results found for: AERCULT Path: Results personally reviewed No results found for this or any previous visit. Imaging Studies: Results personally reviewed Results for orders placed during the hospital encounter of 06/07/24 XR CHEST PA AND LATERAL 2 VW Narrative CHEST, 2 VIEWS DATE: 06/07/2024 11:09 PM HISTORY: Chest Pain, Comment: fall, sternal pain. See Reason for Exam COMPARISON: No relevant prior studies are available. FINDINGS: Frontal and lateral views of the chest are submitted. Impression : Lungs are clear. Degenerative changes are present in the spine. Heart size is normal. No pneumothorax or effusion. DICTATION LOCATION: Location 1 - [facility] Results for orders placed during the hospital encounter of 07/25/24 CT LOW EXT W CONTRAST RIGHT Impression : 1. Extensive soft tissue edema of the right lower leg which could represent cellulitis given the concern for infection. 2. Popliteal Mora's cyst. Otherwise no evidence of abscess or soft tissue air. 3. No acute osseous or joint space abnormality. DICTATION LOCATION: Location 4 No results found for this or any previous visit. No results found for this or any previous visit. Results for orders placed or performed during the hospital encounter of 07/25/24 US VENOUS DOPPLER LEG BILATERAL Narrative [place] [address] [place] [address] [email or web address] Venous Exam Complete Lower Extremity Duplex Patient: Pauline Qureshi Study ID: [id number] Gender: F : 1985 Age: 38 Race: [facility] Height 170.2cm Study Date: 07/26/2024 Weight: 218.4kg Access. #: [id number] *Referring Physician:Elba Mendez Maria *Ordering Physician:Elba MendezTraveling Engineer:Enma Soto Indications: DVT per ordering by provider. History: PMH: No prior study is available for comparison. Study data: New node Study status: Routine. Procedure: A vascular evaluation was performed. Image quality was fair. The study was technically limited due to body habitus and edema. Complete lower extremity venous duplex evaluation. Doppler flow study including spectral analysis, color and munroe scale imaging. Birthdate: Patient birthdate: 1985. Age: Patient is 38year(s) old. Sex: gender: female. Height: 170.2cm. 67in. Weight: 218.4kg. : 481.4lb. Body mass index: BMI: 75.4kg/m^2. Body surface area: BSA: 3.37m^2. Study date: Study date: 07/26/2024. Study time: 09:44 AM. Location: Vascular laboratory. Patient status: Inpatient. Impressions - Study data: No prior study is available for comparison. - Procedure narrative: A vascular evaluation was performed. Image quality was fair. The study was technically limited due to body habitus and edema. 1. No evidence of deep vein thrombosis involving the bilateral lower extremities. 2. Calf veins not well visualized. Isolated calf clot cannot absolutely be ruled out. Tables: Venous flow: + + + + + !Location !Overall !Flow properties !Comments ! + + + + + !Right common femoral!Patent !Phasic; spontaneous; ! ! !- ! !normal augmentation; ! ! ! ! !compressible; no reflux ! ! + + + + + !Right femoral - !Patent !Compressible ! ! + + + + + !Right profunda !Patent !Compressible ! ! !femoral - ! ! ! ! + + + + + !Right popliteal - !Patent !Phasic; spontaneous; ! ! ! ! !normal augmentation; ! ! ! ! !compressible; no reflux ! ! + + + + + !Right posterior !Patent !Compressible ! ! !tibial - ! ! ! ! + + + + + !Right peroneal - !Not visualized! !Not visualized.! + + + + + !Left common femoral !Patent !Phasic; spontaneous; ! ! !- ! !normal augmentation; ! ! ! ! !compressible; no reflux ! ! + + + + + !Left femoral - !Patent !Compressible ! ! + + + + + !Left profunda !Patent !Compressible ! ! !femoral - ! ! ! ! + + + + + !Left popliteal - !Patent !Phasic; spontaneous; ! ! ! ! !normal augmentation; ! ! ! ! !compressible; no reflux ! ! + + + + + !Left posterior !Patent !Compressible ! ! !tibial - ! ! ! ! + + + + + !Left peroneal - !Not visualized! !Not visualized.! 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 Underlying Causes: Edema, Smoking, Obesity, and Trauma Ulcer Description and measurements: See Epic Flowsheet information below. Ulcer status is: Stable/NEW Procedures completed: Debridement completed on this wound / ulcer in clinic today. Lidocaine jelly 2% topical was applied to the area prior to procedure. Time out completed prior to procedure. Correct patient verified by name and date of . Correct location verified, procedure discussed and consent signed by patient, witnessing nurse and provider. Type of Debridement completed was selective, excisional. Fat layer exposed visible prior to debridement. Debridement of devitalized tissue, debris, biofilm, non-viable tissue, and slough into skin, subcutaneous using a curette exposing fresh bleeding tissue and viable tissue. After completion of the procedure the post debridement measurements are 10.7cm X 5.4cm X 0.4cm. Total surface area debrided was 56 cm2. Fat layer exposed visible post debridement. Wound/Ulcer debrided to the skin, subcutaneous tissue level. Hemostasis achieved by pressure. Patient tolerated the procedure well. They will watch for any signs of infection including redn ess, change in drainage, pain, fever, chills and exposure of deeper structures or any questions andcontact the office or be seen in the ER. POST: Near infrared spectroscopy was utilized by this provider to clinically assess micro-circulation, oxygenation, and perfusion to wound and ricco-wound due to the presence of chronic non-healing wound athigh risk for deterioration. The area of concern was prepped and protected in the standard manner. Using the near infrared spectroscopy imaging device, the wound and surrounding tissue were scanned and visually assessed according to the biomedical specialist???s recommendations and specifications. Digital images were recorded and stored per protocol and the images were then evaluated. Tissue perfusion wasthen assessed based on the oxyhemoglobin measurements. The procedure was tolerated well. The results of the procedure and clinical interpretation of the images were discussed with the patient. We will continue to monitor with reassessment every 4 weeks pending progression of improvement on a healing trajectory. [facility] Wound Flowsheet information: Wound 08/15/24946 1 Right leg (Active) Wound (WDL) WDL except 08/15/24943 Pictures Taken (Date) 08/15/24 08/15/24943 Wound Image 08/15/24943 Dressing Changed Date 08/15/24 08/15/24943 Dressing Appearance intact;moist drainage 08/15/24943 Drainage Characteristics/Odor serosanguineous 08/15/24943 Drainage Amount moderate 08/15/24943 Wound Base slough;granulating 08/15/24943 Periwound Area blanchable erythema 08/15/24943 Wound Edges attached 08/15/24943 Wound Length-cm. 10.7 cm. 08/15/24943 Wound Width-cm. 5.3 cm. 08/15/24943 Wound Depth-cm. 0.2 cm. 08/15/24943 Wound Surface Area (cm^2) 56.71 cm^2 08/15/24943 Wound Volume (cm^3) 11.34 cm. 08/15/24943 Wound Care: Cleansed w/ normal saline 08/15/24943 Wound Care: Interventions debrided 08/15/24943 [facility] Flowsheet Extremity Measurements: Measurements Circumference Measurements: Yes Rt Calf Circumference (cm): 77.5 cm Left Calf Circumference (cm): 60 cm Rt. Ankle Circumference (cm): 35.4 cm Left Ankle Circumference (cm): 31 cm Rt. Instep Circumference (cm): 27.8 cm Left Instep Circumference (cm): 25.5 cm [facility] Flowsheet Neurovascular Assessment: Neurovascular Assessment LLE - Temperature: warm LLE - Color: pink RLE - Temperature: cool RLE - Color: pink Dorsalis Pedis Pulse Dorsalis Pedis Pulse Left: palpation Dorsalis Pedis Pulse Right: palpation Posterior Tibial Pulse Posterior Tibal Pulse Left: palpation Posterior Tibal Pulse Right: palpation PLAN OF CARE Today in the wound center I prescribed the following treatments: Orders Placed This Encounter Procedures APPLY DRESSING Location: Right Leg May use Lidocaine at home for pain control before your clean your wound Clean wound and surrounding skin with Vashe. Pat dry. Apply Triad cream to surrounding skin. Apply Santyl to wound/ulcer bed. Cover with saline moist gauze, ABD and secure with medipore tape Change dressing daily Bathing: It is necessary to keep wound dry while showering/bathing. Compression applied: Single layer Tubi polishing machine operator, 8 - 15 mmHG, to Bilateral legs. We highly recommend that you wear your VELCRO compression instead of the Tubigrip at home. Compression from the time you wake up until you go to bed and can elevate your legs OTHER RECOMMENDATIONS: 1) NUTRITION: Increase Protein in your diet. Protein assists with wound healing. Also we recommend that you take a Multi-Vitamin also with addition Vitamin C, Zinc and D3. Limit salt in your diet as well. Limit added salt, fast food, prepackaged foods, soda and alcohol. All will make you retain fluids and increase your swelling. Also, weight loss would be beneficial. We would be happy to put in areferral to the [facility] Weight and Wellness clinic and/or the Bariatric Clinic to talk about weight loss options for you. 2) ELEVATION: Elevate your legs as much as you can throughout the day. Do not sleep in a chair withyour legs down in a dependant position. 3) SMOKING: We would advise that you stop smoking. Nicotine causes constriction of all the arteriesin your body and will decrease blood flow and slow healing. 4) LYMPHEDEMA THERAPY/PUMPS: Continue to follow with Lymphedema Therapy and use your Lymphedema Pumps at home EVERY DAY FOR 1 HOUR once available 5) GRANT: We do recommend that you continue taking the Grant twice daily. When you need more, pick it up at the Pharmacy in our building AT COST (around $45 for a case) 6) SUPPLIES: We will send a order for the wound care care supplies. They will contact you if you have any out of pocket cost Indications for dressing choice: ABD pad - A highly absorbent, multilayer, soft, non-woven moisture barriers. All edges are sealed. Gauze - This dressing is used for general cleaning, dressings, prepping, packing and debriding wounds. Today in the wound center the following studies, labs and/or referrals were ordered: Orders Placed This Encounter APPLY DRESSING lidocaine 2% jelly 10 mL collagenase (SANTYL) 250 unit/gram Ointment collagenase (SANTYL) topical ointment lidocaine (lidocaine viscous 2%) 2 % Solution Today in the wound center we addressed the following issues: Infection and reduction of bacterial load by Dressing choice Compression/Edema Management by elevation and applying Single layer Tubi polishing machine operator, 8 - 15 mmHG, to Right leg. Pressure relief and offloading by: Avoid pressure points Promoted nutritional support by: Encourage healthy diet, Encourage protein intake, Encourage vitamin supplement, and Grant supplement Blood Glucose control: N/A Vascular status by: adequate on physical exam, if fails to improve will order non-invasive studies Tobacco use by: Discussed current use, advised patient on negative impact of smoking on wound healing, offered support Alcohol use by: N/A Patient is to return to clinic for follow up care: in 1 week, or sooner if concerns arise. If concerns arise outside of wound clinic hours or you are unable to be seen please contact your primary care physician or proceed to ED/urgent care for evaluation. Short Term Goals: Optimize wound healing through: Adequate wound bed preparation and eradication of slough / bioburden and infection control. Edema control and stabilization via compression, adequate diuresis and avoiding dependent edema. Adequate offloading to alleviate pressure. Optimized nutritional status and blood glucose levels Optimized vascular status Fpc Goals: Complete wound closure within 4-12 weeks of initial visit. Maintained edema control and stabilization after wound closure to prevent wound recurrence. This medical record reflects the history of present illness as obtained by myself in discussion with the patient. Care during the described time interval was provided by me. I have personally examined the patient, have reviewed this patient's available data, including medical history, events of note, physical examination and test results, and have overseen the activities of other members of the care team under my direct supervision. On the day of this visit I spent 60 minutes providing care to this patient including Preparing to see the patient, Examining the patient with two-way synchronous audio & visual technology, Coordinating with bedside members of the care team, Counseling and educating the patient/family/caregiver,Ordering medications, tests or procedures, Documenting clinical information in the medical record, Independently interpreting results and communicating results to the patient/family/caregiver (not separately reported), Care coordination (not separately reported), and Excluding time spent performingseparately billed procedures and/or services Electronically signed: YOVANA Pretty, 08/15/2024 11:04 AM CC: Lester Keating MD This note was transcribed using [employer] computerized voice recognition without a human luster applicator. This report may or may not have been adjusted for typographical, grammaticaland syntax errors. 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 provider found Primary Care Lester Keating MD Admitting YOVANA Pretty Admission Source Home/Self [1] Attending Kristie Tellez FNP FYI PATIENT CONTACTS Name Home Phone Work Phone Mobile Phone Relationship Lgl Romainechavez SOFIA QURESHI [phone] Mother GUARANTOR Guarantor: PAULINE QURESHI Date of 1985 Sex Female Address: [address] [place] [address] Rel to Pt Self Work Employer [employer] INSURANCE Payer/Plan Subscriber Name Rel Member # Group # [employer]* PAULINE QURESHI* Self [id number] August 15, 2024 documented in this encounter Plan of Treatment Upcoming Encounters Date Type Department Care Team (Late st Contact Info) Description 08/22/2024 3:00 PM CDT Appointment [facility] Hyperbaric and Wound Care [facility] [address] [place] [phone] Kristie Tellez, SBA BUSINESS DEVELOPMENT OFFICER [address] [facility] 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 REMOVER Office Visit [facility] Oncology and Hematology [facility] [address] [place] [phone] [place] [address] [place] [address] [place] [phone] documented as of this encounter Visit Diagnoses Not on filedocumented in this encounter Administered Medications Inactive Administered Medications - up to 3 most recent administrations Medication Order MAR Action Action Date Dose Rate Site collagenase (SANTYL) topical ointment Topical, ONE TIME ONLY, 1 dose, On Thu08/15/24 at 1030, Routine Given 08/15/2024 10:37 AM CDT 5 Grams Leg , Right lidocaine 2% jelly 10 mL 10 mL, Topical, ONE TIME ONLY, 1 dose, On Thu08/15/24 at 1000, Routine Given 08/15/2024 9:50 AM CDT 10 mL Leg, Right documented in this encounter
--- OUTSIDE RECORDS SUMMARY | 2024-08-15 16:21 | XMS_ITS | Patient Health Record ---
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 Name Role Phone Joann Santamaria Primary Care Provider [phone] Migration, Provider Unavailable Unavailable Allergies Allergen (clinical drug ingredient) Drug/Non Drug Allergy documented on EMR Reaction Allergy Type Onset Date Status amoxicillin Amoxicillin Unknown Drug Allergy Act [place] Results Component Value Reference Range Notes COMPREHENSIVE METABOLIC PANE L Reviewed date:10/29/2023 06:14:19 PM Interpretation: Performing Lab:[facility], [place], [address] Marisol Roberts MD Notes/Report: FASTING:YES FASTING: YES T3, FREE Reviewed date:10/29/2023 06:16:43 PM Interpretation: Performing Lab:[facility], [place], [address] Marisol Roberts MD Notes/Report: FASTING:YES FASTING: YES CBC (INCLUDES DIFF/PLT) Reviewed date:10/29/2023 06:14:31 PM Interpretation: Performing Lab:[facility], [place], [address] Marisol Roberts MD Notes/Report: FASTING:YES FASTING: YES LIPID PANEL Reviewed date:10/29/2023 06:14:39 PM Interpretation: Performing Lab:[facility], [place], [address] Marisol Roberts MD Notes/Report: FASTING:YES FASTING: YES T4, FREE Reviewed date:10/29/2023 06:14:01 PM Interpretation: Performing Lab:[place], [facility], [address], [place], [address] Marisol Roberts MD Notes/Report: FASTING:YES FASTING: YES TSH Reviewed date:10/29/2023 06:13:54 PM Interpretation: Performing Lab:[facility], [address], [place], [address] Marisol Roberts MD Notes/Report: FASTING:YES FASTING: YES VITAMIN B12 Reviewed date:10/29/2023 06:16:53 PM Interpretation: Performing Lab:[facility], [address], [place], [address] Marisol Roberts MD Notes/Report: FASTING:YES FASTING: YES COMPREHENSIVE METABOLIC PANE L Reviewed date:01/29/2024 11:58:10 AM Interpretation: Performing Lab:[facility], [address], [place], [address] Marisol Roberts MD Notes/Report: FASTING:YES FASTING: YES VITAMIN D, 25-HYDROXY, LC/MS /MS Reviewed date:01/30/2024 01:55:30 PM Interpretation: Performing Lab:[facility], [address], [place], [address] Marisol Roberts MD Notes/Report: FASTING:YES FASTING: YES T3, FREE Reviewed date:01/30/2024 01:55:45 PM Interpretation: Performing Lab:[facility], [address], [place], [address] Marisol Roberts MD Notes/Report: FASTING:YES FASTING: YES HEMOGLOBIN A1c Reviewed date:01/30/2024 01:55:13 PM Interpretation: Performing Lab:[facility], [address], [place], [address] Marisol Roberts MD Notes/Report: FASTING:YES FASTING: YES INSULIN Reviewed date:01/29/2024 11:53:20 AM Interpretation: Performing Lab:[facility], [address], [place], [address] Marisol Roberts MD Notes/Report: FASTING:YES FASTING: YES CBC (INCLUDES DIFF/PLT) Reviewed date:01/30/2024 01:56:10 PM Interpretation: Performing Lab:[facility], [address], [place], [address] Marisol Roberts MD Notes/Report: FASTING:YES FASTING: YES VITAMIN B12/FOLATE, SERUM PA HEMA Reviewed date:01/30/2024 01:56:25 PM Interpretation: Performing Lab:[facility], [address], [place], [address] Marisol Roberts MD Notes/Report: FASTING:YES FASTING: YES IRON AND TOTAL IRON BINDING CAPACITY Reviewed date:01/29/2024 11:57:41 AM Interpretation: Performing Lab:[facility], [address], [place], [address] Marisol oRberts MD Notes/Report: FASTING:YES FASTING: YES T4, FREE Reviewed date:01/29/2024 11:53:12 AM Interpretation: Performing Lab:[facility], [address], [place], [place], [address] Marisol Roberts MD Notes/Report: FASTING:YES FASTING: YES TSH Reviewed date:01/30/2024 01:55:56 PM Interpretation: Performing Lab:[facility], [address], [place], [place], [address] Marisol Roberts MD Notes/Report: FASTING:YES FASTING: YES DEXAMETHASONE Reviewed date:02/13/2024 10:53:28 AM Interpretation: Performing Lab:[facility],, [address] [place], [address] Missy Ge MD,PhD,SHINE Notes/Report: FASTING:YES FASTING: YES DEXAMETHASONE 470 Reference Ranges for Dexamethasone: Baseline: Less than 20 ng/dL 1 mg dexamethasone overnight: 180-550 ng/dL (8:00-10:00 AM) This test was developed and its analytical performance characteristics have been determined by [employer]. It has not been cleared or approved by FDA. This assay has been validated pursuant to the CLIA regulations and is used for clinical purposes. CORTISOL, TOTAL Reviewed date:02/07/2024 11:09:35 AM Interpretation: Performing Lab:[facility], [address], [place], [address] Marisol Roberts MD Notes/Report: FASTING:YES FASTING: YES COMPREHENSIVE METABOLIC PANE L (Not yet reviewed by provider) Interpretation: Performing Lab:[facility], [address], [place], [address] Marisol Roberts MD Notes/Report: FASTING:YES FASTING: YES T3, FREE (Not yet reviewed b y provider) Interpretation: Performing Lab:[facility], [address], [place], [address] Marisol Roberts MD Notes/Report: FASTING:YES FASTING: YES HEMOGLOBIN A1c (Not yet revi ewed by provider) Interpretation: Performing Lab:[facility], [address], [place], [address] Marisol Roberts MD Notes/Report: FASTING:YES FASTING: YES INSULIN (Not yet reviewed by provider) Interpretation: Performing Lab:[facility], [address], [place], [address] Marisol Roberts MD Notes/Report: FASTING:YES FASTING: YES CBC (INCLUDES DIFF/PLT) (Not yet reviewed by provider) Interpretation: Performing Lab:[facility], [address], [place], [place], [address] Marisol Roberts MD Notes/Report: FASTING:YES FASTING: YES VITAMIN B12/FOLATE, SERUM PA HEMA (Not yet reviewed by provider) Interpretation: Performing Lab:[facility], [address], [place], [place], [address] Marisol Roberts MD Notes/Report: FASTING:YES FASTING: YES IRON AND TOTAL IRON BINDING CAPACITY (Not yet reviewed by provider) Interpretation: Performing Lab:[facility] [facility], [address] [place], [address] Marisol Roberts MD Notes/Report: FASTING:YES FASTING: YES T4, FREE (Not yet reviewed b y provider) Interpretation: Performing Lab:[facility], [address] [place], [address] Marisol Roberts MD Notes/Report: FASTING:YES FASTING: YES TSH (Not yet reviewed by pro vider) Interpretation: Performing Lab:[place] [facility], [address] [place], [address] Marisol Roberts MD Notes/Report: FASTING:YES FASTING: YES COPY(IES) SENT TO: (Not yet reviewed by provider) Interpretation: Performing Lab: Notes/Report: FASTING:YES FASTING: YES COPY(IES) SENT TO: [facility] [address] [place] [address] DIFFERENTIAL, MANUAL (Not ye t reviewed by provider) Interpretation: Performing Lab:[facility], [address] [place], [address] Marisol Roberts MD Notes/Report: FASTING:YES FASTING: YES ABSOLUTE NEUTROPHILS 6364 8027-2488 cells/uL ABSOLUTE BAND NEUTROPHILS 344 0-750 cells/uL ABSOLUTE METAMYELOCYTES 86 0 cells/uL ABSOLUTE LYMPHOCYTES 0466 903-2125 cells/uL ABSOLUTE MONOCYTES 602 200-950 cells/uL ABSOLUTE EOSINOPHILS 86 15-500 cells/uL ABSOLUTE BASOPHILS 0 0-200 cells/uL NEUTROPHILS 74 BAND NEUTROPHILS 4 METAMYELOCYTES 1 LYMPHOCYTES 13 MONOCYTES 7 EOSINOPHILS 1 BASOPHILS 0 PLATELET ESTIMATION ADEQUATE ADEQUATE CBC MORPHOLOGY NORMAL Anisocytosis 1 + Ovalocytes 1 + NOTE Although an automated CBC was ordered, our instrumentation detected an abnormality on your patient's specimen requiring us to perform a manual review. Reason For Referral No Information Medications Medication SIG (Take, Route, Frequency, Duration) Notes Start Date End Date Status Breo Ellipta 200-25 MCG/ACT 1 puff Inhalation Once a day Active Terbinafine HCl 250 MG 1 tablet Orally Once a day Active Cosentyx 300/2ML INJECTION Active Dodex 1000 MCG/ML 1 CC subcutaneously once a week for 90 days 05/21/2023 Active Nurtec 75 MG 1 tablet on the tongue and allow to dissolve Orally Active Tamsulosin HCl 0.4 MG 1 capsule Orally Once a day Active Bumetanide 1 MG 1 tablet Orally Once a day Active Vitamin D2 50 MCG (2000 UT) 1 tablet Orally Once a day Active Folic Acid 1 MG 1 tablet Orally Once a day for 90 days 02/01/2024 Active Liothyronine Sodium 5 MCG 2 tablets orally once a day for 90 days 06/18/2023 Active Synthroid 300 MCG 1 tab(s) orally once a day for 90 days 01/05/2024 Active Varenicline Tartrate 1 MG 1 tab(s) orally 2 times a day 05/21/2023 Active Albuterol Sulfate HFA 108 (90 Base) MCG/ACT 2 puff(s) inhaled every 6 hours 05/21/2023 Not-Taking Ondansetron 4 MG 1 tablet on the tongue and allow to dissolve Orally twice a day as needed for 90 days 02/01/2024 Active Airsupra 90-80 MCG/ACT 2 puffs as needed Inhalation Six times a day Active Synthroid 300 MCG 1 tab(s) orally once a day for 90 days 05/21/2023 Unknown Esomeprazole Magnesium 40 MG 1 packet 1/2 to 1 hour before morning meal mixed with 15 mL of water Orally Once a day Active Fluticasone-Salmetero l 500 MCG-50 MCG 1 INH INHALED 2 TIMES A DAY for 30 DAY(S) *Please review and pick correct strength-formula tion from [employer] options. If intended option is not shown, discontinue and re-order from Quick Search* 05/21/2023 Unknown Liothyronine Sodium 5 MCG 2 tablet on an empty stomach Orally Once a day around noon for 90 days 02/01/2024 Active Mounjaro 2.5 MG/0.5ML inject 2.5 mg subcutaneously once a week for 90 days 11/03/2023 Active Meloxicam 15 MG 1 tablet Orally Once a day Active Liothyronine Sodium 5 MCG 1 tab(s) orally once a day for 90 days 05/21/2023 Unknown Zepbound 2.5 MG/0.5ML 2.5 mg subcutaneously once a week for 90 days 05/21/2023 Not-Taking Eliquis 5 MG as directed orally 2 times a day for 30 day(s) 05/21/2023 Active Omeprazole 20 MG 1 cap(s) orally once a day for 30 day(s) 05/21/2023 Unknown Olmesartan Medoxomil 20 MG 1 tab(s) orally once a day for 30 day(s) 05/21/2023 Active Ondansetron HCl 4 MG 1 tab(s) orally every 8 hours for 90 days 06/18/2023 Active LISDEXAMFETAMINE 20 MG 1 CAP(S) ORALLY ONCE A DAY (IN THE MORNING) for 30 DAYS *Please review for potential replacement for e-prescription and drug interaction check* 06/18/2023 Unknown Topiramate 50 MG 1 tab(s) orally 2 times a day for 30 day(s) ALSO 25 MG 05/21/2023 Active Euthyrox 200 MCG (0.2 MG) 1 TAB(S) ORALLY ONCE A DAY for 30 DAY(S) *Please review and pick correct strength-formula tion from [employer] options. If intended option is not shown, discontinue and re-order from Quick Search* 05/21/2023 Unknown Nystatin 078440 UNIT/GM 1 application Externally Twice a day for 14 days 02/01/2024 Active Mounjaro 2.5 MG/0.5ML inject 0.5ml Subcutaneous weekly for 30 days 02/22/2024 Active Zepbound 2.5 MG/0.5ML inject 2.5 mg subcutaneously once a week for 90 days 08/18/2023 Unknown metFORMIN HCl ER 500 MG 1 tab(s) orally once a day with dinner for 90 days 08/18/2023 Unknown LORazepam 0.5 MG 1 tab(s) orally daily as needed for 30 days 06/18/2023 Unknown Vyvanse 20 MG 1 cap(s) orally once a day (in the morning) for 30 days 08/21/2023 Unknown Mounjaro 5 MG/0.5ML inject 5 mg Subcutaneous once weekly for 90 days 02/01/2024 Active Cartia XT 240 MG 1 cap(s) orally once a day for 30 day(s) 05/21/2023 Active dexAMETHasone 1 MG 1 tablet Orally at 10 pm night before 8 am cortisol for 1 days 02/01/2024 Active Problems Problem Type SNOMED Code ICD Code Onset Dates Problem Status W/U Status Risk Notes Problem Hyperglycemia due to type 2 diabetes mellitus (122759386167909) Type 2 diabetes mellitus with hyperglycemia (E11.65) Active confirmed Problem Hypothyroidism (25119934) Hypothyroidism, unspecified (E03.9) Active confirmed Problem Obesity (114935855) Obesity, unspecified (E66.9) Active confirmed Problem Tobacco user (383873012) Nicotine dependence, chewing tobacco, uncomplicated (F17.220) Active confirmed Problem Generalized anxiety disorder (10294008) Generalized anxiety disorder (F41.1) Active confirmed Problem Attention deficit hyperactivity disorder, 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) Attention and concentration deficit (R41.840) Active confirmed Vital Signs Heart Rate 88 /min 02/01/2024 Blood pressure diastolic 80 mm Hg 02/01/2024 Height 67 in 02/01/2024 Blood pressure systolic 134 mm Hg 02/01/2024 Weight 497.0 lbs 02/01/2024 BMI 77.83 kg/m2 02/01/2024 Encounters Encounter Location Date Provider Diagnosis [facility] [address] [place] [address] 01/16/2024 Provider Migration Hypothyroidism, unspecified E03.9 and Type 2 diabetes mellitus with hyperglycemia E11.65 [facility] Joann [place] [place] [address] 04/14/2024 [facility]ann Sant[facility]aria [facility] [address] [place] [address] 08/18/2023 Joann Santamaria Hypothyroidism, unspecified E03.9 ; Nicotine dependence, chewing tobacco, uncomplicated F17.220 ; Prediabetes R73.03 and Obesity, unspecified E66.9 [facility] [address] [place] [address] 11/03/2023 Joann Santamaria Hypothyroidism, unspecified E03.9 ; Obesity, unspecified E66.9 ; Type 2 diabetes mellitus with hyperglycemia E11.65 ; Vitamin B12 deficiency anemia, unspecified D51.9 and Dietary counseling and surveillance Z71.3 [facility] Joann Santamaria [address] [place] [address] 02/01/2024 Joann Santamaria Hypothyroidism, unspecified E03.9 ; Obesity, unspecified E66.9 ; Type 2 diabetes mellitus with hyperglycemia E11.65 ; Insulin resistance, unspecified E88.819 ; Deficiency of other specified B group vitamins E53.8 ; Nausea R11.0 and Dermatophytosis, unspecified B35.9 [facility] [address] [place] [address] 08/20/2023 Joann Santamaria Attention and concentration deficit R41.840 and Type 2 diabetes mellitus with hyperglycemia E11.65 [facility] [address] [place] [address] 09/02/2023 Joann Santamaria [facility] [address] [place] [address] 11/03/2023 Jo[facility] - Joann Santamaria [address] [place] [address] 11/06/2023 Joann [facility] - Joann Santamaria [id number] [place] [address] 01/04/2024 Joann Santamaria [facility], [facility] - Joann Santamaria [address] [place] [address] 01/04/2024 Joann Santamaria Hypothyroidism, unspecified E03.9 [facility] - Joann Santamaria [address] [place] [address] 01/05/2024 Joann Santamaria Hypothyroidism, unspecified E03.9 [facility] [address] [place] [address] 02/22/2024 Joann Santamaria Type 2 diabetes mellitus with hyperglycemia E11.65 [facility] [address] [place] [address] 02/22/2024 Joann Santamaria [facility] [address] [place] [address] 02/26/2024 Joann [facility] - Joann Santamaria [address] [place] [address] 11/05/2023 Joann Santamaria Assessments Encounter Date Diagnosis (ICD Code) Assessment Notes Treatment Notes Treatment Clinical Notes Section Notes 01/16/2024 Hypothyroidism, unspecified (ICD-10 - E03.9) 08/18/2023 Hypothyroidism, unspecified (ICD-10 - E03.9) She [...] to 1200 per day if sedentary vs 1932-9095 calories depending on caloric expenditure. She was provided information on [employer] as this program manages metabolic syndrome and products include insulin sensitizers along with thyroid support/supplementat ion to help tailor weight loss in individuals who struggle with underlying autoimmune thyroid conditions and hyperglycemia (fasting glucose of 97 mg/dL). Spent up to 20 minutes discussing alternative weight loss options. 02/01/2024 Hypothyroidism, unspecified (ICD-10 - E03.9) 02/01/2024 Obesity, unspecified (ICD-10 - E66.9) 08/20/2023 Type 2 diabetes mellitus with hyperglycemia (ICD-10 - E11.65) 08/20/2023 Attention and concentration deficit (ICD-10 - R41.840) 01/04/2024 Hypothyroidism, unspecified (ICD-10 - E03.9) 01/05/2024 Hypothyroidism, unspecified (ICD-10 - E03.9) 02/22/2024 Type 2 diabetes mellitus with hyperglycemia (ICD-10 - E11.65) 01/16/2024 Type 2 diabetes mellitus with hyperglycemia (ICD-10 - E11.65) 08/18/2023 Prediabetes (ICD-10 - R73.03) a1c 5.8%- patient had water retention and swelling with actos- she was encouraged to retrial lowest dose metformin once daily with largest meal. WIll request GLP1 agonist therapy as she is morbidly obese and high risk for CAD/CVD among other complications without weight loss. Weight loss should be primary focus to prevent diabetes and heart disease. 11/03/2023 Type 2 diabetes mellitus with hyperglycemia [...] based snack at bedtime to help reduce early childhood assistant hyperglcemia from counterregulatory hormones. She has no [...] on tolerability. Recommended patient to utilize the diabetesConergyb.com from the ADA website to help with food preparation as this presents ideal carb content per meal and will make carb counting easier for patient. Recommended she incorporate natural insulin sensitizers such as pears, apples, cinnamon, joaquim and sweet potatoes to help mobilize her endogenous insulin. Recommended up to 150 minutes of moderate level activity /exercise per week. 02/01/2024 Type 2 diabetes mellitus with hyperglycemia (ICD-10 - E11.65) 08/18/2023 Obesity, unspecified (ICD-10 - E66.9) Recommended GLP1 agonist therapy as she is having trouble at times with cravings of sweets and portion control. Discussed potentially reducing total carb intake to 120 grams daily into 4-5 small split meals with addition of healthy protein based snack at bedtime to help reduce early childhood assistant hyperglcemia from counterregulatory hormones. She has no [...] to 1200 per day if sedentary vs 0782-2087 calories depending on caloric expenditure. She was provided information on [employer] as this program manages metabolic syndrome and products include insulin sensitizers along with thyroid support/supplementat ion to help tailor weight loss in individuals who struggle with underlying autoimmune thyroid conditions and hyperglycemia (fasting glucose of 108 mg/dL). Spent up to 20 minutes discussing alternative weight loss options. 11/03/2023 Vitamin B12 deficiency anemia, unspecified (ICD-10 - D51.9) She is aware her levels are low- recommended daily 2500 IU of methylated B12 in conjunction with methylated folic acid daily. 02/01/2024 Insulin resistance, unspecified (ICD-10 - E88.819) 11/03/2023 Dietary counseling and surveillance (ICD-10 - Z71.3) Discussed dietary measures in regards to weight loss- importance to restrict calories to 1200 per day if sedentary vs 7541-5064 calories depending on caloric expenditure. She was provided information on [employer] as this program manages metabolic syndrome and products include insulin sensitizers along with thyroid support/supplementat ion to help tailor weight loss in individuals who struggle with underlying autoimmune thyroid conditions and hyperglycemia (fasting glucose of 97 mg/dL). Spent up to 20 minutes discussing alternative weight loss. 02/01/2024 Deficiency of other specified B group vitamins (ICD-10 - E53.8) 02/01/2024 Nausea (ICD-10 - R11.0) 02/01/2024 Dermatophytosis, unspecified (ICD-10 - B35.9) 08/18/2023 Other Spent 25 minute s preparing to see the patient (ex review of tests/chart), obtaining and / or reviewing separately obtained history, performing a medically appropriate examination and/or evaluation, counseling and educating the patient/family/careg iver, ordering medications, tests, or procedures, referring and communicating with other health tree care foreman, documenting clinical information in the electronic or other health record, independently interpreting results and communicating results to the patient/family/careg iver and care coordinating patient plan. Patient alert and oriented x 4 and aware of discussion noted above and in agreeance to plan in management of prediabetes, hypothyroidism, and obesity. 11/03/2023 Other Spent 25 minute s preparing to see the patient (ex review of tests/chart), obtaining and / or reviewing separately obtained history, performing a medically appropriate examination and/or evaluation, counseling and educating the patient/family/careg iver, ordering medications, tests, or procedures, referring and communicating with other health tree care foreman, documenting clinical information in the electronic or other health record, independently interpreting results and communicating results to the patient/family/careg iver and care coordinating patient plan. Patient alert [...] side effect 7. Possible ringworm infection- Recommend [id number] miconazole cream for topical treatment- If no [...] examination and/or evaluation, counseling and educating the patient/family/careg iver, ordering medications, tests, or procedures, referring and communicating with other health tree care foreman, documenting clinical information in the electronic or other health record, independently interpreting results and communicating results to the patient/family/careg iver and care coordinating patient plan. Patient alert and oriented x 4 and aware of discussion noted above and in agreeance to plan in management of hypothyroidism, insulin resistance/type 2 DM, folic acid def, ringworm of calf region, obesity/weight management. Plan Of Treatment Pending Test Test Name Order Date COMPREHENSIVE METABOLIC PANEL 04/06/2024 T3, FREE 04/06/2024 HEMOGLOBIN A1c 04/06/2024 INSULIN 04/06/2024 CBC (INCLUDES DIFF/PLT) 04/06/2024 VITAMIN B12/FOLATE, SERUM PANEL 04/06/19 25 IRON AND TOTAL IRON BINDING CAPACITY 06/2024 T4, FREE 04/06/2024 TSH 04/06/2024 COPY(IES) SENT TO: 04/06/2024 DIFFERENTIAL, MANUAL 04/06/2024 Insurance Providers Payer Name Payer Address Payer Phone Subscriber Number Group Number Insured Name Patient Relationship to Insured Coverage Start Date Coverage End Date [facility] [address] [place] [address] [id number] Meghna Sosa Self - patient is the insured
--- OUTSIDE RECORDS SUMMARY | 2024-08-15 16:21 | XMS_ITS | Patient Health Record ---
Author Organization [facility] Address [address] [place], [place] [id number] Care Team Providers Care Force Variation Equipment Tender Name Role Phone VIJAYA FARIA Unavailable [phone] Aviva Jaimes Unavailable Unavailable Allergies Allergen (clinical [...] Duration) Notes Start Date End Date Status Vmflaucd-Lajhyjiuv-ZY 3.5-78433-3 Otic for 90 Days Active Advair Diskus [...] days Active Vitamin D (Ergocalciferol) 1.25 MG (33453 UT) Oral for 84 Days Activ e methylPREDNISolone 4 MG as directed Orally one pack 024 Active dilTIAZem HCl ER Coated Bead s 240 MG Oral for 90 Days Active Olmesartan Medoxomil 20 MG Oral for 90 Days Active Eliquis 5 MG Oral for 30 Days Active Meloxicam 15 MG 1 tablet Orally Once a day for 30 days Active Topiramate 50 MG Oral for 90 Days Active Vital Signs Height-cm 167.64 cm 08/01/2024 Weight-kg 158.76 kg 08/01/2024 Height 66 in 08/01/2024 Weight 350 lbs 08/01/2024 BMI 56.49 kg/m2 08/01/2024 Encounters Encounter Location Date Provider Diagnosis [facility] [address] [place], [place] [id number] 08/01/2024 VIJAYA SNOOK Tinea unguium B35.1 ; Pain in right toe(s) M79.674 ; Pain in left toe(s) M79.675 and Atherosclerosis of [place] arteries of extremities with intermittent claudication, bilateral legs I70.213 [facility] [address] [place] [id number] 09/28/2023 VIJAYA SNOOK Tinea unguium B35.1 ; Peroneal tendinitis, left leg M76.72 and Left foot pain M79.672 [facility] [address] [place] [id number] 11/09/2023 VIJAYA SNOOK Tinea unguium B35.1 ; Peroneal tendinitis, left leg M76.72 and Left foot pain M79.672 [facility] [address] [place] [id number] 12/07/2023 VIJAYA SNOOK Tinea unguium B35.1 ; Onychocryptosis L60.0 ; Peroneal tendinitis, left leg M76.72 and Left foot pain M79.672 [facility] [address] [place] [id number] 01/11/2024 VIJAYA SNOOK Tinea unguium B35.1 ; Onychocryptosis L60.0 ; Peroneal tendinitis, left leg M76.72 and Left foot pain M79.672 [facility] [address] [place] [id number] 03/14/2024 VIJAYA SNOOK Tinea unguium B35.1 ; Onychocryptosis L60.0 ; Peroneal tendinitis, left leg M76.72 ; Left foot pain M79.672 and Posterior tibial tendinitis, left leg M76.822 [facility] [address] [place], [place] [id number] 05/23/2024 VIJAYA SNOOK Tinea unguium B35.1 ; Onychocryptosis L60.0 ; Peroneal tendinitis, left leg M76.72 ; Left foot pain M79.672 and Posterior tibial tendinitis, left leg M76.822 Assessments Encounter Date Diagnosis (ICD Code) Assessment Notes Treatment Notes Treatment Clinical Notes Section Notes 09/28/2023 Tinea unguium (ICD-10 - B35.1) FUNGAL [...] use of orthotic devices and bracing. Recommend [facility] ankle brace 12/07/2023 Onychocryptosis (ICD-10 - L60.0) [...] instructed on monitoring for infection or recurrence. 05/23/2024 Tinea unguium (ICD-10 - B35.1) FUNGAL TOENAILS: Discussed various treatment options for fungal toenails including debridement, topical antifungals, oral antifungals, toenail avulsion, or toenail matrixectomy. NAIL DEBRIDEMENT: Nails 1-5 Bilateral were debrided extensively with nail nippers and emery board, reducing length and girth to pink healthy tissue with any subungual debris and necrotic tissue removed 05/23/2024 Onychocryptosis (ICD-10 - L60.0) Slant Back Toenail: Following skin prep, the offending nail border was debrided without anesthesia. The patient was instructed on monitoring for infection or recurrence. 08/01/2024 Tinea unguium (ICD-10 - B35.1) FUNGAL [...] Pain in left toe(s) (ICD-10 - M79.675) 05/23/2024 Peroneal tendinitis, left leg (ICD-10 - M76.72) Peroneal Tendonitis: I discussed anti-inflammatory treatment options and various means of immobilization with the patient. I educated the patient on icing and stretching, supportive shoegear, and the use of orthotic devices and bracing. Holding: [place] [facility]le brace for ankle instability, Posterior tibialis tendon dysfunciton, and ankle strain and tendonitis. When her edema improves, she can resume the brace 12/07/2023 Peroneal tendinitis, left leg (ICD-10 - M76.72) Peroneal Tendonitis: I discussed anti-inflammatory treatment options and various means of immobilization with the patient. I educated the patient on icing and stretching, supportive shoegear, and the use of orthotic devices and bracing. Recommend [facility] ankle brace 03/14/2024 Peroneal tendinitis, left leg (ICD-10 - M76.72) Peroneal Tendonitis: I discussed anti-inflammatory treatment options and various means of immobilization with the patient. I educated the patient on icing and stretching, supportive shoegear, and the use of orthotic devices and bracing. Order: [place] Ankle brace for ankle instability, Posterior tibialis tendon dysfunciton, and ankle strain and tendonitis 01/11/2024 Peroneal tendinitis, left leg (ICD-10 - M76.72) Peroneal Tendonitis: I discussed anti-inflammatory treatment options and various means of immobilization with the patient. I educated the patient on icing and stretching, supportive shoegear, and the use of orthotic devices and bracing. Recommend [facility] [place] ankle brace 11/09/2023 Left foot pain (ICD-10 - M79.672) 09/28/2023 Left foot pain (ICD-10 - M79.672) 01/11/2024 Left foot pain (ICD-10 - M79.672) 03/14/2024 Left foot pain (ICD-10 - M79.672) 12/07/2023 Left foot pain (ICD-10 - M79.672) 08/01/2024 Atherosclerosis of [place] arteries of extremities with intermittent claudication, bilateral legs (ICD-10 - I70.213) 05/23/2024 Left foot pain (ICD-10 - M79.672) 05/23/2024 Posterior tibial tendinitis, left leg (ICD-10 - M76.822) 03/14/2024 Posterior tibial tendinitis, left leg (ICD-10 - M76.822) Plan Of Treatment Pending Test Test Name Order Date Liver Function Test (LFT) 01/11/2024 Next Appt Details Provider Name:VIJAYA FARIA, 02:00:00 PM, [address], [facility], [place], [place], [phone], Insurance Providers Payer Name Payer Address Payer Phone Subscriber Number Group Number Insured Name Patient Relationship to Insured Coverage Start Date Coverage End Date [facility] ([facility]) ATTN CLAIMS [address] [place] [address] [id number] PAULINE SLADE Self - patient is the insured
--- OUTSIDE RECORDS SUMMARY | 2024-08-15 16:21 | XMS_ITS ---
Author Organization [facility] Address [address] [place] [address] Care Team Providers Care Movie Producer Name Role Phone Joann Santamraia Primary Care Provider REASON FOR VISIT FU Encounters Encounter Location Date Provider Diagnosis [facility] - Joann Santamaria [address] [place] [address] 04/14/2024 Joann Santamaria Plan Of Treatment No Information Progress Notes * Miranda QURESHIOB: [birth year] (38 yo F)Acc No.[id number]:04/14/2024 Progress Notes Patient: Gurjit SALMONMARCELINO Meghna Provider: Denise Santamaria MD :1985 A ge:38 Y S ex:Female Date:04/14/2024 Phone: Address:[address] [place], [place] [phone] Subjective: * Chief Complaints: * 1 . FU. * Medical History: Objective: * Vitals: Assessment: Plan: * Treatment: * Billing Information: * Visit Code: * Procedure Codes: * Electronic signature of Jaya Santamaria MD on 08/15/2024 at 04:21 PM CDT Sign off status: Pending * Provider: Denise Santamaria MD Date: 04/14/2024 Generated for Tato to/Shanti/eTmanpreetitting on: 08/15/2024 04:21 PM CDT
--- OUTSIDE RECORDS SUMMARY | 2024-08-15 16:22 | XMS_ITS | Clinical Summary ---
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 018 Active topiramate (TOPAMAX) 50 mg tablet Take by mouth 2 times daily. 25 mg in the morning 50 mg nightly 018 Active olmesartan (BENICAR) 20 mg tablet Take 20 mg by mouth daily at bedtime. 018 Active ergocalciferol (VITAMIN D2) 50,000 unit capsule Take 50,000 Units by mouth every 7 days. 018 Active cholecalciferol , Vitamin D3, (VITAMIN D3) 2,000 unit Tablet Take 2,000 Units by mouth daily. Active fexofenadine (GIORGI) 180 mg tablet Take 180 mg by mouth daily. Active varenicline (CHANTIX) 1 mg Tablet Take 1 mg by mouth 2 times daily. Active tamsulosin (FLOMAX) 0.4 mg capsule 0.4 mg daily. 024 Active secukinumab (Cosentyx Pen, 2 Pens,) 150 mg/mL Pen Injector Inject 300 mg by subcutaneous injection every 30 days. Active rivaroxaban (Xarelto) 20 mg Tablet Take 1 Tablet (20 mg) by mouth daily with supper. 30 Tablet 2 025 Active baclofen (LIORESAL) 10 mg tablet Take 10 mg by mouth 3 times daily as needed for Pain. Active COLLAGENASE CLOSTRIDIUM HISTO. TOPICAL Apply 1 Application to affected area daily. Active ferrous sulfate 325 mg (65 mg iron) tablet Take 325 mg by mouth daily. Active pregabalin (LYRICA) 50 mg Capsule Take 50 mg by mouth every 12 hours. Active albuterol-budes onide (Airsupra) 90-80 mcg/actuation HFA Aerosol Inhaler Take 2 Puffs by inhalation every 6 hours as needed. Active fluticasone furoate-vilante roL (Breo Ellipta) 200-25 mcg/dose Disk with Device Take 1 Puff by inhalation daily. Active bumetanide (BUMEX) 1 mg tablet Take 1 mg by mouth daily. Active carvediloL (COREG) 6.25 mg tablet Take 6.25 mg by mouth 2 times daily with meals. Active Cranberry 500 mg Capsule Take 1 Tablet by mouth daily. Active cyanocobalamin (VITAMIN B-12) 500 mcg tablet Take 500 mcg by mouth daily. Active cyanocobalamin, vitamin B-12, 1,000 mcg/mL Kit 1 Dose by Injection route every 7 days. Active folic acid (FOLVITE) 1 mg tablet Take 1 mg by mouth daily. Active ESOMEPRAZOLE MAGNESIUM ORAL Take 40 mg by mouth daily. Active ipratropium-alb uteroL (DUONEB) 0.5 mg-3 mg(2.5 mg base)/3 mL Solution for Nebulization Take 3 mL by inhalation every 6 hours as needed for Shortness of Breath. Active liothyronine (CYTOMEL) 5 mcg Tablet Take 5 mcg by mouth daily. Active MAGNESIUM OXIDE ORAL Take 400 mg by mouth daily. Active rimegepant (Nurtec ODT) 75 mg Tablet, Rapid Dissolve Take 75 mg by mouth every other day. Active ondansetron (ZOFRAN) 4 mg Tablet Take 4 mg by mouth every 8 hours as needed for Nausea/Emesis. Active ubrogepant (Ubrelvy) 50 mg tablet Take 50 mg by mouth 2 times daily as needed (headache). Active HYDROcodone-markie taminophen (NORCO) 5-325 mg tabletIndicatio ns:Contusion of left lower extremity, initial encounter Take 1 Tablet by mouth every 6 hours as needed for Pain. Max Daily Amount: 4 Tablets 16 Tablet Active fluconazole (DIFLUCAN) 150 mg tablet Take 1 Tablet (150 mg) by mouth 1 time daily as needed for Other (See Comment) (vaginal yeast infection). 1 Tablet 1 Active collagenase (SANTYL) 250 unit/gram Ointment Apply to affected area daily. Use a thin layer on each wound. Wound length (required) 10.7 cm X wound width (required) 5.3 cm X 30 treatment days. 290 Gram 6 08/16/19 25 10:53 AM CDT Active lidocaine (lidocaine viscous 2%) 2 % Solution Apply 5 mL to affected area 1 time daily as needed for Pain. 100 mL 3 Active diltiaZEM (CARDIZEM CD) 240 mg Controlled Delivery 24 hour capsule Take 240 mg by mouth daily. 2024 Discontinued ALBUTEROL INHALATION 2024 Discontinued(D uplicate Therapy) hydrocortisone acetate (ANUSOL-HC) 25 mg Suppository Insert 1 Suppository (25 mg) by rectum 2 times daily as needed for Itching. 15 Suppository 023 2024 Discontinued bumetanide (BUMEX) 1 mg tablet Take 1 mg by mouth daily. 024 2024 Discontinued(D uplicate Therapy) HYDROcodone-markie taminophen (NORCO) 5-325 mg tabletIndicatio ns:Contusion of left lower extremity, initial encounter Take 1 Tablet by mouth every 6 hours as needed for Pain. Max Daily Amount: 4 Tablets 8 Tablet 025 2024 Discontinued oxyCODONE-aceta minophen (PERCOCET) 5-325 mg tablet Take 1 Tablet by mouth every 6 hours as needed for Pain, Moderate. 2024 Discontinued cefdinir (OMNICEF) 300 mg capsule Take 1 Capsule (300 mg) by mouth every 12 hours for 6 days. 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 Postoperative infection 10/27/2017 Abnormal ultrasound of breast 09/30/2017 Left breast abscess 09/30/2017 Tobacco dependence 09/30/2017 Morbid obesity with BMI of 70 and over, adult Encounters Date Type Department Care Team Description 08/15/2024 2:45 PM CDT Office Visit [facility] Oncology and Hematology - [place] [address] [place] [address] Miguel A Guzman MD Chronic anemia (Primary Dx) 08/15/2024 9:30 AM CDT Hospital Encounter [facility] [address] [place] [address] Kristie Tellez, REGULATORY MANAGER 08/02/2024 External Device Data [facility] ABSTRACTION Provider, Abstract 07/26/2024 External Device Data [facility] ABSTRACTION Provider, Abstract 07/26/2024 External Device Data [facility] ABSTRACTION Provider, Abstract 07/26/2024 External Device Data [facility] ABSTRACTION Provider, Abstract 07/25/2024 4:53 PM CDT - 07/29/2024 3:02 PM CDT Hospital Encounter [facility] [address] [place] [address] Jeremy Agosto MD Dohr, Megan, MD Sadaka, Farid G, MD Vaziri, Javad Christopher, DO Freie, Jordan A, MD Cellulitis of right lower extremity Discharge Disposition: Home or Self Care 07/25/2024 Travel 07/21/2024 External Device Data [facility] ABSTRACTION Provider, Abstract 07/05/2024 External Device Data [facility] ABSTRACTION Provider, Abstract 07/05/2024 External Device Data [facility] ABSTRACTION Provider, Abstract 07/05/2024 External Device Data [facility] ABSTRACTION Provider, Abstract 06/22/2024 Refill [facility] - [place] [address] [place] [address] Miguel A Guzman MD 06/14/2024 External Device Data [facility] ABSTRACTION Provider, Abstract 06/14/2024 External Device Data [facility] ABSTRACTION Provider, Abstract 06/14/2024 External Device Data [facility] ABSTRACTION Provider, Abstract 06/07/2024 10:18 PM CDT - 06/08/2024 12:55 AM CDT Emergency [facility] Emergency Department [address] [place] [phone] Kaden Cunha IV, History of falling (Primary Dx); Contusion of left lower extremity, initial encounter Discharge Disposition: Home or Self Care 06/07/2024 Travel 06/01/2024 Refill [facility] On[facility] Hematology [facility] [address] [place] [address] Miguel A Guzman MD 05/18/2024 External Device Data [facility] ABSTRACTION Provider, Abstract 05/18/2024 External Device Data [facility] ABSTRACTION Provider, Abstract 05/16/2024 Abstract [facility] Oncology [facility] [address] [place] [address] Miguel A Guzman MD from Last 3 Months Social History Tobacco [...] 6.4 oz) 08/15/2024 2:32 PM CDT Height 170.2 cm (5' 7) 08/15/2024 9:44 AM CDT Body Mass Index 76.49 08/15/2024 9:44 AM CDT Plan of Treatment Upcoming Encounters Date Type Department Care Team (Late st Contact Info) Description 08/22/2024 3:00 PM CDT Appointment [facility] [address] [place] [phone] Kristie Tellez, REGULATORY MANAGER [address] 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 Office Visit [facility] [address] [place] [address] Miguel A Guzman MD [address] [place] [phone] Health Maintenance Due Date Last Done Comments DIABETES ANNUAL FOOT EXAM 12/20/2005 DIABETES ANNUAL RETINAL EXAM 12/20/2005 DIABETES MICROALBUMIN ANNUAL SCREEN 12/20/2005 LDL CHOLESTEROL ANNUAL 12/20/2005 HEPATITIS B VACCINES (1 of 3 - 19+ 3-dose series) 12/20/2006 HPV/Cotest (21-29) 12/20/2008 CERVICAL CANCER SCREENING 12/20/2017 HPV/Cotest (30-65) 12/20/2017 PAP SMEAR 12/20/2017 INFLUENZA VACCINE (#1) 2023 4, 12/14/2013 Preventative Visit- Commercial 03/02/2024 DIABETES HBA1C Q 6 MONTHS 01/07/20252024, 10/01/2022 DTAP/TDAP/TD VACCINES (2 - T d or Tdap) 01/13/2029 01/13/2019 HPV VACCINES Aged Out No longer eligi ble based on patient's age to complete this topic Procedures Procedure Name Priority Date/Time Associated Diagnosis Comments TELEMETRY REPORT 08/03/2024 11:2 1 AM CDT MAGNESIUM LEVEL Routine 07/29/2024 4:41 AM CDT BASIC METABOLIC PANEL Routine 07/29/2024 4:41 AM CDT BASIC METABOLIC PANEL Routine 07/28/2024 2:29 AM CDT BRAIN NATRIURETIC PEPTIDE, BNP OR PROBNP Routine 07/27/2024 4:48 AM CDT HEPATIC FUNCTION PANEL Routine 4:48 AM CDT BASIC METABOLIC PANEL Routine 07/27/2024 4:48 AM CDT CBC WITH DIFFERENTIAL Routine 07/27/2024 4:48 AM CDT MAGNESIUM LEVEL Routine 07/27/2024 4:48 AM CDT PHOSPHORUS Routine 07/27/2024 4:48 AM CDT US VENOUS DOPPLER LEG BILATERAL Routine 07/26/2024 1:[address] LOW EXT W CONTRAST RIGHT Stat 07/26/2024 10:31 AM CDT OT EVAL AND TREAT Routine 07/26/2024 8:3 4 AM CDT BASIC METABOLIC PANEL Routine 07/26/2024 4:57 AM CDT CBC WITH DIFFERENTIAL Routine 07/26/2024 4:57 AM CDT CALCIUM IONIZED Routine 07/26/2024 4:57 AM CDT LACTIC ACID Routine 07/26/2024 4:57 AM CDT POC GLUCOSE Stat 07/25/2024 10:51 PM CDT POC LACTIC ACID Stat 07/25/2024 9:16 PM CDT BLOOD CULTURE Stat 07/25/2024 9:05 PM CDT BLOOD CULTURE Stat 07/25/2024 9:05 PM CDT BLOOD CULTURE Stat 07/25/2024 9:05 PM CDT BLOOD CULTURE Stat 07/25/2024 9:[address] ABDOMEN PELVIS WO CONTRAST Stat 07/25/2024 8:23 PM CDT POC , URINE Stat 07/25/2024 7:19 PM CDT URINALYSIS W/REFLEX MICROSCOPIC Stat 07/25/2024 7:12 PM CDT CRITICAL CARE Routine 07/25/2024 6:52 PM CDT TSH Routine 07/25/2024 4:57 PM CDT COMPREHENSIVE METABOLIC PANEL Stat 07/25/2024 4:57 PM CDT CBC WITH DIFFERENTIAL Stat 07/25/2024 4:57 PM CDT CTA CHEST + ABD/PEL W CONTRAST Stat 06/08/2024 12:23 AM CDT POC CREATININE Stat 06/07/2024 11:46 PM CDT EKG 12-LEAD Stat 06/07/2024 11:41 PM CDT BASIC METABOLIC PANEL Stat 06/07/2024 11:41 PM CDT CBC WITH DIFFERENTIAL Stat 06/07/2024 11:41 PM CDT XR CHEST PA AND LATERAL 2 VW Stat 06/07/2024 11:09 PM CDT XR TIBIA AND FIBULA 2 VW LEFT Stat 06/07/2024 11:[address] HEAD WO CONTRAST Stat 06/07/2024 1 1:03 PM CDT POC , URINE Stat 06/07/2024 10:41 PM CDT from Last 3 Months Results * TELEMETRY REPORT (08/03/2024 11:21 AM CDT) us Provider Scanning ECG ORDERABLES Final Result * MAGNESIUM LEVEL (07/29/2024 4:41 AM CDT) Only the most recent of2 resultswithin the time period is included. MAGNESIUM 1.9 1.6 - 2.6 mg/dL 07/29/2024 6:39 AM CDT [facility] [employer] [facility] Blood Venipuncture / Unknown 07/29/2024 4:41 AM CDT 07/29/2024 5:15 AM CDT us Derrick Harris MD CHEMISTRY ORDERABLES Final Res ult [facility] [employer] [facility] CLIA# [id number] [address] [place] [address] * (ABNORMAL) BASIC METABOLIC PANEL (07/29/2024 4:41 AM CDT) Only the most recent of5 resultswithin the time period is included. SODIUM 131(L) 136 - 145 mmol/L 07/29/2024 6:39 AM [facility] [employer] [facility] - [facility] POTASSIUM 3.8 3.5 - 5.0 mmol/L 07/29/2024 6:39 AM [facility] [employer] [facility] - [facility] CHLORIDE 101 98 - 107 mmol/L 07/29/2024 6:39 AM [facility] [employer] [facility] CO2 20(L) 22 - 29 mmol/L 07/29/2024 6:39 AM [facility] CALCIUM 8.7 8.6 - 10.2 mg/dL 07/29/2024 6:39 AM [facility] [employer] [facility] BUN 28(H) 6 - 20 mg/dL 07/29/2024 6:39 AM [facility] CREATININE 1.26(H) 0.51 - 0.95 mg/dL 07/29/2024 6:39 AM [facility] GLUCOSE 102(H) 74 - 99 mg/dL 07/29/2024 6:39 AM [facility] GFR 57(L) >=60 mL/min/1.7 3 sq meter 07/29/2024 6:39 AM [facility] [employer] [facility] Comment:eGFR calculated with 2020 CKD-EPI equation. Vegetarian diet, extremely high or low muscle mass, and may affect results. Cystatin C with Glomerular Filtration Rate is a suitable alternative for these patients. ANION GAP 10 8 - 16 mmol/L 07/29/2024 6:39 AM [facility] [employer] [facility] Blood Venipuncture / Unknown 07/29/2024 4:41 AM CDT 07/29/2024 5:15 AM CDT Benja Rodney DO CHEMISTRY ORDERABLES Final Result [facility] - [facility] CLIA# [id number] [address] [place] [address] * (ABNORMAL) CBC WITH DIFFERENTIAL (07/27/2024 4:48 AM CDT) Only the most recent of4 resultswithin the time period is included. WBC 6.1 4.0 - 9.8 K/uL 07/27/2024 5:59 AM CDT [facility] - [facility] RBC 3.48(L) 3.90 - 4.90 M/uL 07/27/2024 5:59 AM CDT [facility] - [facility] HEMOGLOBIN 9.6(L) 11.8 - 14.8 g/dL 07/27/2024 5:59 AM CDT [facility] - [facility] HEMATOCRIT 31.6(L) 35.5 - 44.0 % 07/27/2024 5:59 AM CDT [facility] - [facility] MCV 90.8 82.0 - 99.0 fL 07/27/2024 5:59 AM CDT [facility] - [facility] MCH 27.6 27.2 - 32.6 pg 07/27/2024 5:59 AM CDT [facility] - [facility] MCHC 30.4(L) 31.5 - 35.5 g/dL 07/27/2024 5:59 AM CDT [facility] - [facility] RDW 17.2(H) 11.5 - 14.5 % 07/27/2024 5:59 AM CDT [facility] - [facility] RDW-STDEV 56.9(H) 37.1 - 48.7 fL 07/27/2024 5:59 AM CDT [facility] - [facility] PLATELETS 467(H) 140 - 350 K/uL 07/27/2024 5:59 AM CDT [facility] - [facility] MPV 10.4 9.3 - 12.4 fL 07/27/2024 5:59 AM CDT [facility] - [facility] NEUTROPHILS 61 % 07/27/2024 5:59 AM CDT [facility] - [facility] LYMPHOCYTES 25 % 07/27/2024 5:59 AM CDT [facility] SERVICES - [facility] MONOCYTES 11 % 07/27/2024 5:59 AM CDT [facility] - [facility] EOSINOPHILS 2 % 07/27/2024 5:59 AM CDT [facility] BASOPHILS 1 % 07/27/2024 5:59 AM CDT [facility] IMMATURE GRANULOCYTES 1 % 07/27/2024 5:59 AM CDT [facility] LABORATORY [facility] - [facility] Comment:IG (Immature Granulo cyte) count includes Metamyelocytes, Myelocytes, and Promyelocytes NEUTROPHIL ABSOLUTE 3.68 1.90 - 7.00 K/uL 07/27/2024 5:59 AM CDT [facility] LYMPHOCYTE ABSOLUTE 1.53 0.70 - 4.50 K/uL 07/27/2024 5:59 AM CDT [facility] MONOCYTE ABSOLUTE 0.64 0.10 - 1.30 K/uL 07/27/2024 5:59 AM CDT [facility] LABORATORY [facility] - . [facility] EOSINOPHIL ABSOLUTE 0.10 0.00 - 0.70 K/uL 07/27/2024 5:59 AM CDT [facility] LABORATORY SERVICES - . [facility] BASOPHILS ABSOLUTE 0.05 0.00 - 0.20 K/uL 07/27/2024 5:59 AM CDT [facility] IMMATURE GRANULOCYTES ABSOLUTE 0.06(H) 0.00 - 0.03 K/uL 07/27/2024 5:59 AM CDT [facility] Blood Venipuncture / Unknown 07/27/2024 4:48 AM CDT 07/27/2024 5:28 AM CDT us Emeka Myrick DO HEMATOLOGY ORDERABLES Final Result [facility] CLIA# [id number] [address] [facility] [address] [address] * PHOSPHORUS (07/27/2024 4:48 AM CDT) PHOSPHORUS 4.2 2.5 - 4.5 mg/dL 07/27/2024 6:10 AM CDT [facility] Blood Venipuncture / Unknown 07/27/2024 4:48 AM CDT 07/27/2024 5:28 AM CDT Emeka Myrick DO CHEMISTRY ORDERABLES Final R esult [facility] CLIA# [id number] [address] [place] [address] * BRAIN NATRIURETIC PEPTIDE, BNP OR PROBNP (07/27/2024 4:48 AM CDT) [facility] PROBNP, N TERMINAL 73 <124 pg/mL 2024 6:05 AM CDT [facility] Comment: INTERPRETIVE COMMENT based on diagnosis: Diagnostic NT pro-BNP cutoffs for Heart Failure in the absence of renal failure is suggested for the following ranges <75 years: <125 pg/mL >=75 years: <450 pg/mL Exclusionary rule out cut-point for Acute Decompensated Heart Failure(ADHF) All ages: <300 pg/mL Diagnostic NT pro-BNP cutoffs for Acute Decompensated Heart Failure(ADHF) in the absence of renal failure is suggested for the following ages <50 years: > 450 pg/mL 50-75 years: > 900 pg/mL >75 years: >1800 pg/mL Blood Venipuncture / Unknown 07/27/2024 4:48 AM CDT 07/27/2024 5:28 AM CDT us Benja Rodney DO CHEMISTRY ORDERABLES [id number] [address] [place] [address] * (ABNORMAL) HEPATIC FUNCTION PANEL (07/27/2024 4:48 AM CDT) [facility] TOTAL PROTEIN 5.7(L) 6.7 - 8.6 g/dL 07/27/2024 6:05 AM T [facility] LABORATORY [facility] ALBUMIN 2.8(L) 3.5 - 5.2 g/dL 07/27/2024 6:05 AM [facility] BILIRUBIN TOTAL <0.2 0.0 - 1.2 mg/dL 07/27/2024 6:05 AM [facility] BILIRUBIN DIRECT <0.2 <0.4 mg/dL 07/28/19 6:05 AM [facility] ALKALINE PHOSPHATASE 67 35 - 104 U/L 07/27/2024 6:05 AM [facility] AST 14 <33 U/L 07/27/2024 6:05 AM [facility] ALT 16 <34 U/L 07/27/2024 6:05 AM [facility] Blood Venipuncture / Unknown 07/27/2024 4:48 AM CDT 07/27/2024 5:28 AM CDT Narrative [facility] LABORATORY [facility] - 07/27/2024 6:05 AM CDT Samples containing indocyanine green cause interferences on Total and/or Direct Bilirubin and must not be measured. us Emeka Myrick DO CHEMISTRY ORDERABLES Final R esult [facility]# [id number] [address] [place] [address] * US VENOUS DOPPLER LEG BILATERAL (07/26/2024 1:04 PM CDT) Anatomical Region Laterality Modality Lower Extremity Ultrasound 07/26/2024 9:44 AM CDT Narrative 07/26/2024 1:01 PM CDT [address] [address] [place] [address] [email or web address] Venous Exam Complete Lower Extremity Duplex Patient: Pauline Qureshi Study ID: [id number] Gender: F : 1985 Age: 38 Race: ANÍBAL Height 170.2cm Study Date: 07/26/2024 Weight: 218.4kg Access. #: [id number] *Referring Physician:Elba Mendez Maria *Ordering Physician:Elba MendezCantilever Crane Operator:Enma Soto Indications: DVT per ordering by provider. [...] expressed in mm Prepared and Electronically Authenticated Jim Shaikh M.D. [id number]:01:06 Procedure Note Jim Shaikh MD - 07/26/2024 [address] [place] [address] [email or web address] Venous [email or web address] Complete Lower Extremity Duplex Patient: Pauline Qureshi Study ID: [id number] Gender: F : 1985 Age: 38 Race: ANÍBAL Height 170.2cm Study Date: 07/26/2024 Weight: 218.4kg Access. #: [id number] *Referring Physician:Elba Mendez Maria *Ordering Physician:Elba MendezCantilever Crane Operator:Enma Soto Indications: DVT per ordering by provider. History: PMH: No prior study is available for comparison. Study data: New node Study status: Routine. Procedure: A vascular evaluation was performed. Image quality was fair. The study wastechnically limited due to body habitus and edema. Complete lower extremityvenous duplex evaluation. Doppler flow study including spectral analysis,color and munroe scale imaging. Birthdate: Patient birthdate: 1985.Age: Patient is 38year(s) old. Sex: gender: female. Height:170.2cm. 67in. Weight: 218.4kg. : 481.4lb. Body mass index: BMI: 75.4kg/m^2.Body surface area: BSA: 3.37m^2. Study date: Study date: 07/26/2024.Study time: 09:44 AM. Location: Vascular laboratory. Patient status:Inpatient. Impressions - Study data: No prior study is available for comparison. - Procedure narrative: A vascular evaluation was performed. Image qualitywas fair. The study was technically limited due to body habitus and edema. 1. No evidence of deep vein thrombosis involving the bilateral lower extremities. 2. Calf veins not well visualized. Isolated calf clot cannot absolutelybe ruled out. Tables: Venous flow: + + + + + !Location !Overall !Flow properties !Comments! + + + + + !Right common femoral!Patent !Phasic; spontaneous;! ! !- ! !normal augmentation; !! ! ! !compressible; no reflux !! + + + + + !Right femoral - !Patent !Compressible! ! + + + + + !Right profunda !Patent !Compressible! ! !femoral - ! ! !! + + + + + !Right popliteal - !Patent !Phasic; spontaneous;! ! ! ! !normal augmentation; !! ! ! !compressible; no reflux !! + + + + + !Right posterior !Patent !Compressible! ! !tibial - ! ! !! + + + + + !Right peroneal - !Not visualized! !Notvisualized.! + + + + + !Left common femoral !Patent !Phasic; spontaneous;! ! !- ! !normal augmentation; !! ! ! !compressible; no reflux !! + + + + + !Left femoral - !Patent !Compressible! ! + + + + + !Left profunda !Patent !Compressible! ! !femoral - ! ! !! + + + + + !Left popliteal - !Patent !Phasic; spontaneous;! ! ! ! !normal augmentation; !! ! ! !compressible; no reflux !! + + + + + !Left posterior !Patent !Compressible! ! !tibial - ! ! !! + + + + + !Left peroneal - !Not visualized! !Notvisualized.! + + + + + *Velocities are expressed in cm/s, Diameters are expressed in mm Prepared and Electronically Authenticated Jim Shaikh M.D. [id number]:01:06 Elba Vanegas MD US ORDERABLES Final Result * CT LOW EXT W CONTRAST RIGHT (07/26/2024 10:31 AM CDT) Anatomical Region Laterality Modality Lower Extremity Computed Tomogra phy 07/26/2024 10:1 8 AM CDT Impressions 07/26/2024 10:53 AM CDT IMPRESSION: 1. Extensive soft tissue edema of the right lower leg which could represent cellulitis given the concern for infection. 2. Popliteal Mora's cyst. Otherwise no evidence of abscess or soft tissue air. 3. No acute osseous or joint space abnormality. DICTATION LOCATION: Location 4 Narrative 07/26/2024 10:[address] LOW EXT W CONTRAST RIGHT DATE: 07/26/2024 10:31 AM HISTORY: Rule out brielle fasc. Sepsis with acute renal failure without septic shock, due to unspecified organism, unspecified acute renal failure type (CMS/HCC); Sepsis with acute renal failure without septic shock, due to unspecified organism, unspecified acute renal failure type (CMS/HCC); Sepsis with acute renal failure without septic shock, due to unspecified organism, unspecified acute renal failure type (CMS/HCC); Acute renal failure, unspecified acute renal failure type; Hypotension, unspecified hypotension type Technique: Multislice helical axial with intravenous contrast. The examination was performed with the adjustment of mA according to the patient size and/or the use of Iterative Reconstruction Technique. CONTRAST: IOPAMIDOL 61 % INTRAVENOUS SOLUTION (MULTI-DOSE BULK PACK) Given:120 mL COMPARISON: None FINDINGS: Extensive cutaneous thickening, edema, and subcutaneous stranding is seen throughout the imaged right lower extremity. There are suspected superficial soft tissue ulcerations at the anterior aspect of the mid lower leg as well as the posterior and posteromedial aspect of the distal lower leg and ankle. No soft tissue air is seen. There is localized fluid at the expected location of a popliteal Mora's cyst. Otherwise there is no organized, drainable fluid collection to suggest abscess. 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 The osseous structures demonstrate no acute process. There is no joint effusion or joint destruction. No lymphadenopathy is seen. Procedure Note Harpal Edwards MD - 07/26/2024 CT LOW EXT W CONTRAST RIGHT DATE: 07/26/2024 10:31 AM HISTORY: Rule out brielle fasc. Sepsis with acute renal failure without septic shock, due to unspecified organism, unspecified acute renal failure type (CMS/HCC); Sepsis with acute renal failure without septic shock, due to unspecified organism, unspecified acute renal failure type (CMS/HCC); Sepsis with acute renal failure without septic shock, due to unspecified organism, unspecified acute renal failure type (CMS/HCC); Acute renal failure, unspecified acute renal failure type; Hypotension, unspecified hypotension type Technique: Multislice helical axial with intravenous contrast. The examination was performed with the adjustment of mA according to the patient size and/or the use of Iterative Reconstruction Technique. CONTRAST: IOPAMIDOL 61 % INTRAVENOUS SOLUTION (MULTI-DOSE BULK PACK) Given:120 mL COMPARISON: None FINDINGS: Extensive cutaneous thickening, edema, and subcutaneous stranding is seen throughout the imaged right lower extremity. There are suspected superficial soft tissue ulcerations at the anterior aspect of the mid lower leg as well as the posterior and posteromedial aspect of the distal lower leg and ankle. No soft tissue air is seen. There is localized fluid at the expected location of a popliteal Mora's cyst. Otherwise there is no organized, drainable fluid collection to suggest abscess. 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 The osseous structures demonstrate no acute process. There is no joint effusion or joint destruction. No lymphadenopathy is seen. IMPRESSION: 1. Extensive soft tissue edema of the right lower leg which could represent cellulitis given the concern for infection. 2. Popliteal Mora's cyst. Otherwise no evidence of abscess or soft tissue air. 3. No acute osseous or joint space abnormality. DICTATION LOCATION: Location 4 us Elba Vanegas MD CT ORDERABLES Final Result * LACTIC ACID (07/26/2024 4:57 AM CDT) LACTIC ACID 1.2 <=2.0 mmol/L 07/26/2024 5:35 AM CDT [facility]OR[facility]ORY SERVICES [facility] Blood Venipuncture / Unknown 07/26/2024 4:57 AM CDT 07/26/2024 5:06 AM CDT us Elba Vanegas MD CHEMISTRY ORDERABLES Final Res ult [facility] CLIA# [id number] [address] [place] [address] * (ABNORMAL) CALCIUM IONIZED (07/26/2024 4:57 AM CDT) PH, VENOUS 7.35 7.32 - 7.43 07/26/2024 5:17 AM CDT [facility] CALCIUM IONIZED 4.1(L) 4.8 - 5.2 mg/dL 07/26/2024 5:17 AM CDT [facility] Blood Venipuncture / Unknown 07/26/2024 4:57 AM CDT 07/26/2024 5:06 AM CDT Elba Vanegas MD CHEMISTRY ORDERABLES Final Res ult Performing Organization Address [facility]/ZIP Co de Phone Number [facility] [employer] [facility] CLIA# [id number] [address] [place] [address] * POC GLUCOSE (07/25/2024 10:51 PM CDT) GLUCOSE POC 94 74 - 99 mg/dL 07/25/2024 10:51 PM CDT [facility] SPECIMEN SOURCE, GLUCOSE POC Whole Blood 07/25/2024 10:51 PM CDT [facility] COMMENT, GLU POC Notified RN/MD 07/25/2024 10:51 PM CDT [facility] Blood, whole 07/25/2024 10:5 1 PM CDT 07/25/2024 10:58 PM CDT Joann Vaughn MD POINT OF CARE TESTING Final Resu lt Performing Organization Address [facility]/ZIP Co de Phone Number [facility] [employer] [facility] CLIA# [id number] [address] [place] [address] * POC LACTIC ACID (07/25/2024 9:16 PM CDT) LACTIC ACID POC 1.5 <=2.0 mmol/L 07/25/2024 9:16 PM CDT [facility] SPECIMEN SOURCE, GASES POC Blank 07/25/2024 9:16 PM CDT [facility] COMMENT, GASES POC Responsible Clinical Caregiver notified 07/25/2024 9:16 PM CDT [facility] Blood 07/25/2024 9:16 PM CDT 07/25/2024 9:17 PM CDT Joann Vaughn MD POINT OF CARE TESTING Final Resu lt [facility]# [id number] [address] [place] [address] * BLOOD CULTURE (07/25/2024 9:05 PM CDT) Only the most recent of2 resultswithin the time period is included. Pathologist [facility] BLOOD CULTURE No growth 07/30/2024 10:00 PM CDT [facility] Blood (Peripheral) Venipuncture / Unknown 07/25/2024 9:05 PM CDT 07/25/2024 9:12 PM CDT Narrative [facility] - 07/30/2024 10:00 PM CDT Specimen processed with suboptimal blood volume collected. Heidi Abdul MD MICROBIOLOGY - GENERAL ORDERAB LES Final Result [facility]# [id number] [address] [place] [address] * CT ABDOMEN PELVIS WO CONTRAST (07/25/2024 8:23 PM CDT) Anatomical Region Laterality Modality Abdomen Computed Tomogra phy 07/25/2024 8:23 PM CDT Impressions 07/25/2024 8:33 PM CDT IMPRESSION: No acute abnormality in the abdomen or pelvis The examination was performed with the adjustment of mA according to the patient size and/or the use of Iterative Reconstruction Technique. DICTATION LOCATION: Location 1 - [facility] 07/25/2024 8:33 PM CDT EXAM: CT ABDOMEN AND PELVIS WITHOUT CONTRAST DATE: 07/25/2024 8:23 PM HISTORY: Flank pain TECHNIQUE: CT was performed without contrast. Oral contrast was not administered. COMPARISONS: 06/08/2024 FINDINGS: Limited views of the lung bases are notable for a calcified granuloma in the left lung base. Spleen, pancreas and adrenal glands are normal. No focal liver abnormality. Gallbladder is unremarkable. No nephrolithiasis or hydronephrosis. Bladder is decompressed. Uterus and adnexa are unremarkable. The appendix is normal. Small bowel is unremarkable. Colon is normal. No pathologic adenopathy. Athero small fat-containing umbilical hernia. Multiple probable injection sites along the anterior abdomen. No mesenteric edema. No free fluid or organized fluid collection. The appendix is normal. Degenerative disc disease is present in the lumbar spine most pronounced at L4-5 and L5-S1. No acute abnormality. Procedure Note Arjun Heller MD - 07/25/2024 EXAM: CT ABDOMEN AND PELVIS WITHOUT CONTRAST DATE: 07/25/2024 8:23 PM HISTORY: Flank pain TECHNIQUE: CT was performed without contrast. Oral contrast was not administered. COMPARISONS: 06/08/2024 FINDINGS: Limited views of the lung bases are notable for a calcified granuloma in the left lung base. Spleen, pancreas and adrenal glands are normal. No focal liver abnormality. Gallbladder is unremarkable. No nephrolithiasis or hydronephrosis. Bladder is decompressed. Uterus and adnexa are unremarkable. The appendix is normal. Small bowel is unremarkable. Colon is normal. No pathologic adenopathy. Athero small fat-containing umbilical hernia. Multiple probable injection sites along the anterior abdomen. No mesenteric edema. No free fluid or organized fluid collection. The appendix is normal. Degenerative disc disease is present in the lumbar spine most pronounced at L4-5 and L5-S1. No acute abnormality. IMPRESSION: No acute abnormality in the abdomen or pelvis The examination was performed with the adjustment of mA according to the patient size and/or the use of Iterative Reconstruction Technique. DICTATION LOCATION: Location 1 - [facility] us Joann Vaughn MD CT ORDERABLES Final Result * POC , URINE (07/25/2024 7:19 PM CDT) Only the most recent of2 resultswithin the time period is included. Pathologist [facility] HCG QUAL URINE Negative Negative 07/25/2024 7:19 PM CDT [facility] [employer] [facility] Urine 07/25/2024 7:19 PM CDT 07/25/2024 7:26 PM CDT Narrative [facility] - 07/25/2024 7:19 PM CDT Positive : Result is greater than or equal to 25 mIU/mL Negative: Result is less than 25 mIU/mL Invalid: Result is borderline or indeterminate,send to lab for serum test methodology. us Joann Vaughn MD POINT OF CARE TESTING Final Resu lt [facility] [employer] [facility]# [id number] [address] [place] [id number] * (ABNORMAL) URINALYSIS WITH REFLEX MICROSCOPIC (07/25/2024 7:12 PM CDT) COLOR UA Dark Yellow Pale to Dark Yellow 07/25/2024 7:42 PM CDT [facility] CLARITY UA Cloudy(A) Clear 07/25/2024 7:42 PM CDT [facility] SPECIFIC GRAVITY UA 1.019 1.003 - 1.035 07/25/2024 7:42 PM T [facility] [employer] [facility] PH UA 5.0 5.0 - 8.0 07/25/2024 7:42 PM T [facility] LEUKOCYTE ESTERASE UA Negative Negative 07/25/2024 7:42 PM CDT [facility] NITRITE UA Negative Negative 07/25/2024 7:42 PM CDT [facility] PROTEIN UA 2+(A) Negative 07/25/2024 7:42 PM CDT [facility] GLUCOSE UA Negative Negative 07/25/2024 7:42 PM CDT [facility] LABOR[facility]ORY [facility] KETONES UA Trace(A) Negative 07/25/2024 7:42 PM CDT [facility] UROBILINOGEN UA Normal <2.0 mg/dL 7:42 PM CDT [facility] BILIRUBIN UA Negative Negative 07/25/2024 7:42 PM CDT [facility] BLOOD UA 3+(A) Negative 07/25/2024 7:42 PM CDT [facility] WBC UA 3-5(A) 0 - 2 /hpf 07/25/2024 7:42 PM CDT [facility] RBC UA 11-25(A) 0 - 2 /hpf 07/25/2024 7:42 PM CDT [facility] BACTERIA UA 2+(A) Negative /hpf 07/25/2024 7:42 PM CDT [facility] EPITHELIAL CELLS, URINE 11-25(A) 0 - 5 /hpf 07/25/2024 7:42 PM CDT [facility] HYALINE CAST 11-25(A) None Seen, 0-2 /lpf 07/25/2024 7:42 PM CDT [facility] CALCIUM OXALATE, URINE Present(A) Absent 07/25/2024 7:42 PM CDT [facility] Urine URINE SPECIMEN OBTAINED BY CLEAN CATCH PROCEDURE / Unknown Collection / Unknown 07/25/2024 7:12 PM CDT 07/25/2024 7:19 PM CDT Jeremy Agosto MD URINE ORDERABLES Final Result [facility] [employer] [facility] CLIA# [id number] [address] [facility] [place] [address] [place] [address] * Critical Care (07/25/2024 6:52 PM CDT) Narrative Dohr, Joann, MD - 07/25/2024 6:52 PM CDT Joann Vaughn MD 07/26/2024 1:06 AM Critical Care Performed by: Joann Vaughn MD Authorized by: Joann Vaughn MD Critical care provider statement: Critical care time (minutes): 45 Critical care time was exclusive of: Separately billable procedures and treating other patients Critical care was necessary to treat or prevent imminent or life-threatening deterioration of the following conditions: Sepsis Critical care was time spent personally by me on the following activities: Ordering and performing treatments and interventions, ordering and review of laboratory studies, ordering and review of radiographic studies, pulse oximetry, re-evaluation of patient's condition, review of old charts, obtaining history from patient or surrogate, examination of patient, evaluation of patient's response to treatment, discussions with consultants and development of treatment plan with patient or surrogate I assumed direction of critical care for this patient from another provider in my specialty: no Care discussed with: admitting provider Joann Vaughn MD PROCEDURE/MINOR SURGICAL ORDERAB LES Final Result * TSH (07/25/2024 4:57 PM CDT) TSH 1.08 0.27 - 4.20 uIU/mL 07/26/2024 12:08 AM CDT [facility] [employer] [facility] Blood Venipuncture / Unknown 07/25/2024 4:57 PM CDT 07/25/2024 5:06 PM CDT Elba Vanegas MD CHEMISTRY ORDERABLES Final Res ult [facility] [employer] [facility] [id number] 5 [facility] [place] [address] * (ABNORMAL) COMPREHENSIVE METABOLIC PANEL (07/25/2024 4:57 PM CDT) SODIUM 136 136 - 145 mmol/L 07/25/2024 6:05 PM CDT [facility] [employer] [facility] POTASSIUM 4.7 3.5 - 5.0 mmol/L 07/25/2024 6:05 PM [facility] Comment:Hemolysis present. R esult may be falsely elevated. CHLORIDE 101 98 - 107 mmol/L 07/25/2024 6:05 PM [facility] CO2 20(L) 22 - 29 mmol/L 07/25/2024 6:05 PM [facility] CALCIUM 9.1 8.6 - 10.2 mg/dL 07/25/2024 6:05 PM [facility] BUN 51(H) 6 - 20 mg/dL 07/25/2024 6:05 PM [facility] CREATININE 3.84(H) 0.51 - 0.95 mg/dL 07/25/2024 6:05 PM [facility] GLUCOSE 90 74 - 99 mg/dL 07/25/2024 6:05 PM [facility] TOTAL PROTEIN 6.7 6.7 - 8.6 g/dL 07/25/2024 6:05 PM [facility] ALBUMIN 3.4(L) 3.5 - 5.2 g/dL 07/25/2024 6:05 PM [facility] BILIRUBIN TOTAL 0.3 0.0 - 1.2 mg/dL 07/25/2024 6:05 PM [facility] ALKALINE PHOSPHATASE 77 35 - 104 U/L 07/25/2024 6:05 PM [facility] AST 07/25/2024 6:05 PM [facility] Comment:Test cannot be perfo rmed. Sample hemolysis interference above limits. Redraw if indicated. ALT 26 <34 U/L 07/25/2024 6:05 PM [facility] GFR 15(L) >=60 mL/min/1. 73 sq meter 07/25/2024 6:05 PM [facility] Comment:eGFR calculated with 2020 CKD-EPI equation. Vegetarian diet, extremely high or low muscle mass, and may affect results. Cystatin C with Glomerular Filtration Rate is a suitable alternative for these patients. ANION GAP 15 8 - 16 mmol/L 07/25/2024 6:05 PM CDT [facility] Blood Venipuncture / Unknown 07/25/2024 4:57 PM CDT 07/25/2024 5:06 PM CDT Narrative [facility] - 07/25/2024 6:05 PM CDT Samples containing indocyanine green cause interferences on Total and/or Direct Bilirubin and must not be measured. us Jeremy Agosto MD CHEMISTRY ORDERABLES Final Resul t [facility] CLIA# [id number] [address] [place] [address] * CTA CHEST + ABD/PEL W CONTRAST (06/08/2024 12:23 AM CDT) Anatomical Region Laterality Modality Chest, Abdomen, Pelvis Computed Tomography 06/08/2024 12:2 4 AM CDT Impressions 06/08/2024 12:31 AM CDT IMPRESSION: 1. No large or central pulmonary embolus. 2. Thoracolumbar spondylosis. 3. Vascular calcification. 4. No fracture or solid organ injury. 5. Panniculitis. DICTATION LOCATION: Location 7 [facility] 06/08/2024 12:[address] pulmonary angiography with contrast, CT of the abdomen and pelvis with contrast DATE: 06/08/2024 12:23 AM CLINICAL HISTORY: Fall down multiple stairs. Pain. Contrast administered: IOPAMIDOL 61 % INTRAVENOUS SOLUTION (MULTI-DOSE BULK PACK) Given:105 mL TECHNIQUE: CT pulmonary angiography is performed with intravenous infusion of contrast. Sliding MIP reconstructions are performed by the technologist. CT of abdomen and pelvis is performed with intravenous administration of contrast. Sagittal and coronal reconstructions are performed by the technologist. The examination was performed with the adjustment of mA according to the patient size and/or the use of Iterative Reconstruction Technique. FINDINGS: The lungs are free of coalescent infiltrate. There is no pleural effusion or pleural thickening. The central airways are patent. The vascular structures enhance normally. There is no evident coronary arterial calcification. There is no mediastinal or hilar mass or significant adenopathy. There is suboptimal opacification of the pulmonary arteries. There is no large or central filling defect in the pulmonary arteries or vascular cutoff to suggest the diagnosis of pulmonary embolus. Bony thorax is intact. Degenerative changes are present in the thoracolumbar vertebrae. The liver and spleen demonstrate normal attenuation without focal defect. Gallbladder is normally distended. Pancreas and adrenal glands are unremarkable. Kidneys enhance symmetrically. There is no retroperitoneal mass or significant adenopathy. Vascular calcification is present without evidence of aneurysm. Appendix is visualized and is within normal limits. Structures related to gastrointestinal tract are unremarkable. Uterus and adnexal structures are within normal limits. Bladder is unremarkable. There is skin thickening the patient's pannus with stranding in the subcutaneous adjacent fat suggesting panniculitis. Bony pelvis is intact. INCIDENTAL FINDINGS: None. Procedure Note Joss Brown MD - 06/08/2024 CT pulmonary angiography with contrast, CT of the abdomen and pelvis with contrast DATE: 06/08/2024 12:23 AM CLINICAL HISTORY: Fall down multiple stairs. Pain. Contrast administered: IOPAMIDOL 61 % INTRAVENOUS SOLUTION (MULTI-DOSE BULK PACK) Given:105 mL TECHNIQUE: CT pulmonary angiography is performed with intravenous infusion of contrast. Sliding MIP reconstructions are performed by the technologist. CT of abdomen and pelvis is performed with intravenous administration of contrast. Sagittal and coronal reconstructions are performed by the technologist. The examination was performed with the adjustment of mA according to the patient size and/or the use of Iterative Reconstruction Technique. FINDINGS: The lungs are free of coalescent infiltrate. There is no pleural effusion or pleural thickening. The central airways are patent. The vascular structures enhance normally. There is no evident coronary arterial calcification. There is no mediastinal or hilar mass or significant adenopathy. There is suboptimal opacification of the pulmonary arteries. There is no large or central filling defect in the pulmonary arteries or vascular cutoff to suggest the diagnosis of pulmonary embolus. Bony thorax is intact. Degenerative changes are present in the thoracolumbar vertebrae. The liver and spleen demonstrate normal attenuation without focal defect. Gallbladder is normally distended. Pancreas and adrenal glands are unremarkable. Kidneys enhance symmetrically. There is no retroperitoneal mass or significant adenopathy. Vascular calcification is present without evidence of aneurysm. Appendix is visualized and is within normal limits. Structures related to gastrointestinal tract are unremarkable. Uterus and adnexal structures are within normal limits. Bladder is unremarkable. There is skin thickening the patient's pannus with stranding in the subcutaneous adjacent fat suggesting panniculitis. Bony pelvis is intact. INCIDENTAL FINDINGS: None. IMPRESSION: 1. No large or central pulmonary embolus. 2. Thoracolumbar spondylosis. 3. Vascular calcification. 4. No fracture or solid organ injury. 5. Panniculitis. DICTATION LOCATION: Location [address] [place] [address] Kaden Cunha IV, DO CT ORDERABLES F inal Result * (ABNORMAL) POC CREATININE (06/07/2024 11:46 PM CDT) CREATININE POC 1.20(H) 0.50 - 1.00 mg/dL 06/07/2024 11:46 PM CDT [facility] GFR POC 60 >=60 mL/min/1.7 3 sq meter 06/07/2024 11:46 PM CDT [facility] Comment:eGFR calculated with 2020 CKD-EPI equation. Vegetarian diet, extremely high or low muscle mass, and may affect results. Cystatin C with Glomerular Filtration Rate is a suitable alternative for these patients. Blood, whole 06/07/2024 11:4 6 PM CDT 06/07/2024 11:50 PM CDT Kaden Cunha IV, DO POINT OF CARE BOZENA TING [id number] [address] [place] [address] * EKG 12-LEAD (06/07/2024 11:41 PM CDT) 06/07/2024 11:4 1 PM CDT Narrative INTERFACE SYSTEM - 06/08/2024 8:16 AM CDT [facility] [address], [place] [address] Test Date: 2024-06-07 [facility] Department: 41 Room: 25 25 Gender: Female Senior Support Analyst: [id number] : 1985 Requested By: KADEN ARROYO Order Number: [id number] Reading : Jose L Wahl Measurements Intervals [place] Rate: 117 P: 22 UT: 158 QRS: 13 QRSD: 91 T: 45 QT: 320 QTc: 447 Interpretive Statements Sinus tachycardia Electronically Signed On 06-08-2024 8:16:51 CDT by Jose L Wahl Procedure Note Jose L Wahl MD - 06/08/2024 [facility] [address] [place] [address] Test Date: 2024-06-07 Pat Name: PAULINE QURESHI Department: 41 Room: 25 25 Gender: Female Senior Support Analyst: [id number] : 1985 Requested By: KADEN ARROYO Order Number: [id number] Reading : Jose L Wahl Measurements Intervals [place] Rate: 117 P: 22 UT: 158 QRS: 13 QRSD: 91 T: 45 QT: 320 QTc: 447 Interpretive Statements Sinus tachycardia Electronically Signed On 06-08-2024 8:16:51 CDT by Jose L Wahl us Kaden Cunha IV, DO ECG ORDERABLES F inal Result Performing Organization Address City/State/[facility] Co de Phone Number INTERFACE SYSTEM Refer to clinic/hospital department * XR TIBIA AND FIBULA 2 VW LEFT (06/07/2024 11:09 PM CDT) Anatomical Region Laterality Modality Lower Extremity Computed Radiogr aphy 06/07/2024 11:1 0 PM CDT Impressions 06/08/2024 8:05 AM CDT IMPRESSION: No acute osseous abnormality. DICTATION LOCATION: Location 1 - [facility] Narrative 06/08/2024 8:05 AM CDT EXAMINATION: XR TIBIA AND FIBULA 2 VW LEFT DATE: 06/07/2024 11:09 PM HISTORY: Fall. See Reason for Exam COMPARISON: None. FINDINGS: No fracture or malalignment. Mild knee osteoarthritis. Calcaneal spur is present. Procedure Note Arjun Heller MD - 06/08/2024 EXAMINATION: XR TIBIA AND FIBULA 2 VW LEFT DATE: 06/07/2024 11:09 PM HISTORY: Fall. See Reason for Exam COMPARISON: None. FINDINGS: No fracture or malalignment. Mild knee osteoarthritis. Calcaneal spur is present. IMPRESSION: No acute osseous abnormality. DICTATION LOCATION: Location [address] [place] [address] Manuel Vickers MD DIAGNOSTIC IMAGING ORDERABLES Final Result * XR CHEST PA AND LATERAL 2 VW (06/07/2024 11:09 PM CDT) Anatomical Region Laterality Modality Chest Computed Radiogr aphy 06/07/2024 11:1 0 PM CDT Impressions 06/08/2024 7:48 AM CDT IMPRESSION: Lungs are clear. Degenerative changes are present in the spine. Heart size is normal. No pneumothorax or effusion. DICTATION LOCATION: [address] Narrative 06/08/2024 7:48 AM CDT CHEST, 2 VIEWS DATE: 06/07/2024 11:09 PM HISTORY: Chest Pain, Comment: fall, sternal pain. See Reason for Exam COMPARISON: No relevant prior studies are available. FINDINGS: Frontal and lateral views of the chest are submitted. Procedure Note Arjun Heller MD - 06/08/2024 CHEST, 2 VIEWS DATE: 06/07/2024 11:09 PM HISTORY: Chest Pain, Comment: fall, sternal pain. See Reason for Exam COMPARISON: No relevant prior studies are available. FINDINGS: Frontal and lateral views of the chest are submitted. IMPRESSION: Lungs are clear. Degenerative changes are present in the spine. Heart size is normal. No pneumothorax or effusion. DICTATION LOCATION: [address] [place] Manuel Vickers MD DIAGNOSTIC IMAGING ORDERABLES Final Result * CT HEAD WO CONTRAST (06/07/2024 11:03 PM CDT) Anatomical Region Laterality Modality Head Computed Tomogra phy 06/07/2024 11:0 3 PM CDT Impressions 06/07/2024 11:08 PM CDT IMPRESSION: 1. No CT evidence of acute intracranial abnormality. DICTATION LOCATION: Location 4 Narrative 06/07/2024 11:[address] HEAD WO CONTRAST DATE: 06/07/2024 11:03 PM CLINICAL INDICATION: Fall on thinners. COMPARISON: None available. TECHNIQUE: CT of the head was performed without the administration of intravenous contrast. The examination was performed with the adjustment of mA according to the patient size and/or the use of Iterative Reconstruction Technique. FINDINGS: No acute intracranial hemorrhage or mass effect. The munroe-white matter differentiation is maintained. The ventricles are normal without evidence of hydrocephalus. There are no extra-axial fluid collections. The visualized orbits are grossly unremarkable. Visualized paranasal sinuses are clear. The mastoid air cells are clear. The visualized calvarium appears intact. Procedure Note BaljinderShadi duarte, DO - 06/07/2024 CT HEAD WO CONTRAST DATE: 06/07/2024 11:03 PM CLINICAL INDICATION: Fall on thinners. COMPARISON: None available. TECHNIQUE: CT of the head was performed without the administration of intravenous contrast. The examination was performed with the adjustment of mA according to the patient size and/or the use of Iterative Reconstruction Technique. FINDINGS: No acute intracranial hemorrhage or mass effect. The munroe-white matter differentiation is maintained. The ventricles are normal without evidence of hydrocephalus. There are no extra-axial fluid collections. The visualized orbits are grossly unremarkable. Visualized paranasal sinuses are clear. The mastoid air cells are clear. The visualized calvarium appears intact. IMPRESSION: 1. No CT evidence of acute intracranial abnormality. DICTATION LOCATION: Location [address] ORDERABLES Final Result from Last 3 Months Insurance [facility] BL[employer] BLUE [employer] Commercial Advance Directives For more information, please contact: [phone] * Full Code (Latest Code Status on File) Date Activated Date Inactivated Comments 07/26/2024 6:19 AM 07/29/2024 5:23 PM
[2024-08-15 16:47] LABS: Anion Gap 6 mmol/L (4-12); Blood Urea Nitrogen 12 mg/dL (7-17); Carbon Dioxide 24 mmol/L (22-30); Chloride 110 mmol/L (98-107); Estimated Glomerular Filt Rate > 60; Glucose 83 mg/dL (65-110); Potassium 3.6 mmol/L (3.4-5.0); Sodium 140 mmol/L (137-145)
[2024-08-15 17:20] LABS: Iron 47 ug/dL (37-170); Percent Iron Saturation 13 % (20-50)
== END 2024-08-15 15:07 | disposition home or self-care (01) ==
PROVIDERS: PCP Physician Assistant Medical; Visit Provider Internal Medicine Hematology & Oncology
DX: D64.9 Anemia, unspecified (principal)
CPT/HCPCS: 36415; 80048; 82607; 82728; 82746; 83540; 83550; 85027

== ENCOUNTER 2024-08-16 08:00 | Outpatient (RCR) | payer BC, SELFPAY ==
--- NOTE | 2024-06-17 17:45 | PTOPEVAL1 ---
Assessment and note entered by Kesha Lerner, PT Evaluation Information Assessment Status Evaluation Diagnosis Oth abnormalities of gait and mobility, S&S involving musculoskeletal syste ICD-10 Condition Codes (PT) Pain in low back M54.50,Pain in right hip M25.551, Pain in left hip M25.552,Pain in right knee M25. 561,Pain in left knee M25.562,Repeated falls R29.6 ,Difficulty Walking R26.2,Abnormalities of gait and mobility R26.9,Weakness R53.1 Subjective Information Pt reports bilat knee pain and hip pain with arthritis Had a DVT LLE in April, lymphadema LLE has been waiting since last Spring on the list for treatment. Has had two falls in the last week. Thursday missed a step and fell, and Thursday fell stepping up steps into home. Feels like that step is a step and a half. Lifting right knee hurts getting into car, has a short SUV. Feels like the left knee locks up sometimes. Gets steroid shots in her knees as well for bone on bone arthritis. Can't do surgery because she is too young and also because of her weight. States when she went to therapy a few years ago was only able to go for a couple weeks. Has lower back pain with degenerative disc disease and hips get adjusted by chiropractor but only has so many visits per year. Has discomfort even moving around in bed. Started new medication due to her insulin resistance and PCOS effecting her weight Pt reports likes to swim but gets UTIs so doesn't swim as much as would like Most difficulty with steps, bed mobility, and getting in/out of cars. Has 6 steps into home without railing. Reports initiates these steps with her hands on the steps as well as feet for the first steps. Has not been in the basement and upstairs don't have railing so hasn't been to these floors. Lives with mom, sister, and her two nieces Pt would like to have better flexibility in the knees, to decreased pain and be able to get in and out of her car easier. Reported Pain Level Pain Score 0,0,0: Self Report Assessment PT Clinical Summary Pt presents with difficulties with mobility and ambulation causing falls with abrasions but no other injuries. Pt has extensive medical history including but not limited to Sjogren's dz, insulin resistant diabetes, Factor 5 Leiden dz, lymphadema, morbid obesity, PCOS, arthritis in multiple joints and low back among other issues. Evaluation and reports suggest her falls being related to inability to lift her legs high enough to clear obstacles, she also reports knee pain impacting her abilities, she demonstrates severe knee valgus, ankle alignment deficits, and very poor endurance with 2 min walk testing. Pt will benefit from therapy to assist in modifications of lifestyle, activities, and mobility to improve function, safety, endurance, and independence for her to meet her functional goals. Plan of Care Interventions Aquatic Therapy,Check Out for Orthotic/Prosthetic, Electrical Stimulation,Gait Training,Hot Pack/Cold Pack,Manual Therapy,Neuro Re-education,Patient/ Caregiver Education,Therapeutic Activities, Therapeutic Exercise,Self-Care/Home Management, Ultrasound,Other Other Interventions bracing Treatment Frequency and 2-3x weekly x 20 visits Duration These treatments will address the objective and functional deficits as defined above. The patient will be advanced safely and appropriately in order for the patient to progress towards his/her prior level of function. Additional exercises will be introduced and as well as a comprehensive home exercise program upon discharge, if needed, ?to ensure carryover of functional gains achieved in the clinic. This treatment plan has been reviewed and agreement upon by the patient.
--- NOTE | 2024-06-17 17:45 | OPREHPOC ---
Outpatient Therapy Plan of Care This is a Multidisciplinary Plan of Care that may contain components documented by all disciplines (PT, OT, and ST.) PT Problem 1 PT Problem #1 Knowledge Deficit PT Goal 1 Goal / Goal Update Pt will be independent in HEP Pt will verbalize understanding of diagnosis and prognosis Target Visit 10 PT Problem 2 PT Problem #2 Impaired Endurance PT Goal 1 Goal / Goal Update Pt will demonstrate ability to ambulate for 3 minutes without rest break or HR above 130 Target Visit 10 PT Goal 2 Goal / Goal Update Pt will demonstrate ability to participate in 6 min walk test without a rest break Target Visit 10 PT Problem 3 PT Problem #3 Impaired Functional Mobility PT Goal 1 Goal / Goal Update Pt will report greater ease of getting into and out of bed with or without assistive device Target Visit 10 PT Goal 2 Goal / Goal Update Pt will report ability to get into and out of her home with greater ease without requiring putting her hands on the steps themselves with or without railing use. Target Visit 20
--- NOTE | 2024-07-13 12:41 | PCPTNOTE ---
Pt called to cancel today's appt due to being admitted to the hospital. Will require updated prescription to continue therapy services.
--- NOTE | 2024-08-16 08:50 | OTOPEVDC ---
Assessment and note entered by Rogers Su, OTR/L, CHT Thank you for referring Meghna Gary to [facility].? An evaluation has been completed. No further treatment is needed. OT Evaluation Information Assessment Status Evaluation Diagnosis Limitation of activities due to disablity Subjective Information Patient reports she lives with her mom, sister, and 2 nieces. She reports she was hospitalized 2-3 weeks ago for cellulitis, sepsis, and a lower extremity wound infection. She is received lymphedema therapy for LE lymphedema and she reports this is very helpful. She has a wound on her right LE, which was debrided yesterday at wound care. She reports difficulties with LB dressing due having difficulty with bending her knees due to the swelling and the leg wraps. She has a slip on shoe for the right foot and a surgical shoe on the left due to lymphedema wraps. She reports no difficulties with UB dressing. She is doing sponge baths right now due to wounds and lymphedema. Her mom has been helping wash her hair. She reports knee pain limits her ability to step in and out of their tub shower. She reports her bathroom set up is so small she would not be able to use a tub transfer bench. She reports difficulties with prolonged stands due to LE pain and increased swelling with prolonged stands. 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 Assessment OT Clinical Summary Patient referred to OT with dx of reduced mobility and limitation of activities due to disability. OT evaluation completed this AM. Patient is functioning at her prior level of function with the exception of LB dressing and being able to step in and out of her tub/shower. LB dressing is limited due to edema/lymphedema with leg wraps and a right LE leg wound. Discussed and issued information about adaptive equipment for LB dressing. Discussed at length the options for a shower chair or bench and patient reports her bathroom is way too small for these options. She reports she would like to get back into PT to work on her knee mobility and strength to be able to step in and out of the shower again once she is able to following lymphedema therapy. No further skilled OT indicated at this time. D/C OT. Plan of Care OT Services Indicated No
== END 2024-09-14 23:59 | disposition home or self-care (01) ==
LOC: ANHHIOT 08:00
PROVIDERS: PCP Physician Assistant Medical; Visit Provider Physician Assistant Medical
DX: R26.89 Other abnormalities of gait and mobility (principal); R29.898 Other symptoms and signs involving the musculoskeletal system
CPT/HCPCS: 97014; 97110; 97140; 97163; 97165; 97530; 97535; G0283

== ENCOUNTER 2024-10-28 08:00 | Outpatient (RCR) | payer BC, SELFPAY ==
--- NOTE | 2024-08-01 10:01 | OPREHPOC ---
Outpatient Therapy Plan of Care This is a Multidisciplinary Plan of Care that may contain components documented by all disciplines (PT, OT, and ST.) PT Problem 1 PT Problem #1 Knowledge Deficit PT Goal 1 Goal / Goal Update 1* independent with HEP 2* independent with compression garments Target Visit 20 PT Problem 2 PT Problem #2 Pain PT Goal 1 Goal / Goal Update * decrease pain in her knees, to 2/10 at worst, with decreased lymphedema of legs Target Visit 20 PT Problem 3 PT Problem #3 Impaired Lymphatic System PT Goal 1 Goal / Goal Update decrease lymphedema over L LE, evident by 1* circumferential measurement to 68 Cm from bottom of leg, to 900 cm 2* no fibrotic tissue over lower leg 3* no papilloma over lower leg 4* visible malleoli decrease truncal edema: 5* no pain with palpation over abdomen 6* no firmness of lower abdominal pannus Target Visit 20
--- NOTE | 2024-08-01 10:02 | PTOPEVAL1 ---
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 She was hospitalized last week due to sepsis of R lower leg wound, and has few days of antibiotics remaining. She has chronic issues with swelling of both legs, with more issues since April, with 2 falls and wound over lower leg. She is under the management of wound care. And has been receiving out pt PT treatment for strengthening, gait and balance issues. She has never had treatment for lymphedema in the past. Her medical history is complex: HTN, hypothyroid, Factor V Leiden with DVT in L calf Apr 2024, bilateral hip & knee arthritis, obesity, renal issues, PCOS causing insulin resistant, L plantar fascia tear and pain, wound R lower leg with sepsis and surgical debridement. With the evaluation: L LE: circumferential measurement to 68 cm is 1010.5 cm; skin and tissue changes over lower leg and foot with redness, fibrotic tissue and papillomas; the thigh and knee have normal skin color and good tissue mobility. She has truncal edema with lower abdominal pannus, and firmness of abdomen. She is independent with transfers and mobility, active and motivated to improve her legs. Treatment will begin with her L leg and when R wound is healed, will treat her R LE. Skilled PT services are indicated for complete decongestive therapy to L LE and trunk--manual lymph drainage, multiple layer compression wraps, intermittent compression pump, exercises and education to manage her chronic condition. Assist pt to obtain a home intermittent compression pump . Plan of Care Interventions Intermittent Compression Pump,Lymphedema Compression Wraps,Manual Lymph Drainage,Patient/ Caregiver Education,Therapeutic Activities, Therapeutic Exercise PT Services Indicated Yes Treatment Frequency and 3x/wk for 20 visits Duration These treatments will address the objective and functional deficits as defined above. The patient will be advanced safely and appropriately in order for the patient to progress towards his/her prior level of function. Additional exercises will be introduced and as well as a comprehensive home exercise program upon discharge, if needed, ?to ensure carryover of functional gains achieved in the clinic. This treatment plan has been reviewed and agreement upon by the patient.
--- NOTE | 2024-08-22 08:54 | OPREHPOC ---
Outpatient Therapy Plan of Care This is a Multidisciplinary Plan of Care that may contain components documented by all disciplines (PT, OT, and ST.) PT Problem 1 PT Problem #1 Knowledge Deficit PT Goal 1 Goal / Goal Update 1* independent with HEP 2* independent with compression garments 08-22-24 progress goal met continue towards goals to progress education Target Visit 20 PT Problem 2 PT Problem #2 Pain PT Goal 1 Goal / Goal Update * decrease pain in her knees, to 2/10 at worst, with decreased lymphedema of legs 08-22-24 progress goal not met continues to have pain in both knees; continue towards goal Target Visit 20 PT Problem 3 PT Problem #3 Impaired Lymphatic System PT Goal 1 Goal / Goal Update decrease lymphedema over L LE, evident by 1* circumferential measurement to 68 Cm from bottom of leg, to 900 cm 2* no fibrotic tissue over lower leg 3* no papilloma over lower leg 4* visible malleoli decrease truncal edema: 5* no pain with palpation over abdomen 6* no firmness of lower abdominal pannus 08-22-24 progress goals 2,3,4 met continue towards other goals Target Visit 20
--- NOTE | 2024-08-22 08:54 | PTOPPROG ---
Assessment and note entered by Laura Pisano, PT, CLT Assessment Status Progress ICD-10 Condition Codes (PT) Lymphedema I89.0 Onset April 2024 Subjective Information L leg is much smaller, smaller than it has been in a long time; going to the wound care center today, it is still open and putting ointment on it and dressing changes. Assessment PT Clinical Summary Meghna has received 10 PT sessions. Her L LE lymphedema has decreased, with circumferential measurement of leg by 38.4 cam and improved skin integrity. Only have slight redness over lower leg, no papillomas and no fibrotic tissue, with visible malleoli and no edema over dorsum of foot. She has been measured for a compression garment for R lower leg and stew for trunk and thighs. And awaiting insurance for coverage of the garments. Education to pt for self manual lymph drainage, skin care, lymphedema management, compression garment use. 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 The R lower leg has a wound that is under the management of wound care. The intermittent compression pump and manual lymph drainage is being performed on R leg. The goals were partially achieved. Continue lymphedema treatment, with progression of education and lymphedema management. Plan of Care Interventions Intermittent Compression Pump,Lymphedema Compression Wraps,Manual Lymph Drainage,Patient/ Caregiver Education,Therapeutic Activities, Therapeutic Exercise PT Services Indicated Yes Treatment Frequency and 3x/wk for 20 visits Duration These treatments will address the objective and functional deficits as defined above. The patient will be advanced safely and appropriately in order for the patient to progress towards his/her prior level of function. Additional exercises will be introduced and as well as a comprehensive home exercise program upon discharge, if needed, ?to ensure carryover of functional gains achieved in the clinic. This treatment plan has been reviewed and agreement upon by the patient.
--- NOTE | 2024-09-22 16:28 | OPREHPOC ---
Outpatient Therapy Plan of Care This is a Multidisciplinary Plan of Care that may contain components documented by all disciplines (PT, OT, and ST.) PT Problem 1 PT Problem #1 Knowledge Deficit PT Goal 1 Goal / Goal Update 1* independent with HEP 2* independent with compression garments 08-22-24 progress goal met continue to progress education 09-22-24 progress d/c treatment L LE/ HOLD PT for R LE goals Target Visit 20 Progress Met PT Problem 2 PT Problem #2 Pain PT Goal 1 Goal / Goal Update * decrease pain in her knees, to 2/10 at worst, with decreased lymphedema of legs 08-22-24 progress goal not met continues to have pain in both knees; continue towards goal 09-22-24 progress d/c treatment L LE/ HOLD PT for R LE goal not met, continue to have pain in knees Target Visit 20 Progress Not Met PT Problem 3 PT Problem #3 Impaired Lymphatic System PT Goal 1 Goal / Goal Update decrease lymphedema over L LE, evident by 1* circumferential measurement to 68 Cm from bottom of leg, to 900 cm 2* no fibrotic tissue over lower leg 3* no papilloma over lower leg 4* visible malleoli decrease truncal edema: 5* no pain with palpation over abdomen 6* no firmness of lower abdominal pannus 08-22-24 progress goals 2,3,4 met continue towards other goals 09-22-24 progress d/c treatment L LE/ HOLD PT for R LE goals 2,3,4,5, met #1 is 984 cm Target Visit 20 Progress Partially Met
--- NOTE | 2024-09-22 16:29 | PTOPPROG ---
Assessment and note entered by Laura Pisano, PT, CLT Assessment Status Progress ICD-10 Condition Codes (PT) Lymphedema I89.0 Onset April 2024 Subjective Information went to wound care last week-- they did debridement and changed the dressing, nurse feels like it will be healed in a few weeks; the L compression sock was OK when it was on, but when took it off, leg was sore and tender, so did not put it back on and rested in bed most of the day yesterday; Assessment PT Clinical Summary Meghna has received a total of 22 PT sessions. Today she presents with improved skin integrity of L lower leg-- slight redness, no papillomas and no fibrotic tissue, slight edema over dorsum of foot; she has a 20-30 mmHg compression calf high garment and is independent with it and fit is appropriate. She has the information for compression capris, but has not ordered them yet. Circumferential measurement of L LE, up to 68 cm from bottom of foot: today is 984.0, decreased by 26.5 cm compared to the initial evaluation, and increased by 44.2 cm since the last measurement on 08-22-24 progress report. Increased measurement today due to her not having any compression on her leg for the past day and increased heat and humidity with temps of 105-110' for the past week. Standing circumferential measurement of waist is 178 cm, increased by 5 cm. Education completed for self management of lymphedema--home exercises, skin care, compression garment and self manual lymph drainage. Meghna would benefit from a home intermittent compression pump for bilateral LE and trunk lymphedema to assist with managing her chronic lymphedema and lipedema. She has received conservative care as above and continues to have lymphedema over trunk and L LE. Treatment for L LE is completed. The goals were partially met. She continues to be under wound care management for wound over R lower leg. PLAN: Hold PT until wound care is completed for R lower leg. Then resume PT for compression wraps and treatment for R lower leg. Plan of Care Interventions Intermittent Compression Pump,Lymphedema Compression Wraps,Manual Lymph Drainage,Patient/ Caregiver Education,Therapeutic Activities, Therapeutic Exercise PT Services Indicated Yes Treatment Frequency and HOLD PT until R lower leg wound is healed and she Duration is d/c from wound care services then: resume PT 3x/wk for 10 visits These treatments will address the objective and functional deficits as defined above. The patient will be advanced safely and appropriately in order for the patient to progress towards his/her prior level of function. Additional exercises will be introduced and as well as a comprehensive home exercise program upon discharge, if needed, ?to ensure carryover of functional gains achieved in the clinic. This treatment plan has been reviewed and agreement upon by the patient.
--- NOTE | 2024-10-06 11:21 | PCPTNOTE ---
pt called and canceled next week's appointments, due to still under wound care for her R leg wound.
--- NOTE | 2024-10-26 10:38 | OPREHPOC ---
Outpatient Therapy Plan of Care This is a Multidisciplinary Plan of Care that may contain components documented by all disciplines (PT, OT, and ST.) PT Problem 1 PT Problem #1 Knowledge Deficit PT Goal 1 Goal / Goal Update 1* independent with HEP 2* independent with compression garments 08-22-24 progress goal met continue to progress education 09-22-24 progress d/c treatment L LE/ HOLD PT for R LE goals Target Visit 20 Progress Met PT Goal 2 Goal / Goal Update 10-26-24 progress/restart for treatment of R LE 1* independent with HEP 2* obtain and is independent with compression garments for R and L LEs Target Visit 22 PT Problem 2 PT Problem #2 Pain PT Goal 1 Goal / Goal Update * decrease pain in her knees, to 2/10 at worst, with decreased lymphedema of legs 08-22-24 progress goal not met continues to have pain in both knees; continue towards goal 09-22-24 progress d/c treatment L LE/ HOLD PT for R LE goal not met, continue to have pain in knees Target Visit 20 Progress Not Met PT Goal 2 Goal / Goal Update 10-26-24 progress/restart for treatment of R LE 1* pt report pain at worst of 4/10 in LE's Target Visit 22 PT Problem 3 PT Problem #3 Impaired Lymphatic System PT Goal 1 Goal / Goal Update decrease lymphedema over L LE, evident by 1* circumferential measurement to 68 Cm from bottom of leg, to 900 cm 2* no fibrotic tissue over lower leg 3* no papilloma over lower leg 4* visible malleoli decrease truncal edema: 5* no pain with palpation over abdomen 6* no firmness of lower abdominal pannus 08-22-24 progress goals 2,3,4 met continue towards other goals 09-22-24 progress d/c treatment L LE/ HOLD PT for R LE goals 2,3,4,5, met #1 is 984 cm Target Visit 20 Progress Partially Met PT Goal 2 Goal / Goal Update 10-26-24 progress/restart for treatment of R LE 1* circumferential measurement to 68 cm from bottom of foot to 960 cm 2* no fibrotic tissue over lower leg 3* no edema over dorsum of foot 4* visible malleoli Target Visit 22
--- NOTE | 2024-10-26 10:39 | PTOPPROG ---
Assessment and note entered by Laura Pisano, PT Assessment Status Progress ICD-10 Condition Codes (PT) Lymphedema I89.0 Onset April 2024 Subjective Information wound care is done for R leg; the compression sock on L leg is not working--leg is still swollen after working; returned to work last week; L leg goes down after sleeping--but foot still swollen. On Sundays, tend to rest and elevate legs, not do much but rest. Have been doing the self massage also. PAIN: range of legs in past week 2-09/08; knees hurt and legs cramping and tender; Assessment PT Clinical Summary Meghna has received a total of 10 PT sessions, with treatment for her L LE. Treatment was on hold, due to the wound on her R lower leg. It is now healed, so treatment will resume for R LE. With the assessment of her R LE: circumferential measurement of 1020.6 cm from bottom of foot to 68 cm; fibrotic tissue over medial and lateral aspects of lower leg; wound bed & edges are red with superficial depth, thickness at edges of wound. The L LE was not formally assessed today, but she reports it is swelling more since she returned to work. And she has been wearing the 20-30 mmHg compression calf high garment and the velcro over the top of it. She has not been using the velcro foot piece-- instructed her to use it PRN at night and can wear the lower leg velcro at night with sleeping, if tolerated. Treatment for lymphedema with compression wraps, intermittent compression pump, manual lymph drainage, LE exercises, garment recommendation for both R and L LE's. Plan of Care Interventions Intermittent Compression Pump,Lymphedema Compression Wraps,Manual Lymph Drainage,Patient/ Caregiver Education,Therapeutic Activities, Therapeutic Exercise PT Services Indicated Yes Treatment Frequency and 3x/wk for 12 visits Duration These treatments will address the objective and functional deficits as defined above. The patient will be advanced safely and appropriately in order for the patient to progress towards his/her prior level of function. Additional exercises will be introduced and as well as a comprehensive home exercise program upon discharge, if needed, ?to ensure carryover of functional gains achieved in the clinic. This treatment plan has been reviewed and agreement upon by the patient.
== END 2024-10-30 23:59 | disposition home or self-care (01) ==
LOC: ANHPT 08:00
PROVIDERS: PCP Physician Assistant Medical; Visit Provider Physician Assistant Medical
DX: I89.0 Lymphedema, not elsewhere classified (principal)
CPT/HCPCS: 29581; 97016; 97140; 97161; 97530

== ENCOUNTER 2024-11-30 09:16 | Outpatient (CLI) | payer BC, SELFPAY ==
--- OUTSIDE RECORDS SUMMARY | 2024-01-16 16:00 | XMS_ITS ---
Author Organization [facility] Address [address] [address] Care Team Providers Care Electric Fork Operator Name Role Phone Joann Santamaria Primary Care Provider [phone] Migration, Provider Unavailable Unavailable Allergies Allergen (clinical drug ingredient) Drug/Non Drug Allergy documented on EMR Reaction Allergy Type Onset Date Status amoxicillin Amoxicillin Unknown Drug Allergy Act [place] REASON FOR VISIT [facility] Encounter Medications Medication SIG (Take, Route, Frequency, Duration) Notes Start Date End Date Status Olmesartan Medoxomil 20 MG 1 tab(s) orally once a day for 30 day(s) 05/21/2023 Unknown Omeprazole 20 MG 1 cap(s) orally once a day for 30 day(s) 05/21/2023 Unknown Fluticasone-Salmeterol 500 MCG-50 MCG 1 INH INHALED 2 TIMES A DAY for 30 DAY(S) *Please review and pick correct strength-formula tion from [facility] options. If intended option is not shown, discontinue and re-order from Quick Search* 05/21/2023 Unknown Synthroid 300 MCG 1 tab(s) orally once a day for 90 days 05/21/2023 Unknown Liothyronine Sodium 5 MCG 1 tab(s) orally once a day for 90 days 05/21/2023 Unknown Topiramate 50 MG 1 tab(s) orally 2 times a day for 30 day(s) 05/21/2023 Unknown Cartia XT 240 MG 1 cap(s) orally once a day for 30 day(s) 05/21/2023 Unknown LISDEXAMFETAMINE 20 MG 1 CAP(S) ORALLY O NCE A DAY (IN THE MORNING) for 30 DAYS *Please review for potential replacement for e-prescription and drug interaction check* 06/18/2023 Unknown Ondansetron HCl 4 MG 1 tab(s) orally every 8 hours for 90 days 06/18/2023 Unknown Euthyrox 200 MCG (0.2 MG) 1 TAB(S) ORALLY ONCE A DAY for 30 DAY(S) *Please review and pick correct strength-formula tion from [employer] options. If intended option is not shown, discontinue and re-order from Quick Search* 05/21/2023 Unknown metFORMIN HCl ER 500 MG 1 tab(s) orally once a day with dinner for 90 days 08/18/2023 Unknown Zepbound 2.5 MG/0.5ML inject 2.5 mg subcutaneously once a week for 90 days 08/18/2023 Unknown Vyvanse 20 MG 1 cap(s) orally once a day (in the morning) for 30 days 08/21/2023 Unknown Mounjaro 2.5 MG/0.5ML inject 2.5 mg subcutaneously once a week for 90 days 08/21/2023 Unknown LORazepam 0.5 MG 1 tab(s) orally daily as needed for 30 days 06/18/2023 Unknown Eliquis 5 MG as directed orally 2 times a day for 30 day(s) 05/21/2023 Active Zepbound 2.5 MG/0.5ML 2.5 mg subcutaneously once a week for 90 days 05/21/2023 Active Dodex 1000 MCG/ML 1 CC subcutaneously once a week for 90 days 05/21/2023 Active Albuterol Sulfate HFA 108 (90 Base) MCG/ACT 2 puff(s) inhaled every 6 hours 05/21/2023 Active Varenicline Tartrate 1 MG 1 tab(s) orally 2 times a day 05/21/2023 Active Synthroid 300 MCG 1 tab(s) orally once a day for 90 days 01/06/2024 Active Mounjaro 2.5 MG/0.5ML inject 2.5 mg subcutaneously once a week for 90 days 11/03/2023 Active Synthroid 300 MCG 1 tab(s) orally once a day for 90 days 01/05/2024 Active Liothyronine Sodium 5 MCG 2 tablets orally once a day for 90 days 06/18/2023 Active Synthroid 300 MCG 1 tab(s) orally once a day for 90 days 08/18/2023 Active Encounters Encounter Location Date Provider Diagnosis [facility] [address] [address] 01/16/2024 Provider Migration Hypothyroidism, unspecified E03.9 and Type 2 diabetes mellitus with hyperglycemia E11.65 Assessments Encounter Date Diagnosis (ICD Code) Assessment Notes Treatment Notes Treatment Clinical Notes Section Notes 01/16/2024 Hypothyroidism, unspecified (ICD-10 - E03.9) 01/16/2024 Type 2 diabetes mellitus with hyperglycemia (ICD-10 - E11.65) Plan Of Treatment Medication Medication Name Sig Start Date Stop Date Notes Synthroid 300 MCG 1 tab(s) orally once a day for 90 days 01/06/2024 Mounjaro 2.5 MG/0.5ML inject 2.5 mg subc utaneously once a week for 90 days 11/03/2023 Synthroid 300 MCG 1 tab(s) orally once a day for 90 days 01/05/2024 Progress Notes * Miranda QURESHIOB: 988 (38 yo F)Acc No.[id number]:01/16/2024 Patient: Gurjit Meghna SANDOVAL Provider: Bethany Jarrell :1985 A ge:38 Y S ex:Female Date:01/16/2024 Phone: Address:[address] [place] [address] Pcp:Joann Santamaria Subjective: * Chief Complaints: * 1 . [facility] Conversion Encounter. * Medical History: * Medications: T aking Synthroid(Levothyroxine Sodium) 300 MCG Tablet 1 tab(s) orally once a day , Taking Liothyronine Sodium 5 MCG Tablet 2 tablets orally once a day , Taking Albuterol Sulfate HFA 108 (90 Base) MCG/ACT Aerosol Solution 2 puff(s) inhaled every 6 hours , Taking Varenicline Tartrate 1 MG Tablet 1 tab(s) orally 2 times a day , Taking Eliquis(Apixaban) 5 MG Tablet as directed orally 2 times a day , Taking Zepbound(Tirzepatide-Weight Management) 2.5 MG/0.5ML Solution 2.5 mg subcutaneously once a week , Taking Dodex 1000 MCG/ML Solution 1 CC subcutaneously once a week , Unknown metFORMIN HCl ER 500 MG Tablet Extended Release 24 Hour 1 tab(s) orally once a day with dinner , Unknown Zepbound(Tirzepatide-Weight Management) 2.5 MG/0.5ML Solution inject 2.5 mg subcutaneously once a week , Unknown Vyvanse(Lisdexamfetamine Dimesylate) 20 MG Capsule 1 cap(s) orally once a day (in the morning) , Unknown Mounjaro(Tirzepatide) 2.5 MG/0.5ML Solution Auto-injector inject 2.5 mg subcutaneously once a week , Unknown LORazepam 0.5 MG Tablet 1 tab(s) orally daily as needed , Unknown LISDEXAMFETAMINE 20 MG CAPSULE 1 CAP(S) ORALLY ONCE A DAY (IN THE MORNING) , Notes to Pharmacist: *Please review for potential replacement for e-prescription and drug interaction check*, Unknown Ondansetron HCl 4 MG Tablet 1 tab(s) orally every 8 hours , Unknown Euthyrox 200 MCG (0.2 MG) TABLET 1 TAB(S) ORALLY ONCE A DAY , Notes to Pharmacist: *Please review and pick correct strength-formulation from [employer] options. If intended option is not shown, discontinue and re-order from Quick Search*, Unknown Topiramate 50 MG Tablet 1 tab(s) orally 2 times a day , Unknown Cartia XT(dilTIAZem HCl ER Coated Beads) 240 MG Capsule Extended Release 24 Hour 1 cap(s) orally once a day , Unknown Olmesartan Medoxomil 20 MG Tablet 1 tab(s) orally once a day , Unknown Omeprazole 20 MG Capsule Delayed Release 1 cap(s) orally once a day , Unknown Fluticasone-Salmeterol 500 MCG-50 MCG POWDER 1 INH INHALED 2 TIMES A DAY , Notes to Pharmacist: *Please review and pick correct strength-formulation from [employer] options. If intended option is not shown, discontinue and re-order from Quick Search*, Unknown Synthroid(Levothyroxine Sodium) 300 MCG Tablet 1 tab(s) orally once a day , Unknown Liothyronine Sodium 5 MCG Tablet 1 tab(s) orally once a day * Allergies: A moxicillin. Objective: * Vitals: Assessment: * Assessment: 1. H ypothyroidism, unspecified - E03.9 (Primary) 2 . T ype 2 diabetes mellitus with hyperglycemia - E11.65 Plan: * Treatment: 2. T ype 2 diabetes mellitus with hyperglycemia Start Mounjaro Solution Auto-injector, 2.5 MG/0.5ML, inject 2.5 mg, subcutaneously, once a week, 90 days, 12, Refills 1. * Billing Information: * Visit Code: * Procedure Codes: * Electronic signature of Prov ider Migration on 11/30/2024 at 09:43 AM CDT Sign off status: Pending * Provider: Bethany gomez Migration Date: 03/17/2023 Generated for Tato to/Shanti/Edmarsmitting on: 09:43 AM CDT
--- OUTSIDE RECORDS SUMMARY | 2024-02-02 04:00 | XMS_ITS ---
Author Organization [facility] Address [address] [place] [address] Care Team Providers Care Lean Manufacturing Specialist Name Role Phone Joann Santamaria Primary Care Provider REASON FOR VISIT 3 Month Follow-up Encounters Encounter Location Date Provider Diagnosis [facility] - Joann Santamaria [address] [place] [address] 02/02/2024 Joann Santamaria Plan Of Treatment No Information Progress Notes * Miranda QURESHIOB: [birth year] (38 yo F)Acc No.[id number]:02/02/2024 Progress Notes Patient: Gurjit SALMONIBISFLYNN Meghna Provider: Denise Santamaria MD :1985 A ge:38 Y S ex:Female Date:02/02/2024 Phone: Address:[address] [place], [place] [phone] Subjective: * Chief Complaints: * 1 . 3 Month Follow-up. * Medical History: Objective: * Vitals: Assessment: Plan: * Treatment: * Billing Information: * Visit Code: * Procedure Codes: * Electronic signature of Jaya Santamaria MD on 11/30/2024 at 09:44 AM CDT Sign off status: Pending * Provider: Denise Santamaria MD Date: 04/04/2023 Generated for Tato to/Shanti/Shilpa on: 09:44 AM CDT
--- OUTSIDE RECORDS SUMMARY | 2024-04-14 04:20 | XMS_ITS ---
Author Organization [facility] Address [address] [place] [address] Care Team Providers Care Landscape Crew Member Name Role Phone Joann Santamaria Primary Care Provider REASON FOR VISIT FU Encounters Encounter Location Date Provider Diagnosis [facility] - Joann Santamaria [address] [place] [address] 04/14/2024 Joann Santamaria Plan Of Treatment No Information Progress Notes * Miranda QURESHIOB: [birth year] (38 yo F)Acc No.[id number]:04/14/2024 Progress Notes Patient: Gurjit SALMONMARCELINO Meghna Provider: Denise Santamaria MD :1985 A ge:38 Y S ex:Female Date:04/14/2024 Phone: Address:[address] [place], [place] [phone] Subjective: * Chief Complaints: * 1 . FU. * Medical History: Objective: * Vitals: Assessment: Plan: * Treatment: * Billing Information: * Visit Code: * Procedure Codes: * Electronic signature of Jaya Santamaria MD on 11/30/2024 at 09:45 AM CDT Sign off status: Pending * Provider: Denise Santamaria MD Date: 0 04/14/2024 Generated for Tato to/Shanti/eTalexsmitting on: 1 09:45 AM CDT
--- OUTSIDE RECORDS SUMMARY | 2024-09-08 04:20 | XMS_ITS ---
Author Organization [facility] Address [address] [place], [place] [address] Care Team Providers Care Set Up Machinist Name Role Phone Joann Santamaria Primary Care Provider [phone] REASON FOR VISIT lab Encounters Encounter Location Date Provider Diagnosis AMMO Dr. Santamaria [address] [place] [phone] 09/08/2024 Joann Santamaria Plan Of Treatment Next Appt Details Provider Name:Joann Santamaria, 09:00:00 AM, [address] [place] [address], [phone], Progress Notes * Miranda QURESHIOB: [birth year] (38 yo F)Acc No.[id number]:09/08/2024 Progress Notes Patient: Gurjit stevensonMeghna garcia Provider: Denise Santamaria MD :1985 A ge:38 Y S ex:Female Date:09/08/2024 Phone: Address:[address] [place], [place] [id number] Subjective: * Chief Complaints: * L ab * Electronic signature of Jaya Santamaria MD on 11/30/2024 at 09:45 AM CDT Sign off status: Pending * Provider: Denise Santamaria MD Date: 0 09/08/2024 Generated for Tato to/Shanti/Phyllisitting on: 1 09:45 AM CDT
--- OUTSIDE RECORDS SUMMARY | 2024-10-03 09:00 | XMS_ITS ---
Author Organization [facility] Address [address] [place], [place] [id number] Care Team Providers Care Glass Edger Name Role Phone VIJAYA FARIA Unavailable [phone] Aviva Jaimes Unavailable Unavailable Allergies Allergen (clinical [...] Active REASON FOR VISIT The patient is going through lymphedema clinic as well as wound clinic for her right leg wound. Shegets pain like ingrown toenails from her nails pressing against her swollen feet., Patient presentsfor at-risk foot care . The patient has painful toenails that cause difficulty with ambulation and shoegear. The onset is gradual Medications Medication SIG (Take, Route, Frequency, Duration) Notes Start Date End Date Status Vitamin D (Ergocalciferol) 1.25 MG (69089 UT) Oral; Duration: 84 Days Active methylPREDNISolone 4 MG as directed Orally one pack Active methylPREDNISolone 4 MG as directed Orally one pack 024 Active Meloxicam 15 MG 1 tablet Orally Once a day; Duration: 30 days Active Terbinafine HCl 250 MG 1 tablet Orally O nce a day; Duration: 42 days Active PreviDent 5000 Sensitive 1.1-5 % BRUSH GEL ON FOR 2 MINUTES 2 TO 3 TIMES DAILY Dental; Duration: 30 Days Active Advair Diskus 500-50 MCG/ACT Inhalation; Duration: 30 Days Active Oxiszppy-Lmzdrceyh-PO 3.5-15740-3 Otic; Duration: 90 Days Active Olmesartan Medoxomil 20 MG Oral; Duratio n: 90 Days Active dilTIAZem HCl ER Coated Bead s 240 MG Oral; Duration: 90 Days Active Xarelto Active Topiramate 50 MG Oral; Duration: 90 Days Active Eliquis 5 MG Oral; Duration: 30 Days Active Encounters Encounter Location Date Provider Diagnosis [facility] [address] [place], [place] [id number] 10/03/2024 VIJAYA PATRICKK Tinea unguium B35.1 ; Pain in right toe(s) M79.674 ; Pain in left toe(s) M79.675 and Atherosclerosis of [place] arteries of extremities with intermittent claudication, bilateral legs I70.213 Assessments Encounter Date Diagnosis (ICD Code) Assessment Notes Treatment Notes Treatment Clinical Notes Section Notes 10/03/2024 Tinea unguium (ICD-10 - B35.1) FUNGAL TOENAILS: Discussed various treatment options for fungal toenails including debridement, topical antifungals, oral antifungals, toenail avulsion, or toenail matrixectomy. NAIL DEBRIDEMENT: Nails 1-5 Bilateral were debrided extensively with nail nippers and emery board, reducing length and girth to pink healthy tissue with any subungual debris and necrotic tissue removed 10/03/2024 Pain in right toe(s) (ICD-10 - M79.674) 10/03/2024 Pain in left toe(s) (ICD-10 - M79.675) 10/03/2024 Atherosclerosis of [place] arteries of extremities with intermittent claudication, bilateral [...] sooner if problems arise Provider Name:VIJAYA FARIA, 08:10:00 AM, [address], [facility], [place], [place], [id number], Progress Notes * KIRT QURESHIOB: [birth year] (38 yo F)Acc No.[id number]:10/03/2024 Patient: PAULINE ONEILL Provider: Belgica Faria DPM :1985 A ge:38 Y S ex:Female Date:10/03/2024 Address:[address] [place] [address] Subjective: * Chief Complaints: * 1 . The patient is going through lymphedema clinic as well as wound clinic for her right leg wound. She gets pain like ingrown toenails from her nails pressing against her swollen feet.. 2. Patient presents for at-risk foot care . The patient has painful toenails that cause difficulty with ambulation and shoegear. The onset is gradual. * HPI: H PI: General care P atient presents to the office for at risk foot care. Patient states that their nails are thickened, elongated and painful. Patient states that it is aggravated by shoe gear. Onset is gradual. Patient denies being diabetic., Patient is taking prescription blood thinners., Date last seen by Dr. Jaimes was 08/2024., Initials mf. sample. * ROS: G eneral / Constitutional: [...] : Former smoker. * Medications: T aking Xarelto , Taking Eliquis 5 MG Tablet Oral , Taking [...] TO 3 TIMES DAILY Dental , Taking Fufokxwe-Tlixpnrna-JY 3.5-60967-8 Solution Otic , Taking Vitamin D (Ergocalciferol) 1.25 MG (04029 UT) Capsule Oral , Taking methylPREDNISolone 4 [...] - M79.675 4 . A therosclerosis of [place] arteries of extremities with intermittent claudication, bilateral legs - I70.213 Plan: * Treatment: * Follow Up: 1 0-12 Weeks (Reason: At Risk Foot care, sooner if problems arise) * Billing Information: * Visit Code: 98661 Office Visit, Est Pt., Level 3. * Procedure Codes: * Electronic signature of VIJAYA FARIA DPM on 11/30/2024 at 09:43 AM CDT Sign off status: Pending * Provider: Belgica Faria DPM Date: 0 10/03/2024 Generated for Tato to/Shanti/Shilpa on: 1 09:43 AM CDT History and Physical Notes * HPI (History of Present Illness) Category Sub-Category Detail Notes Category Not es HPI General care Patient presents to the office for at risk foot care. Patient states that their nails are thickened, elongated and painful. Patient states that it is aggravated by shoe gear. Onset is gradual. Patient denies being diabetic., Patient is taking prescription blood thinners., Date last seen by Dr. Jaimes was 08/2024., Initials mf sample Examination Category Sub-Category Detail Notes Category Not es Dermatologic Skin findings: Skin is warm, dr sood, supple with no breaks in the skin. [...]
--- OUTSIDE RECORDS SUMMARY | 2024-11-18 04:20 | XMS_ITS ---
Author Organization [facility] Address [address] [place], [place] [address] Care Team Providers Care Sample Hand Name Role Phone Joann Santamaria Primary Care Provider [phone] REASON FOR VISIT 3 month f/u Encounters Encounter Location Date Provider Diagnosis [facility] [place] Santamaria [address] [place] [address] 11/18/2024 Joann Santamaria Plan Of Treatment Next Appt Details Provider Name:Joann Santamaria, 09:00:00 AM, [address] [place] [address], [phone], Progress Notes * Miranda QURESHIOB: [birth year] (38 yo F)Acc No.[id number]:11/18/2024 Progress Notes Patient: Gurjit stevensonjose Meghna Provider: Denise Santamaria MD :1985 A ge:38 Y S ex:Female Date:11/18/2024 Phone: Address:[address] [place], [place] [phone] Subjective: * Chief Complaints: * 3 month f/u * Electronic signature of Jaya Santamaria MD on 11/30/2024 at 09:44 AM CDT Sign off status: Pending * Provider: Denise Santamaria MD Date: 0 11/18/2024 Generated for Tato to/Shanti/Phyllisitting on: 09:44 AM CDT
[2024-11-30 09:30] LABS: Hematocrit 43.4 % (37.0-47.0); Hemoglobin 13.5 g/dL (12.0-15.0); Immature Granulocyte Percent A 0.4 % (0-0.5); Lymphocytes Absolute Auto 2.27 K/mm3 (0.9-3.2); Mean Corpuscular HGB Conc 31.1 g/dl (32-36); Mean Corpuscular Hemoglobin 27.4 pg (26-34); Mean Corpuscular Volume 88.2 fl (80-100); Nucleated Red Blood Cells Absolute Auto 0.000 K/mm3 (0.0-0.012); Nucleated Red Blood Cells Perc 0.0 % (0.0-0.2); Platelet Count Result 288 k/mm3 (150-375); Red Blood Count 4.92 M/mm3 (4.2-5.4); White Blood Count 6.7 K/mm3 (4.5-10.0)
--- OUTSIDE RECORDS SUMMARY | 2024-11-30 09:44 | XMS_ITS | Clinical Summary ---
Author Organization [facility] Address [address] [place] [address] [place] [address] Care Team Providers Care Arts And Crafts Teacher Name Role Phone Aviva Jaimes PA-C Primary Care Provider [phone] Source Comments [facility],non-owned Affiliates and Associated Physician Practices is amultiple site organization consisting of ambulatory clinics and hospital sitesin [place], [place], [place] and [place]. This disclosure is being madepursuant to the Care Everywhere program and may not contain all information available regarding this patient. Last updated 17.[facility] [employer] Allergies Active Allergy Reactions Criticality Noted Date Comments Adhesive Sensitivity Rash Medium 10/27/2017 Amitriptyline Other Low 12/16/2023 Amoxicillin Urticaria,Rash,Unknown Medium 09/28/2017 Cefdinir GI Discomfort 08/16/2024 Cefixime Rash Medium 09/28/2017 Cephalexin Rash Medium 09/30/2017 Gamez Anaphylaxis,Unknown High 09/28/2017 Ciprofloxacin Nausea and/or Vomiti ng,GI Discomfort,Unknown,Other Medium 09/28/2017 Clindamycin Anaphylaxis,Swelling High 10/28/2017 Mobile Butter Rash,Other,Unknown Medium 09/30/2017 Doxycycline Unknown,Rash Medium 11/13/2022 Honeydew Other 10/27/2023 Latex Rash Medium 11/13/2022 Levofloxacin Rash,Unknown Medium 09/28/2017 Metformin Unknown,Other Low 11/13/2022 Omeprazole Other 12/16/2023 Pseudoephedrine Base Urticaria High 12/16/2023 Tapentadol Rash Medium 10/27/2017 Medications * Be aware that medications may not be up to date on this document. Alwaysverify current medications with the patient. bumetanide (Bumex) 1 MG tablet Take 1 (one) tablet by mouth once daily 09/02/19 24 Active Airsupra 90-80 MCG/ACT AERO Inhale 2 puffs by mouth every 6 hours as needed 08/11/19 24 Active Cholecalcifero l 125 MCG (5000 UT) Take 1 (one) tablet by mouth once daily Active vitamin D, ergocalciferol , (Drisdol) 1.25 MG (60719 UT) capsule Take 1 (one) capsule by mouth every 7 days Active esomeprazole (NexIUM) 40 MG capsule Take 1 (one) capsule by mouth once daily 09/22/19 24 Active fexofenadine (Sarai Allergy) 180 MG tablet Take 1 (one) tablet by mouth once daily 10/21/19 24 Active Breo Ellipta 200-25 MCG/ACT inhaler Inhale 1 (one) puff by mouth once daily 10/08/19 24 Active Synthroid 300 MCG tablet Take 1 (one) tablet by mouth once daily 10/21/19 24 Active liothyronine (Cytomel) 5 MCG tablet Take 1 (one) tablet by mouth once daily 10/21/19 24 Active cyanocobalamin (Vitamin B-12) injection Inject 1,000 (one thousand) mcg subcutaneously every 7 days Active LORazepam (Ativan) 0.5 MG tablet Take 1 (one) tablet by mouth as needed 06/18/19 24 Active olmesartan (Benicar) 20 MG tablet Take 1 (one) tablet by mouth once daily 10/21/19 24 Active Nurtec 75 MG tablet Take 75 mg by mouth as directed 09/24/19 24 Active tamsulosin (Flomax) 0.4 MG capsule Take 1 (one) capsule by mouth once daily 10/21/19 24 Active ondansetron (Zofran) 4 MG tablet Take 1 (one) tablet by mouth every 8 hours as needed 06/18/19 24 Active terbinafine (LamISIL) 250 MG tablet Take 1 (one) tablet by mouth once daily 09/28/19 24 Active topiramate (Topamax) 25 MG tablet Take 1 (one) tablet by mouth once daily after breakfast 10/21/19 24 Active topiramate (Topamax) 50 MG tablet Take 1 (one) tablet by mouth once daily 10/21/19 24 Active varenicline (Chantix) 1 MG tablet Take 1 (one) tablet by mouth 2 times daily Active Berberine Chloride 500 MG CAPS Take 1,000 mg by mouth once daily 10/21/19 24 Active vitamin b-12 (Cyancobalamin ) 1000 MCG tablet cr Take 1,000 (one thousand) tablets by mouth once daily 10/21/19 24 Active meloxicam (Mobic) 15 MG tablet Take 1 (one) tablet by mouth once daily Active Cosentyx UnoReady 300 MG/2ML SOAJ pen Inject 300 (three hundred) mg subcutaneously every 28 days 11/30/19 24 Active folic acid (Folvite) 1 MG tablet Take 1 (one) tablet by mouth once daily 02/01/20 24 Active nitrofurantoin monohyd macro crystals (Macrobid) 100 MG capsule Take 1 (one) capsule by mouth as needed 01/20/20 24 Active nystatin (Mycostatin) 077131 UNIT/GM cream Apply to affected area 2 times daily 02/01/20 24 Active ondansetron, disintegrating , (Zofran ODT) 4 MG tablet Take 1 (one) tablet by mouth as needed 02/01/20 24 Active Mounjaro 2.5 MG/0.5ML injection Inject 2.5 (two and one-half) mg subcutaneously every 7 days 12/29/19 24 Active Mounjaro 5 MG/0.5ML injection Inject 5 (five) mg subcutaneously every 7 days 02/01/20 24 Active diphenhydrAMIN E (Benadryl) 25 MG tablet Take 1 (one) tablet by mouth 4 times daily as needed for Itching 30 tablet 02/09/20 24 Active Nebulizers (Vios Aerosol Delivery System) [facility] Use 1 Each as directed 04/15/19 25 Active clotrimazole-b etamethasone (Lotrisone) 1-0.05 % cream Apply to affected area as directed 05/12/19 25 Active enoxaparin (Lovenox) 150 MG/ML injection Inject 1.5 mL subcutaneously every 12 hours 04/26/19 25 Active albuterol-ipra tropium (Duo-Neb) 0.5-2.5 (3) MG/3ML nebulizer solution Inhale 3 mL by mouth as directed 05/18/19 25 Active Magnesium Oxide -Mg Supplement 400 (240 Mg) MG Take 1 (one) tablet by mouth once daily 05/17/19 25 Active Rivaroxaban (Xarelto Starter Pack) 15 & 20 MG TBPK Take 20 mg by mouth as directed 05/10/19 25 Active traMADol (Ultram) 50 MG tablet Take 1 (one) tablet by mouth every 6 hours as needed pain 05/12/19 25 Active dilTIAZem coated beads 24hr (Cardizem CD) 180 MG capsule Take 1 (one) capsule by mouth once daily 05/20/19 25 Active levoFLOXacin (Levaquin) 500 MG tablet Take 1 (one) tablet by mouth once daily 14 tablet 05/25/19 25 Active cranberry (RA Cranberry) 500 MG capsule Take 1 (one) capsule by mouth once daily Active ubrogepant (Ubrelvy) 50 MG tablet Take 1 (one) tablet by mouth every 12 hours as needed Active Xarelto 20 MG tablet Take 1 (one) tablet by mouth daily with food 08/02/19 25 Active oxyCODONE-acet aminophen (Percocet) 5-325 MG tablet Take 1 (one) tablet by mouth every 6 hours as needed 07/23/19 25 Active pregabalin (Lyrica) 50 MG capsule Take 1 (one) capsule by mouth 2 times daily 07/23/19 25 Active lidocaine-pril ocaine (Emla) 2.5-2.5 % cream Apply to affected area as needed 07/23/19 25 Active lidocaine viscous (Xylocaine) 2 % solution Apply 5 mL to affected area once daily as needed 08/16/19 25 Active collagenase (Santyl) 250 UNIT/GM ointment Apply to affected area once daily 08/16/19 25 Active carvedilol (Coreg) 6.25 MG tablet Take 1 (one) tablet by mouth 2 times daily with morning and evening meal 06/09/19 25 Active baclofen (Lioresal) 10 MG tablet Take 1 (one) tablet by mouth every 8 hours as needed 07/23/19 25 Active ferrous sulfate 325 (65 FE) MG tablet Take 1 (one) tablet by mouth once daily Active HYDROcodone-ac etaminophen (Bear) 5-325 MG tablet Take 1 (one) tablet by mouth every 6 hours as needed 05/30/20 25 Active BD Syringe Slip Tip 25G X 5/8 1 ML MISC USE EVERY WEEK FOR VITAMIN B12 SHOTS 08/18/19 25 Active medroxyPROGEST ERone (Provera) 10 MG tablet Take 1 (one) tablet by mouth once daily 11/12/19 25 025 Active insulin syringe-needle (Bd Ultrafine Ii) 31G X 5/16 1 ML syringe by Injection route as directed 10/24/19 25 Active fluconazole (Diflucan) 150 MG tablet Take 1 (one) tablet by mouth once daily 14 tablet 11/29/19 25 Active fluconazole (Diflucan) 150 MG tablet Take 1 (one) tablet by mouth once daily 14 tablet 05/25/19 25 025 Discontin ued(List Clean-Up) fluconazole (Diflucan) 150 MG tablet Take 1 (one) tablet by mouth once daily 14 tablet 11/16/19 25 025 Discontin ued(List Clean-Up) Encounters Date Type Department Care Team Description 11/28/2024 Refill [facility] - ENT [address] [place] [phone] Delmer Campbell MD Refill Request 11/15/2024 9:00 AM CDT Office Visit [facility] - [facility]NT [address] [place] [phone] Arjun Correa MD Hoarseness (Primary Dx); Chronic fungal laryngitis; Laryngitis 11/15/2024 Travel from Last 3 Months Immunizations Immunization [...] Sign Reading Time Taken Comments Blood Pressure 144/85 11/15/2024 8:54 AM CDT Pulse 98 11/15/2024 8:54 AM CDT Temperature - - Respiratory Rate - - Oxygen Saturation - - Inhaled Oxygen Concentration - - Weight 206.8 kg (456 lb) 11/15/2024 8:54 AM CDT Height 170.2 cm (5' 7) 11/15/2024 8:54 AM CDT Body Mass Index 71.42 11/15/2024 8:54 AM CDT Plan of Treatment Upcoming Encounters Date Type Department Care Team (Late st Contact Info) Description 02/21/2025 8:45 AM EXTENSION CLERK Office Visit [facility] - [facility]NT [address] [place] [phone] Arjun Correa MD [address] [place] [address] [place] [address] Health Maintenance Due Date Last Done Comments HIV SCREENING 12/20/2002 HEPATITIS C SCREENING 12/16/2005 HEPATITIS B VACCINE (1 of 3 - 19+ 3-dose series) 12/20/2006 PNEUMOCOCCAL VACCINE (1 of 2 - PCV) 12/20/2006 PAP SMEAR 12/20/2008 HPV VACCINE (1 - 3-dose SCDM series) 12/20/2014 DEPRESSION SCREENING 03/02/2024 COVID-19 VACCINE (1 - 2023-2 5 season) 2024 INFLUENZA VACCINE (#1) 2024 12/14/2013 DTAP/TDAP/TD VACCINES (2 - T d or [...] Procedure Name Priority Date/Time Associated Diagnosis Comments [place] LARYNGOSCOPY,FLEX FIBER,DIAGNOSTIC Routine 11/15/2024 10:05 AM CDT Hoarseness Chronic fungal laryngitis Laryngitis from Last 3 Months Results * [place] LARYNGOSCOPY,FLEX FIBER,DIAGNOSTIC (11/15/2024 10:05 AM CDT) Narrative Delmer Campbell MD - 11/15/2024 10:05 AM CDT Delmer Campbell MD 11/15/2024 10:37 AM Procedure Note Endoscopy Type: Laryngoscopy without stroboscopy 8[address]01 Endoscope: Flexible 4mm Scope Anesthesia: Lidocaine 2% [...] cricoid region, and the immediate subglottis. Findings: Fungal debris scattered on the false cords and epiglottis. Thick mucus at the level of the glottis. Condition: Stable. Patient tolerated procedure well. Complications: None Dr. Correa was present for the entirety of the procedure. Arjun Correa MD PROCEDURE/MINOR SURGICAL ORD ERABLES Final Result from Last 3 Months Insurance [employer] Care Teams Arts And Crafts Teacher Relationship Specialty Start Date End Date Aviva Jaimes PA-C [address] [place] [id number] PCP - General Physician Rehabilitation Clerk 10/27/23
--- OUTSIDE RECORDS SUMMARY | 2024-11-30 09:44 | XMS_ITS | Clinical Summary ---
Author Organization [facility] [address] [place] [id number] Care Team Providers Care Recycler Name Role Phone Aviva Jaimes Primary Care Provider [phone] Allergies Active Allergy Reactions Criticality Noted Date Comments Adhesive Rash Medium 10/27/2017 Amoxicillin Rash Medium 09/30/2017 Cefixime Rash Medium 09/30/2017 Cephalexin Rash Medium 09/30/2017 [place] Anaphylaxis High 09/30/2017 Ciprofloxacin Nausea only Medium 09/30/2017 Clindamycin Swelling Medium 10/28/2017 [place] Butter Rash Medium 09/30/2017 Doxycycline Rash Medium 11/13/2022 Latex Rash Medium 11/13/2022 Levofloxacin Rash Medium 09/30/2017 Metformin Other (See comments) Low 11/13/2022 Tapentadol Rash Medium 10/27/2017 Medications albuterol HFA (VENTOLIN HFA) 90 mcg/actuation inhaler 09/12/19 18 Active cholecalciferol (VITAMIN D-3) 2,000 unit tablet Take 1 tablet (2,000 Units total) by mouth daily Active CARTIA XT 240 mg 24 hr capsule 05/07/19 19 Active ergocalciferol (VITAMIN D) 50,000 unit capsule 07/18/19 18 Active olmesartan (BENICAR) 20 mg tablet 09/16/19 18 Active topiramate (TOPAMAX) 50 mg tablet 07/18/19 18 Active Advair Diskus 500-50 mcg/dose diskus inhaler 09/29/19 23 Active fexofenadine (GIORGI) 180 mg tablet Take 1 tablet (180 mg total) by mouth daily Active esomeprazole DR (NexIUM) 40 mg capsule Take 1 capsule (40 mg total) by mouth daily before breakfast Active varenicline tartrate (CHANTIX) 1 mg tabletIndication s:Smoking Cessation Take 1 tablet (1 mg total) by mouth 2 (two) times a day Take with full glass of water. Active tamsulosin (FLOMAX) 0.4 mg extended release capsule 1 capsule (0.4 mg total) daily Active lisdexamfetamine (VYVANSE) 20 mg capsule Take 1 capsule [...] blood glucose diagnostic strip by other route Active fluticasone furoate-vilanter oL (BREO ELLIPTA) 100-25 mcg/dose diskus inhaler Inhale 1 puff daily Rinse mouth with water after use. Do not swallow. Active rimegepant (Nurtec ODT) tablet,disintegr ating Take by mouth Active terbinafine (LamiSIL) 250 mg tablet Take 1 tablet (250 mg total) by mouth daily Active acai cohen extract 500 mg capsule Take by mouth Active Bactrim DS 800-160 mg per tablet Take 1 tablet (160 mg of trimethoprim total) by mouth 2 (two) times a day 10/27/19 24 Active albuterol-budeso nide (Airsupra) 90-80 mcg/actuation HFA aerosol inhaler Inhale every 4 (four) hours as needed Active MAGNESIUM OXIDE ORAL Take 400 mg by mouth daily Active Cosentyx UnoReady Pen 300 mg/2 mL pen injector subcutaneous syringe Inject 2 mL (300 mg total) under the skin every 28 (twenty-eight) days 11/30/19 24 Active Xarelto 20 mg tablet Take 1 tablet (20 mg total) by mouth daily with dinner 08/02/19 25 Active pregabalin (LYRICA) 50 mg capsule Take 1 capsule (50 mg total) by mouth every 12 (twelve) hours Active nitrofurantoin monohydrate (MACROBID) 100 mg capsule Take 1 capsule (100 mg total) by mouth as needed 01/20/20 24 Active HYDROcodone-acet aminophen (NORCO) 5-325 mg per tablet Take 1 tablet by mouth every 6 (six) hours as needed 07/30/19 25 Active cranberry 500 mg capsule Take 500 mg by mouth daily Active tirzepatide (Mounjaro) 2.5 mg/0.5 mL pen injector injection Inject 0.5 mL (2.5 mg total) under the skin once a week 12/29/19 24 Active baclofen (LIORESAL) 10 mg tablet Take 1 tablet (10 mg total) by mouth 3 (three) times a day as needed for muscle spasms Active folic acid (FOLVITE) 1 mg tablet Take 1 tablet (1 mg total) by mouth daily Active ferrous sulfate ER 324 mg (65 mg iron) EC tabletIndication s:Iron Deficiency Anemia Take 65 mg by mouth Active ubrogepant (Ubrelvy) 50 mg tablet Take 1 tablet (50 mg total) by mouth once as needed for migraine May repeat dose once in 2 hours if no relief. Do not exceed 2 doses in 24 hours. Active traMADoL (ULTRAM) 50 mg tablet Take 1 tablet (50 mg total) by mouth every 6 (six) hours Active clindamycin-dionicio oyl peroxide (BENZACLIN) gel Apply topically 2 (two) times a day Active medroxyPROGESTER one (PROVERA) 10 mg tabletIndication s:PCOS (polycystic ovarian syndrome) Take 1 tablet (10 mg total) by mouth daily Complete entire course of treatment (1 tablet a day for 10 days) if you go for more than three months without a period 10 tablet 3 11/12/19 25 025 Active levothyroxine (SYNTHROID, LEVOTHROID) 200 mcg tablet Take 1.5 tablets (300 mcg total) by mouth daily 09/12/19 18 025 Discontin ued(Patie nt Reported) aspirin 81 mg enteric coated tablet Take 1 tablet (81 mg total) by mouth daily 025 Discontin ued(Patie nt Reported) apixaban (Eliquis) 2.5 mg tablet Take 1 tablet (2.5 mg total) by mouth 2 (two) times a day 03/27/19 21 025 Discontin ued(Patie nt Reported) Active Problems Problem Noted Date Diagnosed Date Abnormal uterine bleeding 11/12/2024 Overview (11/12/2024): -Patient reports >1 year of increasingly irregular bleeding, will often have bleeding every other week that is light or minimal spotting. Will also sometimes go 1-2 months without a regular cycle. -Previously diagnosed with PCOS by an mobile ui developer -has never had endometrial sampling or menstrual suppression/ endometrial protection Counseling 11/11/24: Reviewed differential Dx via PAL[facility]I[employer] algorithm, discussed that her abnormal bleeding pattern is likely due to anovulatory cycles in the setting of her known PCOS. However, would recommend further workup with TVUS and likely endometrial sampling given her risk factors for endometrial hyperplasia/malignancy (elevated BMI). We reviewed potential need for surgical treatment with hysteroscopy for both diagnosis and treatment, including potential for directed biopsies, polypectomy, myomectomy and D&C if needed. Patient with significant PMHx of Factor V Leiden and DVTs on Xarelto - discussed that this is a contraindication for estrogen-containing medications that we typically use for menstrual suppression. Also discussed her increased risk of hyperplasia/cancer given her unopposed estrogen exposure through anovulatory cycles and Class III obesity, would recommend endometrial protection with hIUD. Plan: -After this counseling and consideration of the risks, benefits and alternatives she has decided to complete a TVUS for evaluation of her endometrial lining and rule out structural causes of her AUB. She will have a follow up visit after the ultrasound to further discuss recommendation for endometrial sampling and possible hIUD placement in the OR. -Given Rx for provera to induce bleeding if she goes without a regular cycle for >3 months Gastric polyp 10/20/2023 Factor 5 Leiden mutation, heterozygous Bariatric surgery status 10/09/2022 Non-seasonal allergic rhinitis [...] study will be ordered for further evaluation. PCOS (polycystic ovarian syndrome) Obesity Encounters Date Type Department Care Team Description 11/11/2024 1:45 PM CDT Office Visit Obstetrics and Gynecology Clinic [facility] 3rd Floor [address] [place] [address] Angle Thompson MD Abnormal uterine bleeding (Primary Dx); PCOS (polycystic ovarian syndrome); Class 3 severe obesity in adult, unspecified BMI, unspecified obesity type, unspecified whether serious comorbidity present from Last 3 Months Immunizations Immunization Administration Dates Next Due Tdap 01/13/2019 Surgical History Surgery Date Site/Laterality Comments BREAST SURGERY left KIDNEY STONE SURGERY Medical History Medical History Date Comments DVT (deep vein thrombosis) in Hypertension Thyroid disease hyperthyroid Migraine Arthritis 2012 Asthma 1996 GERD (gastroesophageal reflux disease) 2011 Joint pain 2021 Kidney stone 2009 Low back pain 2010 Morbid obesity (HCC) [...] Jhonathan Blake Clotting disorder Maternal Grandmother Ginger Esparzall Mental illness Maternal Grandmother Ginger Blake Asthma Paternal Grandfather Eliazar Gary Hypertension Paternal Grandfather Eliazar Gary Stroke Paternal Grandmother Melvi Gary Relation Name Status Comments Father Kenneth Gary Father's Sister Najma mariscal Maternal Grandfather Jhonatahn Blake Maternal Grandmother Ginger Blake Paternal Grandfather [...] more drinks on one occasion? Never 10/29/2023 Hunger Vital Sign Answer Date Recorded Within the past 12 months, y ou worried that your food would run out before you got the money to buy more. Never true 11/12/19 25 Within the past 12 months, t he food you bought just didn't last and you didn't have money to get more. Never true 11/11/2024 Personal Safety Answer Date Recorded Have you ever been in or are you currently in a harmful physical or emotional relationship or is someone making you feel afraid or unsafe? 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 Gender Identity Female 09/12/2020 8:26 AM CDT Sexual Orientation Straight 09/12/2020 8: 26 AM CDT Obstetrics History Para Term AB IAB SAB Ectopic Multiple Livin g Live Births 0 0 0 0 0 0 0 0 0 0 0 Last Filed Vital Signs Vital Sign Reading Time Taken Comments Blood Pressure 141/71 11/11/2024 2:19 PM CDT Pulse 113 11/11/2024 2:19 PM CDT Temperature 36.6 C (97.9 F) 10/29/2023 7:30 AM CDT Respiratory Rate 20 10/29/2023 8:45 AM CDT Oxygen Saturation 98% 11/11/2024 2:19 PM CDT Inhaled Oxygen Concentration - - Weight 209.6 kg (462 lb 1.6 oz) 11/11/2024 2:19 PM CDT Height 170.2 cm (5' 7) 10/29/2023 7:30 AM CDT Body Mass Index 72.38 10/29/2023 7:30 AM CDT Plan of Treatment Health Maintenance Due Date Last Done Comments Cervical Cancer Screening 1987 Depression Screening 1987 Hepatitis C Screening 1987 Varicella Vaccines (1 of 2 - 13+ 2-dose series) 2000 Hepatitis B Screening 12/20/2005 Regular Well Visit/Exam 18-64 12/20/2005 Pneumococcal vaccine <65 (1 of 2 - PCV) 12/20/2006 HPV Vaccines (1 - 3-dose SCDM series) 12/20/2014 Influenza Vaccine (#1) 2024 12/14/2013 DTaP/Tdap/Td Vaccine (2 - Td or Tdap) 01/13/2029 Insurance [facility] [employer] [employer] Address: [address] [place] [address] [employer] [place] [employer] [place] For more information, please contact: [phone] * Full Code (Latest Code Status on File) Date Activated Date Inactivated Comments 10/29/2023 7:37 AM 10/29/2023 1:06 PM * Full Code Date Activated Date Inactivated Comments 11/14/2022 8:40 AM 11/14/2022 2:52 PM Care Teams Recycler Relationship Specialty Start Date End Date Aviva Jaimes PA [address] [place] [address] PCP - General Physician Wood Dowel Machine Operator 07/22/22
--- OUTSIDE RECORDS SUMMARY | 2024-11-30 09:44 | XMS_ITS | Encounter Summary ---
Author Organization [facility] Address [address] [place], [place] [address] [address] Care Team Providers Care Bisque Ware Dipper Name Role Phone Aviva Jaimes PA-C Primary Care Provider [phone] [phone] Reason for Visit * Reason Comments Refill Request Encounter Details Date Type Department Care Team ([facility] Contact Info) Description 11/28/2024 Refill [facility] [address] [place] [phone] Delmer Campbell MD [address] [facility] [place] [phone] Refill Request Social History Tobacco Use Types Packs/Day Years Used Date Smoking Tobacco: Every Day Cigarettes Smokeless Tobacco: Never Comments:Smoke half pack a d ay Alcohol Use Standard Drinks/Week Comments Never 0 (1 standard drink = 0.6 oz pur e alcohol) Comments Unknown Sex and Gender Information Value Date Recorded Sex Assigned at Not on file Legal Sex Female 2:07 PM CDT Gender Identity Not on file Sexual Orientation Not on file documented as of this encounter Plan of Treatment Upcoming Encounters Date Type Department Care Team ([facility] Contact Info) Description 02/21/2025 8:45 AM PROFESSOR OF 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
--- OUTSIDE RECORDS SUMMARY | 2024-11-30 09:44 | XMS_ITS | Patient Health Record ---
Author Organization [facility] Address [address] [place] [address] Care Team Providers Care It Business Process Architect Name Role Phone Joann Santamaria Primary Care Provider Migration, Provider Unavailable Unavailable Allergies Allergen (clinical drug ingredient) Drug/Non Drug Allergy documented on EMR Reaction Allergy Type Onset Date Status amoxicillin Amoxicillin Unknown Drug Allergy Act [place] Results Component Value Reference Range Flag Notes COMPREHENSIVE METABOLIC PANE L Reviewed date:01/29/2024 11:58:10 AM Interpretation: Performing Lab:OK, [facility], [address] [place], [address] KelliMitzy Roberts MD Notes/Report: Not Reported: BUN and Creatinine are within FASTING:YES Fasting reference interval reference range. FASTING: YES GLUCOSE 89 65-99 mg/dL N UREA NITROGEN [...] Reviewed date:01/30/2024 01:55:30 PM Interpretation: Performing Lab:[facility], [address] [place], [address] Marisol Roberts MD Notes/Report: Vitamin D Status 25-OH Vitamin D: FASTING:YES Deficiency: <20 ng/mL FASTING: YES Insufficiency: 20 - 29 ng/mL Optimal: > or = 30 ng/mL For 25-OH Vitamin D testing on patients on D2-supplementation and patients for whom quantitation of D2 and D3 fractions is required, the QuestAssureD(TM) 25-OH VIT D, (D2,D3), LC/MS/MS is recommended: order code 90629 (patients >2yrs). See Note 1 Note 1 For additional information, please refer to http://education.ClearStream/faq/FDJ098 (This link is being provided for informational/ educational purposes only.) VITAMIN D,25-OH,TOTAL,IA 48 30-100 ng/mL N T3, FREE Reviewed date:01/30/2024 01:55:45 PM Interpretation: Performing Lab:[facility], [address] [place], [address] Marisol Roberts MD Notes/Report: FASTING:YES FASTING: YES T3, FREE 2.2 2.3-4.2 pg/mL L HEMOGLOBIN A1c Reviewed date:01/30/2024 01:55:13 PM Interpretation: Performing Lab:[facility], [address] [place], [address] Marisol Roberts MD Notes/Report: For someone without known diabetes, a hemoglobin FASTING:YES A1c value between 5.7% and 6.4% is consistent with prediabetes and should be confirmed with a FASTING: YES follow-up test. For someone with known diabetes, [...] Reviewed date:01/29/2024 11:53:20 AM Interpretation: Performing Lab:[facility], [address] [place], [address] Marisol Roberts MD Notes/Report: Reference Range < or = 18.4 FASTING:YES Risk: FASTING: YES Optimal < or = 18.4 Moderate NA High >18.4 Adult cardiovascular event risk category cut points (optimal, moderate, high) are based on Insulin Reference Interval studies performed at [facility] in 2021. INSULIN 28.8 H CBC (INCLUDES DIFF/PLT) Reviewed date:01/30/2024 01:56:10 PM Interpretation: Performing Lab:[facility] [place], [address] [place], [address] Marisol Roberts MD Notes/Report: For adults, a slight decrease in the calculated MCHC FASTING:YES value (in the range of 30 to 32 g/dL) is most likely not clinically significant; however, it should be FASTING: YES interpreted with caution in correlation with other [...] 11.4 7.5-12.5 fL N ABSOLUTE NEUTROPHILS 4662 1870-1964 cells/uL N ABSOLUTE LYMPHOCYTES 1058 698-4244 cells/uL N ABSOLUTE MONOCYTES 607 200-950 cells/uL N ABSOLUTE EOSINOPHILS 126 15-500 cells/uL N ABSOLUTE BASOPHILS 37 0-200 cells/uL N NEUTROPHILS 63 N LYMPHOCYTES 26.6 N MONOCYTES 8.2 N EOSINOPHILS 1.7 N BASOPHILS 0.5 N VITAMIN B12/FOLATE, SERUM PA HEMA Reviewed date:01/30/2024 01:56:25 PM Interpretation: Performing Lab:[facility], [place], [address] Marisol Roberts MD Notes/Report: Reference Range FASTING:YES Please Note: Although the reference range for vitamin Low: <3.4 B12 is 200-1100 pg/mL, it has been reported that between Borderline: 3.4-5.4 FASTING: YES 5 and 10% of patients with values between 200 and 400 Normal: >5.4 pg/mL may experience neuropsychiatric and hematologic abnormalities due to occult B12 deficiency; less than 1% of patients with values above 400 pg/mL will have symptoms. VITAMIN B12 713 024-7790 pg/mL N FOLATE, SERUM 1.9 L IRON AND TOTAL IRON BINDING CAPACITY Reviewed date:01/29/2024 11:57:41 AM Interpretation: Performing Lab:[facility], [place], [address] Marisol Roberts MD Notes/Report: FASTING:YES FASTING: YES IRON, TOTAL 58 40-190 mcg/dL N IRON BINDING CAPACITY 418 250-450 mcg/dL (calc) N % SATURATION 14 16-45 % (calc) L T4, FREE Reviewed date:01/29/2024 11:53:12 AM Interpretation: Performing Lab:[facility], [place], [address] Marisol Roberts MD Notes/Report: FASTING:YES FASTING: YES T4, FREE 1.1 0.8-1.8 ng/dL N TSH Reviewed date:01/30/2024 01:55:56 PM Interpretation: Performing Lab:[facility], [address] [place], [address] Marisol Roberts MD Notes/Report: Reference Range FASTING:YES > or = 20 Years 0.40-4.50 FASTING: YES Ranges First trimester 0.26-2.66 Second trimester 0.55-2.73 Third trimester 0.43-2.91 TSH 1.43 N DEXAMETHASONE Reviewed date:02/13/2024 10:53:28 AM Interpretation: Performing Lab:[facility],, [address] [place], [address] Missy Ge MD,PhD,SHINE Notes/Report: FASTING:YES Reference Ranges for Dexamethasone: FASTING: YES Baseline: Less than 20 ng/dL 1 mg dexamethasone overnight: 180-550 ng/dL (8:00-10:00 AM) This test was developed and its analytical performance characteristics have been determined by [facility]. It has not been cleared or approved by FDA. This assay has been validated pursuant to the CLIA regulations and is used for clinical purposes. DEXAMETHASONE 470 CORTISOL, TOTAL Reviewed date:02/07/2024 11:09:35 AM Interpretation: Performing Lab:[facility]-[place], [address] [place], [address] Marisol Roberts MD Notes/Report: Reference Range: For 8 a.m.(7-9 a.m.) Specimen: 4.0-22.0 FASTING:YES Reference Range: For 4 p.m.(3-5 p.m.) Specimen: 3.0-17.0 * Please interpret above results accordingly * FASTING: YES CORTISOL, TOTAL 0.7 L DEXAMETHASONE (14573) Reviewed date:11/20/2024 05:41:04 PM Interpretation: Performing Lab:[facility],[address] [facility] Missy Ge MD,PhD,SHINE Notes/Report: FASTING:YES FASTING: YES DEXAMETHASONE 393 It has not been cleared or approved by the FDA. This assay used for clinical purposes. Reference Ranges for Dexamethasone: 1 mg dexamethasone overnight: 180-550 ng/dL (8:00-10:00 AM) characteristics have been determined by [facility]. This test was developed and its analytical performance Baseline: Less than 20 ng/dL has been validated pursuant to the CLIA regulations and is CORTISOL, TOTAL (367) Reviewed date:11/12/2024 03:00:05 PM Interpretation: Performing Lab:[facility] [place] Marisol Roberts MD Notes/Report: FASTING:YES FASTING: YES CORTISOL, TOTAL 1.2 L Reference Range: For 8 a.m.(7-9 a.m.) Specimen: 4.0-22.0 made in September 2024 by the reagent germination testing manager. method due to a recent quality improvement Reference Range: For 4 p.m.(3-5 p.m.) Specimen: 3.0-17.0 relative to results previously obtained with this The Cortisol result may be decreased on average 10-20% * Please interpret above results accordingly * T3, FREE (14334) Reviewed date:04/07/2024 07:19:13 PM Interpretation: Performing Lab:[facility] [place] Marisol Roberts MD Notes/Report: FASTING:YES FASTING: YES T3, FREE 2.6 2.3-4.2 pg/mL N TSH (899) Reviewed date:04/07/2024 07:19:13 PM Interpretation: Performing Lab:[facility] [place] Marisol Roberts MD Notes/Report: FASTING:YES FASTING: YES TSH 0.47 N Ranges Third trimester 0.43-2.91 Second trimester 0.55-2.73 Reference Range > or = 20 Years 0.40-4.50 First trimester 0.26-2.66 T4, FREE (866) Reviewed date:04/07/2024 07:19:13 PM Interpretation: Performing Lab:[facility] [place] Marisol Roberts MD Notes/Report: FASTING:YES FASTING: YES T4, FREE 1.7 0.8-1.8 ng/dL N VITAMIN B12/FOLATE, SERUM PA HEMA (6870) Reviewed date:04/07/2024 07:19:13 PM Interpretation: Performing Lab:[facility] LIN [place] Marisol Roberts MD Notes/Report: FASTING:YES FASTING: YES VITAMIN B12 778 404-4576 pg/mL L FOLATE, SERUM 4.9 L Borderline: 3.4-5.4 Reference Range Low: <3.4 Normal: >5.4 INSULIN (561) Reviewed date:04/07/2024 07:19:13 PM Interpretation: Performing Lab:RILEY [facility], FndfzuZI[address] Marisol Roberts MD Notes/Report: FASTING:YES FASTING: YES INSULIN 26.7 H Risk: High >18.4 cut points (optimal, moderate, high) in 2021. studies performed at [facility] Adult cardiovascular event risk category Moderate NA Optimal < or = 18.4 Reference Range < or = 18.4 are based on Insulin Reference Interval .HEMOGLOBIN A1c (496) Reviewed date:04/07/2024 07:19:13 PM Interpretation: Performing Lab:[facility]-[address], PnpphxFT[address] Marisol Roberts MD Notes/Report: FASTING:YES FASTING: YES HEMOGLOBIN A1c 5.6 <5.7 % of total Hgb N Currently, no consensus exists regarding use of hemoglobin A1c for diagnosis of diabetes in children. According to [place] Diabetes Association (ADA) <5.7% Consistent with the absence of diabetes 5.7-6.4% Consistent with increased risk for diabetes guidelines, hemoglobin A1c <7.0% represents optimal control in non- diabetic patients. Different > or =6.5% Consistent with diabetes Standards of Medical Care in Diabetes(ADA). (prediabetes) For the purpose of screening for the presence of metrics may apply to specific patient populations. This assay result is consistent with a decreased risk of diabetes. diabetes: COPY(IES) SENT TO: Reviewed date:04/07/2024 07:19:13 PM Interpretation: Performing Lab: Notes/Report: FASTING:YES FASTING: YES COPY(IES) SENT TO: [facility] [address] [place] [phone] .CBC (INCLUDES DIFF/PLT) (63 99) Reviewed date:04/07/2024 07:19:13 PM Interpretation: Performing Lab:[id number] [place] Marisol Roberts MD Notes/Report: FASTING:YES FASTING: YES FASTING:YES FASTING: YES WHITE BLOOD CELL COUNT 8.6 3.8-10.8 Thousand/uL N RED BLOOD CELL COUNT 4.96 3.80-5.10 Million/uL N HEMOGLOBIN 13.4 11.7-15.5 g/dL N HEMATOCRIT 42.4 35.0-45.0 % N MCV 85.5 80.0-100.0 fL N MCH 27.0 27.0-33.0 pg N MCHC 31.6 32.0-36.0 g/dL L red cell parameters and the patient's clinical value (in the range of 30 to 32 g/dL) is most likely interpreted with caution in correlation with other condition. For adults, a slight decrease in the calculated MCHC not clinically significant; however, it should be RDW 17.0 11.0-15.0 % H PLATELET COUNT 331 140-400 Thousand/uL N MPV 11.4 7.5-12.5 fL N ABSOLUTE NEUTROPHILS 6364 1359-5700 cells/uL N ABSOLUTE BAND NEUTROPHILS 344 0-750 cells/uL N ABSOLUTE METAMYELOCYTES 86 0 cells/uL H ABSOLUTE LYMPHOCYTES 3229 409-5642 cells/uL N ABSOLUTE MONOCYTES 602 200-950 cells/uL N ABSOLUTE EOSINOPHILS 86 15-500 cells/uL N ABSOLUTE BASOPHILS 0 0-200 cells/uL N NEUTROPHILS 74 N BAND NEUTROPHILS 4 N METAMYELOCYTES 1 H LYMPHOCYTES 13 N MONOCYTES 7 N EOSINOPHILS 1 N BASOPHILS 0 N PLATELET ESTIMATION ADEQUATE ADEQUATE N CBC MORPHOLOGY NORMAL N Anisocytosis 1 + Ovalocytes 1 + NOTE a manual review. your patient's specimen requiring us to perform instrumentation detected an abnormality on Although an automated CBC was ordered, our IRON AND TOTAL IRON BINDING CAPACITY (7573) Reviewed date:04/07/2024 07:19:13 PM Interpretation: Performing Lab:RILEY, [id number], YhrtnkZF[address] Marisol Roberts MD Notes/Report: FASTING:YES FASTING: YES IRON, TOTAL 38 40-190 mcg/dL L IRON BINDING CAPACITY 408 250-450 mcg/dL (calc) N % SATURATION 9 16-45 % (calc) L .COMPREHENSIVE METABOLIC JORDAN EL (08000) CMP Reviewed date:04/07/2024 07:19:13 PM Interpretation: Performing Lab:RILEY [id number], AntqtxFQ[address] Marisol Roberts MD Notes/Report: FASTING:YES FASTING: YES GLUCOSE 104 65-99 mg/dL H For someone without known diabetes, a glucose value Fasting reference interval follow-up test. prediabetes and should be confirmed with a between 100 and 125 mg/dL is consistent with UREA NITROGEN (BUN) 19 7-25 mg/dL N [...] U/L L ALT 19 6-29 U/L N METHYLENETETRAHYDROFOLATE RE DUCTASE (MTHFR), DNA (83849) Reviewed date:11/13/2024 03:45:50 PM Interpretation: Performing Lab:[facility],[address] [facility] Missy Ge MD,PhD,SHINE Notes/Report: FASTING:YES FASTING: YES METHYLENETETRAHYDROFOLATE REDUCTASE (MTHFR), DNA POSITIVE RESULT: POSITIVE FOR ONE COPY OF THE C677T VARIANT AND ONE COPY OF THE R2119D VARIANT INTERPRETATION See Below [facility]. It has not been adverse outcome. This assay cannot determine and is not recommended by The [place] [employer] especially when present with low serum folate levels. Two the variants, C677T and J2619G in the MTHFR gene. 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 Mild to moderate hyperhomocysteinemia has been identified as Laboratory testing supervised and results monitored by genetic and non-genetic factors not screened for by this involving a combination of genetic, physiologic and with a real time PCR system. Although rare, false positive activity is a genetic risk factor for hyperhomocysteinemia, This test was developed and its analytical performance disease, and chemotherapy toxicity. Increased risk of hyperhomocysteinemia caused by reduced MTHFR activity. or false negative results may occur. All results should be Modest positive association has also been found between the result is not associated with a significantly increased risk The C677T and W9758O variants are detected by amplification mutations. homocysteine levels, factor V Leiden and prothrombin gene please contact your local [facility]'s genetic coronary artery disease and venous thromboembolism with mild the CLIA regulations and is used for clinical purposes. venous thromboembolism or adverse outcome. frequently in the general population. counselor or call [employer] ([phone]) for assistance (trans) or on the same chromosome (cis). medical complications, such as recurrent loss, is being provided for informational/educational purposes coronary artery disease, venous thromboembolism and whether these two variants are on opposite chromosomes cleared or approved by the U.S. Food and Drug risk of offspring with neural tube defects, neuropsychiatric Genetics and Genomics ([facility]) or the [place] [employer] of common variants in the MTHFR gene result in reduced enzyme thromboembolism, consider additional testing such as plasma only.) the targeted regions, followed by melting curve analysis Administration. This assay has been validated pursuant to environmental factors. Recent studies do not support the c.665C>T (p.A222V)] and X9773I [c. 1286A>C (p.E429A)] occur thromboembolism. Hyperhomocysteinemia is multifactorial, history, and other laboratory data. Health care providers, previously described association of increased risk for activity. The thermolabile variant C677T [NM 927116.3: of the selected regions of the MTHFR gene by polymerase For additional information, please refer to thermolabile variant of the MTHFR gene and many other characteristics have been determined by [facility] [place] Puckett, Ph.D., FACMG, HCLD, CGMB. Therefore, the utility of MTHFR variant testing is uncertain http://education.Technimark.[employer]ix/faq/FAQ66 (This link assay. If indicated by personal or family history of Obstetricians and Gynecologists (ACOG) in the evaluation of interpreted in context of clinical findings, relevant ACTH, PLASMA (211) Reviewed date:11/13/2024 03:45:50 PM Interpretation: Performing Lab:[facility]akub BOBBY/Vee [address]gado [id number] Octavio Kang, WucqyjalmHV[address] Manpreet Mendes M.D.,PhD Notes/Report: FASTING:YES FASTING: YES ACTH, PLASMA 11 6-50 pg/mL between 7am-10am. Reference range applies only to specimens collected DHEA SULFATE (402) Reviewed date:11/10/2024 05:46:32 PM Interpretation: Performing Lab:[facility] LIN-[address], IgkpvaNO[address] Marisol Roberts MD Notes/Report: FASTING:YES FASTING: YES DHEA SULFATE 8 19-237 mcg/dL L INSULIN (561) Reviewed date:11/10/2024 05:46:32 PM Interpretation: Performing Lab:[facility] LIN-Aez[address]fi[address], VcgsyxHM[address] Marisol Roberts MD Notes/Report: FASTING:YES FASTING: YES INSULIN 43.6 H Adult cardiovascular event risk category in 2021. Optimal < or = 18.4 Risk: Reference Range < or = 18.4 cut points (optimal, moderate, high) High >18.4 Moderate NA studies performed at [facility] are based on Insulin Reference Interval .CBC (INCLUDES DIFF/PLT) (63 99) Reviewed date:11/10/2024 05:46:32 PM Interpretation: Performing Lab:[facility] LIN-[address], UhhdbzJW[address] Marisol Roberts MD Notes/Report: FASTING:YES FASTING: YES WHITE BLOOD CELL COUNT 6.2 3.8-10.8 Thousand/uL N RED BLOOD CELL COUNT 4.66 3.80-5.10 Million/uL N HEMOGLOBIN 12.7 11.7-15.5 g/dL N HEMATOCRIT 41.2 35.0-45.0 % N MCV 88.4 80.0-100.0 fL N MCH 27.3 27.0-33.0 pg N MCHC 30.8 32.0-36.0 g/dL L value (in the range of 30 to 32 g/dL) is most likely not clinically significant; however, it should be red cell parameters and the patient's clinical condition. For adults, a slight decrease in the calculated MCHC interpreted with caution in correlation with other RDW 17.0 11.0-15.0 % H PLATELET COUNT 279 140-400 Thousand/uL N MPV 11.3 7.5-12.5 fL N ABSOLUTE NEUTROPHILS 3584 5082-6907 cells/uL N ABSOLUTE LYMPHOCYTES 1296 630-4511 cells/uL N ABSOLUTE MONOCYTES 465 200-950 cells/uL N ABSOLUTE EOSINOPHILS 496 15-500 cells/uL N ABSOLUTE BASOPHILS 31 0-200 cells/uL N NEUTROPHILS 57.8 N LYMPHOCYTES 26.2 N MONOCYTES 7.5 N EOSINOPHILS 8.0 N BASOPHILS 0.5 N .LIPID PANEL, STANDARD (7600 ) Reviewed date:11/10/2024 05:46:32 PM Interpretation: Performing Lab:RILEY [facility]-Jlhswo[address] [facility], QaojwjLB[address] Marisol Roberts MD Notes/Report: FASTING:YES FASTING: YES CHOLESTEROL, TOTAL 174 <200 mg/dL N HDL CHOLESTEROL 37 > OR = 50 mg/dL L TRIGLYCERIDES 183 <150 mg/dL H LDL-CHOLESTEROL 107 H calculation, which is a validated novel method providing better accuracy than the Friedewald equation in the LDL-C is now calculated using the Jeffry-Abby <70 mg/dL for patients with CHD or diabetic patients Jeffry SS et al. YNES. 2013;310(19): 8360-4750 with > or = 2 CHD risk factors. (http://education.Employee [employer] Logix/faq/PZU061) Desirable range <100 mg/dL for primary prevention; Reference range: <100 estimation of LDL-C. CHOL/HDLC RATIO 4.7 <5.0 (calc) N NON HDL CHOLESTEROL 137 <130 mg/dL (calc) H option. (LDL-C of <70 mg/dL) is considered a therapeutic factor, treating to a non-HDL-C goal of <100 mg/dL For patients with diabetes plus 1 major ASCVD risk .COMPREHENSIVE METABOLIC JORDAN (72663) [facility] Reviewed date:11/10/2024 05:46:32 PM Interpretation: Performing Lab:RILEY [facility]-Deyyfz[address] [place] Marisol Roberts MD Notes/Report: FASTING:YES FASTING: YES GLUCOSE 92 65-99 mg/dL N Fasting refer ence interval UREA NITROGEN (BUN) 12 7-25 mg/dL N CREATININE 0.88 0.50-0.97 mg/dL N EGFR 87 > OR = 60 mL/min/1.73m2 N BUN/CREATININE RATIO SEE NOTE: 6-22 (calc) reference range. Not Reported: BUN and Creatinine are within SODIUM 139 135-146 mmol/L N POTASSIUM 4.5 3.5-5.3 mmol/L N CHLORIDE 108 98-110 mmol/L N CARBON DIOXIDE 23 20-32 mmol/L N CALCIUM 8.7 8.6-10.2 mg/dL N PROTEIN, TOTAL 5.7 6.1-8.1 g/dL L ALBUMIN 3.5 3.6-5.1 g/dL L GLOBULIN 2.2 1.9-3.7 g/dL (calc) N ALBUMIN/GLOBULIN RATIO 1.6 1.0-2.5 (calc) N BILIRUBIN, TOTAL 0.4 0.2-1.2 mg/dL N ALKALINE PHOSPHATASE 50 31-125 U/L N AST 11 10-30 U/L N ALT 11 6-29 U/L N .VITAMIN D,25-OH,TOTAL,IA (1 7306) Reviewed date:07/09/2024 06:23:01 PM Interpretation: Performing Lab:RILEY [facility] [address] Fernando Z[place]YpmahxBS[address] Marisol Roberts MD Notes/Report: FASTING:YES FASTING: YES VITAMIN D,25-OH,TOTAL,IA 27 30-100 ng/mL L educational purposes only.) of D2 and D3 fractions is required, the [facility]) See Note 1 Note 1 For additional information, please refer to 25-OH VIT D, (D2,D3), LC/MS/MS is recommended: order code 05947 (patients >2yrs). Deficiency: <20 ng/mL D2-supplementation and patients for whom quantitation Optimal: > or = 30 ng/mL Vitamin D Status 25-OH Vitamin D: Insufficiency: 20 - 29 ng/mL For 25-OH Vitamin D testing on patients on http://education.[employer]/faq/FSF488 (This link is being provided for informational/ T3, FREE (92530) Reviewed date:07/09/2024 06:23:01 PM Interpretation: Performing Lab:Jakub LIN-Buddy Liz, GvykutFH[address] Marisol Roberts MD Notes/Report: FASTING:YES FASTING: YES T3, FREE 2.7 2.3-4.2 pg/mL N TSH (899) Reviewed date:07/09/2024 06:23:01 PM Interpretation: Performing Lab:Jakub LIN-[address]dy Liz, SeznusBS[address] Marisol Roberts MD Notes/Report: FASTING:YES FASTING: YES TSH 0.39 L > or = 20 Years 0.40-4.50 Ranges First trimester 0.26-2.66 Second trimester 0.55-2.73 Third trimester 0.43-2.91 Reference Range T4, FREE (866) Reviewed date:07/09/2024 06:23:01 PM Interpretation: Performing Lab:Jakub LIN [place] Marisol Roberts MD Notes/Report: FASTING:YES FASTING: YES T4, FREE 1.4 0.8-1.8 ng/dL N VITAMIN B12/FOLATE, SERUM PA HEMA (8731) Reviewed date:07/09/2024 06:23:01 PM Interpretation: Performing Lab:Jakub LIN, LavwyoSD[address] Marisol Roberts MD Notes/Report: FASTING:YES FASTING: YES VITAMIN B12 748 750-8451 pg/mL L FOLATE, SERUM 2.8 L Reference Range Low: <3.4 Normal: >5.4 Borderline: 3.4-5.4 INSULIN (561) Reviewed date:07/09/2024 06:23:01 PM Interpretation: Performing Lab:RILEY [facility]-Nfhaum[address], RpdksmIB[address] Marisol Roberts MD Notes/Report: FASTING:YES FASTING: YES INSULIN 83.5 H Reference Range < or = 18.4 Optimal < or = 18.4 Risk: studies performed at [facility] in 2021. Adult cardiovascular event risk category Moderate NA High >18.4 are based on Insulin Reference Interval cut points (optimal, moderate, high) .HEMOGLOBIN A1c (496) Reviewed date:07/09/2024 06:23:01 PM Interpretation: Performing Lab:RILEY [facility]-Wpxggm[address] Liz, VklqwyYP[address] Marisol Roberts MD Notes/Report: FASTING:YES FASTING: YES HEMOGLOBIN A1c 5.7 <5.7 % H indicates that their diabetes is well controlled. A1c considerations. For someone with known diabetes, a value <7% prediabetes and should be confirmed with a targets should be individualized based on duration of Currently, no consensus exists regarding use of follow-up test. hemoglobin A1c for diagnosis of diabetes for children. of diabetes. diabetes, age, comorbid conditions, and other This assay result is consistent with an increased risk For someone without known diabetes, a hemoglobin A1c value between 5.7% and 6.4% is consistent with .CBC (INCLUDES DIFF/PLT) (63 99) Reviewed date:07/09/2024 06:23:01 PM Interpretation: Performing Lab:RILEY [facility]-Eithha24187 [address] Liz, DenlsbDL[address] Marisol Roberts MD Notes/Report: FASTING:YES FASTING: YES WHITE BLOOD CELL COUNT 6.0 3.8-10.8 Thousand/uL N RED BLOOD CELL COUNT 4.24 3.80-5.10 Million/uL N HEMOGLOBIN 11.8 11.7-15.5 g/dL N HEMATOCRIT 38.2 35.0-45.0 % N MCV 90.1 80.0-100.0 fL N MCH 27.8 27.0-33.0 pg N MCHC 30.9 32.0-36.0 g/dL L interpreted with caution in correlation with other red cell parameters and the patient's clinical value (in the range of 30 to 32 g/dL) is most likely For adults, a slight decrease in the calculated MCHC not clinically significant; however, it should be condition. RDW 15.5 11.0-15.0 % H PLATELET COUNT 329 140-400 Thousand/uL N MPV 10.5 7.5-12.5 fL N ABSOLUTE NEUTROPHILS [phone] cells/uL N ABSOLUTE LYMPHOCYTES [phone] cells/uL N ABSOLUTE MONOCYTES 516 200-950 cells/uL N ABSOLUTE EOSINOPHILS 102 15-500 cells/uL N ABSOLUTE BASOPHILS 42 0-200 cells/uL N NEUTROPHILS 56.3 N LYMPHOCYTES 32.7 N MONOCYTES 8.6 N EOSINOPHILS 1.7 N BASOPHILS 0.7 N .LIPID PANEL, STANDARD (7600 ) Reviewed date:07/09/2024 06:23:01 PM Interpretation: Performing Lab:[facility]-[id number] Alex Liz, [id number] Marisol Roberts MD Notes/Report: FASTING:YES FASTING: YES CHOLESTEROL, TOTAL 186 <200 mg/dL N HDL CHOLESTEROL 39 > OR = 50 mg/dL L TRIGLYCERIDES 211 <150 mg/dL H if clinically indicated. If a non-fasting specimen was collected, consider repeat triglyceride testing on a fasting specimen James et al. J. of Clin. Lipidol. 2015;9:129-169. LDL-CHOLESTEROL 114 H with > or = 2 CHD risk factors. (http://education.Appiny/faq/CJF417) estimation of LDL-C. <70 mg/dL for patients with CHD or diabetic patients Desirable range <100 mg/dL for primary prevention; Reference range: <100 Jeffry SS et al. YNES. 2013;310(19): 7581-7062 calculation, which is a validated novel method providing LDL-C is now calculated using the NjMora better accuracy than the Friedewald equation in the CHOL/HDLC RATIO 4.8 <5.0 (calc) N NON HDL CHOLESTEROL 147 <130 mg/dL (calc) H For patients with diabetes plus 1 major ASCVD risk option. factor, treating to a non-HDL-C goal of <100 mg/dL (LDL-C of <70 mg/dL) is considered a therapeutic IRON AND TOTAL IRON BINDING CAPACITY (2166) Reviewed date:07/09/2024 06:23:01 PM Interpretation: Performing Lab:[facility] LIN-[id number] Alex Liz, [id number] Marisol Roberts MD Notes/Report: FASTING:YES FASTING: YES IRON, TOTAL 48 40-190 mcg/dL N IRON BINDING CAPACITY 408 250-450 mcg/dL (calc) N % SATURATION 12 16-45 % (calc) L MAGNESIUM (622) Reviewed date:07/09/2024 06:23:01 PM Interpretation: Performing Lab:[facility] LIN-[id number] Liz, [id number] Marisol Roberts MD Notes/Report: FASTING:YES FASTING: YES MAGNESIUM 1.9 1.5-2.5 mg/dL N .COMPREHENSIVE METABOLIC JORDAN (90316) [facility] Reviewed date:07/09/2024 06:23:01 PM Interpretation: Performing Lab:[facility] LIN-[id number] Liz, [id number] Marisol Roberts MD Notes/Report: FASTING:YES FASTING: YES GLUCOSE 90 65-99 mg/dL N Fasting refer ence interval UREA NITROGEN (BUN) 16 7-25 mg/dL [...] U/L N ALT 11 6-29 U/L N T3, FREE (34165) Reviewed date:11/10/2024 05:46:32 PM Interpretation: Performing Lab:[facility] LIN-[id number] Alex Liz, [id number] Marisol Roberts MD Notes/Report: FASTING:YES FASTING: YES T3, FREE 2.7 2.3-4.2 pg/mL N TSH (899) Reviewed date:11/10/2024 05:46:32 PM Interpretation: Performing Lab:[facility] LIN-[id number] Alex Liz, [id number] Marisol Roberts MD Notes/Report: FASTING:YES FASTING: YES TSH 0.47 N Reference Range Second trimester 0.55-2.73 Third trimester 0.43-2.91 First trimester 0.26-2.66 Ranges > or = 20 Years 0.40-4.50 T4, FREE (866) Reviewed date:11/10/2024 05:46:32 PM Interpretation: Performing Lab:[facility] LIN-[id number] Alex Liz, [id number] Marisol Roberts MD Notes/Report: FASTING:YES FASTING: YES T4, FREE 1.4 0.8-1.8 ng/dL N .HEMOGLOBIN A1c (496) Reviewed date:11/10/2024 05:46:32 PM Interpretation: Performing Lab:[facility] LIN-[id number] Alex Liz, [id number] Marisol Roberts MD Notes/Report: FASTING:YES FASTING: YES HEMOGLOBIN A1c 5.1 <5.7 % N For the purpose of screening for the presence of of diabetes. hemoglobin A1c for diagnosis of diabetes in children. metrics may apply to specific patient populations. guidelines, hemoglobin A1c <7.0% represents optimal Standards of Medical Care in Diabetes(ADA). control in non- diabetic patients. Different > or =6.5% Consistent with diabetes This assay result is consistent with a decreased risk <5.7% Consistent with the absence of diabetes (prediabetes) Currently, no consensus exists regarding use of 5.7-6.4% Consistent with increased risk for diabetes diabetes: According to [place] [employer] (ADA) Reason For Referral No Information Medications Medication SIG (Take, Route, Frequency, Duration) Notes Start Date End Date Status Synthroid 200 MCG Tablet 1 tablet in the morning on an empty stomach Orally Once a day; Duration: 90 days 11/16/2024 Active dexAMETHasone 1 MG Tablet 1 tablet Orally at 10 pm night before 8 am cortisol; Duration: 11/16/2024 Active Synthroid 50 MCG Tablet 1 tablet in the morning on an empty stomach Orally Once a day; Duration: 90 days 11/16/2024 Active Baclofen 10 MG Tablet 1 tablet as needed muscle spasm Orally every 8 hours at bedtime Active Mounjaro 5 MG/0.5ML Solution Auto-injector as directed Subcutaneous weekly; Duration: 90 days 08/18/2024 Active Liothyronine Sodium 5 MCG Tablet TAKE 2 TABLETS BY MOUTH DAILY AT NOON ON AN EMPTY STOMACH; Duration: 90 Active Magnesium Oxide 400 MG Tablet 1 tablet with food Orally Once a day Active Ondansetron 4 MG Tablet Disintegrating 1 tablet on the tongue and allow to dissolve Orally Once a day; Duration: 30 days 08/18/2024 Active Insulin Syringe 31G X 5/16 1 ML Miscellaneous INJECT B12 UNDER THE SKIN EVERY 7 DAYS; Duration: 90 Active Folic Acid 1 MG Tablet TAKE 1 TABLET BY MOUTH DAILY; Duration: 90 Active Synthroid 300 MCG Tablet 1 tab(s) orally once a day; Duration: 90 days 01/05/2024 Active Topiramate 50 MG Tablet 1 tab(s) orally 2 times a day; Duration: 30 day(s) ALSO 25 MG 05/21/2023 Active Nystatin 740456 UNIT/GM Cream 1 application Externally Twice a day; Duration: 14 days 02/01/2024 Active Dodex 1000 MCG/ML Solution 1 CC subcutaneously once a week; Duration: 90 days *Reorder from JethroData for eRx and Interaction Alerts* 05/21/2023 Active Ondansetron HCl 4 MG Tablet 1 tab(s) orally every 8 hours; Duration: 90 days 06/18/2023 Active Varenicline Tartrate 1 MG Tablet 1 tab(s) orally 2 times a day 05/21/2023 Active Esomeprazole Magnesium 40 MG Packet 1 packet 1/2 to 1 hour before morning meal mixed with 15 mL of water Orally Once a day Active Airsupra 90-80 MCG/ACT Aerosol 2 puffs as needed Inhalation Six times a day Active Nurtec 75 MG Tablet Disintegrating 1 tablet on the tongue and allow to dissolve Orally Active Cosentyx 300/2ML INJECTIO N *Pick strength-form from JethroData for eRX* Active Vitamin D2 50 MCG (1999 UT) Tablet 1 tablet Orally Once a day Active Breo Ellipta 200-25 MCG/ACT Aerosol Powder Breath Activated 1 puff Inhalation Once a day Active Mounjaro 5 MG/0.5ML Solution Auto-injector inject 5 mg Subcutaneous once weekly; Duration: 90 days 02/01/2024 Active Tamsulosin HCl 0.4 MG Capsule 1 capsule Orally Once a day Active HYDROcodone-Acetamino phen 5-325 MG Tablet 1 tablet as needed for pain Orally once a day Active Xarelto 20 MG Tablet 1 tablet with food Orally Once a day Active dexAMETHasone 1 MG Tablet 1 tablet Orally Once at 10PM for a 8AM lab draw; Duration: 1 days 11/03/2024 Active Olmesartan Medoxomil 20 MG Tablet 1 tab(s) orally once a day; Duration: 30 day(s) 05/21/2023 Active Social History Section Notes: Non-Contributory Non-Contributory Non-Contributory Problems Problem Type SNOMED Code ICD Code Onset Dates Problem Status W/U Status Risk Notes Problem Hypothyroidism (54810715) Hypothyroidism, unspecified (E03.9) Active confirmed Problem Hyperglycemia due to type 2 diabetes mellitus (851282152567376) Type 2 diabetes mellitus with hyperglycemia (E11.65) Active confirmed Problem Disorder of adrenal gland (28023157) Disorder of adrenal gland, unspecified (E27.9) Active confirmed Problem Obesity (261568309) Obesity, unspecified (E66.9) Active confirmed Problem Tobacco user (555081931) Nicotine dependence, chewing tobacco, uncomplicated (F17.220) Active confirmed Problem Generalized anxiety disorder (57831373) Generalized anxiety disorder (F41.1) Active confirmed Problem Attention deficit hyperactivity disorder, predominantly inattentive type (disorder) (43101144) Attention and concentration deficit (R41.840) Active confirmed Problem Obstructive sleep apnea (99735204) Obstructive sleep apnea (G47.33) Active confirmed Problem Insulin resistance (351643859) Insulin resistance (E88.819) Active confirmed Vital Signs Heart Rate 79 /min 11/16/2024 Height-cm 170.18 cm 11/16/2024 Oximetry 99 % 11/16/2024 Blood pressure diastolic 81 mm Hg 11/16/2024 Weight-kg 206.84 kg 11/16/2024 Height 67 in 11/16/2024 Blood pressure systolic 138 mm Hg 11/16/2024 Weight 456.0 lbs 11/16/2024 BMI 71.41 kg/m2 11/16/2024 Encounters Encounter Location Date Provider Diagnosis [address] [id number] 01/16/2024 Provider Migration Hypothyroidism, unspecified E03.9 and Type 2 diabetes mellitus with hyperglycemia E11.[address] Santamaria [address] [place] [phone] 02/01/2024 Joann Santamaria Hypothyroidism, unspecified E03.9 ; Obesity, unspecified E66.9 ; Type 2 diabetes mellitus with hyperglycemia E11.65 ; Insulin resistance, unspecified E88.819 ; Deficiency of other specified B group vitamins E53.8 ; Nausea R11.0 and Dermatophytosis, unspecified B35.[address] Santamaria [address] [place] [phone] 04/14/2024 Joann Santamaria Hypothyroidism, unspecified E03.9 ; Obesity, unspecified E66.9 ; Type 2 diabetes mellitus with hyperglycemia E11.65 ; Obstructive sleep apnea G47.33 ; B12 deficiency E53.8 ; Folic acid deficiency E53.8 and Dietary counseling and surveillance Z71.[address] Santamaria [id number] [place] [phone] 08/18/2024 Joann Rosalio Hypothyroidism, unspecified E03.9 ; Obstructive sleep apnea G47.33 ; Insulin resistance E88.819 ; Obesity, unspecified E66.9 ; Nausea R11.0 and Dietary counseling and surveillance Z71.[address] Santamaria [address] [place] [phone] 11/16/2024 Joann Santamaria Hypothyroidism, unspecified E03.9 ; Type 2 diabetes mellitus with hyperglycemia E11.65 ; Obstructive sleep apnea G47.33 ; Insulin resistance E88.819 ; Disorder of adrenal gland, unspecified E27.9 and Dietary counseling and surveillance Z71.[address] Santamaria [address] [place] [phone] 01/04/[address] Santamaria [address] [place] [phone] 01/04/2024 Joann Santamaria Hypothyroidism, unspecified E03.[address] Santamaria [address] [place], [place] [phone] 01/05/2024 Joann Santamaria Hypothyroidism, unspecified E03.9 AMMO [facility] [address] [place], [place] [phone] 02/22/2024 Joann Santamaria Type 2 diabetes mellitus with hyperglycemia E11.65 AMMO [facility] [address] [place] [phone] 02/22/2024 Joann Santamaria AMMO [facility] [address] [place], [place] [phone] 02/26/2024 Joann Santamaria AMMO [facility] [address] [place], [place] [phone] 04/14/2024 Joann Santamaria AMMO [facility] [address] [place], [place] [phone] 04/14/2024 Joann Santamaria Hypothyroidism, unspecified E03.9 AMMO [facility] [address] [place] [phone] 05/02/[address] Santamaria [address] [place] [phone] 08/05/2024 Joann Santamaria Hypothyroidism, unspecified E03.9 AMMO [facility] [address] [place] [phone] 08/22/2024 Joann Santamaria [address] [place] [phone] 11/02/2024 Joann Santamaria [address] [place] [phone] 11/23/2024 Joann Santamaria [address] [place] [phone] 04/14/2024 Joann Santamaria [address] [place], [place] [phone] 09/05/2024 Joann Santamaria Assessments Encounter Date Diagnosis (ICD Code) Assessment Notes Treatment Notes Treatment Clinical Notes Section Notes 01/04/2024 Hypothyroidism, unspecified (ICD-10 - E03.9) 01/05/2024 [...] E03.9) 08/05/2024 Hypothyroidism, unspecified (ICD-10 - E03.9) 08/18/2024 Hypothyroidism, unspecified (ICD-10 - E03.9) 08/18/2024 Obstructive sleep apnea (ICD-10 - G47.33) 11/16/2024 Hypothyroidism, unspecified (ICD-10 - E03.9) 11/16/2024 Type 2 diabetes mellitus with hyperglycemia (ICD-10 - E11.65) 11/16/2024 Obstructive sleep apnea (ICD-10 - G47.33) 08/18/2024 Insulin resistance (ICD-10 - E88.819) 04/14/2024 Type 2 diabetes mellitus with hyperglycemia (ICD-10 - E11.65) u 02/01/2024 Type 2 diabetes mellitus with hyperglycemia (ICD-10 - E11.65) 01/16/2024 Type 2 diabetes mellitus with hyperglycemia (ICD-10 - E11.65) 04/14/2024 Obstructive sleep apnea (ICD-10 - G47.33) u 08/18/2024 Obesity, unspecified (ICD-10 - E66.9) 11/16/2024 Insulin resistance (ICD-10 - E88.819) 02/01/2024 Insulin resistance, unspecified (ICD-10 - E88.819) 11/16/2024 Disorder of adrenal gland, unspecified (ICD-10 - E27.9) 08/18/2024 Nausea (ICD-10 - R11.0) 04/14/2024 B12 deficiency (ICD-10 - E53.8) u 02/01/2024 Deficiency of other specified B group vitamins (ICD-10 - E53.8) 02/01/2024 Nausea (ICD-10 - R11.0) 04/14/2024 Folic acid deficiency (ICD-10 - E53.8) u 08/18/2024 Dietary counseling and surveillance (ICD-10 - Z71.3) Spent 15 minutes preventative counseling patient on dietary recommendations and changes in setting of hyperglycemia- need to restrict refined sugars and processed foods and incorporate up to 150 minutes of moderate level activity weekly. 11/16/2024 Dietary counseling and surveillance (ICD-10 - Z71.3) Spent 15 minutes preventative counseling patient on dietary recommendations and changes in setting of hyperglycemia- need to restrict refined sugars and processed foods and incorporate up to 150 minutes of moderate level activity weekly. 02/01/2024 Dermatophytosis, unspecified (ICD-10 - B35.9) 04/14/2024 Dietary counseling and surveillance (ICD-10 - Z71.3) Spent 15 minutes preventative counseling patient on dietary recommendations and changes in setting of hyperglycemia- need to restrict refined sugars and processed foods and incorporate up to 150 minutes of moderate level activity weekly. u 02/01/2024 Other Assessment and Plan: 1. Insulin [...] side effect 7. Possible ringworm infection- Recommend ymjd-yql-ienzplo miconazole cream for topical treatment- If no [...] procedures, referring and communicating with other health wound care specialist, documenting clinical information in the electronic or [...] with folic acid (methyl tetrahydrofolic acid) and [id number] ufac-jdm-bsmlljr iron supplementation (65mg elemental iron)Schedule reevaluation of [...] procedures, referring and communicating with other health wound care specialist, documenting clinical information in the electronic or other health record, independently interpreting results and communicating results to the patient/family/caregiv er and care coordinating patient plan. Patient alert and oriented x 4 and aware of discussion noted above and in agreeance to plan in management of obesity, type 2 DM, hypothyroidism/ vitamin deficiencies. u 08/18/2024 Other Assessment and Plan: 1. Recent Hospitalization (Sepsis, Cellulitis, Wound Infection)- Patient was recently hospitalized for 3 weeks due to sepsis, cellulitis, and wound infection- Wound originated from fall, resulting in infected hematoma after debridement- Experienced severe hypotension (BP 70/40) requiring ICU admission- Kidney function impacted with creatinine approaching 5- Currently wound healing, using Sandhol for pain management- No current signs of infection reported- Continue wound care as directed- Monitor for signs of infection- Follow up with primary care physicianKathy, regarding wound healing- Continue Keenan supplement twice daily- Continue iron supplement (deferoxamine) as prescribed- Discontinue Lasix/Bumex 2. Insulin Resistance- History of insulin resistance without formal diabetes diagnosis- Recent hospital stay with fluctuating glucose levels- Current insulin level 85- Cannot tolerate metformin or pioglitazone-she needs an insulin databases computer consultant- mounjaro is indicated as her BMI is over 50- Mounjaro discontinued during hospitalization- Elevated A1C despite reduced appetite and weight loss- Restart Mounjaro 2.5 mg subcutaneously weekly and uptitrate to 5 mg weekly-she has the 2.5 mg dose at home- Submit prior authorization to insurance- Monitor blood glucose levels- Encourage small, frequent meals- Follow up to assess medication efficacy 3. Thyroid Disorder- Currently on Synthroid 300 mcg daily and T3 in afternoon- Reports intolerance to generic levothyroxine- Recent TSH levels low- Continue current medication regimen- Order thyroid function tests prior to next visit- Assess need for dose adjustment based on results 4. Migraines- Current management with Nurtec, Ubrelvy, and Topamax- Recently filled Imitrex but hesitant to use- Continue current medication regimen- Educate on Imitrex use and side effects- Monitor efficacy of current regimen 5. Anticoagulation- History of DVT in April- Transitioned from Lovenox to Xarelto 20 mg daily- Continue current medication- Monitor for bleeding/thrombosis- Educate on anticoagulation precautions 6. Hypertension- Blood pressure medications currently on hold- Recent hospitalization involved hypotension- Continue to hold medications- Monitor blood pressure regularly- Reassess need for therapy at follow-up 7. Pain Management- Reports shooting sharp leg pain- Current management with hydrocodone/acetaminop hen and baclofen- Meloxicam discontinued- Continue current pain medication regimen- Monitor pain levels and efficacy- Educate on non-pharmacological management 8. Obstructive Sleep Apnea- Not currently using CPAP due to wound care- Encourage CPAP resumption when feasible- Assess barriers to use- Follow up on compression wraps and lymphedema therapy 9. Smoking- Quit during hospitalization but resumed after discharge- Sheriffs on cessation- Discuss cessation aids and strategies- Offer referral to cessation program 10. Nutritional Deficiencies- Taking vitamin B12, D, folic acid, and iron supplements- Continue current supplement regimen- Order comprehensive labs prior to next visit 11. Gastrointestinal Issues- Reports reduced appetite and constipation- Taking magnesium oxide 400 mg- Continue current medication- Refill Zofran for nausea- Encourage small, frequent meals- Monitor bowel habits Spent 25 minutes preparing to see the patient (ex review of tests/chart), obtaining and / or reviewing separately obtained history, performing a medically appropriate examination and/or evaluation, counseling and educating the patient/family/caregiv er, ordering medications, tests, or procedures, referring and communicating with other health wound care specialist, documenting clinical information in the electronic or other health record, independently interpreting results and communicating results to the patient/family/caregiv er and care coordinating patient plan. Patient alert and oriented x 4 and aware of discussion noted above and in agreeance to plan in management of hypothyroidism, morbid obesity, insulin resistance, nausea and JACKLYN. 11/16/2024 Clau Coffman, a patient with a history of obesity, hypothyroidism, factor V Leiden, and sleep apnea, presents for follow-up of weight loss management and medication adjustments. ObesityAssessment: Patient reports significant weight loss of 50 pounds, currently weighing 456 lbs (down from 486 lbs). Recently started Mounjaro (tirzepatide) 2.5 mg and has a 5 mg dose at home ready to start. Weight loss is progressing well with the current regimen.Plan:- Continue Mounjaro, transition to 5 mg dose as prescribed- Monitor weight at follow-up visits HypothyroidismAssessme nt: Patient's T4 levels are increasing, which is likely due to continued weight loss. Patient reports inconsistent adherence to thyroid medication, occasionally skipping doses. Given the weight loss and potential for thyroid hormone overreplacement, a dose reduction is warranted.Plan:- Decrease levothyroxine dose from 300 mcg to 250 mcg daily as patient has high FT4/low TSH and palpitations and some increased anxiety- Prescribe levothyroxine 200 mcg and 50 mcg tablets through [facility]th[facility] Delivers program- Monitor thyroid function with continued weight loss- Educate patient on importance of consistent medication adherence HypertensionAssessment : Blood pressure is well-controlled on current regimen, with readings in the 130s/80s. Patient is currently only taking olmesartan (Benicar) 20 mg for blood pressure management. 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 This condition may affect folate metabolism.Plan:- Recommend methylated B12 and folic acid supplementation- Patient reports difficulty tolerating daily folic acid; consider alternative dosing schedules or formulations Iron Deficiency AnemiaAssessment: Patient reports difficulty tolerating prescribed ferrous sulfate twice daily due to gastrointestinal side effects.Plan:- Discuss alternative iron supplementation options or dosing schedules with Dr. Cordova- Consider powder formulations if patient can tolerate Hypercortisolism (suspected)Assessment: Patient's cortisol levels are elevated, but DHEAS and ACTH levels are low. This pattern raises suspicion for possible adrenal pathology, such as inflammation or microadenoma. Sleep apnea may be contributing to false elevations in cortisol. Further evaluation is necessary to determine the cause and potential impact on weight loss efforts.Plan:- Order non-contrast CT scan of abdomen, focusing on adrenals and kidneys- Order 24-hour urine cortisol test- Order salivary cortisol test (two separate nights between 11 PM and midnight)- If time permits, repeat dexamethasone suppression test- Educate patient on proper collection methods for urine and saliva tests Abnormal Uterine BleedingAssessment: Patient reports recent changes in menstrual pattern, including heavy bleeding and irregular cycles (every 2 weeks or skipping a month). Recent gynecological evaluation recommended endometrial sampling and repeat pelvic ultrasound.Plan:- Patient to follow up with shell sieve operator in November for internal ultrasound- Await results of gynecological workup before considering further interventions Obstructive Sleep ApneaAssessment: Patient confirms diagnosis of sleep apnea, which may be contributing to elevated cortisol levels.Plan:- Confirm patient's adherence to CPAP therapy- Reassess sleep apnea management at follow-up visits Spent 25 minutes preparing to see the patient (ex review of tests/chart), obtaining and / or reviewing separately obtained history, performing a medically appropriate examination and/or evaluation, counseling and educating the patient/family/caregiv er, ordering medications, tests, or procedures, referring and communicating with other health wound care specialist, documenting clinical information in the electronic or other health record, independently interpreting results and communicating results to the patient/family/caregiv er and care coordinating patient plan. Patient alert and oriented x 4 and aware of discussion noted above and in agreeance to plan in management of hypothyroidism, obesity, well controlled type 2 DM, insulin resistance, concern for hypercortisolism/need to rule out adrenal adenoma. Plan Of Treatment Pending Test Test Name Order Date *CT ABDOMEN W/O CONTRAST 33143 Next Appt Details Provider Name:Joann Santamaria, 09:00:00 AM, [address] [place], [address], Insurance Providers Payer Name Payer Address Payer Phone Subscriber Number Group Number Insured Name Patient Relationship to Insured Coverage Start Date Coverage End Date [employer]AN [employer] [address] [place] [address] [phone] [id number] Meghna Gary Self - patient is the insured
--- OUTSIDE RECORDS SUMMARY | 2024-11-30 09:45 | XMS_ITS | Clinical Summary ---
Author Organization [facility] Address [facility] [place] [address] Care Team Providers Care Senior Nuclear Medicine Technologist Name Role Phone Unavailable Primary Care Provider Unavailabl e Allergies Active Allergy Reactions Criticality Noted Date Comments Adhesive Rash Low 10/27/2017 Amoxicillin Unknown 09/30/2017 Cefixime Unknown 09/30/2017 Cephalexin Unknown 09/30/2017 Gamez Unknown 09/30/2017 Ciprofloxacin Unknown 09/30/2017 Clindamycin Swelling High 10/28/2017 Throat swells [place] Butter Unknown 09/30/2017 Doxycycline Rash Low 11/21/2024 Levofloxacin Unknown 09/30/2017 Tapentadol Rash Medium 10/27/2017 Medications levothyroxine 200 mcg tablet Take 300 mcg by mouth daily in the morning. 09/12/19 18 Active topiramate (TOPAMAX) 50 mg tablet Take by mouth 2 times daily. 25 mg in the morning 50 mg nightly 07/18/19 18 Active olmesartan (BENICAR) 20 mg tablet Take 20 mg by mouth daily at bedtime. 09/16/19 18 Active ergocalciferol (VITAMIN D2) 50,000 unit capsule Take 50,000 Units by mouth every 7 days. 07/18/19 18 Active cholecalciferol , Vitamin D3, (VITAMIN [...] by subcutaneous injection every 30 days. Active baclofen (LIORESAL) 10 mg tablet Take 10 mg by mouth 3 times daily as needed for Pain. Active COLLAGENASE CLOSTRIDIUM HISTO. TOPICAL Apply 1 Application to affected area daily. Active pregabalin (LYRICA) 50 mg Capsule [...] by mouth 2 times daily with meals. ON hold Active Cranberry 500 mg Capsule Take 1 [...] Max Daily Amount: 4 Tablets 16 Tablet 05/30/20 25 Active fluconazole (DIFLUCAN) 150 mg tablet Take 1 Tablet (150 mg) by mouth 1 time daily as needed for Other (See Comment) (vaginal yeast infection). 1 Tablet 1 07/30/19 25 Active collagenase (SANTYL) 250 unit/gram Ointment Apply to affected area daily. Use a thin layer on each wound. Wound length (required) 10.7 cm X wound width (required) 5.3 cm X 30 treatment days. 290 Gram 6 5 12:01 PM CDT 08/16/19 25 Active lidocaine (lidocaine viscous 2%) 2 % Solution Apply 5 mL to affected area 1 time daily as needed for Pain. 100 mL 3 5 12:01 PM CDT 08/16/19 25 Active tirzepatide (Mounjaro) 5 mg/0.5 mL Pen Injector Inject 5 mg by subcutaneous injection every 7 days. Hasn't picked up yet Active ferrous sulfate 325 mg (65 mg iron) tablet Take 1 Tablet (325 mg) by mouth 2 times daily. 180 Tablet 1 08/30/19 25 Active rivaroxaban (Xarelto) 20 mg Tablet Take 1 Tablet (20 mg) by mouth daily with supper. 30 Tablet 2 09/27/19 25 Active sulfamethoxazol e-trimethoprim (BACTRIM DS) 800-160 mg tablet Take 1 Tablet by mouth 2 times daily for 10 days. 20 Tablet 11/22/19 25 2024 Active diphenhydrAMINE (BENADRYL) 25 mg capsule Take 1 Capsule (25 mg) by mouth every 6 hours as needed for Itching. 30 Capsule 11/22/19 25 Active diphenhydrAMINE (BENADRYL) 25 mg capsule Take 1 Capsule (25 mg) by mouth every 6 hours as needed for Allergies. 30 Capsule 11/22/19 25 2024 Discontinued Active Problems Problem Noted Date Diagnosed Date [...] Encounters Date Type Department Care Team Description 11/30/2024 9:45 AM CDT Office Visit [facility] Oncology and Hematology - Jermaine [address] [place] [address] Miguel A Guzman MD Arrived 11/22/2024 External Device Data STL ABSTRACTION Provider, Abstract 11/22/2024 External Device Data STL ABSTRACTION Provider, Abstract 11/22/2024 External Device Data ST[facility] ABSTRACTION Provider, Abstract 11/20/2024 10:08 PM CDT - 11/21/2024 1:09 AM CDT Emergency [facility] Emergency Department [address] [place] [address] Mehran Padron MD Cellulitis, umbilical (Primary Dx) Discharge Disposition: Home or Self Care 11/20/2024 Travel 11/16/2024 External Device Data STL ABSTRACTION Provider, Abstract 11/15/2024 External Device Data STL ABSTRACTION Provider, Abstract 11/07/2024 11:00 AM CDT - 11/07/2024 11:59 PM CDT Hospital Encounter [facility] [id number] [place] [phone] Kristie Tellez, WORKERS' COMPENSATION COMMISSIONER Discharge Disposition: Home or Self Care 11/02/2024 External Device Data STL ABSTRACTION Provider, Abstract 10/25/2024 External Device Data STL ABSTRACTION Provider, Abstract 10/24/2024 12:25 PM CDT - 10/24/2024 11:59 PM CDT Hospital Encounter [facility] [id number] [place] [phone] Kristie Tellez, WORKERS' COMPENSATION COMMISSIONER Discharge Disposition: Home or Self Care 10/19/2024 8:00 AM CDT - 10/19/2024 11:59 PM CDT Hospital En[facility] [address] [place] [address] Kristie Tellez, WORKERS' COMPENSATION COMMISSIONER Discharge Disposition: Home or Self Care 10/19/2024 External Device Data STL ABSTRACTION Provider, Abstract 10/14/2024 11:27 AM CDT - 10/14/2024 11:59 PM CDT Hospital En[facility] [address] [place] [phone] Kristie Tellez, WORKERS' COMPENSATION COMMISSIONER Discharge Disposition: Home or Self Care 10/10/2024 2:55 PM CDT - 10/10/2024 11:59 PM CDT Hospital En[facility] [address] [phone] Kristie Tellez, WORKERS' COMPENSATION COMMISSIONER Discharge Disposition: Home or Self Care 10/05/2024 1:00 PM CDT - 10/05/2024 11:59 PM CDT Hospital Encounter [facility] [address] [phone] Sue Arreaga MD Discharge Disposition: Home or Self Care 10/04/2024 External Device Data STL ABSTRACTION Provider, Abstract 10/04/2024 External Device Data STL ABSTRACTION Provider, Abstract 09/30/2024 11:00 AM CDT - 09/30/2024 11:59 PM CDT Hospital En[facility] [address] [phone] Kristie Tellez, WORKERS' COMPENSATION COMMISSIONER Discharge Disposition: Home or Self Care 09/26/2024 9:26 AM CDT - 09/26/2024 11:59 PM CDT Hospital Encounter [facility] [address] [phone] Kristie Tellez, WORKERS' COMPENSATION COMMISSIONER Discharge Disposition: Home or Self Care 09/26/2024 Refill [facility] Oncology and Hematology - Jermaine [facility] Brando Carrington [address] [place] [phone] Miguel A Guzman MD 09/21/2024 9:00 AM CDT - 09/21/2024 11:59 PM CDT Hospital En[facility] [address] [place] [address] Kristie Tellez, WORKERS' COMPENSATION COMMISSIONER Discharge Disposition: Home or Self Care 09/16/2024 10:23 AM CDT - 09/16/2024 11:59 PM CDT Hospital Encounter [facility] [address] [place] [phone] Kristie Tellez, WORKERS' COMPENSATION COMMISSIONER Discharge Disposition: Home or Self Care 09/12/2024 12:27 PM CDT - 09/12/2024 11:59 PM CDT [facility] [address] [place] [phone] Kristie Tellez, WORKERS' COMPENSATION COMMISSIONER Discharge Disposition: Home or Self Care 09/07/2024 9:57 AM CDT - 09/07/2024 11:59 PM CDT [facility] [address] [place] [phone] Kristie Tellez, WORKERS' COMPENSATION COMMISSIONER Discharge Disposition: Home or Self Care 09/01/2024 10:24 AM CDT - 09/01/2024 11:59 PM CDT Hospital En[facility] [address] [place] [phone] Albaro Townsend MD Discharge Disposition: Home or Self Care 08/30/2024 External Device Data STL ABSTRACTION Provider, Abstract 08/30/2024 External Device Data STL ABSTRACTION Provider, Abstract from Last 3 Months Social History Tobacco [...] who hurts you emotionally and/or physically? No 11/20/2024 Food Insecurity Answer Date Recorded Patient needs [...] Sign Reading Time Taken Comments Blood Pressure 136/74 11/30/2024 9:37 AM CDT Pulse 92 11/30/2024 9:34 AM CDT Temperature 36.6 C (97.8 F) 11/30/2024 9:34 AM CDT Respiratory Rate 16 11/30/2024 9:34 AM CDT Oxygen Saturation 99% 11/30/2024 9:34 AM CDT Inhaled Oxygen Concentration - - Weight 205.9 kg (454 lb) 11/30/2024 9:34 AM CDT Height 170.2 cm (5' 7) 11/20/2024 6:52 PM CDT Body Mass Index 71.11 11/20/2024 6:52 PM CDT Plan of Treatment Upcoming Encounters Date Type Department Care Team (Late st Contact Info) Description 02/08/2025 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 Office Visit [facility] Oncology and Hematology - Jermaine [address] [facility] [address] [place] [address] Miguel A Guzman MD [address] [place] [address] Health Maintenance Due Date Last Done Comments DIABETES ANNUAL FOOT EXAM 12/20/2005 DIABETES ANNUAL RETINAL EXAM 12/20/2005 DIABETES MICROALBUMIN ANNUAL SCREEN 12/20/2005 LDL CHOLESTEROL ANNUAL 12/20/2005 HEPATITIS B VACCINES (1 of 3 - 19+ 3-dose series) 12/20/2006 HPV/Cotest (21-29) 12/20/2008 HPV VACCINES (1 - 3-dose SCDM series) 12/20/2014 CERVICAL CANCER SCREENING 12/20/2017 HPV/Cotest (30-65) 12/20/2017 PAP SMEAR 12/20/2017 INFLUENZA VACCINE (#1) 2024 12/14/2013, 2013 DIABETES HBA1C Q 6 MONTHS 01/07/2025 07/07/2024, 04/2022 DTAP/TDAP/TD VACCINES (2 - Td or Tdap) 01/13/2029 Preventative Visit- Commercial Completed 09/06/2024 Procedures Procedure Name Priority Date/Time Associated Diagnosis Comments VITAMIN B12 AND FOLATE Routine 10:59 AM CDT Chronic anemia IRON, TIBC, AND PERCENT SATURATION Routine 11/24/2024 10:59 AM CDT Chronic anemia FERRITIN Routine 11/24/2024 10:59 AM CDT Chronic anemia CT ABDOMEN PELVIS W CONTRAST Stat 11/21/2024 12:12 AM CDT URINALYSIS W/REFLEX MICROSCOPIC Stat 11/20/2024 8:31 PM CDT POC , URINE Stat 11/20/2024 8:20 PM CDT LIPASE Stat 11/20/2024 8:10 PM CDT COMPREHENSIVE METABOLIC PANEL Stat 11/20/2024 8:10 PM CDT CBC WITH DIFFERENTIAL Stat 11/20/2024 8:10 PM CDT from Last 3 Months Results * (ABNORMAL) VITAMIN B12 AND FOLATE (11/24/2024 10:59 AM CDT) VITAMIN B12 154(L) 200 - 1100 pg/mL [facility] FOLATE, SERUM 2.0(L) ng/mL [facility] Comment: Reference Range Low: <3.4 Borderline: 3.4-5.4 Normal: >5.4 FASTING:NO FASTING: NO Test Performed at: [facility] [address] [address] Marisol Roberts MD Blood 11/24/2024 10:5 9 AM CDT 11/24/2024 11:00 AM CDT Miguel A Guzman MD CHEMISTRY ORDERABLES Final Resu lt Performing Organization Address City/[facility]/ZIP Co de Phone Number [facility] [phone] [facility] [address] [place] [address] * IRON, TIBC, AND PERCENT SATURATION (11/24/2024 10:59 AM CDT) IRON 71 40 - 190 mcg/dL [facility] TIBC 413 250 - 450 mcg/dL (calc) [facility] IRON % SATURATION 17 16 - 45 % (calc) [facility] Comment: FASTING:NO FASTING: NO Test Performed at: [facility] [address] [facility] [place] [address] Marisol Roberts MD Blood 11/24/2024 10:5 9 AM CDT 11/24/2024 11:00 AM CDT Miguel A Guzman MD CHEMISTRY ORDERABLES Final Resu lt Performing Organization Address [facility]/ZIP Co de Phone Number [facility] [phone] [facility] [address] [place] [phone] * FERRITIN (11/24/2024 10:59 AM CDT) FERRITIN 16 16 - 154 ng/mL [facility] Comment: Test Performed at: [facility] [address] [place] [address] Marisol Roberts MD Blood 11/24/2024 10:5 9 AM CDT 11/24/2024 11:00 AM CDT Miguel A Guzman MD CHEMISTRY ORDERABLES Final Resu lt [facility] [phone] [facility] [address] [place] [phone] * CT ABDOMEN PELVIS W CONTRAST (11/21/2024 12:12 AM CDT) Anatomical Region Laterality Modality Abdomen Computed Tomogra phy 11/21/2024 12:0 6 AM CDT Impressions 11/21/2024 12:50 AM CDT IMPRESSION: * No acute findings within the abdomen/pelvis. DICTATION LOCATION: Location 4 Narrative 11/21/2024 12:50 AM CDT EXAM: CT ABDOMEN PELVIS W CONTRAST, 11/21/2024 12:12 AM HISTORY: 38 years Female Periumbilical and left abdominal pain TECHNIQUE: Axial CT of the abdomen and pelvis after the intravenous administration of IOPAMIDOL 61 % INTRAVENOUS SOLUTION (MULTI-DOSE BULK PACK) Given:100 mL IV. Oral contrast was not administered for the study. Sagittal and coronal reformats were generated. In accordance with CT policies/protocols and the ALARA principal, radiation dose reduction techniques (such as automated exposure control, adjustment of mA/kV according to patient's size and/or iterative reconstruction technique) were utilized for this examination. COMPARISONS: 07/25/2024 FINDINGS: Lung bases: Unremarkable. Liver: Unremarkable. Gallbladder/biliary:Unremarkable. Spleen: Unremarkable. Adrenal glands: Unremarkable. Pancreas: Unremarkable. Kidneys: No renal stones or hydronephrosis. Bowel: No bowel obstruction or acute inflammatory changes. No diverticulitis or appendicitis. No free air. No significant ascites. Vascular/aorta: Normal caliber abdominal aorta. Lymph nodes: No adenopathy. Bladder: Unremarkable. Reproductive: Unremarkable as visualized. Abdominal wall: No hernia identified. Osseous structures: No destructive bone lesions. Lower lumbar degenerative changes. Procedure Note Jhon Navarrete MD - 11/21/2024 EXAM: CT ABDOMEN PELVIS W CONTRAST, 11/21/2024 12:12 AM HISTORY: 38 years Female Periumbilical and left abdominal pain TECHNIQUE: Axial CT of the abdomen and pelvis after the intravenous administration of IOPAMIDOL 61 % INTRAVENOUS SOLUTION (MULTI-DOSE BULK PACK) Given:100 mL IV. Oral contrast was not administered for the study. Sagittal and coronal reformats were generated. In accordance with CT policies/protocols and the ALARA principal, radiation dose reduction techniques (such as automated exposure control, adjustment of mA/kV according to patient's size and/or iterative reconstruction technique) were utilized for this examination. COMPARISONS: 07/25/2024 FINDINGS: Lung bases: Unremarkable. Liver: Unremarkable. Gallbladder/biliary:Unremarkable. Spleen: Unremarkable. Adrenal glands: Unremarkable. Pancreas: Unremarkable. Kidneys: No renal stones or hydronephrosis. Bowel: No bowel obstruction or acute inflammatory changes. No diverticulitis or appendicitis. No free air. No significant ascites. Vascular/aorta: Normal caliber abdominal aorta. Lymph nodes: No adenopathy. Bladder: Unremarkable. Reproductive: Unremarkable as visualized. Abdominal wall: No hernia identified. Osseous structures: No destructive bone lesions. Lower lumbar degenerative changes. IMPRESSION: * No acute findings within the abdomen/pelvis. DICTATION LOCATION: Location 4 us Mehran Padron MD CT ORDERABLES Final Resul t * URINALYSIS WITH REFLEX MICROSCOPIC (11/20/2024 8:31 PM CDT) COLOR UA Yellow Pale to Dark Yellow 11/20/2024 8:46 PM CDT [facility] CLARITY UA Clear Clear 11/20/2024 8:46 PM CDT [facility] SPECIFIC GRAVITY UA 1.017 1.003 - 1.035 11/20/2024 8:46 PM CDT [facility] PH UA 6.0 5.0 - 8.0 11/20/2024 8:46 PM CDT [facility] - . [facility] LEUKOCYTE ESTERASE UA Negative Negative 11/20/2024 8:46 PM CDT [facility] - . [facility] NITRITE UA Negative Negative 11/20/2024 8:46 PM CDT [facility] - . [facility] PROTEIN UA Negative Negative 11/20/2024 8:46 PM CDT [facility] - . [facility] GLUCOSE UA Negative Negative 11/20/2024 8:46 PM CDT [facility] - . [facility] KETONES UA Negative Negative 11/20/2024 8:46 PM CDT [facility] - . [facility] UROBILINOGEN UA Normal <2.0 mg/dL 8:46 PM CDT [facility] BILIRUBIN UA Negative Negative 11/20/2024 8:46 PM CDT [facility] BLOOD UA Negative Negative 11/20/2024 8:46 PM CDT [facility] Urine URINE SPECIMEN OBTAINED BY CLEAN CATCH PROCEDURE / Unknown Collection / Unknown 11/20/2024 8:31 PM CDT 11/20/2024 8:32 PM CDT Mehran Padron MD URINE ORDERABLES Final Resu lt [facility] CLIA# [id number] [address] [place] [address] * POC , URINE (11/20/2024 8:20 PM CDT) Pathologist [facility] HCG QUAL URINE Negative Negative 11/20/2024 8:20 PM CDT [facility] Urine 11/20/2024 8:20 PM CDT 11/20/2024 8:27 PM CDT Narrative [facility] - 11/20/2024 8:20 PM CDT Positive : Result is greater than or equal to 25 mIU/mL Negative: Result is less than 25 mIU/mL Invalid: Result is borderline or indeterminate,send to lab for serum test methodology. Interface Provider Poct POINT OF CARE TESTING Fi nal Result Performing Organization Address City/[facility]/ZIP Co de Phone Number [facility] CLIA# [id number] [address] [place] [address] * (ABNORMAL) CBC WITH DIFFERENTIAL (11/20/2024 8:10 PM CDT) WBC 8.4 4.0 - 9.8 K/uL 11/20/2024 8:46 PM CDT [facility] [employer] [facility] RBC 4.76 3.90 - 4.90 M/uL 11/20/2024 8:46 PM CDT [facility] HEMOGLOBIN 12.8 11.8 - 14.8 g/dL 11/20/2024 8:46 PM CDT [facility] HEMATOCRIT 41.7 35.5 - 44.0 % 11/20/2024 8:46 PM CDT [facility] MCV 87.6 82.0 - 99.0 fL 11/20/2024 8:46 PM CDT [facility] MCH 26.9(L) 27.2 - 32.6 pg 11/20/2024 8:46 PM CDT [facility] MCHC 30.7(L) 31.5 - 35.5 g/dL 11/20/2024 8:46 PM CDT [facility] RDW 18.2(H) 11.5 - 14.5 % 11/20/2024 8:46 PM CDT [facility] RDW-STDEV 58.4(H) 37.1 - 48.7 fL 11/20/2024 8:46 PM CDT [facility] PLATELETS 290 140 - 350 K/uL 11/20/2024 8:46 PM CDT [facility] MPV 11.1 9.3 - 12.4 fL 11/20/2024 8:46 PM CDT [facility] . [facility] NEUTROPHILS 55 % 11/20/2024 8:46 PM CDT [facility] - . [facility] LYMPHOCYTES 32 % 11/20/2024 8:46 PM CDT [facility] MONOCYTES 7 % 11/20/2024 8:46 PM CDT [facility] EOSINOPHILS 5 % 11/20/2024 8:46 PM CDT [facility] BASOPHILS 1 % 11/20/2024 8:46 PM CDT [facility] . [facility] IMMATURE GRANULOCYTES 0 % 11/20/2024 8:46 PM CDT [facility] - . [facility] NEUTROPHIL ABSOLUTE 4.61 1.90 - 7.00 K/uL 11/20/2024 8:46 PM CDT [facility] LYMPHOCYTE ABSOLUTE 2.70 0.70 - 4.50 K/uL 11/20/2024 8:46 PM CDT [facility] MONOCYTE ABSOLUTE 0.54 0.10 - 1.30 K/uL 11/20/2024 8:46 PM CDT [facility] . [facility] EOSINOPHIL ABSOLUTE 0.40 0.00 - 0.70 K/uL 11/20/2024 8:46 PM CDT [facility] BASOPHILS ABSOLUTE 0.08 0.00 - 0.20 K/uL 11/20/2024 8:46 PM CDT [facility] SERVICES - . [facility] IMMATURE GRANULOCYTES ABSOLUTE 0.02 0.00 - 0.03 K/uL 11/20/2024 8:46 PM CDT [facility] - [facility] Blood Venipuncture / Unknown 11/20/2024 8:10 PM CDT 11/20/2024 8:20 PM CDT Mehran Padron MD HEMATOLOGY ORDERABLES Final Result [facility] CLIA# [id number] [address] [place] [address] * LIPASE (11/20/2024 8:10 PM CDT) [facility] LIPASE 17 13 - 60 U/L 11/20/2024 8:52 PM CDT [facility]ORATORY SERVICES [facility] Blood Venipuncture / Unknown 11/20/2024 8:10 PM CDT 11/20/2024 8:20 PM CDT Mehran Padron MD CHEMISTRY ORDERABLES Final Result [facility] CLIA# [id number] [address] [place] [address] * (ABNORMAL) COMPREHENSIVE METABOLIC PANEL (11/20/2024 8:10 PM CDT) [facility] SODIUM 141 136 - 145 mmol/L 11/20/2024 8:52 PM [facility] [employer] [facility] POTASSIUM 3.8 3.5 - 5.0 mmol/L 11/20/2024 8:52 PM [facility] CHLORIDE 108(H) 98 - 107 mmol/L 11/20/2024 8:52 PM [facility] CO2 23 22 - 29 mmol/L 11/20/2024 8:52 PM [facility] CALCIUM 9.4 8.6 - 10.2 mg/dL 11/20/2024 8:52 PM [employer] [facility] - . [facility] BUN 11 6 - 20 mg/dL 11/20/2024 8:52 PM [facility] - . [facility] CREATININE 0.90 0.51 - 0.95 mg/dL 11/20/2024 8:52 PM [employer] [facility] - . [facility] GLUCOSE 97 74 - 99 mg/dL 11/20/2024 8:52 PM [employer] [facility] - . [facility] TOTAL PROTEIN 6.4(L) 6.7 - 8.6 g/dL 11/20/2024 8:52 PM [employer] [facility] ALBUMIN 3.6 3.5 - 5.2 g/dL 11/20/2024 8:52 PM [facility] - . [facility] BILIRUBIN TOTAL 0.2 0.0 - 1.2 mg/dL 11/20/2024 8:52 PM [facility] [employer] [facility] - . [facility] ALKALINE PHOSPHATASE 63 35 - 104 U/L 11/20/2024 8:52 PM [employer] [facility] - . [facility] AST 15 <33 U/L 11/20/2024 8:52 PM [employer] [facility] - . [facility] ALT 11 <34 U/L 11/20/2024 8:52 PM [employer] [facility] - . [facility] GFR >60 >=60 mL/min/1.7 3 sq meter 11/20/2024 8:52 PM [facility] [employer] - . [facility] Comment:eGFR calculated with 2020 CKD-EPI equation. Vegetarian diet, extremely high or low muscle mass, and may affect results. Cystatin C with Glomerular Filtration Rate is a suitable alternative for these patients. ANION GAP 10 8 - 16 mmol/L 11/20/2024 8:52 PM CDT [facility] [employer] [facility] Blood Venipuncture / Unknown 11/20/2024 8:10 PM CDT 11/20/2024 8:20 PM CDT Narrative [facility] - 11/20/2024 8:52 PM CDT Samples containing indocyanine green cause interferences on Total and/or Direct Bilirubin and must not be measured. Mehran Padron MD CHEMISTRY ORDERABLES Final Result [facility] [employer] [facility] CLIA# [id number] [address] [place] [address] from Last 3 Months Insurance [employer] Commercial Advance Directives For more information, please contact: [phone] * Full Code (Latest Code Status on File) Date Activated Date Inactivated Comments 07/26/2024 6:19 AM 07/29/2024 5:23 PM
--- OUTSIDE RECORDS SUMMARY | 2024-11-30 09:45 | XMS_ITS | Patient Health Record ---
Author Organization [facility] Address [address] [place], [place] [id number] Care Team Providers Care Buyer Renter Name Role Phone VIJAYA FARIA Unavailable [phone] Aviva Jaimes Unavailable Unavailable Allergies Allergen (clinical [...] 500-50 MCG/ACT Inhalation; Duration: 30 Days Active Vitamin D (Ergocalciferol) 1.25 MG (00871 UT) Oral; Duration: 84 Days Active Vfyzihje-Fcdjqzsbu-AH 3.5-33229-8 Otic; Duration: 90 Days Active methylPREDNISolone 4 MG as directed Orally one pack 024 Active methylPREDNISolone 4 MG as directed Orally one pack 024 Active Meloxicam 15 MG 1 tablet Orally Once a day; Duration: 30 days Active Terbinafine HCl 250 MG 1 tablet Orally O nce a day; Duration: 42 days Active Xarelto Active Topiramate 50 MG Oral; Duration: 90 Days Active Eliquis 5 MG Oral; Duration: 30 Days Active Olmesartan Medoxomil 20 MG Oral; Duratio n: 90 Days Active dilTIAZem HCl ER Coated Bead s 240 MG Oral; Duration: 90 Days Active Vital Signs Height-cm 167.64 cm 08/01/2024 Weight-kg 158.76 kg 08/01/2024 Height 66 in 08/01/2024 Weight 350 lbs 08/01/2024 BMI 56.49 kg/m2 08/01/2024 Encounters Encounter Location Date Provider Diagnosis [facility] [address] [address] [place] [address] [id number] 10/03/2024 VIJAYA SNOOK Tinea unguium B35.1 ; Pain in right toe(s) M79.674 ; Pain in left toe(s) M79.675 and Atherosclerosis of [place] arteries of extremities with intermittent claudication, bilateral legs I70.213 [facility] [address] [address] [place] [address] [id number] 12/07/2023 VIJAYA SNOOK Tinea unguium B35.1 ; Onychocryptosis L60.0 ; Peroneal tendinitis, left leg M76.72 and Left foot pain M79.672 [facility] [address] [address] [place] [address] [id number] 01/11/2024 VIJAYA SNOOK Tinea unguium B35.1 ; Onychocryptosis L60.0 ; Peroneal tendinitis, left leg M76.72 and Left foot pain M79.672 [facility] [address] [address] [place] [address] [id number] 03/14/2024 VIJAYA SNOOK Tinea unguium B35.1 ; Onychocryptosis L60.0 ; Peroneal tendinitis, left leg M76.72 ; Left foot pain M79.672 and Posterior tibial tendinitis, left leg M76.822 [facility] [place] [address] [address] [place] [address] [id number] 05/23/2024 VIJAYA SNOOK Tinea unguium B35.1 ; Onychocryptosis L60.0 ; Peroneal tendinitis, left leg M76.72 ; Left foot pain M79.672 and Posterior tibial tendinitis, left leg M76.822 [facility] [address] [place], [place] [id number] 08/01/2024 VIJAYA FARIA Tinea unguium B35.1 ; Pain in right toe(s) M79.674 ; Pain in left toe(s) M79.675 and Atherosclerosis of [place] arteries of extremities with intermittent claudication, bilateral legs I70.213 Assessments Encounter Date Diagnosis (ICD Code) Assessment Notes Treatment Notes Treatment Clinical Notes Section Notes 12/07/2023 Onychocryptosis (ICD-10 - L60.0) 01/11/2024 Tinea [...] in right toe(s) (ICD-10 - M79.674) 10/03/2024 Tinea unguium (ICD-10 - B35.1) FUNGAL [...] in left toe(s) (ICD-10 - M79.675) 08/01/2024 Pain in left toe(s) (ICD-10 - M79.675) 05/23/2024 Peroneal tendinitis, left leg (ICD-10 - M76.72) Peroneal Tendonitis: I discussed anti-inflammatory treatment options and various means of immobilization with the patient. I educated the patient on icing and stretching, supportive shoegear, and the use of orthotic devices and bracing. Holding: [place] Ankle brace for ankle instability, Posterior [...] use of orthotic devices and bracing. [facility] 03/14/2024 Peroneal tendinitis, left leg [...] use of orthotic devices and bracing. Recommend [facility] [place] ankle brace 01/11/2024 Left foot pain (ICD-10 - M79.672) 03/14/2024 Left foot pain (ICD-10 - M79.672) 12/07/2023 Left foot pain (ICD-10 - M79.672) 08/01/2024 Atherosclerosis of [place] arteries of extremities with intermittent claudication, bilateral legs (ICD-10 - I70.213) 10/03/2024 Atherosclerosis of [place] arteries of extremities with intermittent claudication, bilateral legs (ICD-10 - I70.213) 05/23/2024 Left foot pain (ICD-10 - M79.672) 05/23/2024 Posterior tibial tendinitis, left leg (ICD-10 - M76.822) 03/14/2024 Posterior tibial tendinitis, left leg (ICD-10 - M76.822) Plan Of Treatment Pending Test Test Name Order Date Liver Function Test (LFT) 01/11/2024 Next Appt Details Provider Name:VIJAYA GIANA, 08:10:00 AM, [address], [facility] [address], [place], [place], [id number], Insurance Providers Payer Name Payer Address Payer Phone Subscriber Number Group Number Insured Name Patient Relationship to Insured Coverage Start Date Coverage End Date [facility][Note 3] ([facility]) ATTN CLAIMS [address] [place] [address] [id number] PAULINE SLADE Self - patient is the insured
--- OUTSIDE RECORDS SUMMARY | 2024-11-30 09:45 | XMS_ITS | Encounter Summary ---
Author Organization [facility] [employer] [facility] Address [address] [place] [address] Care Team Providers Care Hand Ii Cutter Name Role Phone Unavailable Primary Care Provider Unavailabl e Encounter Details Date Type Department Care Team ([facility] st Contact Info) Description 11/30/2024 9:45 AM CDT Office Visit [facility] Oncology and Hematology - Jermaine [address] 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 [address] [place] [address] Miguel A Guzman MD [address] [facility] [address] [place] [address] documented as of this encounter Visit Diagnoses Not on filedocumented in this encounter
--- OUTSIDE RECORDS SUMMARY | 2024-11-30 09:45 | XMS_ITS | Patient Health Record ---
Author Organization [facility] Address [address] [address] Care Team Providers Care Film Composer Name Role Phone Joann Santamaria Primary Care Provider [phone] Migration, Provider Unavailable Unavailable Allergies Allergen (clinical drug ingredient) Drug/Non Drug Allergy documented on EMR Reaction Allergy Type Onset Date Status amoxicillin Amoxicillin Unknown Drug Allergy Act [place] Results Component Value Reference Range Notes COMPREHENSIVE METABOLIC PANE L Reviewed date:01/29/2024 11:58:10 AM Interpretation: Performing Lab:[facility], [place], [address] Marisol Roberts MD Notes/Report: FASTING:YES FASTING: YES VITAMIN D, 25-HYDROXY, LC/MS /MS Reviewed date:01/30/2024 01:55:30 PM Interpretation: Performing Lab:[facility], [address] [place], [address] Marisol Roberts MD Notes/Report: FASTING:YES FASTING: YES T3, FREE Reviewed date:01/30/2024 01:55:45 PM Interpretation: Performing Lab:[facility], [address] [place], [address] Marisol Roberts MD Notes/Report: FASTING:YES FASTING: YES HEMOGLOBIN A1c Reviewed date:01/30/2024 01:55:13 PM Interpretation: Performing Lab:[facility], [address] [place], [address] Marisol Roberts MD Notes/Report: FASTING:YES FASTING: YES INSULIN Reviewed date:01/29/2024 11:53:20 AM Interpretation: Performing Lab:[facility], [address], [place], [address] Marisol Roberts MD Notes/Report: FASTING:YES FASTING: YES CBC (INCLUDES DIFF/PLT) Reviewed date:01/30/2024 01:56:10 PM Interpretation: Performing Lab:[facility], [address], [place], [address] Marisol Roberts MD Notes/Report: FASTING:YES FASTING: YES VITAMIN B12/FOLATE, SERUM PA HEMA Reviewed date:01/30/2024 01:56:25 PM Interpretation: Performing Lab:[facility], [address], [place], [address] Marisol Roberts MD Notes/Report: FASTING:YES FASTING: YES IRON AND TOTAL IRON BINDING CAPACITY Reviewed date:01/29/2024 11:57:41 AM Interpretation: Performing Lab:[facility], [address], [place], [address] Marisol Roberts MD Notes/Report: FASTING:YES FASTING: YES T4, FREE Reviewed date:01/29/2024 11:53:12 AM Interpretation: Performing Lab:[facility], [address], [place], [address] Marisol Roberts MD Notes/Report: FASTING:YES FASTING: YES TSH Reviewed date:01/30/2024 01:55:56 PM Interpretation: Performing Lab:[facility], [address], [place], [address] Marisol Roberts MD Notes/Report: FASTING:YES FASTING: YES DEXAMETHASONE Reviewed date:02/13/2024 10:53:28 AM Interpretation: Performing Lab:[facility],, [address] [place], [address] Missy Ge MD,PhD,SHINE Notes/Report: FASTING:YES FASTING: YES DEXAMETHASONE 470 Reference Ranges for Dexamethasone: Baseline: Less than 20 ng/dL 1 mg dexamethasone overnight: 180-550 ng/dL (8:00-10:00 AM) This test was developed and its analytical performance characteristics have been determined by [employer]. It has not been cleared or approved by FDA. This assay has been validated pursuant to the CLIA regulations and is used for clinical purposes. CORTISOL, TOTAL Reviewed date:02/07/2024 11:09:35 AM Interpretation: Performing Lab:[facility], [address] [place], [address] Marisol Roberts MD Notes/Report: FASTING:YES FASTING: YES COMPREHENSIVE METABOLIC PANE L (Not yet reviewed by provider) Interpretation: Performing Lab:[facility] [address] [place], [address] Marisol Roberts MD Notes/Report: FASTING:YES FASTING: YES T3, FREE (Not yet reviewed b y provider) Interpretation: Performing Lab:[facility], [address] [place], [address] Marisol Roberts MD Notes/Report: FASTING:YES FASTING: YES HEMOGLOBIN A1c (Not yet revi ewed by provider) Interpretation: Performing Lab:[facility], [address] [place], [address] Marisol Roberts MD Notes/Report: FASTING:YES FASTING: YES INSULIN (Not yet reviewed by provider) Interpretation: Performing Lab:[facility], [address] [place], [address] Marisol Roberts MD Notes/Report: FASTING:YES FASTING: YES CBC (INCLUDES DIFF/PLT) (Not yet reviewed by provider) Interpretation: Performing Lab:[facility], [address] [place], [address] Marisol Roberts MD Notes/Report: FASTING:YES FASTING: YES VITAMIN B12/FOLATE, SERUM PA HEMA (Not yet reviewed by provider) Interpretation: Performing Lab:[facility], [address] [place], [address] Marisol Roberts MD Notes/Report: FASTING:YES FASTING: YES IRON AND TOTAL IRON BINDING CAPACITY (Not yet reviewed by provider) Interpretation: Performing Lab:[facility], [address] [place], [address] Marisol Roberts MD Notes/Report: FASTING:YES FASTING: YES T4, FREE (Not yet reviewed b y provider) Interpretation: Performing Lab:[facility], [address] [place], [address] Marisol Roberts MD Notes/Report: FASTING:YES FASTING: YES TSH (Not yet reviewed by pro vider) Interpretation: Performing Lab:[facility], [address] [place], [address] Marisol Roberts MD Notes/Report: FASTING:YES FASTING: YES COPY(IES) SENT TO: (Not yet reviewed by provider) Interpretation: Performing Lab: Notes/Report: FASTING:YES FASTING: YES COPY(IES) SENT TO: [facility] [address] [place] [address] DIFFERENTIAL, MANUAL (Not ye t reviewed by provider) Interpretation: Performing Lab:[facility], [address] [place], [address] Marisol Roberts MD Notes/Report: FASTING:YES FASTING: YES ABSOLUTE NEUTROPHILS 6364 3979-3367 cells/uL ABSOLUTE BAND NEUTROPHILS 344 0-750 cells/uL ABSOLUTE METAMYELOCYTES 86 0 cells/uL ABSOLUTE LYMPHOCYTES 0088 410-9748 cells/uL ABSOLUTE MONOCYTES 602 200-950 cells/uL ABSOLUTE [...] review and pick correct strength-formula tion from [employer] options. If intended option is not shown, [...] review and pick correct strength-formula tion from [employer] options. If intended option is not shown, discontinue and re-order from [employer]* 05/21/2023 Unknown Nystatin 492971 UNIT/GM 1 application Externally Twice a day [...] Hyperglycemia due to type 2 diabetes mellitus (788897509600621) Type 2 diabetes mellitus with hyperglycemia (E11.65) Active confirmed Problem Hypothyroidism (66950337) Hypothyroidism, unspecified (E03.9) Active confirmed Problem Obesity (372953138) Obesity, unspecified (E66.9) Active confirmed Problem Tobacco user (020515404) Nicotine dependence, chewing tobacco, uncomplicated (F17.220) Active confirmed Problem Generalized anxiety disorder (58150296) Generalized anxiety disorder (F41.1) Active confirmed Problem Attention deficit hyperactivity disorder, predominantly inattentive type (disorder) (45403544) Attention and concentration deficit (R41.840) Active confirmed Vital Signs Heart Rate 88 /min 02/01/2024 Blood pressure diastolic 80 mm Hg 02/01/2024 Height 67 in 02/01/2024 Blood pressure systolic 134 mm Hg 02/01/2024 Weight 497.0 lbs 02/01/2024 BMI 77.83 kg/m2 02/01/2024 Encounters Encounter Location Date Provider Diagnosis [facility] [address] [place] [address] 01/16/2024 Provider Migration Hypothyroidism, unspecified E03.9 and Type 2 diabetes mellitus with hyperglycemia E11.65 [facility], [facility] - Joann Santamaria [address] [place] [address] 04/14/2024 Joann Santamaria [facility] Joanncalin Santamaria [address] [place] [address] 02/01/2024 Joann Santamaria Hypothyroidism, unspecified E03.9 ; Obesity, unspecified E66.9 ; Type 2 diabetes mellitus with hyperglycemia E11.65 ; Insulin resistance, unspecified E88.819 ; Deficiency of other specified B group vitamins E53.8 ; Nausea R11.0 and Dermatophytosis, unspecified B35.9 [place] [facility] [employer] [facility], [facility] Joann Santamaria [address] [place] [address] 01/04/2024 Joann Santamaria [facility] Joanncalin Santamaria [address] [place] [phone] 01/04/2024 Joann Santamaria Hypothyroidism, unspecified E03.9 [facility], [facility] - Joann Santamaria [address] [place] [address] 01/05/2024 Joann Santamaria Hypothyroidism, unspecified E03.9 [facility] [address] [place] [address] 02/22/2024 Joann Santamaria Type 2 diabetes mellitus with hyperglycemia E11.65 [facility] [address] [place] [address] 02/22/2024 Joann Santamaria [facility] [address] [place] [address] 02/26/2024 Joann Santamaria Assessments Encounter Date Diagnosis (ICD Code) Assessment Notes Treatment Notes Treatment Clinical Notes Section Notes 01/16/2024 Hypothyroidism, unspecified (ICD-10 - E03.9) 02/01/2024 Hypothyroidism, unspecified (ICD-10 - E03.9) 02/01/2024 Obesity, unspecified (ICD-10 - E66.9) 01/04/2024 Hypothyroidism, unspecified (ICD-10 - E03.9) 01/05/2024 Hypothyroidism, unspecified (ICD-10 - E03.9) 02/22/2024 Type 2 diabetes mellitus with hyperglycemia (ICD-10 - E11.65) 01/16/2024 Type 2 diabetes mellitus with hyperglycemia (ICD-10 - E11.65) 02/01/2024 Type 2 diabetes mellitus with hyperglycemia (ICD-10 - E11.65) 02/01/2024 Insulin resistance, unspecified (ICD-10 - E88.819) 02/01/2024 Deficiency of other specified B group vitamins (ICD-10 - E53.8) 02/01/2024 Nausea (ICD-10 - R11.0) 02/01/2024 Dermatophytosis, unspecified (ICD-10 - B35.9) 02/01/2024 Other Assessment and Plan: 1. Insulin [...] side effect 7. Possible ringworm infection- Recommend etot-ged-yczgksz miconazole cream for topical treatment- If no [...] examination and/or evaluation, counseling and educating the patient/family/care professionals, ordering medications, tests, or procedures, referring and communicating with other health rn wound care, documenting clinical information in the electronic or other health record, independently interpreting results and communicating results to the patient/family/care professionals and care coordinating patient plan. Patient alert [...] (INCLUDES DIFF/PLT) 04/06/2024 VITAMIN B12/FOLATE, SERUM PANEL 02/05/20 25 IRON AND TOTAL IRON BINDING CAPACITY 06/2024 T4, FREE 04/06/2024 TSH 04/06/2024 COPY(IES) SENT TO: 04/06/2024 DIFFERENTIAL, MANUAL 04/06/2024 Insurance Providers Payer Name Payer Address Payer Phone Subscriber Number Group Number Insured Name Patient Relationship to Insured Coverage Start Date Coverage End Date [facility] [address] [place] [address] [id number] Meghna Sosa Self - patient is the insured
== END 2024-11-30 09:17 | disposition home or self-care (01) ==
LOC: ANHLAB 09:17
PROVIDERS: PCP Physician Assistant Medical; Visit Provider Internal Medicine Hematology & Oncology
DX: D64.9 Anemia, unspecified (principal)
CPT/HCPCS: 36415; 85025

== ENCOUNTER 2024-12-23 08:00 | Outpatient (RCR) | payer BC, SELFPAY ==
--- NOTE | 2024-11-03 10:04 | PCPTNOTE ---
pt was 10 minutes later for today's appt; she did call and notify us due to traffic she would be late.
--- NOTE | 2024-11-15 15:41 | PCPTNOTE ---
PHYSICAL THERAPY SUMMARY OF TREATMENT and RECOMMENDATION FOR COMPRESSION GARMENTS Ms. Gary has received a total of 16 PT sessions, from August 01 to today for bilateral LE lymphedema. Her medical history is complex--refer to the initial evaluation: including R lower leg sepsis with open wound, L calf DVT, renal issues. Her treatment was initiated on her L LE, due to her R LE had a wound and was under treatment from wound care. She received to both legs: multiple layer compression wraps to lower leg, manual lymph drainage, intermittent compression pump and LE exercises, with education for self manual lymph drainage, HEP and self care of skin and lymphedema education. After reduction and decreased fibrotic tissue was achieved for L lower leg, a 20-30 mmHg off the shelf, knee high garment was obtained. She continued to have swelling with it, so a higher compression, off the shelf 30-40 mmHg knee high garment was obtained. It was uncomfortable for her--bunching at her anterior ankle, top band was making indentation in her leg and uncomfortable. She has lower leg valgus and the medial and lateral aspects of her lower leg are different measurements and the top needs to be angled for improved fit. After the wound was closed over lower leg, treatment to R leg. Reduction was achieved and the 20-30 mmHg compression off the shelf knee high garment was obtained and it managed her swelling, but was uncomfortable, same as above--anterior ankle and top of the band. She continues to have redness and superficial areas over previous wound with fibrotic tissue and raised at edge of wound. Meghna requires a custom fitted knee high garments for R and L LE to manage her Stage 2 lymphedema. The off the shelf garments did not manage her edema and are uncomfortable due to the shape of her leg-- at anterior ankle and top of the garment, below the knee with cutting in with indentations of skin due to knee valgus. The silicone band top with assist with holding the garment in place with walking and mobility. The night time garment for both legs will assist with managing her edema over night compression and the compression oversleeve will assist with more compression for advanced lymphedema and assist with the wound scar healing. Please contact me for any further questions: Laura Pisano, PT, CLT [facility] [phone]
--- NOTE | 2024-11-16 14:42 | OPREHPOC ---
Outpatient Therapy Plan of Care This is a Multidisciplinary Plan of Care that may contain components documented by all disciplines (PT, OT, and ST.) PT Problem 1 PT Problem #1 Knowledge Deficit PT Goal 1 Goal / Goal Update 1* independent with HEP 2* independent with compression garments 08-22-24 progress goal met continue to progress education 09-22-24 progress d/c treatment L LE/ HOLD PT for R LE goals Target Visit 20 Progress Met PT Goal 2 Goal / Goal Update 10-26-24 progress/restart for treatment of R LE 1* independent with HEP 2* obtain and is independent with compression garments for R and L LEs 11-16-24 progress met goal, continue to finalize with new custom fit garments, for d/c Target Visit 23 PT Problem 2 PT Problem #2 Pain PT Goal 1 Goal / Goal Update * decrease pain in her knees, to 2/10 at worst, with decreased lymphedema of legs 08-22-24 progress goal not met continues to have pain in both knees; continue towards goal 09-22-24 progress d/c treatment L LE/ HOLD PT for R LE goal not met, continue to have pain in knees Target Visit 20 Progress Not Met PT Goal 2 Goal / Goal Update 10-26-24 progress/restart for treatment of R LE 1* pt report pain at worst of 4/10 in LE's 11-16-24 progress continue towards goal Target Visit 23 PT Problem 3 PT Problem #3 Impaired Lymphatic System PT Goal 1 Goal / Goal Update decrease lymphedema over L LE, evident by 1* circumferential measurement to 68 Cm from bottom of leg, to 900 cm 2* no fibrotic tissue over lower leg 3* no papilloma over lower leg 4* visible malleoli decrease truncal edema: 5* no pain with palpation over abdomen 6* no firmness of lower abdominal pannus 08-22-24 progress goals 2,3,4 met continue towards other goals 09-22-24 progress d/c treatment L LE/ HOLD PT for R LE goals 2,3,4,5, met #1 is 984 cm Target Visit 20 Progress Partially Met PT Goal 2 Goal / Goal Update 10-26-24 progress/restart for treatment of R LE 1* circumferential measurement to 68 cm from bottom of foot to 960 cm 2* no fibrotic tissue over lower leg 3* no edema over dorsum of foot 4* visible malleoli 11-16-24 progress met goals 1,2 continue Target Visit 23
--- NOTE | 2024-11-16 14:42 | PTOPPROG ---
Assessment and note entered by Laura Pisano, PT, CLT Assessment Status Progress ICD-10 Condition Codes (PT) Lymphedema I89.0 Onset April 2024 Subjective Information legs feel better and are smaller; the stockings are hard to get on and they bunch up at ankles and inside part at top of both of them; since starting therapy, have lost 41#; Assessment PT Clinical Summary Meghna has received a total of 17 PT sessions. She reports weight loss of 41# since starting therapy. With today's assessment: circumferential measurement of LE to 68 cm from bottom of foot: R is 1013.3 cm, decreased by 7.3 cm and L is 940.8 cm, decreased by 43.2 cm since last progress report; waist circumferential measurement is 167 cm, decreased 10 cm since last progress report. Improved skin integrity with decreased redness over lower legs; healed wound over R lateral lower leg with pink wound bed and some edges with thicker tissue. There is a small area superior to the wound bed, that has a small bandage on, where she scratched her skin. Currently: she is wearing calf high compression garments over R and L lower legs, off the shelf with R 20-30 mmHg and L 30-40 mmHg. They are not comfortable for her with bunching at the anterior ankles and lower legs, and due to valgus of her knees and leg length difference of medial and lateral lower leg. She has been measured for custom fitted lower leg garments, and they are ordered. Expect them to be here soon. Education completed for pt on self manual lymph drainage, self care of skin, LE exercises, elevation of legs, compression garments wearing schedule. She would benefit from a home intermittent compression pump for both legs and trunk, to assist with managing her lymphedema. 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 The goals were partially achieved. Continue PT, to assess her custom garments and complete her education and care for independence with self management of lymphedema of her legs. Plan of Care Interventions Intermittent Compression Pump,Lymphedema Compression Wraps,Manual Lymph Drainage,Patient/ Caregiver Education,Therapeutic Activities, Therapeutic Exercise PT Services Indicated Yes Treatment Frequency and 1-2x/wk for 6 visits Duration These treatments will address the objective and functional deficits as defined above. The patient will be advanced safely and appropriately in order for the patient to progress towards his/her prior level of function. Additional exercises will be introduced and as well as a comprehensive home exercise program upon discharge, if needed, ?to ensure carryover of functional gains achieved in the clinic. This treatment plan has been reviewed and agreement upon by the patient.
--- NOTE | 2024-12-23 11:31 | OPREHPOC ---
Outpatient Therapy Plan of Care This is a Multidisciplinary Plan of Care that may contain components documented by all disciplines (PT, OT, and ST.) PT Problem 1 PT Problem #1 Knowledge Deficit PT Goal 1 Goal / Goal Update 1* independent with HEP 2* independent with compression garments 08-22-24 progress goal met continue to progress education 09-22-24 progress d/c treatment L LE/ HOLD PT for R LE goals Target Visit 20 Progress Met PT Goal 2 Goal / Goal Update 10-26-24 progress/restart for treatment of R LE 1* independent with HEP 2* obtain and is independent with compression garments for R and L LEs 11-16-24 progress met goal, continue to finalize with new custom fit garments, for d/c 12-23-24 d/c goal met Target Visit 23 Progress Met PT Problem 2 PT Problem #2 Pain PT Goal 1 Goal / Goal Update * decrease pain in her knees, to 2/10 at worst, with decreased lymphedema of legs 08-22-24 progress goal not met continues to have pain in both knees; continue towards goal 09-22-24 progress d/c treatment L LE/ HOLD PT for R LE goal not met, continue to have pain in knees Target Visit 20 Progress Not Met PT Goal 2 Goal / Goal Update 10-26-24 progress/restart for treatment of R LE 1* pt report pain at worst of 4/10 in LE's 11-16-24 progress continue towards goal 12-23-24 d/c goal not met continues to have pain in both knees and legs Target Visit 23 Progress Not Met PT Problem 3 PT Problem #3 Impaired Lymphatic System PT Goal 1 Goal / Goal Update decrease lymphedema over L LE, evident by 1* circumferential measurement to 68 Cm from bottom of leg, to 900 cm 2* no fibrotic tissue over lower leg 3* no papilloma over lower leg 4* visible malleoli decrease truncal edema: 5* no pain with palpation over abdomen 6* no firmness of lower abdominal pannus 08-22-24 progress goals 2,3,4 met continue towards other goals 09-22-24 progress d/c treatment L LE/ HOLD PT for R LE goals 2,3,4,5, met #1 is 984 cm Target Visit 20 Progress Partially Met PT Goal 2 Goal / Goal Update 10-26-24 progress/restart for treatment of R LE 1* circumferential measurement to 68 cm from bottom of foot to 960 cm 2* no fibrotic tissue over lower leg 3* no edema over dorsum of foot 4* visible malleoli 11-16-24 progress met goals 1,2 continue 12-23-24 d/c goals 3,4 met Target Visit 23 Progress Partially Met
--- NOTE | 2024-12-23 11:31 | PTOPDC ---
Addendum entered by Laura Pisano, PT 01/16/25 08:27: Ms. Gary has received over 4 weeks of PT Lymphedema intervention for R and L LE lymphedema and truncal edema, from April to November of 2024. See above for the treatment that she has received: LE exercises, elevation, compression and education for compression garments, skin care, and general management of her chronic condition of lymphedema. She is motivated and has been compliant with all the instructions and use of her compression garments. And still continues to have issues with increase abdominal girth and swelling of her legs. She would benefit from having a home intermittent compression pump for her trunk and LE's. Original Note: Assessment and note entered by Laura Pisano, PT Assessment Status Discharge ICD-10 Condition Codes (PT) Lymphedema I89.0 Onset April 2024 Subjective Information the custom made garments are loose and falling down during the day; [facility] has measured her for new garments and legs are smaller now, with the same compression at 20-30 mmHg; also going to get new night garments, due to the other ones not being comfortable- not able to sleep in them; have been doing the self massage and leg exercises , keeping my legs elevated as much as I can; feel like legs are much better, still have some hard tissue over R calf and R leg scar/wound is still some hard tissue but is getting flatter; Reported Pain Level Pain Score 3: Self Report Additional Pain Score Comments knees and legs always hurt, weather makes them worse; Assessment PT Clinical Summary Meghna has received 22 PT sessions for treatment of R and L LE lymphedema and lipedema, from July 20 to today. There was a 4 week hold time for therapy due to awaiting for R lower leg wound to heal, and she was going to wound care. Compared to the last assessment: improved skin integrity bilateral, with R lower leg still has some fibrotic tissue and healed wound with raised edges and fibrotic tissue; circumferential measurements to 68 cm from bottom of the foot: R 1014.8 cm, decreased by 1.5 cm since last assessment and L 965.1 cm, decreased by 45 cm; with the circumferential measurements compared to the most recent measurements: R lower leg numbers had decreased and thigh numbers had increased and L LE numbers with about the same; waist measurement has increased from 167 to 176 cm; compression garments --currently using custom made due to discomfort of off the shelf garments and has night garments also; she will be getting a home intermittent pump to assist with managing her chronic condition; education completed for HEP, garments and self management of lymphedema. Meghna had a trial for a home basic, intermittent compression pump on 08-10-24. This pump was not successful for pt--fluid moved to her thighs and abdomen. She will require the advanced pump for both legs and trunk, to manage her increased lymphedema over those areas. She has had issues with her compression garments for lower legs: use of off the shelf garments and they were not comfortable, digging into her anterior ankles and tourniquet effect due to the material. She received custom flat knit and they were comfortable. With them her legs further reduced and she is getting a new, smaller pair, that have been ordered. With the night garment, it is uncomfortable to her, too tight/ too much on her R healed wound and she is not able to tolerate wearing them to sleep. A new pair of night garments have been ordered for her. She also has been measured for compression capris to manage her thighs, lateral hips and trunk. The goals were partially met. Meghna is very motivated and following all of the education and instructions to manage her chronic condition: elevation of legs, self manual lymph drainage, leg exercises, monitor her skin and use of her compression garments. She is also continuing to work on weight loss. Discharge PT services. Plan of Care PT Services Indicated No
== END 2025-01-31 23:59 | disposition home or self-care (01) ==
LOC: ANHPT 08:00
PROVIDERS: PCP Physician Assistant Medical; Visit Provider Physician Assistant Medical
DX: I89.0 Lymphedema, not elsewhere classified (principal)
CPT/HCPCS: 29581; 97016; 97140

== ENCOUNTER 2025-02-06 12:34 | Outpatient (CLI) | payer BC, SELFPAY ==
[2025-02-06 13:19] LABS: Hematocrit 43.1 % (37.0-47.0); Hemoglobin 13.4 g/dL (12.0-15.0); Immature Granulocyte Percent A 0.1 % (0-0.5); Lymphocytes Absolute Auto 2.37 K/mm3 (0.9-3.2); Mean Corpuscular HGB Conc 31.1 g/dl (32-36); Mean Corpuscular Hemoglobin 28.1 pg (26-34); Mean Corpuscular Volume 90.4 fl (80-100); Nucleated Red Blood Cells Absolute Auto 0.000 K/mm3 (0.0-0.012); Nucleated Red Blood Cells Perc 0.0 % (0.0-0.2); Platelet Count Result 179 k/mm3 (150-375); Red Blood Count 4.77 M/mm3 (4.2-5.4); White Blood Count 7.9 K/mm3 (4.5-10.0)
[2025-02-06 14:01] LABS: Anion Gap 2 mmol/L (4-12); Blood Urea Nitrogen 7 mg/dL (7-17); Calcium 9.2 mg/dL (8.4-10.2); Carbon Dioxide 27 mmol/L (22-30); Chloride 108 mmol/L (98-107); Estimated Glomerular Filt Rate > 60; Glucose 82 mg/dL (65-110); Potassium 4.1 mmol/L (3.4-5.0); Sodium 137 mmol/L (137-145)
[2025-02-06 14:09] LABS: Iron 54 ug/dL (37-170)
[2025-02-06 14:19] LABS: Percent Iron Saturation 13 % (20-50)
[2025-02-06 14:51] LABS: Ferritin 12.60 ng/mL (6.24-137)
[2025-02-06 15:12] LABS: Vitamin B12 210.0 pg/mL (239-931)
== END 2025-02-06 12:35 | disposition home or self-care (01) ==
LOC: ANHLAB 12:35
PROVIDERS: PCP Physician Assistant Medical; Visit Provider Internal Medicine Hematology & Oncology
DX: D64.9 Anemia, unspecified (principal)
CPT/HCPCS: 36415; 80048; 82607; 82728; 82746; 83540; 83550; 85025

== ENCOUNTER 2025-02-15 12:46 | Emergency (ER) | payer BC, SELFPAY ==
[2025-02-15 12:59] VITALS: BP 113/80; PULSE 96; RESP 16; TEMP 36.8; O2SAT 100
--- NOTE | 2025-02-15 13:04 | ED.GENADULT ---
HPI - General Adult General Chief complaint: Extremity Injury, Lower Stated complaint: Belly Button Bleeding Source: patient Mode of arrival: ambulatory Limitations: no limitations History of Present Illness HPI narrative: Pt is a 39 y/o female presenting with c/o atraumatic bleeding from umbilicus. Reports bleeding began in October 2024, became worse today. Has been applying mupirocin ointment. No constitutional sx. No additional complaints. Related Data Home Medications ?Medication ?Instructions ?Recorded ?Confirmed ?Last Taken ?Type fexofenadine 180 mg tablet 180 mg PO .DEISY 07/14/23 02/15/25 Unknown History (Sarai Allergy) liothyronine 5 mcg tablet 5 mcg PO .NOON 07/14/23 02/15/25 Unknown History Pre/probiotic for vaginal health BYMOUTH DAILY 09/17/23 12/27/24 Unknown History pre/probiotic for urinary health BYMOUTH DAILY 09/17/23 12/27/24 Unknown History cholecalciferol (vitamin D3) 50 50 mcg PO DAILY 08/01/24 02/15/25 Unknown History mcg (2,000 unit) tablet cranberry extract 500 mg capsule 500 mg PO DAILY 08/01/24 02/15/25 Unknown History folic acid 1 mg tablet 1 mg PO DAILY 08/01/24 02/15/25 Unknown History ipratropium 0.5 mg-albuterol 3 mg 3 ml inhalation Q6H PRN shortness 08/01/24 02/15/25 Unknown History (2.5 mg base)/3 mL nebulization of breath soln rivaroxaban 20 mg tablet 20 mg PO DAILY 08/01/24 02/15/25 Unknown History ferrous sulfate 325 mg (65 mg 325 mg PO BID 09/16/24 02/15/25 Unknown History iron) tablet,delayed release secukinumab 300 mg/2 mL 300 mg subcut MONTHLY 10/13/24 02/15/25 Unknown History subcutaneous pen injector (Cosentyx UnoReady Pen) clindamycin 1.2 % (1 % 1 applic topical QPM 02/15/25 02/15/25 Unknown History base)-benzoyl peroxide 5 % topical gel clotrimazole-betamethasone 1 1 applic topical .2 x weekly 02/15/25 02/15/25 Unknown History %-0.05 % topical cream levothyroxine 200 mcg tablet 200 mcg PO DAILY 02/15/25 02/15/25 Unknown History (Levo-T) tirzepatide 5 mg/0.5 mL 2.5 mg subcut WEEKLY prescribed by 02/15/25 02/15/25 Unknown History subcutaneous pen injector Dr. Rosalio Daniels Allergies Allergy/AdvReac Type Severity Reaction Status Date / Time jack flavor Allergy Severe TONGUE AND Verified 02/15/25 13:01 THROAT SWELLING clindamycin Allergy Severe Swelling Verified 02/15/25 13:01 of Lip/Tongue/Throat pseudoephedrine Allergy Severe HIVES Verified 02/15/25 13:01 amoxicillin Allergy Intermediate Rash Verified 02/15/25 13:01 Sulfa (Sulfonamide Allergy Intermediate Rash Verified 02/15/25 13:01 Antibiotics) cefdinir AdvReac Severe SEVERE Verified 02/15/25 13:01 DIARRHEA/STOMACH PAIN adhesive tape AdvReac Intermediate Rash Verified 02/15/25 13:01 amitriptyline AdvReac Mild Over Verified 02/15/25 13:01 sedation,unable to urinate cephalexin AdvReac Mild NAUSEA, Verified 02/15/25 13:01 DIARRHEA ciprofloxacin AdvReac Mild RASH Verified 02/15/25 13:01 doxycycline AdvReac Mild NAUSEA/DIAR Verified 02/15/25 13:01 BEN levofloxacin AdvReac Mild RASH Verified 02/15/25 13:01 metformin AdvReac Mild constipatio Verified 02/15/25 13:01 n Penicillins AdvReac Mild VOMITING Verified 02/15/25 13:01 omeprazole AdvReac ok with Verified 02/15/25 13:01 20mg but BID dosing cause stomach to hurt Oral contraceptive pills AdvReac Intermediate Other Uncoded 12/27/24 11:07 Review of Systems Review of Systems: CONSTITUTIONAL: Denies body aches, fever, chills, or sweats. EYES: Denies visual changes, redness, or discharge. ENT: Denies rhinorrhea, congestion, sore throat, or otalgia. CARDIOVASCULAR: Denies chest pain, palpitations, or edema. RESPIRATORY: Denies cough or dyspnea. GASTROINTESTINAL: Denies abdominal pain, nausea, vomiting, or diarrhea. GENITOURINARY: Denies dysuria or hematuria. SKIN: reports bleeding from umbilicus. Denies rash, itching, or wounds. MUSCULOSKELETAL: Denies back pain, joint pain, or myalgia. NEUROLOGIC: Denies headache, numbness, tingling, or weakness. PSYCH: Denies depression or anxiety. All systems reviewed & are unremarkable except as noted in HPI and below [facility] Past Medical History Medical History (Updated 02/15/25 @ 13:22 by Byron Moses APRN) Folate deficiency Vitamin D deficiency Hypomagnesemia Lipedema of lower extremity DUB (dysfunctional uterine bleeding) Dr. Curran Episodic migraine Polycystic ovarian syndrome Volume overload Iron deficiency Anemia Iron-deficiency, B12 deficiency JACKLYN (obstructive sleep apnea) CHF (congestive heart failure) Hyperinsulinemia Dr. Santamaria Hypertriglyceridemia Dyslipidemia At increased risk for cardiovascular disease Gastritis Diagnosed on EGD Migraine Lymphedema Bilateral lower extremities +/- lower abdomen Chronic anticoagulation Hypothyroidism Dr. Santamaria Deep venous thrombosis Morbid obesity Gastroesophageal reflux disease History of recurrent UTIs Vitamin B12 deficiency Metabolic syndrome MTHFR gene mutation Factor V Leiden Asthma Hypertension Surgical History Surgical History History of nephrolithotomy with removal of calculi Family History Family History Grandparent Hypertension Family history of congestive heart failure Family history of hearing loss Father Family history of diabetes mellitus in first degree relative Social History Social History (Updated 10/14/24 @ 14:22 by Earl Loyd) Social History: 10/13/24 Very confident with medical forms. Surrogate medical decision maker: Sofia Gary, mother. Code status: Full code. Smoking packs per day: 0.5 Smoking cigarettes per day: 10.0 Years smoked: 16 Smoking pack-years: 8.00 Smoking status: Current every day smoker Tobacco type: cigarettes Second hand tobacco smoke exposure: Yes Alcohol intake: never Alcohol use details: rarely - once or twice maybe a year Substance use: never Substance use type: does not use Lack of Transportation: No Lack of Food: Never True Current Housing: I Have Housing Concerned About Future Housing: No Difficulty Paying Gas/Electric Bills: No Difficulty Paying for Meds: YES Currently Unemployed: No Education: High School Diploma/GED Difficulty w/ Childcare or Family Care: No Living arrangements: with family Occupation/Education: occupation Spiritual care concerns: No Exam Narrative: GENERAL: Morbidly obese, nontoxic, in no acute distress. HEAD: Normocephalic, atraumatic. EYES: EOMI. No redness or drainage. Conjunctivae normal. ENT: Mucous membranes pink and moist. NECK: Normal AROM. Supple. CHEST: No respiratory distress. HEART: Regular rate ABDOMEN: Soft, morbidly obese, nontender, nondistended, normal active bowel sounds. MUSCULOSKELETAL: No bony tenderness. EXTREMITIES: Normal range of motion. SKIN: Warm, dry, no rash. Capillary refill normal. Normal skin turgor. umbilicus is without obvious discharge, erythema, edema NEURO: No focal deficits. Alert and oriented x3. Gait steady. PSYCH: Normal affect. No signs of depression or anxiety. Course Course Level of Care: Express Care Visit Vital Signs Vital signs: Vital Signs Temperature 98.3 F 02/15/25 12:59 Pulse Rate 96 02/15/25 12:59 Respiratory Rate 16 02/15/25 12:59 Blood Pressure 113/80 02/15/25 12:59 Pulse Oximetry 100 02/15/25 12:59 Temperature 98.3 F 02/15/25 12:59 Pulse Rate 96 02/15/25 12:59 Respiratory Rate 16 02/15/25 12:59 Blood Pressure 113/80 02/15/25 12:59 Pulse Oximetry 100 02/15/25 12:59 [facility] Narrative Medical decision making narrative: Pt is a morbidly obese female presenting with c/o atraumatic bleeding from umbilicus since Oct 2024, became worse today. No visible erythema, edema, drainage on exam today however, exam is limited due to size as I am not able to fully visualize the entire umbilicus. Will cover for potential bacterial etiology, close f/u with PCP. Pt has a long list of drug 'allergies'--many of which are known side effects. Has taken Bactrim before--said she tolerates it fine as long as she takes a benadryl. Differential Diagnosis Differential Diagnosis: abd wall abscess, abd wall cellulitis, panniculitis, abrasion Medical Records I have reviewed the following patient records and this information was taken into consideration when formulating the assessment and plan.: previous ER visits and previous clinic visits Discharge Plan Discharge Clinical Impression: Umbilical bleeding Patient Disposition: Home Condition: Stable Instructions: Antibiotic Form Additional Instructions: Go straight to ER should your symptoms become worse or should any new symptoms develop Patient Language: Sami Prescriptions: New sulfamethoxazole-trimethoprim [Bactrim DS] 800-160 mg tablet 1 tablet PO Q12H 5 Days Qty: 10 0RF mupirocin [Centany] 2 % ointment 1 applic topical TID Qty: 22 0RF No Action levothyroxine [Levo-T] 200 mcg tablet 200 mcg PO DAILY Rx Instructions: ENDO tirzepatide 5 mg/0.5 mL pen injector 2.5 mg subcut WEEKLY Rx Instructions: ENDO clotrimazole-betamethasone 1-0.05 % cream 1 applic TOPICAL .2 x weekly clindamycin-benzoyl peroxide 1.2 %(1 % base) -5 % gel 1 applic TOPICAL QPM Pre/probiotic for vaginal health BYMOUTH DAILY pre/probiotic for urinary health BYMOUTH DAILY nitrofurantoin monohyd/m-cryst [Macrobid] 100 mg capsule 100 mg PO Q12H PRN (Reason: UTI - filled by Urology ) Qty: 20 0RF Rx Instructions: must administer with a meal/food ondansetron 4 mg tablet,disintegrating 4 mg PO Q8H PRN (Reason: nausea and vomiting) Qty: 30 0RF cholecalciferol (vitamin D3) 50 mcg (2,000 unit) tablet 50 mcg PO DAILY folic acid 1 mg tablet 1 mg PO DAILY cranberry extract 500 mg capsule 500 mg PO DAILY Rx Instructions: administer with meals ipratropium-albuterol 0.5 mg-3 mg(2.5 mg base)/3 mL solution for nebulization 3 ml inhalation Q6H PRN (Reason: shortness of breath) rivaroxaban 20 mg tablet 20 mg PO DAILY Rx Instructions: must administer with evening meal baclofen 10 mg tablet 10 mg PO TID PRN (Reason: muscle spasm) Qty: 30 5RF (DME) BD Tuberculin Syringe 1 mL 25 gauge x 5/8 syringe See Rx Instructions .ROUTE .COMPLEX Qty: 12 1RF Dose Instruction: USE EVERY WEEK FOR VITAMIN B12 SHOTS Rx Instructions: USE EVERY WEEK FOR VITAMIN B12 SHOTS ferrous sulfate 325 mg (65 mg iron) tablet,delayed release (DR/EC) 325 mg PO BID Patient Comments: started during hospitalization at [facility] 07/12-07/22/24 Cosentyx UnoReady Pen 300 mg/2 mL pen injector 300 mg subcut MONTHLY [facility] ODT 75 mg tablet,disintegrating 75 mg PO .q 2 days PRN (Reason: acute migraine headache ) Qty: 18 5RF liothyronine 5 mcg tablet 5 mcg PO .NOON fexofenadine [Sarai Allergy] 180 mg Tablet 180 mg PO .DEISY magnesium oxide 400 mg magnesium tablet 400 mg PO DAILY Qty: 90 1RF esomeprazole magnesium [Nexium] 40 mg capsule,delayed release(DR/EC) 40 mg PO DAILY Qty: 90 1RF ergocalciferol (vitamin D2) 1,250 mcg (50,000 unit) capsule 50,000 unit PO WEEKLY Qty: 12 1RF cyanocobalamin (vitamin B-12) 1,000 mcg/mL solution 1,000 mcg subcut WEEKLY Qty: 12 0RF Rx Instructions: thursday olmesartan 20 mg tablet 20 mg PO DAILY PRN (Reason: BP > 130/80) Qty: 90 0RF Rx Instructions: taking daily as of 10/17/2024 tamsulosin [Flomax] 0.4 mg capsule 0.4 mg PO DAILY Qty: 90 0RF topiramate 50 mg tablet 50 mg PO .DEISY Qty: 90 0RF topiramate 25 mg tablet 25 mg PO DAILY Qty: 90 0RF fluticasone furoate-vilanterol [Breo Ellipta] 200-25 mcg/dose blister with device 1 inh inhalation DAILY Qty: 60 1RF varenicline tartrate 1 mg tablet 1 mg PO BID Qty: 60 2RF Airsupra 90-80 mcg/actuation HFA aerosol inhaler 2 inh inhalation .every 6 hours PRN (Reason: shortness of breath) Qty: 32.1 0RF Patient Comments: Rinse mouth after use. pregabalin 50 mg capsule 50 mg PO Q12H Qty: 60 2RF mupirocin 2 % ointment 1 applic topical BID Qty: 15 0RF albuterol sulfate [Ventolin HFA] 90 mcg/actuation HFA aerosol inhaler 2 puff INHALATION Q4-6H PRN (Reason: shortness of breath or wheezing) Qty: 6.7 1RF ubrogepant 100 mg tablet 100 mg PO ONCE Qty: 10 2RF Rx Instructions: as a single dose; may repeat once in >=2 hours after first dose if needed tramadol 50 mg tablet 50 mg PO DAILY PRN (Reason: pain) Qty: 30 0RF Follow-up/Referrals: Aviva Jaimes PA-C [Primary Care Provider, Family Practice]
== END 2025-02-15 13:38 | disposition home or self-care (01) ==
PROVIDERS: Emergency Provider Registered Nurse; PCP Physician Assistant Medical
DX: R19.8 Other specified symptoms and signs involving the digestive system and abdomen (principal); E28.2 Polycystic ovarian syndrome; I11.0 Hypertensive heart disease with heart failure; I50.9 Heart failure, unspecified; E55.9 Vitamin D deficiency, unspecified; D51.9 Vitamin B12 deficiency anemia, unspecified; E78.1 Pure hyperglyceridemia; E78.5 Hyperlipidemia, unspecified; E03.9 Hypothyroidism, unspecified; K21.9 Gastro-esophageal reflux disease without esophagitis; E72.12 Methylenetetrahydrofolate reductase deficiency; E66.01 Morbid (severe) obesity due to excess calories; Z68.45 Body mass index [BMI] 70 or greater, adult; D68.51 Activated protein C resistance; J45.909 Unspecified asthma, uncomplicated; Z86.718 Personal history of other venous thrombosis and embolism
CPT/HCPCS: 99213; G0463